=== PATIENT | female | born 1945 | race Caucasian/White ===

== ENCOUNTER 2023-02-15 19:52 | Inpatient (IN) | payer MEDICARE, SELFPAY ==
[2023-02-15] VITALS (20 sets, daily range): BP systolic 90–126; BP diastolic 56–60; PULSE 61–89; RESP 14–34; TEMP 36.3–39.4; O2SAT 90–97; BMI 35.9; BMI 38.5
--- NOTE | 2023-02-15 20:10 | ECG_ITS ---
[facility] Test Date: 2023-02-15 Pat Name: Kellie Barker Department: Room: - Gender: Female Seat Maker: : 1945 Requested By: YAIR SERRATO Order Number: [id number] Reading MD: SENA APARICIO Measurements Intervals [place] Rate: 74 P: 90 RI: 232 QRS: -7 QRSD: 92 T: 18 QT: 344 QTc: 372 Interpretive Statements 1100 Sinus rhythm 2231 First degree AV block 5211 Minimal voltage criteria for LVH, may be normal variant 0102 ARTIFACT PRESENT 9150 abnormal ECG No previous ECG available for comparison Electronically Signed On 02-16-2023 7:09:58 EDT by SENA APARICIO
--- NOTE | 2023-02-15 20:12 | XR_ITS ---
The [address] [address] Patient Name: AYLIN RUBIO MRN: [id number] date: 1945 Sex: F Assigned Patient Location: ER Current Patient Location: ER Accession/Order Number: [id number] Exam Date: 02/15/2023 21:03 Report Date: 02/15/2023 21:48 At the request of: ALVIN TAYLOR Procedure: XR chest 1V ONE-VIEW CHEST RADIOGRAPH, 02/15/2023 9:03 PM EDT COMPARISON: None. CLINICAL HISTORY: Altered mental status Findings and impression: 1. Large hiatus hernia causing some compressive atelectasis in medial basal segment left lower lobe. Lungs otherwise clear. 2. Cardiomegaly. 3. Prior left axillary node dissection. 4. No acute osseous abnormality. Electronically authenticated by: Kit BALDERRAMA Date: 02/15/2023 21:48
--- NOTE | 2023-02-15 20:12 | CT_ITS ---
The [address] [address] Patient Name: AYLIN RUBIO MRN: [id number] date: 1945 Sex: F Assigned Patient Location: ER Current Patient Location: ER Accession/Order Number: [id number] Exam Date: 02/15/2023 21:03 Report Date: 02/15/2023 21:55 At the request of: ALVIN TAYLOR Procedure: CT cervical spine wo con HISTORY: Fall COMPARISON: None TECHNIQUE: Noncontrast CT of the cervical spine was obtained. Sagittal and coronal reformats were obtained. FINDINGS: There is reversal of the normal cervical lordosis of the cervical spine. Vertebral body heights are well maintained. Loss of intervertebral disc space at multiple levels. There is no fracture or subluxation. Moderate endplate degenerative changes throughout the cervical spine. Prevertebral soft tissues are within normal limits. C2-C3: No osseous central canal or foraminal narrowing. C3-C4: Mild osseous central canal narrowing. Moderate left osseous foraminal narrowing. Mild right osseous foraminal narrowing. C4-C5: Mild osseous central canal narrowing. Severe bilateral osseous foraminal narrowing. C5-C6: Mild osseous central canal narrowing. Severe left osseous foraminal narrowing. Moderate right osseous foraminal narrowing. C6-C7: Mild osseous central canal narrowing. Moderate bilateral osseous foraminal narrowing. 6 mm calcification along the inner table of the calvarium, adjacent to the left mastoid air cells. Paravertebral soft tissues are unremarkable. CT/CT cervical spine wo con IMPRESSION: No fracture or subluxation to the cervical spine. Moderate degenerative disc disease of the cervical spine with various degrees of osseous central canal and foraminal narrowing as described above. Electronically authenticated by: MANISH JEFFERSON Date: 02/15/2023 21:55
--- NOTE | 2023-02-15 20:12 | XR_ITS ---
The [address] [address] Patient Name: AYLIN RUBIO MRN: [id number] date: 1945 Sex: F Assigned Patient Location: ER Current Patient Location: ER Accession/Order Number: [id number] Exam Date: 02/15/2023 21:03 Report Date: 02/15/2023 21:47 At the request of: ALVIN TAYLOR Procedure: XR pelvis 1-2V EXAM: XR pelvis 1-2V HISTORY: fall COMPARISON: None. TECHNIQUE: Single supine view of the pelvis FINDINGS: No obvious acute displaced fracture seen. Joint alignment is normal. Joint spaces are preserved. Large volume of stool seen in the visualized colon. Fusion device is seen projecting over the visualized lower lumbar spine. XR/XR pelvis 1-2V IMPRESSION: No obvious radiographic evidence for acute displaced fracture or malalignment seen on this single supine view of the pelvis. Electronically authenticated by: PRECIOUS OLMOS Date: 02/15/2023 21:47
--- NOTE | 2023-02-15 20:12 | CT_ITS ---
The [address] [address] Patient Name: AYLIN RUBIO MRN: [id number] date: 1945 Sex: F Assigned Patient Location: ER Current Patient Location: .MAIN Accession/Order Number: [id number] Exam Date: 02/15/2023 21:03 Report Date: 02/15/2023 21:46 At the request of: ALVIN TAYLOR Procedure: CT head/brain wo con Indication: 77 years year old Female referred for altered mental status Comparison: None Technique: Noncontrast CT of the head was performed. Sagittal and coronal planes were obtained. Findings: The ventricles, cerebral sulci, and basal cisterns are normal for the patient's age. There is no shift in midline structures or focal mass effect. There is no acute transcortical infarction or intraparenchymal hemorrhage. There is no extra-axial fluid collection. There are regions of hypoattenuation within the periventricular white matter, consistent with chronic microvascular ischemic change. Mild mucosal thickening to the maxillary sinuses and anterior ethmoid air cells. There is no depressed calvarial fracture. The orbits are normal. Soft tissues are within normal limits. CT/CT head/brain wo con Impression: No acute intracranial findings. Electronically authenticated by: MANISH JEFFERSON Date: 02/15/2023 21:46
--- NOTE | 2023-02-15 20:14 | ED.GENADUL1 ---
Documented by User: RAAD Kaplan 02/15/23 21:48 HPI - General Adult General Chief complaint: Weakness Stated complaint: GENERAL WEAKNESS Time Seen by Provider: 02/15/23 20:00 Source: family Mode of arrival: Wheelchair History of Present Illness HPI narrative: Patient is a 77-year-old female brought to the emergency department by her granddaughter for increasing altered mental status, weakness. Granddaughter is the primary historian is the patient states she does not know why she is here in the emergency department. Over the last two days, she has had multiple falls and was found by another family member on the bathroom floor yesterday. She does not take blood thinners. She was not noted to have any obvious injury, at this time patient is disoriented to place, time. Patient denies any pain, nausea. She has had no recent illness. She was not noted to have any slurred speech or focal neuro deficits. Related Data Allergies Allergy/AdvReac Type Severity Reaction Status Date / Time No Known Drug Allergies Allergy Verified 02/15/23 20:02 Review of Systems ROS Constitutional Denies: fever or chills Ears, nose, mouth, and throat Denies: throat pain or neck pain Cardiovascular Denies: chest pain Respiratory Denies: shortness of breath or cough Gastrointestinal Denies: nausea or vomiting Musculoskeletal Denies: back pain or neck pain Integumentary/Breast Denies: rash Hematologic/Lymphatic Denies: easy bruising [facility] Social History Smoking status: Never smoker Exam Narrative Exam Narrative: Gen.: Awake, alert, in no distress Head: Normocephalic, atraumatic ENT: Moist mucous membranes, no obvious facial or dental injury Respiratory: No respiratory distress, lungs clear bilaterally Cardio: Regular rate and rhythm Gastrointestinal: Abdomen is soft, nondistended and nontender to palpation, hips are nontender and pelvis stable Extremities: Moves extremities equally, no injuries noted Psych: Normal mood and affect Neuro: Disoriented to place, time. Speech is clear. Patient was all extremities equally, normal dorsiflexion and plantarflexion, normal hip flexion bilaterally. No weakness of the upper extremities. No facial drooping or dysarthria noted. Skin: Warm, dry, intact Constitutional Vital Signs, click to edit/add: Last Vital Signs Temp 102.9 F H 02/15/23 20:33 Pulse 61 02/15/23 22:31 Resp 23 02/15/23 22:31 BP 94/60 02/15/23 22:31 Pulse Ox 97 02/15/23 22:31 O2 Del Method Room Air 02/15/23 19:55 Course Vital Signs Vital signs: Vital Signs Temperature 99.1 F 02/15/23 19:55 Pulse Rate 89 02/15/23 19:55 Respiratory Rate 16 02/15/23 19:55 Blood Pressure 126/56 02/15/23 19:55 Pulse Oximetry 90 L 02/15/23 19:55 Oxygen Delivery Method Room Air 02/15/23 19:55 Temperature 102.9 F H 02/15/23 20:33 Pulse Rate 61 02/15/23 22:31 Respiratory Rate 23 02/15/23 22:31 Blood Pressure 94/60 02/15/23 22:31 Pulse Oximetry 97 02/15/23 22:31 Oxygen Delivery Method Room Air 02/15/23 19:55 Medical Decision Making MDM Narrative Medical decision making narrative: Patient was found to have a rectal temperature 102.9 Fahrenheit. She was treated with IV fluids, oral Tylenol which she tolerated. She was sent for CT of the brain and C-spine due to altered mental status and falls. Lab studies including ammonia, blood cultures were obtained. Urine specimen with no evidence of urinary tract infection at this time. A respiratory panel was added for the patient. Patient also had x-rays of the chest and pelvis. Rocephin added for empiric antibiotic coverage. 2145: Case is turned over to attending physician to review the remainder of diagnostic results and imaging and for disposition. Anticipate admission. Medical Records Medical records reviewed: Yes I reviewed the patient's medical records Lab Data Lab results reviewed: Yes I reviewed the patient's lab results Labs: Lab Results 02/15/23 02/15/23 02/15/23 Range/Units 20:20 20:25 20:45 WBC 18.6 H (4.0-11.0) 10^3/uL RBC 4.28 (4.20-5.40) 10^6/uL Hgb 12.3 (12.0-16.0) g/dL Hct 38.4 (36.0-48.0) % MCV 89.7 (81.0-99.0) fL MCH 28.7 (26.7-34.0) pg MCHC 32.0 (29.9-35.2) g/dL RDW 14.0 (11.0-15.0) % Plt Count 253 (150-450) 10^3/uL MPV 10.4 (9.5-13.5) fL Neut % (Auto) 91.1 H (43.0-75.0) % Lymph % (Auto) 3.6 L (20.5-60.0) % [place] % (Auto) 3.8 (1.7-12.0) % Eos % (Auto) 0.9 (0.9-7.0) % Baso % (Auto) 0.2 (0.2-2.0) % Neut # (Auto) 17.0 H (1.4-6.5) 10^3/uL Lymph # (Auto) 0.7 L (1.2-3.8) 10^3/uL [place] # (Auto) 0.7 (0.3-0.8) 10^3/uL Eos # (Auto) 0.2 (0.0-0.7) 10^3/uL Baso # (Auto) 0.0 (0.0-0.1) 10^3/uL Abs Immat Gran (auto) 0.07 H (0.00-0.03) 10^3/uL Imm/Tot Granulo (auto) 0.4 (0.0-0.5) % PT 10.4 (9.0-11.6) sec INR 0.98 VBG pH 7.457 H (7.330-7.430) VBG pCO2 42.6 (40.0-52.0) mmHg Sodium 131 L (136-145) mmol/L Potassium 3.7 (3.5-5.1) mmol/L Chloride 98 (98-107) mmol/L Carbon Dioxide 27.7 (21.0-32.0) mmol/L Anion Gap 9.0 BUN 24.0 H (7.0-18.0) mg/dL Creatinine 1.57 H (0.55-1.02) mg/dL Est GFR ( Amer) 39 L (>=60) Est GFR (Non-Af Amer) 32 L (>=60) BUN/Creatinine Ratio 15.3 Glucose 208 H (74-106) mg/dL Lactate 1.4 (0.4-2.0) mmol/L Calcium 10.6 H (8.5-10.1) mg/dL Total Bilirubin 0.6 (0.2-1.0) mg/dL AST 18 (15-37) U/L ALT 21 (14-59) U/L Alkaline Phosphatase 93 (46-116) U/L Ammonia 24 (11-32) umol/L Total Creatine Kinase 50 (26-192) U/L Troponin I High Sens 23.5 (4.0-51.3) pg/mL Total Protein 7.5 (6.4-8.2) g/dL Albumin 3.2 L (3.4-5.0) g/dL Globulin 4.3 g/dL Albumin/Globulin Ratio 0.7 TSH 1.067 (0.358-3.740) uIU/mL Urine Color Yellow (YELLOW) Urine Clarity Clear (CLEAR) Urine pH 6.0 (5.0-9.0) Ur Specific [place] 1.020 (1.005-1.025) Urine Protein Negative (NEG/TRACE) mg/dL Urine Glucose (UA) Negative (NEGATIVE) mg/dL Urine Ketones Negative (NEGATIVE) mg/dL Urine Occult Blood Small A (NEGATIVE) Urine Nitrite Negative (NEGATIVE) Urine Bilirubin Negative (NEGATIVE) Urine Urobilinogen 0.2 (0.2-1.0) EU/dL Ur Leukocyte Esterase Negative (NEGATIVE) Urine RBC 10-20 A (0-2) #/HPF Urine WBC 0-2 A (NONE SEEN) #/HPF Ur Squamous Epith Cells Few A (NONE/RARE) #/LPF Urine Crystals Seen A (None Seen) #/HPF Amorphous Sediment Few Urine Bacteria Trace A (NONE SEEN) #/HPF Urine Casts None seen (NONE SEEN) #/LPF Urine Mucus None seen (NONE SEEN) Ur Culture Indicated? No POC Glucose 193 H (74-106) mg/dL Imaging Data CT scan - head: Attestation: I have reviewed the pertinent imaging results. Chest x-ray: Attestation: I have reviewed the pertinent imaging results. Radiologist's impression: AYLIN RUBIO MRN: [facility]:[id number] date: 1945 Sex: F Assigned Patient Location: ER Current Patient Location: ER Accession/Order Number: [id number] Exam Date: 02/15/2023 21:03 Report Date: 02/15/2023 21:41 At the request of: ALVIN TAYLOR Procedure: XR chest 1V Initial impression only. Findings and impression: 1. Large hiatus hernia causing some compressive atelectasis in medial basal segment left lower lobe. Lungs otherwise clear. 2. Cardiomegaly. 3. Prior left axillary node dissection. 4. No acute osseous abnormality. Electronically authenticated by: Kit BALDERRAMA Date: 02/15/2023 21:41 ECG Data Attestation: I personally reviewed and interpreted this ECG as follows: (Normal sinus rhythm at a rate of seventy-four, moderate artifact noted with no acute obvious ST elevation or ectopy. EKG reviewed by attending physician) Discharge Plan Discharge Chief Complaint: Weakness Clinical Impression: Fever, Generalized weakness, Acute confusion Patient Disposition: Admitted as Observation Time of Disposition Decision: 22:45 Condition: Good Documented by User: Nuzhat Weber MD 02/15/23 22:46 HPI - General Adult General Chief complaint: Weakness Stated complaint: GENERAL WEAKNESS Time Seen by Provider: 02/15/23 20:00 Related Data Allergies Allergy/AdvReac Type Severity Reaction Status Date / Time No Known Drug Allergies Allergy Verified 02/15/23 20:02 [facility] Social History Smoking status: Never smoker Exam Constitutional Vital Signs, click to edit/add: Last Vital Signs Temp 102.9 F H 02/15/23 20:33 Pulse 61 02/15/23 22:31 Resp 23 02/15/23 22:31 BP 94/60 02/15/23 22:31 Pulse Ox 97 02/15/23 22:31 O2 Del Method Room Air 02/15/23 19:55 Course Vital Signs Vital signs: Vital Signs Temperature 99.1 F 02/15/23 19:55 Pulse Rate 89 02/15/23 19:55 Respiratory Rate 16 02/15/23 19:55 Blood Pressure 126/56 02/15/23 19:55 Pulse Oximetry 90 L 02/15/23 19:55 Oxygen Delivery Method Room Air 02/15/23 19:55 Temperature 102.9 F H 02/15/23 20:33 Pulse Rate 61 02/15/23 22:31 Respiratory Rate 23 02/15/23 22:31 Blood Pressure 94/60 02/15/23 22:31 Pulse Oximetry 97 02/15/23 22:31 Oxygen Delivery Method Room Air 02/15/23 19:55 Medical Decision Making MDM Narrative Medical decision making narrative: Patient was found to have a rectal temperature 102.9 Fahrenheit. She was treated with IV fluids, oral Tylenol which she tolerated. She was sent for CT of the brain and C-spine due to altered mental status and falls. Lab studies including ammonia, blood cultures were obtained. Urine specimen with no evidence of urinary tract infection at this time. A respiratory panel was added for the patient. Patient also had x-rays of the chest and pelvis. Rocephin added for empiric antibiotic coverage. 2145: Case is turned over to attending physician to review the remainder of diagnostic results and imaging and for disposition. Anticipate admission. Dr Weber : The patient respiratory panel was negative her CT head as well as CT cervical spine x-ray of the pelvis and x-ray of the chest showed no acute pathology The patient presented to us with leukocytosis fever and multiple falls urine does show some bacteria but there is no other signs of infection pt case discussed with Dr. Samayoa and will be admitted as Observation under Dr Ugalde Lab Data Labs: Lab Results 02/15/23 02/15/23 02/15/23 Range/Units 20:20 20:25 20:45 WBC 18.6 H (4.0-11.0) 10^3/uL RBC 4.28 (4.20-5.40) 10^6/uL Hgb 12.3 (12.0-16.0) g/dL Hct 38.4 (36.0-48.0) % MCV 89.7 (81.0-99.0) fL MCH 28.7 (26.7-34.0) pg MCHC 32.0 (29.9-35.2) g/dL RDW 14.0 (11.0-15.0) % Plt Count 253 (150-450) 10^3/uL MPV 10.4 (9.5-13.5) fL Neut % (Auto) 91.1 H (43.0-75.0) % Lymph % (Auto) 3.6 L (20.5-60.0) % [place] % (Auto) 3.8 (1.7-12.0) % Eos % (Auto) 0.9 (0.9-7.0) % Baso % (Auto) 0.2 (0.2-2.0) % Neut # (Auto) 17.0 H (1.4-6.5) 10^3/uL Lymph # (Auto) 0.7 L (1.2-3.8) 10^3/uL [place] # (Auto) 0.7 (0.3-0.8) 10^3/uL Eos # (Auto) 0.2 (0.0-0.7) 10^3/uL Baso # (Auto) 0.0 (0.0-0.1) 10^3/uL Abs Immat Gran (auto) 0.07 H (0.00-0.03) 10^3/uL Imm/Tot Granulo (auto) 0.4 (0.0-0.5) % PT 10.4 (9.0-11.6) sec INR 0.98 VBG pH 7.457 H (7.330-7.430) VBG pCO2 42.6 (40.0-52.0) mmHg Sodium 131 L (136-145) mmol/L Potassium 3.7 (3.5-5.1) mmol/L Chloride 98 (98-107) mmol/L Carbon Dioxide 27.7 (21.0-32.0) mmol/L Anion Gap 9.0 BUN 24.0 H (7.0-18.0) mg/dL Creatinine 1.57 H (0.55-1.02) mg/dL Est GFR ( Amer) 39 L (>=60) Est GFR (Non-Af Amer) 32 L (>=60) BUN/Creatinine Ratio 15.3 Glucose 208 H (74-106) mg/dL Lactate 1.4 (0.4-2.0) mmol/L Calcium 10.6 H (8.5-10.1) mg/dL Total Bilirubin 0.6 (0.2-1.0) mg/dL AST 18 (15-37) U/L ALT 21 (14-59) U/L Alkaline Phosphatase 93 (46-116) U/L Ammonia 24 (11-32) umol/L Total Creatine Kinase 50 (26-192) U/L Troponin I High Sens 23.5 (4.0-51.3) pg/mL Total Protein 7.5 (6.4-8.2) g/dL Albumin 3.2 L (3.4-5.0) g/dL Globulin 4.3 g/dL Albumin/Globulin Ratio 0.7 TSH 1.067 (0.358-3.740) uIU/mL Urine Color Yellow (YELLOW) Urine Clarity Clear (CLEAR) Urine pH 6.0 (5.0-9.0) Ur Specific [place] 1.020 (1.005-1.025) Urine Protein Negative (NEG/TRACE) mg/dL Urine Glucose (UA) Negative (NEGATIVE) mg/dL Urine Ketones Negative (NEGATIVE) mg/dL Urine Occult Blood Small A (NEGATIVE) Urine Nitrite Negative (NEGATIVE) Urine Bilirubin Negative (NEGATIVE) Urine Urobilinogen 0.2 (0.2-1.0) EU/dL Ur Leukocyte Esterase Negative (NEGATIVE) Urine RBC 10-20 A (0-2) #/HPF Urine WBC 0-2 A (NONE SEEN) #/HPF Ur Squamous Epith Cells Few A (NONE/RARE) #/LPF Urine Crystals Seen A (None Seen) #/HPF Amorphous Sediment Few Urine Bacteria Trace A (NONE SEEN) #/HPF Urine Casts None seen (NONE SEEN) #/LPF Urine Mucus None seen (NONE SEEN) Ur Culture Indicated? No POC Glucose 193 H (74-106) mg/dL Discharge Plan Discharge Chief Complaint: Weakness Clinical Impression: Fever, Generalized weakness, Acute confusion Patient Disposition: Admitted as Observation Time of Disposition Decision: 22:45 Condition: Good
[2023-02-15 20:32] LABS: Glucometer 193 mg/dL (74-106)
[2023-02-15 20:36] LABS: PCO2 VBG 42.6 mmHg (40.0-52.0); pH VBG 7.457 (7.330-7.430)
[2023-02-15 20:39] LABS: Basophils Percent Auto 0.2 % (0.2-2.0); Eosinophils Absolute Auto 0.2 10^3/uL (0.0-0.7); Eosinophils Percent Auto 0.9 % (0.9-7.0); Hematocrit 38.4 % (36.0-48.0); Hemoglobin 12.3 g/dL (12.0-16.0); Immature Granulocytes Abs Auto 0.07 10^3/uL (0.00-0.03); Immature Granulocytes Pct Auto 0.4 % (0.0-0.5); Lymphocytes Absolute Auto 0.7 10^3/uL (1.2-3.8); Lymphocytes Percent Auto 3.6 % (20.5-60.0); Mean Corpuscular Hemoglobin 28.7 pg (26.7-34.0); Mean Corpuscular Volume 89.7 fL (81.0-99.0); Mean Platelet Volume 10.4 fL (9.5-13.5); Monocytes Absolute Auto 0.7 10^3/uL (0.3-0.8); Monocytes Percent Auto 3.8 % (1.7-12.0); Neutrophils Percent Auto 91.1 % (43.0-75.0); Platelet Count 253 10^3/uL (150-450); Red Blood Count 4.28 10^6/uL (4.20-5.40); White Blood Count 18.6 10^3/uL (4.0-11.0)
[2023-02-15] MEDS: ACETAMINOPHEN 325 MG TABLET 650 MG PO (20:45)
[2023-02-15] MEDS: 0.9 % SODIUM CHLORIDE 1,000 ML 500 ML IV (20:47)
[2023-02-15 20:53] LABS: Ammonia 24 umol/L (11-32)
[2023-02-15 20:54] LABS: INR 0.98; Prothrombin Time 10.4 sec (9.0-11.6)
[2023-02-15 20:56] LABS: Creatine Kinase 50 U/L (26-192)
[2023-02-15 20:57] LABS: Bilirubin Urine NEGATIVE (NEGATIVE); Blood Urine SMALL (NEGATIVE); Clarity Urine CLEAR (CLEAR); Color Urine YELLOW (YELLOW); Glucose Urine UA NEGATIVE (NEGATIVE); Ketones Urine NEGATIVE (NEGATIVE); Leukocyte Esterase Urine NEGATIVE (NEGATIVE); Nitrite Urine NEGATIVE (NEGATIVE); Protein Urine NEGATIVE (NEG/TRACE); Urobilinogen Urine 0.2 EU/dL (0.2-1.0)
[2023-02-15 20:59] LABS: Lactate/Lactic Acid 1.4 mmol/L (0.4-2.0)
[2023-02-15 21:04] LABS: Urine Microscopic Indicated YES
[2023-02-15 21:07] LABS: Alanine Aminotransferase 21 U/L (14-59); Albumin Globulin Ratio 0.7; Albumin Level 3.2 g/dL (3.4-5.0); Alkaline Phosphatase 93 U/L (46-116); Aspartate Amino Transferase 18 U/L (15-37); BUN Creatinine Ratio 15.3; Bilirubin Total 0.6 mg/dL (0.2-1.0); Calcium 10.6 mg/dL (8.5-10.1); Carbon Dioxide 27.7 mmol/L (21.0-32.0); Chloride 98 mmol/L (98-107); Estimated GFR (African America 39 (>=60); Estimated GFR (Non-African Ame 32 (>=60); Globulin 4.3 g/dL; Glucose 208 mg/dL (74-106); Potassium 3.7 mmol/L (3.5-5.1); Sodium 131 mmol/L (136-145); Thyroid Stimulating Hormone 1.067 uIU/mL (0.358-3.740); Total Protein 7.5 g/dL (6.4-8.2); Troponin I High Sensitivity 23.5 pg/mL (4.0-51.3)
[2023-02-15 21:35] LABS: Bacteria Urine TRACE #/HPF (NONE SEEN); Crystals Seen? Seen #/HPF (None Seen); Mucus Urine NONE SEEN (NONE SEEN); Squamous Epithelial Cell Urine FEW #/LPF (NONE/RARE); WBC Urine 0-2 #/HPF (NONE SEEN)
[2023-02-15 21:35] LABS: Adenovirus NOT DETECTED (NOT DETECTE); Bordetella parapertussis NOT DETECTED (NOT DETECTE); Coronavirus 229E NOT DETECTED (NOT DETECTE); Coronavirus HKU1 NOT DETECTED (NOT DETECTE); Coronavirus NL63 NOT DETECTED (NOT DETECTE); Coronavirus OC43 NOT DETECTED (NOT DETECTE); Human Metapneumovirus NOT DETECTED (NOT DETECTE); Human Rhinovirus/Enterovirus NOT DETECTED (NOT DETECTE); Influenza A NOT DETECTED (NOT DETECTE); Influenza B NOT DETECTED (NOT DETECTE); Mycoplasma pneumoniae NOT DETECTED (NOT DETECTE); Parainfluenza Virus 1 NOT DETECTED (NOT DETECTE); Parainfluenza Virus 2 NOT DETECTED (NOT DETECTE); Parainfluenza Virus 3 NOT DETECTED (NOT DETECTE); Parainfluenza Virus 4 NOT DETECTED (NOT DETECTE); Respiratory Syncytial Virus NOT DETECTED (NOT DETECTE); SARS-CoV-2 NOT DETECTED (NOT DETECTE)
[2023-02-15 21:36] LABS: Amorphous Sediment Urine FEW; Cast Seen? NONE SEEN #/LPF (NONE SEEN); Urine Culture Indicated NO
[2023-02-15] MEDS: CEFTRIAXONE 1,000 MG in 0.9 % SODIUM CHLORIDE 50 ML 100 MG IV (21:57)
[2023-02-15] MEDS: 0.9 % SODIUM CHLORIDE 1,000 ML 1000 ML IV (22:53)
--- NOTE | 2023-02-15 23:51 | PC.NURSE ---
some small cuts and scabs on lower legs
[2023-02-16] VITALS (14 sets, daily range): BP systolic 80–131; BP diastolic 50–80; PULSE 56–78; RESP 18–22; TEMP 36.3–36.7; O2SAT 92–96
--- NOTE | 2023-02-16 00:40 | P.PN_ITS ---
Progress Note: Subjective Subjective Interval history: PT is a 77F with PMH of breast cancer, s/p mastectomy and PARAMJIT who presents to the ED with complaint of Fever, weakness, falls, and confusion at home. Her temperature was 102.9 in the ED. Pt was noted to be hypotensive, with elevated WBC and Creatinine. She states that she has had no exposure to sick contacts, no recent travel, no rashes, no night sweats or unintentional weight loss, no leg swelling or immobility, no cough, no chills, no dysuria, no abdominal or back pain, no hematuria. She denies being short of breath, but her daughter states that she does seem short of breath and per nurse at bedside she required 2L NC for Pulse ox of 88%. The patient does report urinary frequency, but states that this is a chronic issue due to longstanding incontinence. Exam Narrative Exam Narrative: GEn: NAD HEENT: NC/AT, PEERL Neck: FROM Cards: RRR, no murmur Pulm: CTA B/L. No wheezes or rhonchi GI: Nontender. Normoactive BS Musculoskeletal: No edema or cyanoiss Neuro: AAOx3 Psych: Calm, cooperative Constitutional Vital Signs, click to edit/add: Last Vital Signs Temp 97.4 F L 02/15/23 23:37 Pulse 62 02/15/23 23:37 Resp 18 02/15/23 23:37 BP 90/60 02/15/23 23:37 Pulse Ox 94 L 02/15/23 23:37 O2 Del Method Nasal Cannula 02/15/23 23:37 O2 Flow Rate 2 02/15/23 23:37 Progress Note: Objective Labs Labs: Short CBC 02/15/23 Range/Units 20:25 WBC 18.6 H (4.0-11.0) 10^3/uL Hgb 12.3 (12.0-16.0) g/dL Hct 38.4 (36.0-48.0) % Plt Count 253 (150-450) 10^3/uL BMP 02/15/23 20:25 Sodium 131 L Potassium 3.7 Chloride 98 Carbon Dioxide 27.7 BUN 24.0 H Creatinine 1.57 H Glucose 208 H Calcium 10.6 H Cardiac Enzymes 02/15/23 Range/Units 20:25 Total Creatine Kinase 50 (26-192) U/L Liver Function 02/15/23 Range/Units 20:25 Total Bilirubin 0.6 (0.2-1.0) mg/dL AST 18 (15-37) U/L ALT 21 (14-59) U/L Alkaline Phosphatase 93 (46-116) U/L Albumin 3.2 L (3.4-5.0) g/dL Urine 02/15/23 Range/Units 20:45 Urine Color Yellow (YELLOW) Urine Clarity Clear (CLEAR) Urine pH 6.0 (5.0-9.0) Ur Specific [place] 1.020 (1.005-1.025) Urine Protein Negative (NEG/TRACE) mg/dL Urine Glucose (UA) Negative (NEGATIVE) mg/dL Progress Note: A&P Assessment and Plan (1) SIRS (systemic inflammatory response syndrome): Assessment and Plan: Pt meets criteria for SIRS but no suspected source of infection UA with some bacteria, no LE or nitrites CXR negative Respiratory viral panel negative CTH negative Pt offers no specific complaint which would point to any infection Will place in observation Continue IV Fluid and empiric antibiotics Supplemental oxygen as needed DVT ppx Regular diet (2) Generalized weakness: (3) Fever: Telemedicine Attestation Telemedicine Attestation I conducted this encounter from [[place]] via secure live, [id number] video conference with the patient, located at [facility] with [nurse]. Prior to the interview, the risks and benefits of telemedicine were discussed with the patient and verbal consent was obtained.
[2023-02-16] MEDS: HEPARIN SODIUM (PORCINE) 5,000 UNIT/ML VIAL 5000 UNIT SUBQ ×3 (01:53→19:01)
[2023-02-16] MEDS: 0.9 % SODIUM CHLORIDE 1,000 ML 100 ML IV (01:53)
[2023-02-16 05:01] LABS: Basophils Percent Auto 0.2 % (0.2-2.0); Eosinophils Absolute Auto 0.3 10^3/uL (0.0-0.7); Eosinophils Percent Auto 1.7 % (0.9-7.0); Hematocrit 35.1 % (36.0-48.0); Hemoglobin 11.4 g/dL (12.0-16.0); Immature Granulocytes Abs Auto 0.07 10^3/uL (0.00-0.03); Immature Granulocytes Pct Auto 0.4 % (0.0-0.5); Lymphocytes Absolute Auto 1.8 10^3/uL (1.2-3.8); Lymphocytes Percent Auto 10.9 % (20.5-60.0); Mean Corpuscular HGB Conc 32.5 g/dL (29.9-35.2); Mean Corpuscular Hemoglobin 29.4 pg (26.7-34.0); Mean Corpuscular Volume 90.5 fL (81.0-99.0); Mean Platelet Volume 11.4 fL (9.5-13.5); Monocytes Absolute Auto 0.8 10^3/uL (0.3-0.8); Monocytes Percent Auto 4.5 % (1.7-12.0); Neutrophils Absolute Auto 13.7 10^3/uL (1.4-6.5); Neutrophils Percent Auto 82.3 % (43.0-75.0); Platelet Count 195 10^3/uL (150-450); Red Blood Count 3.88 10^6/uL (4.20-5.40); Red Cell Distribution Width 14.1 % (11.0-15.0); White Blood Count 16.7 10^3/uL (4.0-11.0)
[2023-02-16 05:03] LABS: Anion Gap 12.1; BUN Creatinine Ratio 15.2; Calcium 9.8 mg/dL (8.5-10.1); Carbon Dioxide 28.3 mmol/L (21.0-32.0); Chloride 99 mmol/L (98-107); Estimated GFR (African America 35 (>=60); Estimated GFR (Non-African Ame 29 (>=60); Glucose 120 mg/dL (74-106); Magnesium 1.8 mg/dL (1.8-2.4); Potassium 3.4 mmol/L (3.5-5.1); Sodium 136 mmol/L (136-145)
[2023-02-16] MEDS: GABAPENTIN 300 MG CAPSULE PO ×2 (09:27→21:08)
[2023-02-16] MEDS: OMEPRAZOLE 20 MG CAPSULE.DR PO ×2 (09:28→21:08)
[2023-02-16] MEDS: PAROXETINE HCL 20 MG TABLET PO (09:28)
[2023-02-16] MEDS: POTASSIUM CHLORIDE 10 MEQ ER TABLET 40 MEQ PO (09:28)
--- NOTE | 2023-02-16 10:02 | CT_ITS ---
The [address] [address] Patient Name: AYLIN RUBIO MRN: [id number] date: 1945 Sex: F Assigned Patient Location: MS Current Patient Location: MS Accession/Order Number: [id number] Exam Date: 02/16/2023 11:00 Report Date: 02/16/2023 12:07 At the request of: SHAIKH PACHECO Procedure: CT chest wo con EXAMINATION: CT chest wo con HISTORY: SOB/pneumonia , low pulse oxygenation when standing COMPARISON: No relevant comparison available. TECHNIQUE: Multi-planar CT images were obtained without and/or with IV contrast as indicated by examination type. Axial, Coronal, and Sagittal images. Dose reduction techniques were achieved by using automated exposure control and/or adjustment of mA and/or kV according to patient size and/or use of iterative reconstruction technique. FINDINGS: LUNGS: Mild atelectasis within medial left lung base likely passive atelectasis secondary to the large hiatal hernia. Mild scarring within lung bases bilaterally, and mild emphysematous changes. PLEURA: No mass, effusion, or pneumothorax. VASCULATURE: No abnormality. DANNI: No mass or adenopathy. MEDIASTINUM: Lobular 2.7 cm mass within upper anterior mediastinum. Large hiatal hernia within the lower posterior mediastinum containing approximately one half of the stomach. CARDIAC: No enlargement, pericardial thickening, or significant calcification. AORTA: No aneurysm or dissection. CHEST WALL: Numerous surgical clips within left axilla. No mass or axillary adenopathy. BONES: No bone lesion or fracture. LIMITED ABDOMEN: No suspicious findings Limited images of the upper abdomen. OTHER: Negative. CT/CT chest wo con IMPRESSION: 1. Mild/moderate atelectasis within left lung base adjacent the large hiatal hernia. Infectious infiltrate is felt less likely. 2. No pleural effusion or pneumothorax. 3. Nonspecific 2.7 cm lobular mass within anterior upper mediastinum; enlarged lymph node versus mass versus residual thymus. Comparison to prior studies if available at another institution is recommended. Otherwise consider follow-up CT with IV contrast in 1-2 months to document stability versus change. If there is known malignancy PET imaging should be performed. Electronically authenticated by: AJ OH Date: 02/16/2023 12:07
--- NOTE | 2023-02-16 10:22 | SWNOTE1 ---
SW received message from case management in regards to pt needing home health. SW spoke with pt and daughter in room. Pt lives at home and has support from family who check on her. Pt uses a walker at home. SW reviewed the services of home health with pt and daughter. Daughter was on phone with other family during conversation. SW provided list from medicare.gov with star ratings for pt and daughter to review. SW to stop back in to see what company is decided. Possible need for home oxygen as well, but uncertain at this time.
--- NOTE | 2023-02-16 10:49 | P.HP_ITS ---
H&P: HPI History of Present Illness Chief complaint: Confusion/generalized weakness Narrative: 77 y o female reports feeling unsteady on her feet, weak and tired x 2-3 days. She reports poor PO intake, SOB on exertion but denies cough. She denies nausea,vomiting, abdominal pain, diarrhea or urinary complaints. She also denies being around anyone sick. Patient last evening fell face forward due to orthostasis while picking up her laundry. She was then also noted to be very confused, weak and nothing like her usual self. Patient was brought to ED via private vehicle. She lives at home with her sister. Drives and uses walker to ambulate Patient this morning report feeling much better. She is still SOB on exertion but feels stable on her feet, denies orthostasis. She is maintaining her sats at rest but drops down to 86% on minimal ambulation. Review of Systems ROS Status of ROS 10 or more systems reviewed and unremarkable except as noted in history and below [facility] Medical History (Updated 02/16/23 @ 11:05 by Shaikh Aftab MD) Surgical History (Updated 02/16/23 @ 10:54 by Shaikh Aftab MD) Family History (Updated 02/15/23 @ 23:17 by Fanny Pino RN) Mother Family history of CHF (congestive heart failure) Family history of cancer Family history of hypertension Sister Family history of COPD (chronic obstructive pulmonary disease) Father Family history of COPD (chronic obstructive pulmonary disease) Brother Family history of diabetes mellitus Family history of stroke Social History (Updated 02/15/23 @ 23:19 by Fanny Pino RN) Within the past year, how often did you have a drink containing alcohol: never Score interpretation: A score less than 3 is consistent with normal alcohol consumption. Smoking status: Never smoker Non-prescribed substance use: denies use Highest level of school completed/degree received: 11th grade In a typical week, how many times do you talk on the telephone with family, friends, or neighbors: 3 or more times per week How often do you get together with friends or relatives: 3 or more times per week Little interest or pleasure in doing things: not at all Feeling down, depressed, or hopeless: not at all Feel stressed/tense/nervous/anxious/difficulty sleeping: not at all Do you think of yourself as: straight/heterosexual Gender Identity: female Meds Home Medications and Allergies Home Medications Medication Instructions Recorded Confirmed Type baclofen 10 mg tablet 10 mg PO BEDTIME 02/15/23 02/16/23 History calcium carbonate-vitamin D3 1 tab PO DAILY 02/15/23 02/16/23 History carvedilol 12.5 mg tablet 12.5 mg PO BID 02/15/23 02/16/23 History gabapentin 300 mg capsule 300 mg PO BID 02/15/23 02/16/23 History lisinopril 10 mg tablet 10 mg PO DAILY 02/15/23 02/16/23 History meloxicam 15 mg tablet 15 mg PO DAILY 02/15/23 02/16/23 History omeprazole 20 mg capsule,delayed 20 mg PO BID 02/15/23 02/16/23 History release paroxetine HCl 20 mg tablet 20 mg PO DAILY 02/15/23 02/16/23 History simvastatin 40 mg tablet 40 mg PO BEDTIME 02/15/23 02/16/23 History triamterene 37.5 1 tab PO DAILY 02/15/23 02/16/23 History mg-hydrochlorothiazide 25 mg tablet Allergies Allergy/AdvReac Type Severity Reaction Status Date / Time iodine Allergy Verified 02/16/23 09:33 Exam Constitutional Vital Signs, click to edit/add: Last Vital Signs Temp 97.6 F 02/16/23 09:42 Pulse 56 L 02/16/23 09:48 Resp 18 02/16/23 09:42 BP 80/50 L 02/16/23 09:42 Pulse Ox 94 L 02/16/23 09:42 O2 Del Method Nasal Cannula 02/16/23 09:42 O2 Flow Rate 2 02/16/23 09:42 Documenting provider has reviewed patient's vital signs: yes Common normals: no apparent distress and oriented x3 General appearance: cooperative HENMT Common normals: normocephalic and head/scalp atraumatic Head and scalp: normocephalic and atraumatic Eye Common normals: conjunctivae normal and no scleral icterus Conjunctiva: conjunctiva(e) normal Respiratory Common normals: normal respiratory effort Effort & inspection: able to speak in complete sentences Auscultation: rhonchi right lower Cardio Common normals: regular rate, S1 normal heart sound and S2 normal heart sound Rate: regular rate Heart sounds: S1 normal and S2 normal GI Common normals: Normal to inspection, nondistended, normoactive bowel sounds present, soft to palpation, non-tender and no hepatosplenomegaly Palpation: soft and no hepatosplenomegaly Extremity Common normals: normal to inspection, full ROM and no clubbing, cyanosis or edema Neuro Common normals: oriented x3, moves all extremities and no focal motor deficits Psych Common normals: mental status grossly normal, denies hallucinations, denies homicidal ideation and denies suicidal ideation Results Labs Labs: Short CBC 02/15/23 02/16/23 Range/Units 20:25 04:35 WBC 18.6 H 16.7 H (4.0-11.0) 10^3/uL Hgb 12.3 11.4 L (12.0-16.0) g/dL Hct 38.4 35.1 L (36.0-48.0) % Plt Count 253 195 (150-450) 10^3/uL BMP 02/15/23 02/16/23 20:25 04:35 Sodium 131 L 136 Potassium 3.7 3.4 L Chloride 98 99 Carbon Dioxide 27.7 28.3 BUN 24.0 H 26.0 H Creatinine 1.57 H 1.71 H Glucose 208 H 120 H Calcium 10.6 H 9.8 Cardiac Enzymes 02/15/23 Range/Units 20:25 Total Creatine Kinase 50 (26-192) U/L Liver Function 02/15/23 Range/Units 20:25 Total Bilirubin 0.6 (0.2-1.0) mg/dL AST 18 (15-37) U/L ALT 21 (14-59) U/L Alkaline Phosphatase 93 (46-116) U/L Albumin 3.2 L (3.4-5.0) g/dL Urine 02/15/23 Range/Units 20:45 Urine Color Yellow (YELLOW) Urine Clarity Clear (CLEAR) Urine pH 6.0 (5.0-9.0) Ur Specific [place] 1.020 (1.005-1.025) Urine Protein Negative (NEG/TRACE) mg/dL Urine Glucose (UA) Negative (NEGATIVE) mg/dL ABG ABG results: 02/15/23 20:25 VBG pH 7.457 H VBG pCO2 42.6 Assessment and Plan Assessment and Plan (1) Septic shock: Assessment and Plan: SIRS (WBC > 16K, Temp 102) with persistent hypotension despite IV resuscitation (received 2 L bolus in ED and was in maintenance fluids overnight) and possible source of infection is Pneumonia Will order one L NS bolus and then start on LR at 125 ml/hr. Multi organ failure - MILLER, metabolic encephalopathy and resp failure with hypoxia. 2D ECHO to make sure no sig cardiac structural abnormality. (2) Sepsis: Assessment and Plan: Sepsis with multiorgan failure and persistent hypotension One L IV NS ordered. Will treat for PNA - IV rocephin/Azithromycin CT chest ordered as CXR normal but patient has resp symptoms, abnormal lung exam and hypoxia so liklely underlying PNA is the reason for her presentation Qualifiers: Sepsis type: sepsis due to unspecified organism Sepsis acute organ dysfunction status: with acute organ dysfunction Severe sepsis acute organ dysfunction type: acute respiratory failure Acute respiratory failure type: with hypoxia (3) Acute respiratory failure with hypoxia: Assessment and Plan: Acute resp failure with hypoxia. Initially was requring O2 at rest, but now just on exertion. No chronic lung disease. Does not use O2 at home. Patient is in no resp distress. (4) Metabolic encephalopathy: Assessment and Plan: p/w confusion due to sepsis. Back to her baseline now. CT head is negative. (5) Pneumonia: Assessment and Plan: CT chest ordered as CXR normal but patient has resp symptoms, abnormal lung exam and hypoxia so liklely underlying PNA is the reason for her presentation Being treated empirically for CAP with rocephin/azithroymcin (6) MILLER (acute kidney injury): Assessment and Plan: Worsening MILLER despite hydration. Increase IVF rate to 125. Ordered one L bolus of NS. (7) HTN (hypertension): Assessment and Plan: Currently she is hypotension due to shock. Hold all antihypertensives. (8) HLD (hyperlipidemia): Assessment and Plan: C/w simvastatin (9) Fall: Assessment and Plan: Fall at home, likely due to hypotension. No fx/dislocation on imaging. CT head normal No LOC. Plan Changed to inpatient as septic shock with multi organ failure. Patient is unstable with persistent hypotension//hemodynamic instability and at high risk of poor clinical progress/outcome.
--- NOTE | 2023-02-16 11:07 | CA_ITS ---
Patient: AYLIN RBUIO Exam Date: 02/16/2023 : 1945 Gender:F Ordering : SHAIKH Selina BERGMAN . Admission #: [id number] Family : JUAN ALANIS Order #: [id number] CLICK HERE TO VIEW EXAM ECHOCARDIOGRAM REPORT PROCEDURE: CA ECHO DOPPLER COMPLETE INDICATIONS: Shock/SOB COMPARISON: None. DESCRIPTION: COMPLETE ECHOCARDIOGRAM Real-time transthoracic echocardiography with 2D, M-mode, spectral and color flow Doppler performed. QUALITY: Technical quality was good. LEFT VENTRICLE: Normal chamber size. Normal left ventricular wall thickness. Global left ventricular systolic function is normal. LV EF: Calculated left ventricular ejection fraction is 69% DIASTOLIC: Normal diastolic function. ATRIAL SEPTUM: LEFT ATRIUM: Normal chamber size. RIGHT ATRIUM: Mild dilatation. RIGHT VENTRICLE: Normal chamber size. Normal right ventricular systolic function. TRICUSPID VALVE: Normal mobility and thickness. No stenosis with trivial regurgitation. No evidence of pulmonary hypertension. RVSP 34 mmHg MITRAL VALVE: Normal mobility and thickness. No evidence of mitral valve stenosis. There is no mitral annular calcification. Trivial mitral regurgitation. AORTIC VALVE: Normal trileaflet appearance. No visible sclerosis. Normal leaflet mobility. No evidence of aortic valve stenosis. No aortic regurgitation. AORTIC ROOT: Normal diameter and appearance. Normal size ascending aorta measuring 3.6 cm. PULMONIC VALVE: Normal thickness and mobility. No stenosis. No regurgitation. PERICARDIUM: No evidence of pericardial effusion. IVC: Collapses with inspirations. PLEURA: CONCLUSION: 1. Normal left ventricular systolic function. LVEF is 65 to 70%. 2. Normal right ventricular size and systolic function. 3. Normal diastolic function. 4. No significant valvular dysfunction. 5. Normal right-sided pressures. 6. No pericardial effusion. Adult Echocardiography Procedure Report Left Ventricle LVEDD (3.7 - 5.6 cm): 4.49 cm LVESD (2.2 - 4.0 cm): 2.98 cm LVIVS thickness (0.6 - 1.2 cm): 0.95 cm LVPW thickness (0.5 - 1.0 cm): 0.80 cm e': 0.12 m/s E - e': 6.88 LVOT Max Gradient: 4.67 mm[Hg] LVOT Area (cm2): 1.08 m/s Peak Velocity (LVOT): 1.08 m/s Mean Velocity (LVOT): 0.76 m/s LVOT Diameter 1.84 cm Left Ventricular Ejection Fraction: 68.68 % Left Atrium LA Volume Index (2D A2C): 31.80 ml/m2 Left Atrium Systolic Dimension: 3.57 cm Mitral Valve MV E to A Ratio: 1.51 Mitral Valve A-Wave Peak Velocity: 0.54 m/s Mitral Valve E-Wave Peak Velocity: 0.81 m/s Right Ventricle RV Internal Diastolic Dimension: 3.92 cm Aorta AO Root Diam: 3.08 cm Ascending Ao Diam: 3.57 cm Aortic Valve AoV Area (Peak Jayden): 1.99 cm2, 1.99 cm2 AoV Area (VTI): 1.97 cm2, 1.97 cm2 Peak Velocity(Antegrade Flow): 1.44 m/s Peak Gradient(Antegrade Flow): 8.30 mm[Hg] Mean Velocity(Antegrade Flow): 1.00 m/s Mean Gradient(Antegrade Flow): 4.57 mm[Hg] Velocity Time Integral: 29.11 cm Tricuspid Valve Peak Velocity (Regurgitant Flow): 2.78 m/s, 2.66 m/s, 2.72 m/s Pulmonic Valve Mean Gradient: 2.59 mm[Hg], 2.19 mm[Hg] Mean Velocity: 0.78 m/s, 0.70 m/s Peak Velocity: 1.03 m/s Peak Gradient: 4.39 mm[Hg], 4.10 mm[Hg] Right Atrium Right Atrium Systolic Pressure: 46.84 ml, 46.84 ml Dictated by: David Gonsalez M.D. on 02/16/2023 at 20:03 Approved by: David Gonsalez M.D. on 02/16/2023 at 20:06
[2023-02-16 11:08] LABS: Glucometer 237 mg/dL (74-106)
--- NOTE | 2023-02-16 11:16 | CM.NOTE ---
Rounds made with Dr. Ugalde, discussed plan of care with pt and need for CT of chest d/t decreased oxygen level. Pt does not wear home oxygen.
--- NOTE | 2023-02-16 11:51 | SWNOTE1 ---
SW spoke with pt and daughter and they have decided on [facility], referral sent.
[2023-02-16] MEDS: AZITHROMYCIN 250 MG TABLET 500 MG PO (12:27)
[2023-02-16] MEDS: 0.9 % SODIUM CHLORIDE 1,000 ML 1000 ML IV ×2 (12:27→13:34)
[2023-02-16] MEDS: INSULIN ASPART 300 UNIT/3 ML PEN SUBQ (12:35)
[2023-02-16] MEDS: LACTATED RINGER'S SOLUTION 1,000 ML 125 ML IV ×2 (14:41→22:48)
--- NOTE | 2023-02-16 14:44 | SWNOTE1 ---
[facility] able to accept.
[2023-02-16 16:13] LABS: Glucometer 102 mg/dL (74-106)
--- NOTE | 2023-02-16 16:33 | CM.NOTE ---
Important Message From Medicare discussed with pt, pt verbalizes understanding and signs paper. Original given to pt and copy placed on pt's chart.
--- NOTE | 2023-02-16 19:31 | RESP.RT ---
No PRN breathing tx given. Pt denies need. No respiratory distress noted.
[2023-02-16] MEDS: ATORVASTATIN CALCIUM 20 MG TABLET PO (21:08)
[2023-02-16 21:09] LABS: Glucometer 119 mg/dL (74-106)
[2023-02-16] MEDS: CEFTRIAXONE 1,000 MG in 0.9 % SODIUM CHLORIDE 50 ML 100 MG IV (21:09)
[2023-02-17] VITALS (12 sets, daily range): BP systolic 110–160; BP diastolic 66–80; PULSE 60–76; RESP 18; TEMP 36.8–36.9; O2SAT 86–97
[2023-02-17] MEDS: HEPARIN SODIUM (PORCINE) 5,000 UNIT/ML VIAL 5000 UNIT SUBQ ×2 (00:16→10:33)
[2023-02-17 04:58] LABS: Basophils Percent Auto 0.3 % (0.2-2.0); Eosinophils Absolute Auto 0.7 10^3/uL (0.0-0.7); Eosinophils Percent Auto 6.6 % (0.9-7.0); Hematocrit 33.4 % (36.0-48.0); Hemoglobin 10.8 g/dL (12.0-16.0); Immature Granulocytes Abs Auto 0.04 10^3/uL (0.00-0.03); Immature Granulocytes Pct Auto 0.4 % (0.0-0.5); Lymphocytes Absolute Auto 1.4 10^3/uL (1.2-3.8); Lymphocytes Percent Auto 13.9 % (20.5-60.0); Mean Corpuscular HGB Conc 32.3 g/dL (29.9-35.2); Mean Corpuscular Hemoglobin 28.9 pg (26.7-34.0); Mean Corpuscular Volume 89.3 fL (81.0-99.0); Mean Platelet Volume 10.4 fL (9.5-13.5); Monocytes Absolute Auto 0.5 10^3/uL (0.3-0.8); Neutrophils Absolute Auto 7.5 10^3/uL (1.4-6.5); Neutrophils Percent Auto 73.8 % (43.0-75.0); Platelet Count 261 10^3/uL (150-450); Red Blood Count 3.74 10^6/uL (4.20-5.40); Red Cell Distribution Width 13.8 % (11.0-15.0); White Blood Count 10.2 10^3/uL (4.0-11.0)
[2023-02-17 05:14] LABS: Alanine Aminotransferase 21 U/L (14-59); Albumin Globulin Ratio 0.6; Albumin Level 2.5 g/dL (3.4-5.0); Alkaline Phosphatase 85 U/L (46-116); Anion Gap 10.7; Aspartate Amino Transferase 18 U/L (15-37); BUN Creatinine Ratio 16.2; Bilirubin Total 0.2 mg/dL (0.2-1.0); Calcium 9.3 mg/dL (8.5-10.1); Carbon Dioxide 26.2 mmol/L (21.0-32.0); Chloride 105 mmol/L (98-107); Estimated GFR (African America >60 (>=60); Estimated GFR (Non-African Ame 51 (>=60); Globulin 4.1 g/dL; Glucose 118 mg/dL (74-106); Potassium 3.9 mmol/L (3.5-5.1); Sodium 138 mmol/L (136-145); Total Protein 6.6 g/dL (6.4-8.2)
[2023-02-17] MEDS: LACTATED RINGER'S SOLUTION 1,000 ML 125 ML IV (06:46)
[2023-02-17] MEDS: OMEPRAZOLE 20 MG CAPSULE.DR PO (09:08)
[2023-02-17] MEDS: AZITHROMYCIN 250 MG TABLET 500 MG PO (09:08)
[2023-02-17] MEDS: GABAPENTIN 300 MG CAPSULE PO (09:08)
[2023-02-17] MEDS: PAROXETINE HCL 20 MG TABLET PO (09:08)
--- NOTE | 2023-02-17 09:55 | PT.DAILY ---
Physical Therapy Daily Note PT Daily Note/Assess Start: 02/17/23 09:48 Freq: Status: Active Protocol: Document 02/17/23 09:48 SHERRY (Rec: 02/17/23 09:54 SHERRY [id number]) Physical Therapy Daily Note/Assessment Time In/Time Out Time In 09:00 Time Out 09:28 Pain In Pain N/A Pain Out Pain N/A Subjective Subjective Pt standing in restroom upon arrival. Wishes to take shower at this time. [employer] agrees to assist with shower this morning for a functional activity. Therapeutic Activity Time Therapeutic Activity Minutes (minutes) 25 Therapeutic Activity Units 2 Therapeutic Activity Treatment Chair Transfer Ability Standby Assistance Therapeutic Activity Comments Pt needs assistance to untie/ doff gown but is able to doff brief and socks IND while sitting on shower chair. Tele cords are removed from pt. Pt need assistance washing hair and back ( her R hand is covered as IV port is in it). Pt able to wash upper body, periarea, and legs without assistance - set up only. Pt needs assistance to dry back and remove bag thats covering R hand. Pt able to dry off the rest of her body and daniel brief. Needs assistance for socks and to tie clean gown. SPO2 95% after shower. Pt then amb in rojo 100' with RW, SUP only. NO LOB but reports increased pain in R knee as this is bone on bone. Pt returned to BS chair upon completion. Nursing notified that her tele will need hooked up. Chair alarm is set. Daughter present. Total Physical Therapy Time Total Therapy Minutes 25 Total Physical Therapy Units 2 Summary Daily Note Summary SpO2 95% with min SOB after taking her shower. Improved gait endurance but this does increased R knee pain with weight bearing.
[2023-02-17 11:03] LABS: Glucometer 140 mg/dL (74-106)
--- NOTE | 2023-02-17 14:02 | PM.DS1 ---
DS: Providers Provider Date of admission: 02/16/23 11:10 Primary care physician: YAIR SERRATO Consults: 02/16/23 00:47 Physical Therapy Eval and Treat Routine 02/16/23 07:56 Occupational Therapy Eval and Treat Routine DS: Diagnosis Discharge Diagnosis (1) Septic shock: Assessment and plan: Resolved. Stable hemodynamics. Did not require IV pressors but needed aggressive IV hydration (2) Sepsis: Assessment and plan: Stable hemodynamics. Treated with rocephin/azithromycin for PNA Will d/c on oral Ceftin Qualifiers: Sepsis type: sepsis due to unspecified organism Sepsis acute organ dysfunction status: with acute organ dysfunction Severe sepsis acute organ dysfunction type: acute respiratory failure Acute respiratory failure type: with hypoxia (3) Acute respiratory failure with hypoxia: Assessment and plan: Resolved. back to baseline. on RA (4) Metabolic encephalopathy: Assessment and plan: Back to baseline. No more confusion (5) Pneumonia: Assessment and plan: No resp symptoms now. Will d/c on oral Ceftin (6) MILLER (acute kidney injury): Assessment and plan: Resolved with hydration. (7) HTN (hypertension): Assessment and plan: Hold anti hypertensive on d/c Monitor BP at home. If persistently above 130/90, resume lisinopril. Patient to f/u with PCP for him to review her Home BP log and adjust medications as needed. (8) HLD (hyperlipidemia): Assessment and plan: c/w statin (9) Fall: Assessment and plan: No Fx, no acute intracranial pathology. DS: Summary Hospital Course Hospital Course: 77 y o female presented with feeling weak, unsteady, SOB, change in mental status was admitted for septic shock sec to PNA. She received aggressive IV hydration, IV Rocephin/azithromycin with improvement in her clinical status. This morning she was back to her baseline and had no active complaints to offer. f Will d/c on oral ceftin for 5 days. Patient asked to stop her anti hypertensives and maintain home BP log and have her PCP decide if she can be started on her anti hypertensives based on home BP log Status at Discharge Functional status at discharge: uses cane/walker Overall status at discharge: patient is back to baseline Time Spent with Patient Time attestation: Total time spent providing and/or coordinating discharge services: Time spent: greater than 30 minutes Exam Constitutional Vital Signs, click to edit/add: Last Vital Signs Temp 98.3 F 02/17/23 13:49 Pulse 71 02/17/23 13:49 Resp 18 02/17/23 13:49 BP 160/80 H 02/17/23 13:49 Pulse Ox 94 L 02/17/23 13:49 O2 Del Method Room Air 02/17/23 13:49 O2 Flow Rate 1 02/17/23 04:47 Documenting provider has reviewed patient's vital signs: yes Common normals: no apparent distress and oriented x3 General appearance: cooperative HENMT Common normals: normocephalic and head/scalp atraumatic Head and scalp: normocephalic and atraumatic Eye Common normals: conjunctivae normal and no scleral icterus Conjunctiva: conjunctiva(e) normal Respiratory Common normals: normal respiratory effort Effort & inspection: able to speak in complete sentences Auscultation: rhonchi right lower Cardio Common normals: regular rate, S1 normal heart sound and S2 normal heart sound Rate: regular rate Heart sounds: S1 normal and S2 normal GI Common normals: Normal to inspection, nondistended, normoactive bowel sounds present, soft to palpation, non-tender and no hepatosplenomegaly Palpation: soft and no hepatosplenomegaly Extremity Common normals: normal to inspection, full ROM and no clubbing, cyanosis or edema Neuro Common normals: oriented x3, moves all extremities and no focal motor deficits Psych Common normals: mental status grossly normal, denies hallucinations, denies homicidal ideation and denies suicidal ideation DS: Data Data Completed and Pending Labs on day of discharge: Labs from last 24 hours 02/17/23 02/17/23 02/16/23 11:02 04:33 21:07 WBC 10.2 RBC 3.74 L Hgb 10.8 L Hct 33.4 L MCV 89.3 MCH 28.9 MCHC 32.3 RDW 13.8 Plt Count 261 MPV 10.4 Neut % (Auto) 73.8 Lymph % (Auto) 13.9 L [place] % (Auto) 5.0 Eos % (Auto) 6.6 Baso % (Auto) 0.3 Neut # (Auto) 7.5 H Lymph # (Auto) 1.4 [place] # (Auto) 0.5 Eos # (Auto) 0.7 Baso # (Auto) 0.0 Abs Immat Gran (auto) 0.04 H Imm/Tot Granulo (auto) 0.4 Sodium 138 Potassium 3.9 Chloride 105 Carbon Dioxide 26.2 Anion Gap 10.7 BUN 17.0 Creatinine 1.05 H Est GFR ( Amer) >60 Est GFR (Non-Af Amer) 51 L BUN/Creatinine Ratio 16.2 Glucose 118 H Calcium 9.3 Total Bilirubin 0.2 AST 18 ALT 21 Alkaline Phosphatase 85 Total Protein 6.6 Albumin 2.5 L Globulin 4.1 Albumin/Globulin Ratio 0.6 POC Glucose 140 H 119 H 02/16/23 16:11 WBC RBC Hgb Hct MCV MCH MCHC RDW Plt Count MPV Neut % (Auto) Lymph % (Auto) [place] % (Auto) Eos % (Auto) Baso % (Auto) Neut # (Auto) Lymph # (Auto) [place] # (Auto) Eos # (Auto) Baso # (Auto) Abs Immat Gran (auto) Imm/Tot Granulo (auto) Sodium Potassium Chloride Carbon Dioxide Anion Gap BUN Creatinine Est GFR ( Amer) Est GFR (Non-Af Amer) BUN/Creatinine Ratio Glucose Calcium Total Bilirubin AST ALT Alkaline Phosphatase Total Protein Albumin Globulin Albumin/Globulin Ratio POC Glucose 102 Discharge Plan Discharge Disposition: Home, Self-Care Condition: Good Discharge Medications: New cefuroxime axetil 500 mg tablet 500 mg PO BID 5 Days Qty: 10 0RF Continued meloxicam 15 mg tablet 15 mg PO DAILY simvastatin 40 mg tablet 40 mg PO BEDTIME baclofen 10 mg tablet 10 mg PO BEDTIME paroxetine HCl 20 mg tablet 20 mg PO DAILY omeprazole 20 mg capsule,delayed release(DR/EC) 20 mg PO BID gabapentin 300 mg capsule 300 mg PO BID calcium carbonate-vitamin D3 [Vitamin D3 (with calcium carb)] 1 tab PO DAILY Discontinued carvedilol 12.5 mg tablet 12.5 mg PO BID lisinopril 10 mg tablet 10 mg PO DAILY triamterene-hydrochlorothiazid 37.5-25 mg tablet 1 tab PO DAILY Activity: resume usual activities as tolerated Diet: advance to your usual diet Director Of Graduate Admissions/Service Mechanic Instructions: Discharge with [facility], phone number is [phone], they should contact within 48 hours of discharge. Forms: Portal Instructions Follow Up Appointments: Due to doctor's office being closed, patient needs to call Dr. Serrato's office for a follow up appt. for 7-10 days. Office #: [phone]
--- NOTE | 2023-02-17 15:16 | SWNOTE1 ---
Discharge orders sent to [facility].
--- NOTE | 2023-02-20 14:09 | CM.DCFOLLOWU ---
Person spoke with: Kellie How are you feeling? Much better How is your pain? None Did you understand your discharge instructions? Yes Do you have any questions about your discharge instructions? No Were you given any prescriptions at discharge? Yes Were you able to get your prescriptions filled? Yes Do you understand how to take your medications as ordered? Yes Do you have any questions about your follow up appointment and do you plan to keep your follow up appointment? Just scheduled today Is there anything else that you would like to discuss? No Questions/Comments/Concerns/Other:
== END 2023-02-17 14:50 | disposition home health service (06) | DRG 871 ==
LOC: ER 22:45 → MS 23:06
PROVIDERS: Physician Assistant; Admitting Provider Internal Medicine; Emergency Provider Emergency Medicine; PCP Internal Medicine; Visit Provider Internal Medicine
DX: A41.9 Sepsis, unspecified organism (principal); G93.41 Metabolic encephalopathy; R65.21 Severe sepsis with septic shock; J96.01 Acute respiratory failure with hypoxia; J18.9 Pneumonia, unspecified organism; N17.9 Acute kidney failure, unspecified; I10 Essential (primary) hypertension; E78.5 Hyperlipidemia, unspecified; Z91.81 History of falling; Z79.899 Other long term (current) drug therapy
CPT/HCPCS: 0202U; 36415; 36416; 70450; 71045; 71250; 72125; 72170; 80048; 80053; 81001; 82140; 82550; 82800; 82948; 83605; 83735; 84443; 84484; 85025; 85610; 87040; 93005; 93306; 94761; 96361; 96365; 96366; 96372; 97161; 97165; 97530; 99285; G0378; Q3014

== ENCOUNTER 2023-08-15 14:22 | Outpatient (OUT) | payer OTHER, SELFPAY ==
--- NOTE | 2023-08-15 14:27 | MM_ITS ---
Patient Name: AYLIN RUBIO MR#: [id number] : 1945 Exam Date: 08/15/2023 Ordering Doctor: DR YAIR SERRATO M.D. RADIOLOGY REPORT PROCEDURE: MM TOMOSYNTHESIS SCREENING RT COMPARISON: MG STEREO CORE NDL W CLIP RT, 04/05/2022. MAMMO POST BIOPSY RIGHT, 04/05/2022. INDICATIONS: Screening Calculator Name NCI Breast Cancer Risk Assessment Tool 5 Year Breast Cancer Risk n/a% Lifetime Breast Cancer Risk n/a% Personal Breast Cancer Yes, Left, 54 Personal Ovarian Cancer No Treatments Left mastectomy with lymphnode removal Family Cancers Mother with breast cancer at age ~60; Aunt-maternal with breast cancer at age ~60; Cousin-maternal with leukemia cancer at age ~40; Aunt-maternal with uterine cancer at age ~60. LOCATION: [facility] BREAST COMPOSITION: Scattered areas fibroglandular density. FINDINGS: DIAGNOSTIC CATEGORY 2--BENIGN FINDING. NO CHANGE FROM COMPARISON. Stable calcifications and micro clip marker 12 o'clock anterior right breast RECOMMENDATIONS: ROUTINE MAMMOGRAM AND CLINICAL EVALUATION IN 12 MONTHS. PLEASE NOTE: A NORMAL MAMMOGRAM DOES NOT EXCLUDE THE POSSIBILITY OF BREAST CANCER. A CLINICALLY SUSPICIOUS PALPABLE LUMP SHOULD BE BIOPSIED. Dictated by: Randy Lau MD on 08/15/2023 at 15:30 Approved by: Randy Lau MD on 08/15/2023 at 15:35
--- NOTE | 2023-08-15 14:28 | CT_ITS ---
The [address] [address] Patient Name: AYLIN RUBIO MRN: [id number] date: 1945 Sex: F Assigned Patient Location: CT Current Patient Location: CT Accession/Order Number: [id number] Exam Date: 08/15/2023 14:42 Report Date: 08/15/2023 15:29 At the request of: YAIR SERRATO Procedure: CT chest wo con EXAM: CT scan of the chest without contrast. Dose reduction technique used: Automated exposure control and/or adjustment of the mA and/or kV according to patient size and/or use of iterative reconstruction technique. 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 No acute airspace opacities. No pneumothorax. No pleural effusion. No acute fractures. No concerning pulmonary nodules. Coronary atherosclerotic calcifications are present. Left mastectomy. Left axillary surgical clips. Large esophageal hiatal hernia/intrathoracic stomach. 1.1 cm left adrenal nodule is not significantly changed. Remainder unremarkable. CT/CT chest wo con IMPRESSION: 1. 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 Considerations include metastatic disease, lymphoma, thymoma, or residual thymus. Consider follow-up CT in 3 months versus further evaluation with PET/CT. 2. Large esophageal hiatal hernia/intrathoracic stomach. 3. Small left adrenal nodule. Electronically authenticated by: ABIGAIL RENO Date: 08/15/2023 15:29
== END 2023-08-15 14:23 | disposition home or self-care (01) ==
LOC: CT 14:22
PROVIDERS: PCP Internal Medicine; Visit Provider Internal Medicine
DX: Z12.31 Encounter for screening mammogram for malignant neoplasm of breast (principal); R93.89 Abnormal findings on diagnostic imaging of other specified body structures; K44.9 Diaphragmatic hernia without obstruction or gangrene; Z80.3 Family history of malignant neoplasm of breast; Z80.6 Family history of leukemia; Z80.8 Family history of malignant neoplasm of other organs or systems
CPT/HCPCS: 71250; 77063; 77067

== ENCOUNTER 2023-11-10 12:36 | Outpatient (OUT) | payer OTHER, SELFPAY ==
--- NOTE | 2023-11-10 12:49 | CT_ITS ---
[address] [address] Patient Name: AYLIN RUBIO MRN: [id number] date: 1945 Sex: F Assigned Patient Location: CT Current Patient Location: Accession/Order Number: [id number] Exam Date: 11/10/2023 12:55 Report Date: 11/12/2023 05:54 At the request of: YAIR SERRATO Procedure: CT chest wo con EXAMINATION: CT chest wo con HISTORY: Mediastinal mass J98.59, abnormal ct of the chest R93.89 ; follow-up mediastinal mass; shortness of breath, cough COMPARISON: CT chest 08/15/2023, a 1723 TECHNIQUE: Multi-planar CT images were obtained without and/or with IV contrast as indicated by examination type. Axial, Coronal, and Sagittal images. Dose reduction techniques were achieved by using automated exposure control and/or adjustment of mA and/or kV according to patient size and/or use of iterative reconstruction technique. FINDINGS: LUNGS: No visible pulmonary disease. PLEURA: No mass, effusion, or pneumothorax. VASCULATURE: No abnormality. DANNI: No mass or adenopathy. MEDIASTINUM: Lobular 3.1 x 1.8 cm mass within anterior mediastinum at level of base of aortic arch. CARDIAC: No enlargement, pericardial thickening, or significant calcification. CORONARY ARTERIES: Minimal atherosclerotic disease. AORTA: No aneurysm or dissection. CHEST WALL: Left mastectomy. Left axilla multiple surgical clips. No mass or lymphadenopathy. BONES: Normal appearance of superior endplate of L1 vertebral body. LIMITED ABDOMEN: Large hiatal hernia. Small left renal nodule; stable. Limited images of the upper abdomen. OTHER: Negative. CT/CT chest wo con IMPRESSION: 1. Nonspecific lobular soft tissue mass within anterior mediastinum at level of the base of the aorta and pulmonary artery; slight change in positioning versus slowly increasing in size (3.1 x 1.8 cm in the axial plane on today's study; 2.7 x 1.6 cm on 02/16/2023). Etiology is uncertain but favors thymoma, residual thymus, lymphoma, etc. 2. Large hiatal hernia with approximately half the stomach above the diaphragm. 3. Abnormal appearance of superior endplate of L1; not previously included on prior studies, suggestive of prior trauma or compression fracture. Electronically authenticated by: AJ OH Date: 11/12/2023 05:54
== END 2023-11-10 12:37 | disposition home or self-care (01) ==
LOC: CT 12:37
PROVIDERS: PCP Internal Medicine; Visit Provider Internal Medicine
DX: J98.59 Other diseases of mediastinum, not elsewhere classified (principal); R93.89 Abnormal findings on diagnostic imaging of other specified body structures; K44.9 Diaphragmatic hernia without obstruction or gangrene
CPT/HCPCS: 71250

== ENCOUNTER 2023-11-24 09:20 | Outpatient (OUT) | payer OTHER, SELFPAY ==
[2023-11-24 11:32] LABS: Bilirubin Urine NEGATIVE (NEGATIVE); Blood Urine MODERATE (NEGATIVE); Clarity Urine CLEAR (CLEAR); Color Urine YELLOW (YELLOW); Glucose Urine UA NEGATIVE (NEGATIVE); Ketones Urine NEGATIVE (NEGATIVE); Leukocyte Esterase Urine NEGATIVE (NEGATIVE); Nitrite Urine NEGATIVE (NEGATIVE); Protein Urine NEGATIVE (NEG/TRACE)
[2023-11-24 11:41] LABS: Urine Microscopic Indicated YES
[2023-11-24 11:42] LABS: Bacteria Urine SMALL #/HPF (NONE SEEN); Mucus Urine TRACE (NONE SEEN); Squamous Epithelial Cell Urine FEW #/LPF (NONE/RARE); WBC Urine 0-2 #/HPF (NONE SEEN)
[2023-11-24 11:43] LABS: Urine Culture Indicated YES
== END 2023-11-24 09:21 | disposition home or self-care (01) ==
PROVIDERS: PCP Internal Medicine; Visit Provider Personal Emergency Response Attendant
DX: Z01.812 Encounter for preprocedural laboratory examination (principal); Z01.818 Encounter for other preprocedural examination; R82.998 Other abnormal findings in urine
CPT/HCPCS: 81001; 87086

== ENCOUNTER 2023-12-04 07:30 | Outpatient (RCR) | payer OTHER, SELFPAY ==
[2023-12-04 10:17] LABS: Bilirubin Urine NEGATIVE (NEGATIVE); Blood Urine SMALL (NEGATIVE); Clarity Urine CLEAR (CLEAR); Color Urine YELLOW (YELLOW); Glucose Urine UA NEGATIVE (NEGATIVE); Ketones Urine NEGATIVE (NEGATIVE); Leukocyte Esterase Urine NEGATIVE (NEGATIVE); Nitrite Urine NEGATIVE (NEGATIVE); Protein Urine NEGATIVE (NEG/TRACE); Specific Gravity Urine <=1.005 (1.005-1.025); Urobilinogen Urine 0.2 EU/dL (0.2-1.0)
--- NOTE | 2023-12-04 10:25 | PC.NURSE ---
0938: Pt. to [facility] via w/c accompanied by volunteer. Assisted pt. to bed. Clearly informed pt. of process, denies questions. Using sterile technique, pt. straight cath'd for Q.S. amount clear yellow urine. Pt. tolerated without c/o. Anitra care provided. 0954: Pt d/c'd via w/c. Taken to car per. volunteer.
[2023-12-04 10:56] LABS: Urine Microscopic Indicated YES
[2023-12-04 11:00] LABS: Bacteria Urine NONE SEEN #/HPF (NONE SEEN); Mucus Urine NONE SEEN (NONE SEEN); RBC Urine 0-2 #/HPF (0-2); Squamous Epithelial Cell Urine RARE #/LPF (NONE/RARE); WBC Urine NONE SEEN #/HPF (NONE SEEN)
[2023-12-04 11:01] LABS: Urine Culture Indicated NO
== END 2023-12-04 14:29 | disposition home or self-care (01) ==
LOC: INF 07:30
PROVIDERS: PCP Internal Medicine; Visit Provider Orthopaedic Surgery
DX: N39.0 Urinary tract infection, site not specified (principal)
CPT/HCPCS: 51701; 81001

== ENCOUNTER 2024-07-26 10:19 | Outpatient (OUT) | payer OTHER, SELFPAY ==
--- NOTE | 2024-07-26 10:21 | CT_ITS ---
[address] [address] Patient Name: AYLIN RUBIO MRN: [id number] date: 1945 Sex: F Assigned Patient Location: CT Current Patient Location: Accession/Order Number: [id number] Exam Date: 07/26/2024 10:25 Report Date: 07/29/2024 08:39 At the request of: YAIR SERRATO Procedure: CT chest wo con EXAMINATION: CT chest wo con HISTORY: Mediastinal Mass COMPARISON: CT chest without contrast 11/10/2023, 02/16/2023 TECHNIQUE: Axial, Coronal, and Sagittal images were created without the administration of IV contrast material. Dose reduction techniques were achieved by using automated exposure control and/or adjustment of mA and/or kV according to patient size and/or use of iterative reconstruction technique. FINDINGS: LUNGS: No visible pulmonary disease. PLEURA: No mass, effusion, or pneumothorax. VASCULATURE: No abnormality. DANNI: No mass or pathologic adenopathy. MEDIASTINUM: Stable lobular soft tissue density structure within upper anterior mediastinum, 3.1 x 1.9 cm in the axial plane. Large hiatal hernia within posterior lower mediastinum. CARDIAC: No enlargement, pericardial thickening, or pericardial effusion. Coronary Artery calcifications: AORTA: No aneurysm or dissection. CHEST WALL: No mass or axillary adenopathy surgical clips within left axilla and prior left mastectomy. BONES: Grossly stable, remote fracture of L1 vertebral body incompletely included on today's study. LIMITED ABDOMEN: No suspicious findings. Limited images of the upper abdomen. OTHER: Negative. CT/CT chest wo con IMPRESSION: 1. Stable appearance of anterior mediastinal soft tissue density structure of uncertain etiology. Statistically this would favor residual versus reactive thymus. PET imaging could be performed to evaluate for abnormal metabolic activity if clinically indicated. 2. Large hiatal hernia. Electronically authenticated by: AJ OH Date: 07/29/2024 08:39
== END 2024-07-26 10:20 | disposition home or self-care (01) ==
LOC: CT 10:19
PROVIDERS: PCP Internal Medicine; Visit Provider Internal Medicine
DX: J98.59 Other diseases of mediastinum, not elsewhere classified (principal); K44.9 Diaphragmatic hernia without obstruction or gangrene
CPT/HCPCS: 71250

== ENCOUNTER 2024-08-22 07:59 | Outpatient (OUT) | payer OTHER, SELFPAY ==
--- NOTE | 2024-08-22 08:05 | CA_ITS ---
Patient Name: AYLIN RUBIO MR#: [id number] : 1945 Exam Date: 08/22/2024 Ordering Doctor: DR YAIR SERRATO M.D. ECHOCARDIOGRAM REPORT PROCEDURE: CA ECHO DOPPLER COMPLETE INDICATIONS: Dyspnea on exertion COMPARISON: None. DESCRIPTION: COMPLETE ECHOCARDIOGRAM Real-time transthoracic echocardiography with 2D, M-mode, spectral and color flow Doppler performed. QUALITY: Technical quality was good. LEFT VENTRICLE: Normal chamber size. Mild concentric left ventricular hypertrophy. Global left ventricular systolic function is normal. LV EF: Visual estimation of left ventricular ejection fraction is 60 to 65% DIASTOLIC: Grade II diastolic dysfunction. ATRIAL SEPTUM: LEFT ATRIUM: Moderate dilatation. RIGHT ATRIUM: Normal chamber size. RIGHT VENTRICLE: Normal chamber size. Normal right ventricular systolic function. TRICUSPID VALVE: Normal mobility and thickness. No stenosis with mild regurgitation. Mild pulmonary hypertension. RVSP 36 mmHg MITRAL VALVE: Normal mobility and thickness. No evidence of mitral valve stenosis. There is no mitral annular calcification. Trivial mitral regurgitation. AORTIC VALVE: Normal trileaflet appearance. No visible sclerosis. Normal leaflet mobility. No evidence of aortic valve stenosis. Trivial aortic regurgitation. AORTIC ROOT: Normal diameter and appearance. The ascending aorta is mildly dilated and measures 3.7cm. PULMONIC VALVE: Normal thickness and mobility. No stenosis. Trivial regurgitation. PERICARDIUM: No evidence of pericardial effusion. IVC: Collapses with inspirations. Normal size. PLEURA: CONCLUSION: 1. Mild concentric left ventricular hypertrophy with normal systolic function. LVEF is estimated at 60 to 65%. 2. Normal right ventricular size and systolic function. 3. Grade 2 diastolic dysfunction. 4. No significant valvular dysfunction. 5. Mildly elevated right-sided pressures. 6. Mildly dilated ascending aorta. Adult Echocardiography Procedure Report Left Ventricle LVEDD (3.7 - 5.6 cm): 3.97 cm LVESD (2.2 - 4.0 cm): 2.49 cm LVIVS thickness (0.6 - 1.2 cm): 1.12 cm LVPW thickness (0.5 - 1.0 cm): 0.95 cm e': 0.06 m/s E - e': 9.15 LVOT Max Gradient: 3.29 mm[Hg] LVOT Area (cm2): 0.91 m/s Peak Velocity (LVOT): 0.91 m/s Mean Velocity (LVOT): 0.64 m/s LVOT Diameter 1.87 cm Left Ventricular Ejection Fraction: 60-65 % Left Atrium LA Volume Index (2D A2C): 34.85 ml/m2 Left Atrium Systolic Dimension: 2.32 cm Mitral Valve MV E to A Ratio: 0.87 Mitral Valve A-Wave Peak Velocity: 0.68 m/s Mitral Valve E-Wave Peak Velocity: 0.59 m/s Right Ventricle RV Internal Diastolic Dimension: 2.42 cm Aorta AO Root Diam: 2.79 cm Ascending Ao Diam: 3.69 cm Aortic Valve AoV Area (Peak [place]): 1.72 cm2, 1.72 cm2 AoV Area (VTI): 1.90 cm2, 1.90 cm2 Peak Velocity(Antegrade Flow): 1.44 m/s Peak Gradient(Antegrade Flow): 8.33 mm[Hg] Mean Velocity(Antegrade Flow): 0.97 m/s Mean Gradient(Antegrade Flow): 4.40 mm[Hg] Velocity Time Integral: 31.28 cm Tricuspid Valve Peak Velocity (Regurgitant Flow): 2.62 m/s, 2.51 m/s, 2.87 m/s Pulmonic Valve Mean Gradient: 2.17 mm[Hg] Mean Velocity: 0.69 m/s Peak Velocity: 0.98 m/s, 0.85 m/s Peak Gradient: 3.81 mm[Hg], 2.90 mm[Hg] Right Atrium Right Atrium Systolic Pressure: 26.27 ml, 26.27 ml Dictated by: David Gonsalez M.D. on 08/22/2024 at 17:20 Approved by: David Gonsalez M.D. on 08/22/2024 at 17:24
--- OUTSIDE RECORDS SUMMARY | 2024-08-22 08:09 | XMS_ITS | CCD ---
Author Organization [facility] Care Team Providers Care Geophysics Scientist Name Role Phone MADDIE ., DR OSCAR Kaufman Consulting Unavailable BORIS, DR LAGUNAS Primary Care Unavailable PERKINS ., DR OSCAR Kaufman Attending Unavailable PERKINS ., DR OSCAR Kaufman Admitting Unavailable BORIS, DR LAGUNAS Consulting Unavailable BORIS, DR LAGUNAS Primary Care Unavailable BORIS, DR LAGUNAS Attending Unavailable BORIS, DR LAGUNAS Admitting Unavailable ZIEBER, DR AJ Espino Consulting Unavailable PERKINS ., DR OSCAR Kaufman Consulting Unavailable BORIS, DR LAGUNAS Primary Care Unavailable PERKINS ., DR OSCAR Kaufman Attending Unavailable PERKINS ., DR OSCAR Kaufman Admitting Unavailable BORIS, DR LAGUNAS Consulting Unavailable BORIS, DR LAGUNAS Primary Care Unavailable PERKINS ., DR OSCAR Kaufman Attending Unavailable PERKINS ., DR OSCAR Kaufman Admitting Unavailable PERKINS ., DR OSCAR Kaufman Consulting Unavailable BLAKE ., EMMANUEL Consulting Unavailable OBRIS, DR LAGUNAS Primary Care Unavailable BORIS, DR LAGUNAS Consulting Unavailable BORIS, DR LAGUNAS Primary Care Unavailable PERKINS ., DR OSCAR Kaufman Attending Unavailable PERKINS ., DR OSCAR Kaufman Admitting Unavailable PERKINS ., DR OSCAR Kaufman Consulting Unavailable MICHAELA DAMIAN Consulting Unavailable BORIS, DR LAGUNAS Consulting Unavailable BORIS, DR LAGUNAS Primary Care Unavailable PERKINS ., DR OSCAR Kaufman Attending Unavailable PERKINS ., DR OSCAR Kaufman Admitting Unavailable PERKINS ., DR OSCAR Kaufman Consulting Unavailable KINGSLEYONUR Petersen Consulting Unavailable LAKSHMIPATHY ., NARSUKHDEEP Attending Jacki vailable LAKSHMIPATHY ., NARSUKHDEEP Admitting Jacki vailable BLAKE ., EMMANUEL Consulting Unavailable BORIS, DR LAGUNAS Primary Care Unavailable HALKER ., JESENIA Consulting Unavailable BLAKE ., EMMANUEL Consulting Unavailable BORIS, DR LAGUNAS Primary Care Unavailable PERKINS ., DR OSCAR Kaufman Attending Unavailable PERKINS ., DR OSCAR Kaufman Admitting Unavailable KARASIK ., DR NEGRO Consulting Unavailabl e BORIS, DR LAGUNAS Primary Care Unavailable KARASIK ., DR NEGRO Attending Unavailabl e KARASIK ., DR NEGRO Admitting Unavailabl e ZIEBER, DR AJ Espino Consulting Unavailable ESCALANTE, DR LAGUNAS Primary Care Unavailable LAKSHMIPATHY ., NARRODOLFOATH Attending Jacki vailable LAKSHMIPATHY ., NARENDBRIEATH Admitting Jacki vailable HALKER ., JESENIA Consulting Unavailable ESCALANTE, DR LAGUNAS Consulting Unavailable ESCALANTE, DR LAGUNAS Primary Care Unavailable ESCALANTE, DR LAGUNAS Attending Unavailable ESCALANTE, DR LAGUNAS Admitting Unavailable WEST, DR SAM Diaz Consulting Unavailable ESCALANTE, DR LAGUNAS Consulting Unavailable ESCALANTE, DR LAGUNAS Primary Care Unavailable ESCALANTE, DR LAGUNAS Attending Unavailable ESCALANTE, DR LAGUNAS Admitting Unavailable WEST, DR SAM Diaz Consulting Unavailable ZIEBER, DR AJ Espino Consulting Unavailable Escalante, LESA Lagunas Primary Care Provider DO Ryan Calderon Jr Attending Provider KOLTON Hanson Other Provider Unavailable KOLTON Montgomery Other Provider Unavailable KOLTON Briceño Other Provider Unavailable KOLTON Guillen Other Provider Unavailable KOLTON Johnson Other Provider Unavailable DO Genoveva Ruiz Other Provider MD Kris Qiu Other Provider DO Ravi Shen Attending Provider DO Ravi Shen Other Provider [phone] MD Erich Clifton Other Provider MD Karma Austin Other Provider MD Preston García Other Provider Unavailable SCOOTER Cheung Other Provider MD Alix Crane Other Provider [phone] MD Elroy Cagle Other Provider MD Pema Correia Other Provider MD Marshal Wharton Other Provider DO Kehinde Reynoso Other Provider MD Jesus Manuel Jesus Other Provider MD Fredy Paulino Other Provider LUKE BrandtC Radha Nieves Other Provider SCOOTER Mckeon Other Provider Unavailable MD Will Umana Other Provider MD Fco Koenig Other Provider MD Louie Vuong Other Provider MD Cuate Faustin Other Provider Unavailable MD Carlos Cerna Other Provider DO Renuka Peace Other Provider DO Laith Darnell Other Provider SCOOTER Velasquez Other Provider DO Dusty Ulloa Admit Provider DO Dusty Ulloa Other Provider [phone] MD Willie Knight Other Provider [phone] SCOOTER Souza Other Provider SCOOTER Major Other Provider MD Kinza Trinidad Other Provider MD Bebo Vicente Other Provider DO Jose Daniel Grande T Other Provider DO Branden Reynaga Other Provider MD Carolann Ruddy P Other Provider MD Romina Mondragon Other Provider SCOOTER Rivera Other Provider [phone] KOLTON Gann Other Provider Unavailable MD Claudette Dominguez Other Provider MD Agustin Matthews Other Provider SCOOTER Butterfield Other Provider DO Johnie Hector Jr Other Provider MD Jose Hamm Other Provider Boris Bebo Primary Care Unavailable Ryan Calderon Jr Attending Unavailable Ryan Calderon Jr Admitting Unavailable BorisBebo Primary Care Unavailable Ryan Calderon Jr Attending Unavailable Ryan Calderon Jr Admitting Unavailable Dusty Ulloa Admitting Unavailable Bebo Escalante Primary Care Unavailable Ravi Shen Attending UnavailNanette Leone Consulting Unavailable Kalyn Montgomery Consulting Unavailable uLcia Briceño Consulting Unavailable Kusum Guillen Consulting Unavailable Virginia Johnson Consulting Unavailable Genoveva Ruiz Consulting Unavailable Kris Qiu Consulting Unavailable Ravi Shen Consulting UnavailErich Seay Consulting Unavailable Karma Austin Consulting Unavailable Preston García Consulting Unavailable Yaa Cheung Consulting UnavailAlix Rg Consulting Unavailable Elroy Cagle Consulting Unavailable Pema Correia Consulting Unavailable Marshal Wharton Consulting Unavailable Kehinde Reynoso Consulting Unavailable Jesus Manuel Jesus Consulting Unavailable Fredy Paulino Consulting Unavailable Radha Brandt Consulting Unavailable Ramo Mckeon Consulting Unavailable Will Umana Consulting UnavailFco Preston Consulting Unavailable Louie Vuong Consulting Unavailable Cuate Faustin Consulting Unavailable Carlos Cerna Consulting Unavailable Renuka Peace Consulting Unavailable Laith Darnell Consulting Unavailable Melissa Velasquez Consulting Unavailable Dusty Ulloa Consulting Unavailable Willie Knight Consulting Unavailable Kelsey Souza Consulting Unavailable Chastity Major Consulting Unavailable Alahmad Alaa Consulting Unavailable Bebo Vicente Consulting Unavailable Jose Daniel Grande Consulting Unavailable Branden Reynaga Consulting Unavailable Ruddy Vuong Consulting Unavailable Romina Mondragon Consulting Unava lizetable Tiffany Rivera Consulting Unavailable Kellie Gann Consulting Unavailable Claudette Dominguez Consulting Unavailable Agustin Matthews Consulting Unavailable Simi Butterfield Consulting Unavailable Johnie Hector Jr Consulting UnavailJose Fernandez Consulting Unavaila ble BorisNoeel Primary Care Unavailable Ryan Calderon Jr Attending Unavailable Ryan Calderon Jr Admitting Unavailable Bebo Escalante MD Unavailable Bebo Escalante MD Primary Care Provider [phone] Bebo Escalante MD Unavailable Bebo Escalante MD Unavailable BEBO ESCALANTE Attending Unavailable YOLI SPRINGER Attending Unavailable BEBO ESCALANTE Attending Unavailable JR. ERIN, RYAN Espinosa Attending Unavaila BEBO Mann Attending Unavailable YOLI SPRINGER Referring Unavailable YOLI SPRINGER Attending Unavailable JR. ERIN, RYAN Espinosa Referring Unavaila ble KEISHA FENTON Attending Unavailable JR. ERIN, RYAN Espinosa Referring Unavaila ble FATEMEH ELDRIDGE Attending Unavailable STEPJR. KASSIDY, RYAN Espinosa Referring Unavaila ble KEISHA FENTON Attending Unavailable JR. ERIN, RYAN Espinosa Referring Unavaila ble KEISHA FENTON Attending Unavailable JR. ERIN, RYAN Espinosa Referring Unavaila ble GUY LAZARO Attending Unavailable STEPJR. KASSIDY, RYAN Espinosa Referring Unavaila ble GUY LAZARO Attending Unavailable STEPJR. KASSIDY, RYAN Espinosa Referring Unavaila ble NAY BURNETT Attending Unavailable BEBO ESCALANTE Attending Unavailable STEPKASSIDY, , RYAN Espinosa Referring Unavaila ble GUY LAZARO Attending Unavailable YOLI SPRINGER Attending Unavailable STEPKASSIDY, , RYAN Espinosa Referring Unavaila GUY Andrews Attending Unavailable STEPJR. KASSIDY, RYAN Espinosa Referring Unavaila GUY Andrews Attending Unavailable YOLI SPRINGER Attending Unavailable BEBO ESCALANTE Attending Unavailable YOLI SPRINGER Referring Unavailable TIP MAURO Attending Unavailable BEBO ESCALANTE Attending Unavailable JR. ERIN, RYAN Espinosa Attending Unavaila sandra CALDERON JR., RYAN Espinosa Referring Unavaila KEISHA Kulkarni Attending Unavailable ERIN, , RYAN Espinosa Referring Unavaila BERTIN Koch Attending Unavailable Allergies Allergy Classification Reported Allergen(s) Allergy Type Date of Onset Reaction(s) Facility Unclassified (3 sources) Gadolinium-Conta ining Contrast Medi; Translations: [Gadolinium-Cont aining Contrast Medi] Allergy to substance 12-22-2023 [facility] Unclassified (18 sources) Iodinated Contrast Media; Translations: [Iodinated Contrast Media] Allergy to substance 12-11-2012 [facility] (1 source) Iodine (And Iodine Containting Drugs) Drug allergy (disorder) 07-03-1989 [facility] (15 sources) Iodine Drug Allergy 06-28-2021 [facility] (6 sources) Gadolinium Drug Allergy 12-22-2023 [facility] Medications Current Medications Medication Drug Class(es) Dates Sig (Normalized) Sig (Original) acetaminophen 325 mg / oxyCODONE hydrochloride 5 mg oral tablet (2 sources) Opioid Agonist Start: 12-26-2023 take 1 tablet by mouth every six hours Oxycodone-Acetamin ophen (Percocet) 5-325 mg tablet Active 1 TAB PO Q6H 19 11December 26, 2023 albuterol 0.83 mg/ml inhalation solution (19 sources) beta2-Adrenergic Agonist Start: 05-02-2024 End: 05-02-2025 albuterol (2.5 MG/3ML) 0.083% nebulizer solution Indications: Pneumonia due to infectious organism, unspecified laterality, unspecified part of lung , Recurrent bronchospasm Take 3 mL (2.5 mg) by nebulization every 6 (six) hours if needed for wheezing 75 mL 11 05/02/2024 05/02/2025 Active Start: 11-16-2023 Albuterol Sulf ate Active 2.5 MG CNTNEBULIZ Q6H November 16, 2023 12:00am Start: 03-01-2023 albuterol (2.5 MG/3ML) 0.083% nebulizer solution Indications: Pneumonia due to infectious organism, unspecified laterality, unspecified part of lung , Recurrent bronchospasm Take 3 mL (2.5 mg) by nebulization every 6 (six) hours if needed for wheezing. 75 mL 11 03/01/2023 Active amoxicillin 500 mg oral tablet (5 sources) Penicillin-class Antibacterial Start: 08-13-2024 End: 08-14-2024 take 4 tablets by mouth once at mealtime amoxicillin (Amoxil) 500 MG tablet Indications: S/P TKR (total knee replacement), right 4 tabs PO once 30-60 mins before procedure with food 4 tablet 3 08/14/2024 Active ascorbic acid 500 mg oral tablet (4 sources) Vitamin C Start: 11-16-2023 take 500 mg by mouth once daily in the morning Ascorbic Acid (Vitamin C) Active 500 MG PO Every morning November 16, 2023 12:00am ascorbic acid (Vitamin C) 500 mg/mL oral liquid (15 sources) ascorbic acid (Vitamin C) 500 mg/mL oral liquid Take by mouth. Active aspirin 81 mg delayed release oral tablet (2 sources) Platelet Aggregation Inhibitor, Nonsteroidal Anti-inflammatory Drug Start: 12-21-2023 take 81 mg by mouth twice daily Aspirin Active 81 MG PO Twice daily 60 December 21, 2023 12:00am baclofen 10 mg oral tablet (19 sources) gamma-Aminobutyric Acid-ergic Agonist Start: 11-16-2023 take 1 tablet by mouth at bedtime baclofen (Lioresal) 10 MG tablet Indications: Compression fracture of lumbar vertebra with routine healing, unspecified lumbar vertebral level, subsequent encounter Take 1 tablet (10 mg) by mouth at bedtime 100 tablet 3 02/02/2024 Active calcium carbonate 1500 mg / cholecalciferol 200 unt oral capsule (4 sources) Vitamin D Start: 11-16-2023 take 1 capsule by mouth once daily in the morning Calcium Carbonate-Vitamin D3 (Calcium 600 + D(3)) 600 mg-5 mcg (200 unit) capsule Active 1 CAP PO Every morning November 16, 2023 12:00am calcium citrate 600 mg and vitamin D3 (Citrical & Minerals + Vit D) 600-200 MG-UNIT tablet (15 sources) calcium citrate 600 mg and vitamin D3 (Citrical & Minerals + Vit D) 600-200 MG-UNIT tablet Active carvedilol 12.5 mg oral tablet (19 sources) alpha-Adrenergic Aide, beta-Adrenergic Aide Start: 02-27-2024 take 1 tablet by mouth in the morning carvedilol (Coreg) 12.5 MG tablet Indications: Benign essential hypertension (CMS/HCC) Take 1 tablet (12.5 mg) by mouth in the morning and 1 tablet (12.5 mg) before bedtime. 200 tablet 3 02/27/2024 Active Start: 11-16-2023 take 12.5 mg by mout h twice daily at mealtime Carvedilol Active 12.5 MG PO Twice daily November 16, 2023 12:00am must administer with a meal/food cholecalciferol 0.05 mg oral tablet (19 sources) Vitamin D Start: 11-16-2023 take 1 tablet by mouth once daily in the morning Cholecalciferol (Vitamin D3) (Vitamin D3) 50 mcg (2,000 unit) tablet Active 50 MCG PO Every morning November 16, 2023 12:00am cholecalciferol (Vitamin D-3) 50 MCG (2000 UT) capsule 1 capsule 1 (one) time each day at the same time. Active folic acid 1 mg / polysaccharide iron complex 150 mg / vitamin b12 0.025 mg oral capsule (4 sources) Vitamin B12 Start: 11-16-2023 take 1 capsule by mouth once daily in the morning Iron Ps [id number] Acid (Ferrex 150 Forte) 150-25-1 mg-mcg-mg capsule Active 1 CAP PO Every morning November 16, 2023 12:00am furosemide 20 mg oral tablet (15 sources) Loop Diuretic Start: 02-19-2024 take 1 tablet by mouth once daily furosemide (Lasix) 20 MG tablet Indications: Localized edema Take 1 tablet (20 mg) by mouth Daily for 5 days 5 tablet 02/19/2024 Active gabapentin 300 mg oral capsule (15 sources) Anti-epilepti c Agent Start: 11-01-2023 End: 07-25-2024 take 1 capsule by mouth in the morning gabapentin (Neurontin) 300 MG capsule Indications: Generalized osteoarthritis Take 1 capsule (300 mg) by mouth in the morning and 1 capsule (300 mg) before bedtime. 200 capsule 3 11/01/2023 07/25/2024 Discontinued hydroCHLOROthiazide 25 mg / triamterene 37.5 mg oral tablet (19 sources) Potassium-spa ring Diuretic, Thiazide Diuretic Start: 05-28-2024 take 1 tablet by mouth once daily triamterene-hydrochlo rothiazide (Maxzide-25) 37.5-25 MG tablet Indications: Primary hypertension (CMS/HCC) Take 1 tablet by mouth 1 (one) time each day at the same time 100 tablet 3 05/28/2024 Active Start: 11-16-2023 take 1 tablet by dick th once daily in the morning Triamterene-Hydrochlorothiazid Active 1 TAB PO Every morning November 16, 2023 12:00am lisinopril 10 mg oral tablet (19 sources) Angiotensin Converting Enzyme Inhibitor Start: 05-16-2024 take 5 mg by mouth once daily in the morning Lisinopril Active 5 MG PO Every morning November 16, 2023 12:00am Start: 04-25-2023 lisinopril 10 MG tablet Indications: Benign essential hypertension (CMS/HCC) TAKE 1 TABLET ONE TIME DAILY 90 tablet 3 04/25/2023 Active meloxicam 15 mg oral tablet (19 sources) Nonsteroidal Anti-inflammatory Drug Start: 06-10-2024 End: 08-15-2024 take 1 tablet by mouth once daily meloxicam (Mobic) 15 MG tablet Indications: Osteoarthritis of multiple joints, unspecified osteoarthritis type TAKE 1 TABLET BY MOUTH EVERY DAY 100 tablet 08/15/2024 Active Start: 04-24-2024 take 1 tablet by dick th once daily meloxicam (Mobic) 15 MG tablet Indications: Osteoarthritis of multiple joints, unspecified osteoarthritis type Take 1 tablet (15 mg) by mouth Daily 100 tablet 04/24/2024 Active Start: 11-16-2023 take 1 tablet by dick th once daily meloxicam (Mobic) 15 MG tablet Take 15 mg by mouth Daily On hold until 01/20/24 11/16/2023 Active omeprazole 20 mg delayed release oral capsule (19 sources) Proton Pump Inhibitor Start: 04-24-2024 take 1 capsule by mouth in the morning omeprazole (PriLOSEC) [address] capsule Indications: Gastroesophageal reflux disease without esophagitis Take 1 capsule (20 mg) by mouth in the morning and 1 capsule (20 mg) before bedtime. 200 capsule 3 04/24/2024 Active Start: 01-16-2023 take 20 mg by mouth twice shayy y Omeprazole Active 20 MG PO Twice daily November 16, 2023 12:00am PARoxetine hydrochloride 20 mg oral tablet (19 sources) Serotonin Reuptake Inhibitor Start: 11-16-2023 take 1 tablet by mouth in the morning PARoxetine (Paxil) 20 MG tablet Indications: Depression, unspecified depression type (CMS/HCC) Take 1 tablet (20 mg) by mouth in the morning. 90 tablet 3 02/02/2024 Active simvastatin 40 mg oral tablet (19 sources) HMG-CoA Reductase Inhibitor Start: 02-21-2024 take 1 tablet by mouth at bedtime simvastatin (Zocor) 40 MG tablet Indications: Hypercholesteremia (CMS/HCC) Take 1 tablet (40 mg) by mouth at bedtime 100 tablet 3 02/21/2024 Active Start: 11-16-2023 take 40 mg by mouth once daily at bedtime Simvastatin Active 40 MG PO Daily at bedtime November 16, 2023 12:00am Varenicline (4 sources) Partial Cholinergic Nicotinic Agonist Start: 11-16-2023 Varenicline (Tyrvaya) 0.03 mg/spray spray, metered, non-aerosol Active 1 SPRAY INTRANASAL Daily November 16, 2023 12:00am zinc gluconate 50 mg oral tablet (19 sources) Start: 11-16-2023 take 50 mg by mouth once daily in the morning Zinc Gluconate Active 50 MG PO Every morning November 16, 2023 12:00am Problems Active Problems Problem Classification Problem Date Documented Date Episodic/Chronic Cancer of breast (19 sources) Malignant tumor of breast ; Translations: [Malignant neoplasm of unspecified site of unspecified female breast] Onset: 02-15-2023 02-15-2023 Chronic Chronic kidney disease (15 sources) Chronic kidney disease stage 3A ; Translations: [Stage 3a chronic kidney disease (HCC)] Onset: 02-15-2023 02-15-2023 Chronic Diabetes mellitus with complications (18 sources) Renal disorder due to type 2 diabetes mellitus; Translations: [Type 2 diabetes mellitus with other diabetic kidney complication] Onset: 02-23-2017 03-11-2024 Chronic Diabetes mellitus without complication (2 sources) Type 2 diabetes mellitus without complications; Translations: [Type 2 diabetes mellitus without complication] Onset: 02-23-2017 02-15-2023 Chronic Disorders of lipid metabolism (20 sources) Hypercholesterolemia; Translations: [Pure hypercholesterolemia, unspecified] Onset: 06-17-2019 02-15-2023 Chronic Esophageal disorders (15 sources) Gastroesophageal reflux disease without esophagitis; Translations: [Gastro-esophageal reflux disease without esophagitis] Onset: 09-08-2015 01-16-2023 Chronic Essential hypertension (20 sources) Hypertensive disorder; Translations: [Essential (primary) hypertension] Onset: 09-08-2015 12-23-2023 Chronic Fluid and electrolyte disorders (5 sources) Hyponatremia; Translations: [Hypo-osmolality and hyponatremia] Onset: 12-23-2023 12-24-2023 Episodic Genitourinary symptoms and ill-defined conditions (15 sources) Urinary incontinence; Translations: [Unspecified urinary incontinence] Onset: 02-19-2020 02-15-2023 Chronic Immunizations and screening for infectious disease (1 source) Encounter for screening for human papillomavirus (HPV); Translations: [ENC SCREENING HUMAN PAPILLOMAVIRUS] Onset: 11-12-2022 Episodic Menopausal disorders (16 sources) Other primary ovarian failure; 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] Onset: 02-23-2017 02-15-2023 Chronic Mood disorders (15 sources) Depressive disorder; Translations: [Depressive disorder] Onset: 09-08-2015 02-15-2023 Chronic Osteoarthritis (20 sources) Bilateral primary osteoarthritis of knee; Translations: [Arthritis of right knee] Onset: 09-08-2015 04-04-2024 Chronic Other aftercare (15 sources) Patient encounter status; Translations: [Aftercare following joint replacement surgery] Onset: 12-28-2023 12-28-2023 Chronic Other connective tissue disease (20 sources) History of total knee arthroplasty; Translations: [Presence of unspecified artificial knee joint] Onset: 12-27-2023 12-23-2023 Chronic Other connective tissue disease (3 sources) Presence of unspecified artificial knee joint; Translations: [Knee joint replacement] Onset: 12-23-2023 12-26-2023 Chronic Other diseases of bladder and urethra (15 sources) Overactive bladder; Translations: [Overactive bladder] Onset: 02-03-2021 02-15-2023 Chronic Other lower respiratory disease (4 sources) Dyspnea on exertion; Translations: [Other forms of dyspnea] 08-16-2024 Episodic Other nervous system disorders (1 source) Other chronic pain; Translations: [OTHER CHRONIC PAIN] Onset: 02-10-2022 Chronic Other nervous system disorders (2 sources) Walking disability; Translations: [Difficulty in walking, not elsewhere classified] 12-23-2023 Chronic Other nervous system disorders (3 sources) Difficulty in walking, not elsewhere classified; Translations: [Difficulty in walking] Onset: 12-23-2023 12-26-2023 Chronic Other nutritional; endocrine; and metabolic disorders (19 sources) Body mass index 30+ - obesity; Translations: [Obesity, unspecified] Onset: 02-15-2023 02-15-2023 Chronic Other nutritional; endocrine; and metabolic disorders (4 sources) Obesity caused by energy imbalance; Translations: [Morbid (severe) obesity due to excess calories] 03-11-2024 Chronic Other screening for suspected conditions (not mental disorders or infectious disease) (19 sources) CT of chest abnormal; Translations: [Abnormal findings on diagnostic imaging of other specified body structures] Onset: 07-31-2023 07-31-2023 Chronic Residual codes; unclassified (2 sources) Obstructive sleep apnea syndrome; Translations: [Obstructive sleep apnea (adult) (pediatric)] 12-23-2023 Chronic Residual codes; unclassified (3 sources) Obstructive sleep apnea (adult) (pediatric); Translations: [Obstructive sleep apnea (adult)(pediatric)] Onset: 12-23-2023 12-26-2023 Chronic Residual codes; unclassified (15 sources) Sleep apnea; Translations: [Sleep apnea, unspecified] Onset: 05-27-2020 02-15-2023 Chronic Spondylosis; intervertebral disc disorders; other back problems (6 sources) Other intervertebral disc degeneration, lumbar region; Translations: [Spondylosis without myelopathy or radiculopathy, lumbar region] Onset: 04-11-2022 Chronic Unclassified (1 source) LOW BACK PAIN, UNSPECIFIED; Translations: [LOW BACK PAIN, UNSPECIFIED] Onset: 02-16-2022 Unclassified (1 source) CONTACT W/AND (SUSP) EXPOS COVID-19; Translations: [CONTACT W/AND (SUSP) EXPOS COVID-19] Onset: 02-15-2022 Unclassified (15 sources) Patient on antidepressant monitoring plan Onset: 02-02-2024 02-02-2024 Unclassified (15 sources) Baseline PHQ-9 Onset: 02-02-2024 02-02-2024 Past or Other Problems Problem Classification Problem Date Documented Date Episodic/Chronic Abdominal hernia (15 sources) Hiatal hernia; Translations: [Diaphragmatic hernia without obstruction or gangrene] Onset: 02-15-2023 Episodic Administrative/social admission (2 sources) Patient encounter status; Translations: [Other specified counseling] 03-11-2024 Episodic Diabetes mellitus without complication (1 source) Prediabetes; Translations: [PREDIABETES] Onset: Episodic Nonmalignant breast conditions (5 sources) Mammographic microcalcification found on diagnostic imaging of breast; Translations: [MAMMOGRAPH MC FOUND DX IMAG BREAST] Onset: 2 Episodic Other and unspecified benign neoplasm (15 sources) Hemangioma; Translations: [Hemangioma unspecified site] Onset: 6 02-15-2023 Episodic Other bone disease and musculoskeletal deformities (1 source) Other specified disorders of bone density and structure, other site; Translations: [OTH D/O BONE DEN STRUCT OTH SITE] Onset: 2 Episodic Other bone disease and musculoskeletal deformities (15 sources) Osteopenia; Translations: [Other specified disorders of bone density and structure, unspecified site] Onset: 6 02-15-2023 Episodic Other fractures (15 sources) Compression fracture of vertebral column; Translations: [Collapsed vertebra, not elsewhere classified, site unspecified, initial encounter for fracture] Onset: 3 02-15-2023 Episodic Other non-traumatic joint disorders (19 sources) Pain in right knee; Translations: [Pain in joint, lower leg] Onset: 3 Episodic Other screening for suspected conditions (not mental disorders or infectious disease) (20 sources) Encounter for screening for malignant neoplasm of cervix; Translations: [Other abnormal and inconclusive findings on diagnostic imaging of breast] Onset: 2 Episodic Other upper respiratory disease (15 sources) Bronchospasm; Translations: [Other diseases of bronchus, not elsewhere classified] Onset: 3 03-01-2023 Episodic Other upper respiratory disease (20 sources) Mediastinal mass; Translations: [Other diseases of mediastinum, not elsewhere classified] Onset: 3 03-01-2023 Episodic Ovarian cyst (15 sources) Cyst of left ovary; Translations: [Unspecified ovarian cyst, left side] Onset: 0 02-15-2023 Episodic Pathological fracture (15 sources) Pathological fracture of vertebra; Translations: [Pathological fracture, other site, initial encounter for fracture] Onset: 6 02-15-2023 Episodic Residual codes; unclassified (1 source) Family history of malignant neoplasm of breast; Translations: [FAMILY HX MALIG NEOPLASM OF BREAST] Onset: 2 Episodic Residual codes; unclassified (1 source) Family history of leukemia; Translations: [FAMILY HISTORY OF LEUKEMIA] Onset: 2 Episodic Residual codes; unclassified (1 source) Family history of malignant neoplasm of other genital organs; Translations: [FAM HX MALIG NEOPLSM OTH GENIT ORGN] Onset: 2 Episodic Residual codes; unclassified (15 sources) Edema; Translations: [Edema, unspecified] Onset: 6 02-15-2023 Episodic Residual codes; unclassified (15 sources) History of left mastectomy; 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 No Panel Informationon 07-25 [facility] Laboratory - Hematology and Cell countson 03-11-2024 HbA1c (Bld) [Mass fraction] 7.1 % [facility] No Panel Informationon 03-11 [facility] A1C with Estimated Average G luon 12-26-2023 Glucose [Mass/Vol] 154 mg/dL Normal [facility] Comment on above: Result Comment: PERF ORMED BY: [place] [address] PATHOLOGIST SAND TECHNICIAN WHITLEY CHAO M.D. Performed By: #### C BCNO, BMP, MG #### [address] Basic Metabolic Panelon 12-02 Creatinine Clr Calc Pharmacy 51.91 Normal [facility] Comment on above: Result Comment: PERF ORMED BY: [place] [address] PATHOLOGIST SAND TECHNICIAN WHITLEY CHAO M.D. Performed By: #### C BCNO, BMP, MG #### [facility] [address] [place] [address] [place] GFR/1.73 sq M.predicted MDRD (S/P/Bld) [Vol rate/Area] mL/min/{1.73_m2} Normal [facility] Comment on above: Performed By: #### C BCNO, BMP, MG #### [facility] [address] [place] [address] [place] Calcium [Mass/volume] in Ser um or PlasmaOrdered By: Ravi Shen on 12-26-2023 Calcium [Mass/Vol] 10.7 mg/dL High 8.6-10.3 [facility] Comment on above: Performed By: #### C BCNO, BMP, MG #### [address] Carbon dioxide, total [Moles /volume] in Serum or PlasmaOrdered By: Ravi Shen on 12-26-2023 CO2 [Moles/Vol] 33.1 mmol/L High 21.0-31.0 [facility] Comment on above: Performed By: #### C BCNO, BMP, MG #### [facility] [address] [place] [address] [place] Chloride [Moles/volume] in S augustina or PlasmaOrdered By: Ravi Shen on 12-26-2023 Chloride [Moles/Vol] 89 mmol/L Low 98-107 [facility] Comment on above: Performed By: #### C BCNO, BMP, MG #### [facility] [address] [place] [address] Creatinine [Mass/volume] in Serum or PlasmaOrdered By: Ravi Shen on 12-26-2023 Creatinine [Mass/Vol] 0.91 mg/dL Normal 0.60-1.20 [facility] Comment on above: Performed By: #### C BCNO, BMP, MG #### [facility] [address] [place] [address] [place] Erythrocyte distribution wid th [Ratio] by Automated countOrdered By: Dusty Ulloa on 12-26-2023 Erythrocyte distribution width (RBC) [Ratio] 14.0 % Normal 11.9-15.3 [facility] Comment on above: Performed By: #### C JAMES BMP, MG #### [facility] [address] Erythrocytes [#/volume] in B lood by Automated countOrdered By: Dusty Ulloa on 12-26-2023 RBC (Bld) [#/Vol] 3.76 10*6/uL Normal 3.60-5.00 [facility] Comment on above: Performed By: #### C JAMES, BMP, MG #### [facility] [address] Glucose [Mass/volume] in Ser um or PlasmaOrdered By: Ravi Shen on 12-26-2023 Glucose [Mass/Vol] 118 mg/dL High 70-100 [facility] Comment on above: ADA recommended refe rence rangeRandom Glucose Reference Range is dependent on time and content of last meal. Glucose of more than 200 mg/dL in a nonstressed, ambulatory subject supports the diagnosis of Diabetes Mellitus. Result Comment: [place] om Glucose Reference Range is dependent on time and content of last meal. Glucose of more than 200 mg/dL in a nonstressed, ambulatory subject supports the diagnosis of Diabetes Mellitus. ADA recommended reference range Performed By: #### C JAMES BMP, MG #### [facility] [address] Glucose mean value [Mass/vol ume] in Blood Estimated from glycated hemoglobinOrdered By: Ravi Shen on 12-26-2023 Average glucose Estimated from glycated hemoglobin (Bld) [Mass/Vol] 154 mg/dL [facility] Hematocrit [Volume Fraction] of Blood by Automated countOrdered By: Dusty Ulloa on 12-26-2023 Hematocrit (Bld) [Volume fraction] 32.5 % Low 34.0-46.4 [facility] Comment on above: Performed By: #### C BCNO, BMP, MG #### [facility] [address] Hemoglobin A1c percentageOrd ered By: Ravi Shen on 12-26-2023 HbA1c (Bld) [Mass fraction] 7.0 % High 4.3-5.6 [facility] Comment on above: Increased risk for d iabetes: 5.7 - 6.4diabetes: >6.4glycemic control for adults with diabetes: <7.0 Result Comment: Incr eased risk for diabetes: 5.7 - 6.4 diabetes: >6.4 glycemic control for adults with diabetes: <7.0 Performed By: #### C BCNO, BMP, MG #### [facility] [address] [place] [address] Hemoglobin [Mass/volume] in BloodOrdered By: Dusty Ulloa on 12-26-2023 Hemoglobin (Bld) [Mass/Vol] 10.8 g/dL Low 11.8-15.4 [facility] Comment on above: Performed By: #### C BCNO, BMP, MG #### [address] Hemogram CBC Without Diffon 12-26-2023 Mean Corpuscular HGB Conc 33.2 g/dL Normal 32.0-35.0 [facility] Comment on above: Performed By: #### C BCNO, BMP, MG #### [address] WBC (Bld) [#/Vol] 12.6 10*3/uL High 3.8-11.6 [facility] Comment on above: Performed By: #### C BCNO, BMP, MG #### [address] Leukocytes [#/volume] correc samy for nucleated erythrocytes in Blood by Automated counOrdered By: Dusty Ulloa on 12-26-2023 WBC corrected for nucl RBC Auto (Bld) [#/Vol] 12.6 10*3/uL High 3.8-11.6 [facility] MCH [Entitic mass] by Automa samy countOrdered By: Dusty Ulloa on 12-26-2023 MCH (RBC) [Entitic mass] 28.7 pg Normal 24.7-34.3 [facility] Comment on above: Performed By: #### C BCNO, BMP, MG #### [address] MCHC Auto (RBC) [Mass/Vol]Or dered By: Dusty Ulloa on 12-26-2023 MCHC (RBC) [Mass/Vol] 33.2 g/dL 32.0-35.0 [facility] MCV [Entitic volume] by Auto mated countOrdered By: Dusty Ulloa on 12-26-2023 MCV (RBC) [Entitic vol] 86.4 fL Normal 80-100 [facility] Comment on above: Performed By: #### C BCNO, BMP, MG #### [address] No Panel InformationOrdered By: Ravi Shen on 12-26-2023 Estimated GFR (CKD-EPI) > 60.0 mL/Min [facility] Creatinine Clearance (Chem 51.91 [facility] Platelet mean volume [Entiti c volume] in Blood by Automated countOrdered By: Dusty Ulloa on 12-26-2023 Platelet mean volume (Bld) [Entitic vol] 9.2 fL Normal 6.3-10.7 [facility] Comment on above: Result Comment: PERF ORMED BY: [place] [address] PATHOLOGIST SAND TECHNICIAN WHITLEY CHAO M.D. Performed By: #### C BCNO, BMP, MG #### [address] Platelets [#/volume] in Bloo d by Automated countOrdered By: Dusty Ulloa on 12-26-2023 Platelets (Bld) [#/Vol] 264 10*3/uL Normal 150-450 [facility] Comment on above: Performed By: #### C BCNO, BMP, MG #### [address] Potassium [Moles/volume] in Serum or PlasmaOrdered By: Ravi Shen on 12-26-2023 Potassium [Moles/Vol] 3.8 mmol/L Normal 3.5-5.1 [facility] Comment on above: Performed By: #### C ARACELI RAMIREZ, MG #### [facility] [address] Serum or plasma anion gap de terminationOrdered By: Ravi Shen on 12-26-2023 Anion gap [Moles/Vol] 8.7 mmol/L Normal 6.0-15.0 [facility] Comment on above: Performed By: #### C ARACELI RAMIREZ, MG #### [facility] [address] Sodium [Moles/volume] in Ser um or PlasmaOrdered By: Ravi Shen on 12-26-2023 Sodium [Moles/Vol] 127 mmol/L Low 136-145 [facility] Comment on above: Performed By: #### C JAMES BMP, MG #### [facility] [address] [place] [address] [place] Urea nitrogen [Mass/volume] in Serum or PlasmaOrdered By: Ravi Shen on 12-26-2023 Urea nitrogen [Mass/Vol] 31 mg/dL High 7-25 [facility] Comment on above: Performed By: #### C JAMES BMP, MG #### [facility] [address] [place] [address] [place] Alanine aminotransferase [En zymatic activity/volume] in Serum or PlasmaOrdered By: Dusty Ulloa on 12-25-2023 ALT [Catalytic activity/Vol] 5 U/L Low 7-52 [facility] Comment on above: Performed By: #### C BCJEROME BMP, MG #### [facility] [address] [place] [address] [place] Albumin [Mass/volume] in Ser um or Plasma by Bromocresol green (BCG) dye binding methoOrdered By: Dusty Ulloa on 12-25-2023 Albumin BCG dye [Mass/Vol] 3.4 g/dL Low 3.5-5.7 [facility] Alkaline phosphatase [Enzyma tic activity/volume] in Serum or PlasmaOrdered By: Dusty Ulloa on 12-25-2023 ALP [Catalytic activity/Vol] 71 U/L Normal 34-104 [facility] Comment on above: Performed By: #### C BCNO, BMP, MG #### [address] Aspartate aminotransferase [ Enzymatic activity/volume] in Serum or PlasmaOrdered By: Dusty Ulloa on 12-25-2023 AST [Catalytic activity/Vol] 15 U/L Normal 13-39 [facility] Comment on above: Performed By: #### C BCNO, BMP, MG #### [address] Bilirubin.total [Mass/volume ] in Serum or PlasmaOrdered By: Dusty Ulloa on 12-25-2023 Bilirubin [Mass/Vol] 0.4 mg/dL Normal 0.3-1.0 [facility] Comment on above: Performed By: #### C BCNO, BMP, MG #### [address] Comprehensive Metabolic Pane severo 12-25-2023 Albumin [Mass/Vol] 3.4 g/dL Low 3.5-5.7 [facility] Comment on above: Performed By: #### C BCNO, BMP, MG #### [address] Anion gap [Moles/Vol] 10.5 mmol/L Normal 6.0-15.0 [facility] Comment on above: Performed By: #### C BCNO, BMP, MG #### [address] Calcium [Mass/Vol] 10.4 mg/dL High 8.6-10.3 [facility] Comment on above: Performed By: #### C BCNO, BMP, MG #### [address] Chloride [Moles/Vol] 86 mmol/L Low 98-107 [facility] Comment on above: Performed By: #### C BCNO, BMP, MG #### [address] CO2 [Moles/Vol] 33.8 mmol/L High 21.0-31.0 [facility] Comment on above: Performed By: #### C BCNO, BMP, MG #### [address] Creatinine [Mass/Vol] 0.95 mg/dL Normal 0.60-1.20 [facility] Comment on above: Performed By: #### C BCNO, BMP, MG #### [place] [address] [place] Creatinine Clr Calc Pharmacy 51.11 Normal [facility] Comment on above: Performed By: #### C BCNO, BMP, MG #### [place] [address] [place] GFR/1.73 sq M.predicted MDRD (S/P/Bld) [Vol rate/Area] mL/min/{1.73_m2} Normal [facility] Comment on above: Performed By: #### C BCNO, BMP, MG #### [address] Glucose [Mass/Vol] 194 mg/dL High 70-100 [facility] Comment on above: Result Comment: [place] Glucose Reference Range is dependent on time and content of last meal. Glucose of more than 200 mg/dL in a nonstressed, ambulatory subject supports the diagnosis of Diabetes Mellitus. ADA recommended reference range Performed By: #### C BCNO, BMP, MG #### [address] Potassium [Moles/Vol] 4.3 mmol/L Normal 3.5-5.1 [facility] Comment on above: Performed By: #### C BCNO, BMP, MG #### [place] [address] [place] Sodium [Moles/Vol] 126 mmol/L Significant change down 136-145 [facility] Comment on above: Performed By: #### C BCNO, BMP, MG #### [address] Urea nitrogen [Mass/Vol] 25 mg/dL Normal 7-25 [facility] Comment on above: Performed By: #### C BCNO, BMP, MG #### [address] Hemogram CBC Without Diffon 12-25-2023 Erythrocyte distribution width (RBC) [Ratio] 14.1 % Normal 11.9-15.3 [facility] Comment on above: Performed By: #### C BCNO, BMP, MG #### [address] Hematocrit (Bld) [Volume fraction] 34.0 % Normal 34.0-46.4 [facility] Comment on above: Performed By: #### C BCNO, BMP, MG #### [address] Hemoglobin (Bld) [Mass/Vol] 11.2 g/dL Low 11.8-15.4 [facility] Comment on above: Performed By: #### C BCNO, BMP, MG #### [address] MCH (RBC) [Entitic mass] 28.3 pg Normal 24.7-34.3 [facility] Comment on above: Performed By: #### C BCNO, BMP, MG #### [address] MCV (RBC) [Entitic vol] 85.9 fL Normal 80-100 [facility] Comment on above: Performed By: #### C BCNO, BMP, MG #### [address] Mean Corpuscular HGB Conc 32.9 g/dL Normal 32.0-35.0 [facility] Comment on above: Performed By: #### C BCNO, BMP, MG #### [address] Platelet mean volume (Bld) [Entitic vol] 9.0 fL Normal 6.3-10.7 [facility] Comment on above: Result Comment: PERF ORMED BY: [place] [address] PATHOLOGIST SAND TECHNICIAN WHITLEY CHAO M.D. Performed By: #### C BCNO, BMP, MG #### [address] Platelets (Bld) [#/Vol] 240 10*3/uL Normal 150-450 [facility] Comment on above: Performed By: #### C BCNO, BMP, MG #### [address] RBC (Bld) [#/Vol] 3.95 10*6/uL Normal 3.60-5.00 [facility] Comment on above: Performed By: #### C BCNO, BMP, MG #### [address] WBC (Bld) [#/Vol] 14.0 10*3/uL High 3.8-11.6 [facility] Comment on above: Performed By: #### C BCNO, BMP, MG #### [address] Magnesium [Mass/volume] in S augustina or PlasmaOrdered By: Dusty Ulloa on 12-25-2023 Magnesium [Mass/Vol] 1.6 mg/dL Low 1.9-2.7 [facility] Comment on above: Result Comment: PERF ORMED BY: [place] [address] PATHOLOGIST SAND TECHNICIAN WHITLEY CHAO M.D. Performed By: #### C BCNO, BMP, MG #### [address] Protein [Mass/volume] in Ser um or PlasmaOrdered By: Dusty Ulloa on 12-25-2023 Protein [Mass/Vol] 6.6 g/dL Normal 6.4-8.9 [facility] Comment on above: Performed By: #### C BCNO, BMP, MG #### [address] Serum globulin measurement b y calculation (mass/volume)Ordered By: Dusty Ulloa on 12-25-2023 Globulin (S) [Mass/Vol] 3.2 g/dL Normal [facility] Comment on above: Performed By: #### C BCNO, BMP, MG #### [address] Serum or plasma albumin/glob ulin mass ratioOrdered By: Dusty Ulloa on 12-25-2023 Albumin/Globulin [Mass ratio] 1.1 {ratio} Normal [facility] Comment on above: Performed By: #### C BCNO, BMP, MG #### [address] Basic Metabolic Panelon 12-02 Anion gap [Moles/Vol] 6.4 mmol/L Normal 6.0-15.0 [facility] Comment on above: Order Comment: Comme nt repeat Performed By: #### C BCNO, BMP, MG #### [address] Calcium [Mass/Vol] 10.0 mg/dL Normal 8.6-10.3 [facility] Comment on above: Order Comment: Comme nt repeat Performed By: #### C BCNO, BMP, MG #### [address] Chloride [Moles/Vol] 91 mmol/L Low 98-107 [facility] Comment on above: Order Comment: Comme nt repeat Performed By: #### C BCNO, BMP, MG #### [address] CO2 [Moles/Vol] 24.5 mmol/L Normal 21.0-31.0 [facility] Comment on above: Order Comment: Comme nt repeat Performed By: #### C BCNO, BMP, MG #### [facility] [address] Creatinine [Mass/Vol] 1.24 mg/dL High 0.60-1.20 [facility] Comment on above: Order Comment: Comme nt repeat Performed By: #### C BCNO, BMP, MG #### [facility] [address] [place] [address] [place] Creatinine Clr Calc Pharmacy 39.16 Normal [facility] Comment on above: Order Comment: Comme nt repeat Result Comment: PERF ORMED BY: [place] [address] PATHOLOGIST SAND TECHNICIAN WHITLEY CHAO M.D. Performed By: #### C BCNO, BMP, MG #### [address] GFR/1.73 sq M.predicted MDRD (S/P/Bld) [Vol rate/Area] 44.545 mL/min/{1.73_m2} Normal [facility] Comment on above: Order Comment: Comme nt repeat Performed By: #### C BCNO, BMP, MG #### [address] Glucose [Mass/Vol] 181 mg/dL High 70-100 [facility] Comment on above: Order Comment: Comme nt repeat Result Comment: [place] Glucose Reference Range is dependent on time and content of last meal. Glucose of more than 200 mg/dL in a nonstressed, ambulatory subject supports the diagnosis of Diabetes Mellitus. ADA recommended reference range Performed By: #### C BCNO, BMP, MG #### [address] Potassium [Moles/Vol] 3.9 mmol/L Normal 3.5-5.1 [facility] Comment on above: Order Comment: Comme nt repeat Performed By: #### C BCNO, BMP, MG #### [address] Sodium [Moles/Vol] 118 mmol/L Off scale low 136-145 [facility] Comment on above: Order Comment: Comme nt repeat Result Comment: Crit ical Result Called to and read back by: NOT FIRST TIME CRITICAL at: 12/24/2023 10:37:56 by:[email or web address] Performed By: #### C BCNO, BMP, MG #### [address] Urea nitrogen [Mass/Vol] 28 mg/dL High 7-25 [facility] Comment on above: Order Comment: Comme nt repeat Performed By: #### C BCNO, BMP, MG #### [address] Anion gap [Moles/Vol] 12.1 mmol/L Normal 6.0-15.0 [facility] Comment on above: Performed By: #### C BCNO, BMP, MG #### [address] Calcium [Mass/Vol] 9.8 mg/dL Normal 8.6-10.3 [facility] Comment on above: Performed By: #### C BCNO, BMP, MG #### [address] Chloride [Moles/Vol] 89 mmol/L Low 98-107 [facility] Comment on above: Performed By: #### C BCNO, BMP, MG #### [address] CO2 [Moles/Vol] 25.8 mmol/L Normal 21.0-31.0 [facility] Comment on above: Performed By: #### C BCNO, BMP, MG #### [place] [address] [place] Creatinine [Mass/Vol] 1.30 mg/dL High 0.60-1.20 [facility] Comment on above: Performed By: #### C BCNO, BMP, MG #### [address] Creatinine Clr Calc Pharmacy 36.47 Normal [facility] Comment on above: Performed By: #### C BCNO, BMP, MG #### [facility] [address] GFR/1.73 sq M.predicted MDRD (S/P/Bld) [Vol rate/Area] 42.090 mL/min/{1.73_m2} Normal [facility] Comment on above: Performed By: #### C BCNO, BMP, MG #### [address] Glucose [Mass/Vol] 150 mg/dL High 70-100 [facility] Comment on above: Result Comment: [place] Glucose Reference Range is dependent on time and content of last meal. Glucose of more than 200 mg/dL in a nonstressed, ambulatory subject supports the diagnosis of Diabetes Mellitus. ADA recommended reference range Performed By: #### C BCNO, BMP, MG #### [address] Potassium [Moles/Vol] 3.9 mmol/L Normal 3.5-5.1 [facility] Comment on above: Performed By: #### C BCNO, BMP, MG #### [address] Sodium [Moles/Vol] 123 mmol/L Normal 136-145 [facility] Comment on above: Result Comment: Crit ical Result Called to and read back by: DON ROSADO at: 12/24/2023 05:38:41 by:[email or web address] Performed By: #### C BCNO, BMP, MG #### [address] Urea nitrogen [Mass/Vol] 30 mg/dL High 7-25 [facility] Comment on above: Performed By: #### C BCNO, BMP, MG #### [address] Hemogram CBC Without Diffon 12-24-2023 Erythrocyte distribution width (RBC) [Ratio] 14.2 % Normal 11.9-15.3 [facility] Comment on above: Performed By: #### C BCNO, BMP, MG #### [address] Hematocrit (Bld) [Volume fraction] 31.1 % Low 34.0-46.4 [facility] Comment on above: Performed By: #### C BCNO, BMP, MG #### [address] Hemoglobin (Bld) [Mass/Vol] 10.1 g/dL Low 11.8-15.4 [facility] Comment on above: Performed By: #### C BCNO, BMP, MG #### [address] MCH (RBC) [Entitic mass] 28.3 pg Normal 24.7-34.3 [facility] Comment on above: Performed By: #### C BCNO, BMP, MG #### [address] MCV (RBC) [Entitic vol] 86.7 fL Normal 80-100 [facility] Comment on above: Performed By: #### C BCNO, BMP, MG #### [address] Mean Corpuscular HGB Conc 32.6 g/dL Normal 32.0-35.0 [facility] Comment on above: Performed By: #### C BCNO, BMP, MG #### [address] Platelet mean volume (Bld) [Entitic vol] 9.4 fL Normal 6.3-10.7 [facility] Comment on above: Result Comment: PERF ORMED BY: [place] [address] PATHOLOGIST SAND TECHNICIAN WHITLEY CHAO M.D. Performed By: #### C BCNO, BMP, MG #### [address] Platelets (Bld) [#/Vol] 225 10*3/uL Normal 150-450 [facility] Comment on above: Performed By: #### C BCNO, BMP, MG #### [address] RBC (Bld) [#/Vol] 3.59 10*6/uL Low 3.60-5.00 [facility] Comment on above: Performed By: #### C BCNO, BMP, MG #### [address] WBC (Bld) [#/Vol] 13.5 10*3/uL High 3.8-11.6 [facility] Comment on above: Performed By: #### C BCNO, BMP, MG #### [address] Magnesiumon 12-24-2023 Magnesium [Mass/Vol] 1.5 mg/dL Low 1.9-2.7 [facility] Comment on above: Result Comment: PERF ORMED BY: [place] [address] PATHOLOGIST SAND TECHNICIAN WHITLEY CHAO M.D. Performed By: #### C BCNO, BMP, MG #### [address] Osmolalityon 12-24-2023 Osmolality 267 mosm Low 278-305 [facility] Comment on above: Order Comment: Comme nt add on Result Comment: PERF ORMED BY: [place] [address] PATHOLOGIST SAND TECHNICIAN WHITLEY CHAO M.D. Performed By: #### C BCNO, BMP, MG #### [address] Osmolality measurementOrdere d By: Dusty Ulloa on 12-24-2023 Osmolality (Unsp spec) [Osmolality] 267 mosm Low 278-305 [facility] Sodium [Moles/volume] in Uri neOrdered By: Dusty Ulloa on 12-24-2023 Sodium (U) [Moles/Vol] 31 mmol/L Normal Fi [facility] Comment on above: No reference range e stablished Result Comment: No r eference range established PERFORMED BY: [place] [address] PATHOLOGIST SAND TECHNICIAN WHITLEY CHAO M.D. Performed By: #### U NA #### [address] Automated basophil %Ordered By: Ryan Calderon on 12-23-2023 Basophils/100 WBC (Bld) 0.1 % Normal . [facility] Comment on above: Performed By: #### C BC, BMP #### [address] Automated basophil countOrde red By: Ryan Calderon on 12-23-2023 Basophils (Bld) [#/Vol] 0.0 10*3/uL Normal 0.0-0.2 [facility] Comment on above: Result Comment: PERF ORMED BY: [place] [address] PATHOLOGIST SAND TECHNICIAN WHITLEY CHAO M.D. Performed By: #### C BC, BMP #### [address] Automated blood monocyte cou ntOrdered By: Ryan Calderon on 12-23-2023 Monocytes (Bld) [#/Vol] 0.7 10*3/uL Normal 0.0-0.8 [facility] Comment on above: Performed By: #### C BC, BMP #### [address] Automated eosinophil %Ordere d By: Ryan Calderon on 12-23-2023 Eosinophils/100 WBC (Bld) 0.0 % Normal . [facility] Comment on above: Performed By: #### C BC, BMP #### [address] Automated eosinophil countOr dered By: Ryan Calderon on 12-23-2023 Eosinophils (Bld) [#/Vol] 0.0 10*3/uL Normal 0.0-0.45 [facility] Comment on above: Performed By: #### C BC, BMP #### [address] Automated monocyte %Ordered By: Ryan Calderon on 12-23-2023 Monocytes/100 WBC (Bld) 4.0 % Normal . [facility] Comment on above: Performed By: #### C BC, BMP #### [address] Automated neutrophil %Ordere d By: Ryan Calderon on 12-23-2023 Neutrophils/100 WBC (Bld) 91.5 % Normal . [facility] Comment on above: Performed By: #### C BC, BMP #### [address] Basic Metabolic Panelon 12-02 Anion gap [Moles/Vol] 13.7 mmol/L Normal 6.0-15.0 [facility] Comment on above: Performed By: #### C BC, BMP #### [address] Calcium [Mass/Vol] 9.8 mg/dL Normal 8.6-10.3 [facility] Comment on above: Performed By: #### C BC, BMP #### [address] Chloride [Moles/Vol] 97 mmol/L Low 98-107 [facility] Comment on above: Performed By: #### C BC, BMP #### [address] CO2 [Moles/Vol] 26.3 mmol/L Normal 21.0-31.0 [facility] Comment on above: Performed By: #### C BC, BMP #### [address] Creatinine [Mass/Vol] 1.20 mg/dL Normal 0.60-1.20 [facility] Comment on above: Performed By: #### C BC, BMP #### [address] Creatinine Clr Calc Pharmacy 38.12 Normal [facility] Comment on above: Result Comment: PERF ORMED BY: [place] [address] PATHOLOGIST SAND TECHNICIAN WHITLEY CHAO M.D. Performed By: #### C BC, BMP #### [facility] [address] GFR/1.73 sq M.predicted MDRD (S/P/Bld) [Vol rate/Area] 46.333 mL/min/{1.73_m2} Normal [facility] Comment on above: Performed By: #### C BC, BMP #### [facility] [address] Glucose [Mass/Vol] 168 mg/dL High 70-100 [facility] Comment on above: Result Comment: [facility] Glucose Reference Range is dependent on time and content of last meal. Glucose of more than 200 mg/dL in a nonstressed, ambulatory subject supports the diagnosis of Diabetes Mellitus. ADA recommended reference range Performed By: #### C BC, BMP #### [address] Potassium [Moles/Vol] 5.0 mmol/L Normal 3.5-5.1 [facility] Comment on above: Performed By: #### C BC, BMP #### [address] Sodium [Moles/Vol] 132 mmol/L Low 136-145 [facility] Comment on above: Performed By: #### C BC, BMP #### [address] Urea nitrogen [Mass/Vol] 20 mg/dL Normal 7-25 [facility] Comment on above: Performed By: #### C BC, BMP #### [address] Complete Blood Count Auto Di ffon 12-23-2023 Erythrocyte distribution width (RBC) [Ratio] 14.0 % Normal 11.9-15.3 [facility] Comment on above: Performed By: #### C BC, BMP #### [address] Hematocrit (Bld) [Volume fraction] 35.4 % Normal 34.0-46.4 [facility] Comment on above: Performed By: #### C BC, BMP #### [facility] [address] Hemoglobin (Bld) [Mass/Vol] 11.3 g/dL Low 11.8-15.4 [facility] Comment on above: Performed By: #### C BC, BMP #### [facility] [address] MCH (RBC) [Entitic mass] 28.2 pg Normal 24.7-34.3 [facility] Comment on above: Performed By: #### C BC, BMP #### [address] MCV (RBC) [Entitic vol] 87.9 fL Normal 80-100 [facility] Comment on above: Performed By: #### C BC, BMP #### [address] Mean Corpuscular HGB Conc 32.1 g/dL Normal 32.0-35.0 [facility] Comment on above: Performed By: #### C BC, BMP #### [address] NRBC% 0.1 /100{WBC} Normal 0-0.5 [facility] Comment on above: Performed By: #### C BC, BMP #### [address] Platelet mean volume (Bld) [Entitic vol] 9.3 fL Normal 6.3-10.7 [facility] Comment on above: Performed By: #### C BC, BMP #### [place] [address] [place] Platelets (Bld) [#/Vol] 272 10*3/uL Normal 150-450 [facility] Comment on above: Performed By: #### C BC, BMP #### [address] RBC (Bld) [#/Vol] 4.02 10*6/uL Normal 3.60-5.00 [facility] Comment on above: Performed By: #### C BC, BMP #### [facility] [address] [place] [address] [place] Leukocytes [#/volume] in Blo od by Automated countOrdered By: Ryan Calderon on 12-23-2023 WBC (Bld) [#/Vol] 18.0 10*3/uL High 3.8-11.6 [facility] Comment on above: Performed By: #### C BC, BMP #### [facility] [address] [place] [address] [place] Lymphocytes [#/volume] in Bl ood by Automated countOrdered By: Ryan Calderon on 12-23-2023 Lymphocytes (Bld) [#/Vol] 0.8 10*3/uL Low 1.00-4.8 [facility] Comment on above: Performed By: #### C BC, BMP #### [facility] [address] [place] [address] [place] Lymphocytes/100 leukocytes i n Blood by Automated countOrdered By: Ryan Calderon on 12-23-2023 Lymphocytes/100 WBC (Bld) 4.4 % Normal . [facility] Comment on above: Performed By: #### C BC, BMP #### [facility] [address] [place] [address] [place] Neutrophils [#/volume] in Bl ood by Automated countOrdered By: Ryan Calderon on 12-23-2023 Neutrophils (Bld) [#/Vol] 16.5 10*3/uL High 1.8-7.7 [facility] Comment on above: Performed By: #### C BC, BMP #### [facility] [address] [place] [address] [place] Nucleated erythrocytes [Pres ence] in Blood by Automated countOrdered By: Ryan Calderon on 12-23-2023 Nucleated RBC Auto Ql (Bld) 0.1 /100{WBC} 0-0.5 [facility] XR chest 1V portableon 12-22 XR chest 1V portable [facility] [place] [address] [place] [address] XRay Report Signed Patient: Kellie Rubio MR#: [id number] : 1945 Acct:[id number] Age/Sex: 78 / F ADM Date: 12/22/23 Loc: 4N Room: 5L9367-6 Type: REG [facility] [place] Attending Dr: Ryan Calderon Jr DO Copies to: Ryan Calderon Jr, DO Dusty Ulloa DO Ordering Provider: Dusty Ulloa DO Date of Service: 12/23/23 XR/XR chest 1V portable: hypoxia XR chest 1V portable 12/23/2023 9:52 AM SIGNS AND SYMPTOMS: Hypoxia PROTOCOL: Frontal radiograph of the chest COMPARISON: None FINDINGS: The trachea is midline. Surgical clips are noted in the left axilla. Atherosclerotic changes are noted in the thoracic aorta. There is a hiatal hernia with gastric fundus in the lower mediastinum. The heart and mediastinal structures are within normal limits. There is linear scarring or atelectasis at the left lung base. The bony thorax is intact. XR/XR chest 1V portable IMPRESSION: There is linear scarring or atelectasis at the left lung base. There is a hiatal hernia with gastric fundus in the lower mediastinum. Impression dictated by: Rom Ellington M.D.12/23/2023 10:27 AM Dictation Location: [place] [address] Transcribed By: [facility] 12/23/23 1027 Dictated By: Rom Ellington II, MD 12/23/23 1022 Signed By: 12/23/23 1027 Normal [facility] Basic Metabolic Panelon 12-02 Anion gap [Moles/Vol] 10.4 mmol/L Normal 6.0-15.0 [facility] Comment on above: Performed By: #### B MP, CBC #### [facility] [address] [place] [address] [place] Calcium [Mass/Vol] 10.7 mg/dL High 8.6-10.3 [facility] Comment on above: Performed By: #### B MP, CBC #### [facility] [address] [place] [id number] [place] Chloride [Moles/Vol] 102 mmol/L Normal 98-107 [facility] Comment on above: Performed By: #### B MP, CBC #### [place] [address] [place] CO2 [Moles/Vol] 27.1 mmol/L Normal 21.0-31.0 [facility] Comment on above: Performed By: #### B MP, CBC #### [place] [address] [place] Creatinine [Mass/Vol] 1.12 mg/dL Normal 0.60-1.20 [facility] Comment on above: Performed By: #### B MP, CBC #### [place] [address] [place] Creatinine Clr Calc Pharmacy 40.84 Normal [facility] Comment on above: Result Comment: PERF ORMED BY: [place] [address] PATHOLOGIST SAND TECHNICIAN WHITLEY CHAO M.D. Performed By: #### B MP, CBC #### [place] [address] [place] GFR/1.73 sq M.predicted MDRD (S/P/Bld) [Vol rate/Area] 50.332 mL/min/{1.73_m2} Normal [facility] Comment on above: Performed By: #### B MP, CBC #### [address] Glucose [Mass/Vol] 160 mg/dL High 70-100 [facility] Comment on above: Result Comment: [place] Glucose Reference Range is dependent on time and content of last meal. Glucose of more than 200 mg/dL in a nonstressed, ambulatory subject supports the diagnosis of Diabetes Mellitus. ADA recommended reference range Performed By: #### B MP, CBC #### [place] [address] [place] Potassium [Moles/Vol] 4.5 mmol/L Normal 3.5-5.1 [facility] Comment on above: Performed By: #### B MP, CBC #### [place] [address] [place] Sodium [Moles/Vol] 135 mmol/L Low 136-145 [facility] Comment on above: Performed By: #### B MP, CBC #### [address] Urea nitrogen [Mass/Vol] 18 mg/dL Normal 7-25 [facility] Comment on above: Performed By: #### B MP, CBC #### [address] Complete Blood Count Auto Di ffon 12-22-2023 Basophils (Bld) [#/Vol] 0.0 10*3/uL Normal 0.0-0.2 [facility] Comment on above: Result Comment: PERF ORMED BY: [place] [address] PATHOLOGIST SAND TECHNICIAN WHITLEY CHAO M.D. Performed By: #### B MP, CBC #### [address] Basophils/100 WBC (Bld) 0.1 % Normal . [facility] Comment on above: Performed By: #### B MP, CBC #### [address] Eosinophils (Bld) [#/Vol] 0.0 10*3/uL Normal 0.0-0.45 [facility] Comment on above: Performed By: #### B MP, CBC #### [address] Eosinophils/100 WBC (Bld) 0.2 % Normal . [facility] Comment on above: Performed By: #### B MP, CBC #### [address] Erythrocyte distribution width (RBC) [Ratio] 14.2 % Normal 11.9-15.3 [facility] Comment on above: Performed By: #### B MP, CBC #### [address] Hematocrit (Bld) [Volume fraction] 39.1 % Normal 34.0-46.4 [facility] Comment on above: Performed By: #### B MP, CBC #### [facility] [address] Hemoglobin (Bld) [Mass/Vol] 12.6 g/dL Normal 11.8-15.4 [facility] Comment on above: Performed By: #### B MP, CBC #### [facility] [address] Lymphocytes (Bld) [#/Vol] 0.5 10*3/uL Low 1.00-4.8 [facility] Comment on above: Performed By: #### B MP, CBC #### [address] Lymphocytes/100 WBC (Bld) 3.3 % Normal . [facility] Comment on above: Performed By: #### B MP, CBC #### [address] MCH (RBC) [Entitic mass] 28.3 pg Normal 24.7-34.3 [facility] Comment on above: Performed By: #### B MP, CBC #### [address] MCV (RBC) [Entitic vol] 87.7 fL Normal 80-100 [facility] Comment on above: Performed By: #### B MP, CBC #### [address] Mean Corpuscular HGB Conc 32.2 g/dL Normal 32.0-35.0 [facility] Comment on above: Performed By: #### B MP, CBC #### [address] Monocytes (Bld) [#/Vol] 0.1 10*3/uL Normal 0.0-0.8 [facility] Comment on above: Performed By: #### B MP, CBC #### [address] Monocytes/100 WBC (Bld) 0.7 % Normal . [facility] Comment on above: Performed By: #### B MP, CBC #### [facility] [address] [place] [address] [place] Neutrophils (Bld) [#/Vol] 14.0 10*3/uL High 1.8-7.7 [facility] Comment on above: Performed By: #### B MP, CBC #### [facility] [address] [place] [id number] [place] Neutrophils/100 WBC (Bld) 95.7 % Normal . [facility] Comment on above: Performed By: #### B MP, CBC #### [facility] [address] NRBC% 0.1 /100{WBC} Normal 0-0.5 [facility] Comment on above: Performed By: #### B MP, CBC #### [address] Platelet mean volume (Bld) [Entitic vol] 8.9 fL Normal 6.3-10.7 [facility] Comment on above: Performed By: #### B MP, CBC #### [place] [address] [place] Platelets (Bld) [#/Vol] 278 10*3/uL Normal 150-450 [facility] Comment on above: Performed By: #### B MP, CBC #### [place] [address] [place] RBC (Bld) [#/Vol] 4.46 10*6/uL Normal 3.60-5.00 [facility] Comment on above: Performed By: #### B MP, CBC #### [place] [address] [place] WBC (Bld) [#/Vol] 14.6 10*3/uL High 3.8-11.6 [facility] Comment on above: Performed By: #### B MP, CBC #### [address] ECG 12 lead ECGon 12-22-2023 ECG 12 lead ECG [facility] [address] Electrocardiograph Report Signed Patient: Kellie Rubio MR#: [id number] : 1945 Acct:[id number] Age/Sex: 78 / F ADM Date: 12/22/23 Loc: [place] Room: Type: [facility] Attending Dr: Ryan Calderon Jr, DO Ordering Provider: David Martinez DO Date of Service: 12/22/23 ECG/ECG 12 lead ECG: preop Copies to: Test Reason : Blood Pressure : / mmHG Vent. Rate : 069 BPM Atrial Rate : 069 BPM P-R Int : 226 ms QRS Dur : 080 ms QT Int : 376 ms P-R-T Axes : 074 -11 013 degrees QTc Int : 402 ms Sinus rhythm with 1st degree AV block with occasional interpolated PVC Minimal voltage criteria for LVH, may be normal variant Borderline ECG When compared with ECG of 28-MAR-2013 09:51, premature ventricular complexes are now present Confirmed by ARCHANA MALCOLM [id number] on 12/22/2023 10:49:17 AM Referred By: Electronically Signed By:ILIANA MAGAÑA MD [facility] Transcribed By: MUS Signed By Iliana Magaña MD, [facility] 12/22/23 1049 Normal [facility] 12-22-2023 L Specimen: [id number] Received: 12/22/23 Status: SOUT Req Num: [id number] Spec Type: Surgical Subm Dr: Ryan Calderon Jr, DO Tissues: A Joint/Knee (RT KNEE) Procedures: HE/2, Gross/Micro L4, Decalcification Age/ Patient Sex Location Account Attending Physician Kellie Rubio 78/F 4N [id number] Ravi Shen DO SPEC NUM: [id number] RECD: 12/22/23 STATUS: SOUT REQ NUM: [id number] KAREN: 12/22/23- SUBM DR: Ryan Calderon Jr, DO ENTERED: 12/22/[address]: SPEC TYPE: Surgical DEPT: S ORDERED: HE/2, Gross/Micro L4, Decalcification ORDERED: , Gross/Micro L4, Decalcification Pathological Diagnosis Left knee bone and tissue, total knee arthroplasty: -Severe degenerative osteoarthritis with patchy severe articular erosion and cortical eburnation with moderate bony remodeling, including moderate irregular thickening of the associated subcortical trabecular bones, mild osteophytic degenerations, and moderate dystrophic calcifications of the irregularly thickened and markedly degenerated meniscus cartilage, consistent with severe degenerative joint disease of the left knee Clinical Information DJD L knee Gross Description The specimen is received in formalin, labeled with the patient's name and bone and tissue , and consists of a 13.5 x 12.1 x 1.9 cm aggregate of multiple fragments of moran-white hemorrhagic bone and fibrous soft tissue. The largest fragment is consistent with tibial plateau, measuring 7.4 x 5.6 x 1.6 cm. There is a 2.9 x 1.6 cm focus of granularity on the articular surface of the tibial plateau. There is mild osteophytic lipping over 10% of the specimen periphery. Serial sectioning shows yellow spongy bone matrix. A gross photo is included. Bus Operator sections are submitted in A1 (bone following decalcification)-A2 (soft tissue). TW ---- Specimen: [id number] Received: 12/22/23 Status: TATO Gray Num: [id number] Spec Type: Surgical Subm Dr: Ryan Calderon Jr, DO Tissues: A Joint/Knee (RT KNEE) Procedures: , Gross/Micro L4, Decalcification ---- Patient: Kellie Rubio [id number] (Continued) ---- Specimen: [id number] Received: 12/22/23 (Continued) Signed (signature on file) Jake Leyva MD 12/26/232027 ---- Specimen: [id number] Received: 12/22/23 Status: TATO Gray Num: [id number] Spec Type: Surgical Subm Dr: Ryan Calderon Jr, Tissues: A Joint/Knee (RT KNEE) Procedures: HE/2, Gross/Micro L4, Decalcification ---- Patient: Kellie Rubio [id number] (Continued) ---- Specimen: [id number] Received: 12/22/23 (Continued) CPT Codes 36624, 22159 BONE AND TISSUE ---- ---- Specimen: [id number] Received: 12/22/23 Status: TATO Gray Num: [id number] Spec Type: Surgical Subm Dr: Ryan Calderon Jr, DO Tissues: A Joint/Knee (RT KNEE) Procedures: HE/2, Gross/Micro L4, Decalcification ---- Patient: Kellie Rubio [id number] (Continued) ---- Signed (signature on file) Jake Leyva MD 12/26/232027 Normal [facility] XR knee RT 2Von 12-22-2023 XR knee RT 2V [facility] [address] [address] XRay Report Signed Patient: Kellie Rubio MR#: [id number] : 1945 Acct:[id number] Age/Sex: 78 / F ADM Date: 12/22/23 Loc: [place] Room: Type: [facility] Attending Dr: Ryan Calderon Jr DO Copies to: Ryan Calderon Jr, DO Ordering Provider: Ryan Calderon Jr, DO Date of Service: 12/22/23 XR/XR knee RT 2V: Total or partial Knee, do in PACU RIGHT KNEE - 2 views CLINICAL HISTORY: Postop right TKA. COMPARISON: None FINDINGS: Soft tissues demonstrate postoperative change. Right TKA without radiographic complication. XR/XR knee RT 2V IMPRESSION: RIGHT TKA WITHOUT RADIOGRAPHIC COMPLICATION. Impression dictated by: Agustin Gutierrez Jr., D.OBre12/22/2023 3:15 PM Dictation Location: [place] [address] Transcribed By: [facility] 12/22/23 1515 Dictated By: Agustin Gutierrez Jr, DO 12/22/23 1513 Signed By: 12/22/23 151 Normal [facility] XR tibia/fibula BIon 024 XR tibia/fibula BI [address] [address] XRay Report Signed Patient: Kellie Rubio MR#: [id number] 0713 : 1945 Acct:[id number] Age/Sex: 77 / F ADM Date: 11/28/23 Loc: ICXD Room: Type: [facility] Attending Dr: Ryan Calderon Jr DO Copies to: Ryan Calderon Jr, DO Ordering Provider: Ryan Calderon Jr, DO Date of Service: 11/28/23 XR/XR femur BI: TKA ([id number]) XR/XR tibia/fibula BI: TKA BILATERAL FEMUR AND TIB-FIB - one view CLINICAL DATA: Preoperative planning for right knee replacement. COMPARISON: None AP standing view of both lower extremities from above the iliac crests down to the ankles were obtained using long cassette. The femurs are intact. No fracture or bony destruction is noted. There is no dislocation at the hips or knees. There is fusion hardware at the lower imaged lumbar spine. The SI joints are intact. The hip joint spaces are symmetric. There is narrowing of the medial tibiofemoral joint compartments on both sides, greater on the right with bone to bone contact. There is marginal spurring at the knees, greater medially. There are no soft tissue abnormalities. The tibia and fibula are intact on both sides. There is no dislocation at the ankles. No soft tissue abnormalities are seen. XR/XR femur BI IMPRESSION: DEGENERATIVE CHANGES AT BOTH KNEES, GREATER MEDIALLY, RIGHT WORSE THAN LEFT. NO ACUTE FINDINGS. Impression dictated by: Belén Aguirre M.D.11/28/2023 4:37 PM Dictation Location: [place] [address] Transcribed By: [facility] 11/28/23 1637 Dictated By: Belén Aguirre MD 11/28/23 163 Signed By: 11/28/23 1637 Normal [facility] Automated basophil %Ordered By: Ryan Calderon on 11-16-2023 Basophils/100 WBC (Bld) 0.3 % Normal . [facility] Comment on above: Performed By: #### C THADDEUS, BMP #### [address] Automated basophil countOrde red By: Ryan Calderon on 11-16-2023 Basophils (Bld) [#/Vol] 0.0 10*3/uL Normal 0.0-0.2 [facility] Comment on above: Result Comment: PERF ORMED BY: [place] [address] PATHOLOGIST SAND TECHNICIAN WHITLEY CHAO M.D. Performed By: #### C THADDEUS, BMP #### [address] Automated blood monocyte cou ntOrdered By: Ryan Calderon on 11-16-2023 Monocytes (Bld) [#/Vol] 0.4 10*3/uL Normal 0.0-0.8 [facility] Comment on above: Performed By: #### C BC, BMP #### [address] Automated eosinophil %Ordere d By: Ryan Calderon on 11-16-2023 Eosinophils/100 WBC (Bld) 7.0 % Normal . [facility] Comment on above: Performed By: #### C BC, BMP #### [address] Automated eosinophil countOr dered By: Ryan Calderon on 11-16-2023 Eosinophils (Bld) [#/Vol] 0.7 10*3/uL High 0.0-0.45 [facility] Comment on above: Performed By: #### C BC, BMP #### [address] Automated monocyte %Ordered By: Ryan Calderon on 11-16-2023 Monocytes/100 WBC (Bld) 3.7 % Normal . [facility] Comment on above: Performed By: #### C BC, BMP #### [address] Automated neutrophil %Ordere d By: Ryan Calderon on 11-16-2023 Neutrophils/100 WBC (Bld) 75.1 % Normal . [facility] Comment on above: Performed By: #### C BC, BMP #### [address] Basic Metabolic Panelon 10-31 GFR/1.73 sq M.predicted MDRD (S/P/Bld) [Vol rate/Area] 50.646 mL/min/{1.73_m2} Normal [facility] Comment on above: Performed By: #### C BC, BMP #### [address] Calcium [Mass/volume] in Ser um or PlasmaOrdered By: Ryan Calderon on 11-16-2023 Calcium [Mass/Vol] 10.7 mg/dL High 8.6-10.3 [facility] Comment on above: Result Comment: PERF ORMED BY: [place] [address] PATHOLOGIST SAND TECHNICIAN WHITLEY CHAO M.D. Performed By: #### C BC, BMP #### [address] Carbon dioxide, total [Moles /volume] in Serum or PlasmaOrdered By: Ryan Calderon on 11-16-2023 CO2 [Moles/Vol] 29.4 mmol/L Normal 21.0-31.0 [facility] Comment on above: Performed By: #### C BC, BMP #### [address] Chloride [Moles/volume] in S augustina or PlasmaOrdered By: Ryan Calderon on 11-16-2023 Chloride [Moles/Vol] 100 mmol/L Normal 98-107 [facility] Comment on above: Performed By: #### C BC, BMP #### [address] Complete Blood Count Auto Di ffon 11-16-2023 Mean Corpuscular HGB Conc 33.1 g/dL Normal 32.0-35.0 [facility] Comment on above: Performed By: #### C BC, BMP #### [address] NRBC% 0.0 /100{WBC} Normal 0-0.5 [facility] Comment on above: Performed By: #### C BC, BMP #### [address] Creatinine [Mass/volume] in Serum or PlasmaOrdered By: Ryan Calderon on 11-16-2023 Creatinine [Mass/Vol] 1.12 mg/dL Normal 0.60-1.20 [facility] Comment on above: Performed By: #### C BC, BMP #### [address] Erythrocyte distribution wid th [Ratio] by Automated countOrdered By: Ryan Calderon on 11-16-2023 Erythrocyte distribution width (RBC) [Ratio] 14.2 % Normal 11.9-15.3 [facility] Comment on above: Performed By: #### C THADDEUS, BMP #### [address] Erythrocytes [#/volume] in B lood by Automated countOrdered By: Ryan Calderon on 11-16-2023 RBC (Bld) [#/Vol] 4.62 10*6/uL Normal 3.60-5.00 [facility] Comment on above: Performed By: #### C THADDEUS, BMP #### [address] Glucose [Mass/volume] in Ser um or PlasmaOrdered By: Ryan Calderon on 11-16-2023 Glucose [Mass/Vol] 133 mg/dL High 70-100 [facility] Comment on above: ADA recommended refe rence rangeRandom Glucose Reference Range is dependent on time and content of last meal. Glucose of more than 200 mg/dL in a nonstressed, ambulatory subject supports the diagnosis of Diabetes Mellitus. Result Comment: [place] om Glucose Reference Range is dependent on time and content of last meal. Glucose of more than 200 mg/dL in a nonstressed, ambulatory subject supports the diagnosis of Diabetes Mellitus. ADA recommended reference range Performed By: #### C THADDEUS, BMP #### [address] Hematocrit [Volume Fraction] of Blood by Automated countOrdered By: Ryan Calderon on 11-16-2023 Hematocrit (Bld) [Volume fraction] 40.4 % Normal 34.0-46.4 [facility] Comment on above: Performed By: #### C THADDEUS, BMP #### [address] Hemoglobin [Mass/volume] in BloodOrdered By: Ryan Calderon on 11-16-2023 Hemoglobin (Bld) [Mass/Vol] 13.4 g/dL Normal 11.8-15.4 [facility] Comment on above: Performed By: #### C BC, BMP #### [address] Leukocytes [#/volume] correc samy for nucleated erythrocytes in Blood by Automated counOrdered By: Ryan Calderon on 11-16-2023 WBC corrected for nucl RBC Auto (Bld) [#/Vol] 10.2 10*3/uL 3.8-11.6 [facility] Leukocytes [#/volume] in Blo od by Automated countOrdered By: Ryan Calderon on 11-16-2023 WBC (Bld) [#/Vol] 10.2 10*3/uL Normal 3.8-11.6 [facility] Comment on above: Performed By: #### C BC, BMP #### [address] Lymphocytes [#/volume] in Bl ood by Automated countOrdered By: Ryan Calderon on 11-16-2023 Lymphocytes (Bld) [#/Vol] 1.4 10*3/uL Normal 1.00-4.8 [facility] Comment on above: Performed By: #### C THADDEUS, BMP #### [address] Lymphocytes/100 leukocytes i n Blood by Automated countOrdered By: Ryan Calderon on 11-16-2023 Lymphocytes/100 WBC (Bld) 13.9 % Normal . [facility] Comment on above: Performed By: #### C BC, BMP #### [address] MCH [Entitic mass] by Automa samy countOrdered By: Ryan Calderon on 11-16-2023 MCH (RBC) [Entitic mass] 28.9 pg Normal 24.7-34.3 [facility] Comment on above: Performed By: #### C BC, BMP #### [address] MCHC Auto (RBC) [Mass/Vol]Or dered By: Ryan Calderon on 11-16-2023 MCHC (RBC) [Mass/Vol] 33.1 g/dL 32.0-35.0 [facility] MCV [Entitic volume] by Auto mated countOrdered By: Ryan Calderon on 11-16-2023 MCV (RBC) [Entitic vol] 87.4 fL Normal 80-100 [facility] Comment on above: Performed By: #### C BC, BMP #### [facility] [address] [place] [address] Neutrophils [#/volume] in Bl ood by Automated countOrdered By: Ryan Calderon on 11-16-2023 Neutrophils (Bld) [#/Vol] 7.6 10*3/uL Normal 1.8-7.7 [facility] Comment on above: Performed By: #### C BC, BMP #### [address] No Panel InformationOrdered By: Ryan Calderon on 11-16-2023 Estimated GFR (CKD-EPI) 50.646 mL/Min [facility] Creatinine Clearance (Chem N/A [facility] Nucleated erythrocytes [Pres ence] in Blood by Automated countOrdered By: Ryan Calderon on 11-16-2023 Nucleated RBC Auto Ql (Bld) 0.0 /100{WBC} 0-0.5 [facility] Platelet mean volume [Entiti c volume] in Blood by Automated countOrdered By: Ryan Calderon on 11-16-2023 Platelet mean volume (Bld) [Entitic vol] 8.6 fL Normal 6.3-10.7 [facility] Comment on above: Performed By: #### C BC, BMP #### [facility] [address] [place] [address] Platelets [#/volume] in Bloo d by Automated countOrdered By: Ryan Calderon on 11-16-2023 Platelets (Bld) [#/Vol] 291 10*3/uL Normal 150-450 [facility] Comment on above: Performed By: #### C BC, BMP #### [facility] [address] [place] [address] Potassium [Moles/volume] in Serum or PlasmaOrdered By: Ryan Calderon on 11-16-2023 Potassium [Moles/Vol] 4.5 mmol/L Normal 3.5-5.1 [facility] Comment on above: Performed By: #### C BC, BMP #### [facility] [address] [place] [address] Serum or plasma anion gap de terminationOrdered By: Ryan Calderon on 11-16-2023 Anion gap [Moles/Vol] 12.1 mmol/L Normal 6.0-15.0 [facility] Comment on above: Performed By: #### C BC, BMP #### [facility] [address] [place] [address] Sodium [Moles/volume] in Ser um or PlasmaOrdered By: Ryan Calderon on 11-16-2023 Sodium [Moles/Vol] 137 mmol/L Normal 136-145 [facility] Comment on above: Performed By: #### C BC, BMP #### [facility] [address] [place] [address] Urea nitrogen [Mass/volume] in Serum or PlasmaOrdered By: Ryan Calderon on 11-16-2023 Urea nitrogen [Mass/Vol] 27 mg/dL High 7-25 [facility] Comment on above: Performed By: #### C BC, BMP #### [address] Transfer Inon 11-11-2022 Transfer In [id number] Normal [facility] MAMMO POST BIOPSY RIGHTon MAMMO POST BIOPSY RIGHT Patient: KELLIE RUBIO Exam Date: 04/05/2022 : 1945 Gender:F Ordering : DR BEBO ESCALANTE M.D. Admission #: [id number] Family : Order #: [id number] CLICK HERE TO VIEW EXAM This report includes an Addendum and supersedes previous reports for this exam. RADIOLOGY REPORT PROCEDURE: MAMMOGRAM POST BIOPSY IMAGES COMPARISON: MG STEREO CORE NDL W CLIP RT, 04/05/2022. INDICATIONS: Mammographic microcalcification of breast BREAST COMPOSITION: Almost entirely fatty. FINDINGS: BIOPSY MARKER: A metallic marker has been placed in the targeted location within the anterior upper-inner quadrant of the right breast. BREAST FINDINGS: Expected post biopsy findings. RECOMMENDATIONS: Dictated by: Aj Oh M.D. on 04/05/2022 at 15:40 Approved by: Aj Oh M.D. on 04/05/2022 at 15:41 ADDENDUM: FINDINGS: DIAGNOSTIC CATEGORY 3--PROBABLY BENIGN FINDING. THE FOLLOWING FINDING(S) HAS A HIGH PROBABILITY OF A BENIGN ETIOLOGY: RECOMMENDATIONS: SHORT TERM FOLLOW-UP DIAGNOSTIC MAMMOGRAM RIGHT BREAST IN 6 MONTHS. Dictated by: Aj Oh M.D. on 04/13/2022 at 11:44 Approved by: Aj Oh M.D. on 04/13/2022 at 11:44 Normal [facility] MG STEREO CORE NDL W CLIP RT on 04-05-2022 MG STEREO CORE NDL W CLIP RT Patient: KELLIE RUBIO Exam Date: 04/05/2022 : 1945 Gender:F Ordering : DR BEBO ESCALANTE M.D. Admission #: [id number] Family : Order #: [id number] CLICK HERE TO VIEW EXAM This report includes an Addendum and supersedes previous reports for this exam. RADIOLOGY REPORT PROCEDURE: MAMMOGRAM STEREO CORE RITO WITH CLIP RIGHT COMPARISON: US BREAST RIGHT LIMITED, 03/29/2022. MG MAMM RT DIAG FU, 03/29/2022. MG MAMM SCREEN RT 3D CAD, 02/28/2022. MG MAMM SCREEN RT 3D CAD, 02/16/2021. INDICATIONS: Microcalcifications of the breast DESCRIPTION: Following informed consent, digital stereotactic mammographic views were obtained to localize the lesion. Multiple vacuum-assisted core biopsies were obtained. Specimen images were obtained to confirm proper sampling. The location of the biopsy was then marked as indicated below. FINDINGS: SPECIMEN #, LOCATION: 5 core samples anterior upper-inner quadrant calcifications. SPECIMEN IMAGE: Calcifications within core 2 , 3, and 4 BIOPSY NEEDLE: 10 gauge Revolve(r) vacuum core biopsy needle. MARKER(S) PLACED: A single metallic marker was placed in the appropriate targeted location. MEDICATION: Buffered 1% lidocaine superficial;1% lidocaine with epinephrine deep. COMPLICATIONS: None. PATHOLOGY / LAB: Pending. CONCLUSION: 1. Technically successful biopsy of the breast lesion. 2. Pathology results are pending. An addendum will be added when pathology results are final. Dictated by: Aj Oh M.D. on 04/05/2022 at 15:37 Approved by: Aj Oh M.D. on 04/05/2022 at 15:40 ADDENDUM: Final pathologic diagnosis: Focal fibroadenomatoid changes with microcalcifications and stromal calcifications. No evidence of malignancy. This report was transmitted to the referring physician's office on April 12, 2022, and the office called to confirm receipt. Dictated by: Aj Oh M.D. on 04/13/2022 at 11:42 Approved by: Aj Oh M.D. on 04/13/2022 at 11:43 Normal [facility] MG MAMM RT DIAG FUon 03-29- 022 MG MAMM RT DIAG FU Patient: KELLIE RUBIO Exam Date: 03/29/2022 : 1945 Gender:F Ordering : DR BEBO ESCALANTE M.D. Admission #: [id number] Family : Order #: [id number] CLICK HERE TO VIEW EXAM RADIOLOGY REPORT PROCEDURE: MAMMOGRAM RIGHT DIAGNOSTIC DIGITAL FOLLOW UP, 03/29/2022, 12:39 ULTRASOUND BREAST RIGHT LIMITED, 03/29/2022, 12:53 COMPARISON: MG MAMM SCREEN RT 3D CAD, 02/16/2021. MG MAMM SCREEN RT 3D CAD, 02/28/2022. INDICATIONS: Abnormal findings on diagnostic imaging of breast Calculator Name NCI Breast Cancer Risk Assessment Tool 5 Year Breast Cancer Risk n/a% Lifetime Breast Cancer Risk n/a% Personal Breast Cancer Yes, Left, 54 Personal Ovarian Cancer No Treatments Left mastectomy with lymphnode removal Family Cancers Mother with breast cancer at age 60; Aunt-maternal with breast cancer at age 60; Cousin-maternal with leukemia cancer at age 40; Aunt-maternal with uterine cancer at age 60. LOCATION: [facility] BREAST COMPOSITION: Almost entirely fatty. FINDINGS: DIAGNOSTIC CATEGORY 4--SUSPICIOUS FOR MALIGNANCY. FINDING DOES NOT EXHIBIT CLASSIC FINDINGS OF BREAST CANCER: Two spot magnification views demonstrate an increasing cluster of pleomorphic microcalcifications identified in the upper inner anterior right breast. No associated ultrasound abnormality could be found. These findings were discussed with the patient and stereotactic breast biopsy was recommended RECOMMENDATIONS: STEREOTACTIC BREAST BIOPSY: RIGHT BREAST PLEASE NOTE: A NORMAL MAMMOGRAM DOES NOT EXCLUDE THE POSSIBILITY OF BREAST CANCER. A CLINICALLY SUSPICIOUS PALPABLE LUMP SHOULD BE BIOPSIED. Dictated by: Sam Lau MD on 03/29/2022 at 13:14 Approved by: Sam Lau MD on 03/29/2022 at 13:17 Normal [facility] US BREAST RIGHT LIMITEDon US BREAST RIGHT LIMITED Patient: KELLIE RUBIO Exam Date: 03/29/2022 : 1945 Gender:F Ordering : DR BEBO ESCALANTE M.D. Admission #: [id number] Family : Order #: [id number] CLICK HERE TO VIEW EXAM RADIOLOGY REPORT PROCEDURE: MAMMOGRAM RIGHT DIAGNOSTIC DIGITAL FOLLOW UP, 03/29/2022, 12:39 ULTRASOUND BREAST RIGHT LIMITED, 03/29/2022, 12:53 COMPARISON: MG MAMM SCREEN RT 3D CAD, 02/16/2021. MG MAMM SCREEN RT 3D CAD, 02/28/2022. INDICATIONS: Abnormal findings on diagnostic imaging of breast Calculator Name NCI Breast Cancer Risk Assessment Tool 5 Year Breast Cancer Risk n/a% Lifetime Breast Cancer Risk n/a% Personal Breast Cancer Yes, Left, 54 Personal Ovarian Cancer No Treatments Left mastectomy with lymphnode removal Family Cancers Mother with breast cancer at age 60; Aunt-maternal with breast cancer at age 60; Cousin-maternal with leukemia cancer at age 40; Aunt-maternal with uterine cancer at age 60. LOCATION: [facility] BREAST COMPOSITION: Almost entirely fatty. FINDINGS: DIAGNOSTIC CATEGORY 4--SUSPICIOUS FOR MALIGNANCY. FINDING DOES NOT EXHIBIT CLASSIC FINDINGS OF BREAST CANCER: Two spot magnification views demonstrate an increasing cluster of pleomorphic microcalcifications identified in the upper inner anterior right breast. No associated ultrasound abnormality could be found. These findings were discussed with the patient and stereotactic breast biopsy was recommended RECOMMENDATIONS: STEREOTACTIC BREAST BIOPSY: RIGHT BREAST PLEASE NOTE: A NORMAL MAMMOGRAM DOES NOT EXCLUDE THE POSSIBILITY OF BREAST CANCER. A CLINICALLY SUSPICIOUS PALPABLE LUMP SHOULD BE BIOPSIED. Dictated by: Sam Lau MD on 03/29/2022 at 13:14 Approved by: Sam Lau MD on 03/29/2022 at 13:17 Normal [facility] MG MAMM SCREEN RT 3D CADon 0 02-28-2022 MG MAMM SCREEN RT 3D CAD Patient: KELLIE RUBIO Exam Date: 02/28/2022 : 1945 Gender:F Ordering : DR BEBO ESCALANTE M.D. Admission #: [id number] Family : Order #: [id number] CLICK HERE TO VIEW EXAM RADIOLOGY REPORT PROCEDURE: MAMMOGRAM SCREENING RIGHT 3D CAD COMPARISON: MG MAMM SCREEN RT 3D CAD, 02/16/2021. MG MAMM SCR RT UNI W CAD, 03/04/2020. INDICATIONS: Screening mammography Calculator Name NCI Breast Cancer Risk Assessment Tool 5 Year Breast Cancer Risk n/a% Lifetime Breast Cancer Risk n/a% Personal Breast Cancer Yes, Left, 54 Personal Ovarian Cancer No Treatments Left mastectomy with lymphnode removal Family Cancers Mother with breast cancer at age 60; Aunt-maternal with breast cancer at age 60; Cousin-maternal with leukemia cancer at age 40; Aunt-maternal with uterine cancer at age 60. LOCATION: [facility] BREAST COMPOSITION: Almost entirely fatty. FINDINGS: DIAGNOSTIC CATEGORY 0--INCOMPLETE: NEED ADDITIONAL IMAGING EVALUATION. Interval increase in a cluster of microcalcifications and stable 5 mm density central, retroareolar anterior right breast. Spot magnification and ultrasound follow-up is recommended RECOMMENDATIONS: ADDITIONAL MAMMOGRAPHIC VIEWS REQUIRED: RIGHT BREAST - spot magnification ULTRASOUND: RIGHT BREAST PLEASE NOTE: A NORMAL MAMMOGRAM DOES NOT EXCLUDE THE POSSIBILITY OF BREAST CANCER. A CLINICALLY SUSPICIOUS PALPABLE LUMP SHOULD BE BIOPSIED. Dictated by: Sam Lau MD on 02/28/2022 at 09:35 Approved by: Sam Lau MD on 02/28/2022 at 09:38 Normal [facility] XR DEXA BONE DENSITYon 02-28 XR DEXA BONE DENSITY EXAMINATION: XR DEX A BONE DENSITY, 02/28/2022 7:58 AM EDT HISTORY: Primary ovarian failure COMPARISON: DEXA bone densitometry 07/12/2019 TECHNIQUE: Dual-energy X-ray absorptiometry (DEXA) bone density study performed for the axial skeleton. FINDINGS: FOREARM ANALYSIS: Average bone mineral density is 0.745 g/cm2. T-score (standard deviation relative to young adult mean): 0.4 . +1.9% change since prior study. HIP ANALYSIS: Lowest bone mineral density is within the right femoral neck, 0.766 g/cm2. T-score (standard deviation relative to young adult mean): -2.0 . -4.3% change since prior study. IMPRESSION: [employer] Organization Classification: Osteopenia - Moderate Fracture Risk Electronically authenticated by: AJ [place] Date: 2022-02-28 09:00 Normal [facility] POINT OF CARE GLUCOSEon 01-31 Glucose [Mass/Vol] 109 mg/dL Critically high 74-106 [facility] Comment on above: Performed By: #### P OCGLUC #### [facility] [address] [place], [place] [address] Dr. Rhea Leyva [facility]-19 [facility]on 01-31 SARS-CoV-2 (COVID-19) RNA AMANDA+probe Ql (Unsp spec) Not detected Normal NOT DETECTED [facility] Comment on above: Result Comment: This test is not yet approved or cleared by the [place] FDA. When there are no FDA-approved or cleared tests available, and other criteria are met, FDA can make tests available under an emergency access mechanism called an Emergency Use Authorization (EUA). The EUA for this test is supported by the Dead Mail Checker of Health and Human Service's (HHS's) declaration that circumstances exist to justify the emergency use of in vitro diagnostics for the detection and/or diagnosis of the virus that causes COVID-19. This EUA will remain in effect (meaning this test can be used) for the duration of the COVID-19 declaration justifying emergency of IVDs, unless it is terminated or revoked by FDA (after which the test may no longer be used). When diagnostic testing is negative, the possibility of a false negative should be considered in the context of a patient's recent exposures and the presence of clinical signs and symptoms consistent with SARS-CoV-2. Performed By: #### C VDTBH #### [facility] [address] [place], [place] [address] Dr. Rhea Leyva POINT OF CARE GLUCOSEon Glucose [Mass/Vol] 119 mg/dL Critically high 74-106 [facility] Comment on above: Performed By: #### P OCGLUC #### [facility] [address] [place], [place] [address] Dr. Rhea Leyva Covid-19 PCR ([facility])on SARS-CoV-2 (COVID-19) RNA AMANDA+probe Ql (Unsp spec) Not detected Normal NOT DETECTED [facility] Comment on above: Result Comment: This test is not yet approved or cleared by the [place] FDA. When there are no FDA-approved or cleared tests available, and other criteria are met, FDA can make tests available under an emergency access mechanism called an Emergency Use Authorization (EUA). The EUA for this test is supported by the Dead Mail Checker of Health and Human Service's (HHS's) declaration that circumstances exist to justify the emergency use of in vitro diagnostics for the detection and/or diagnosis of the virus that causes COVID-19. This EUA will remain in effect (meaning this test can be used) for the duration of the COVID-19 declaration justifying emergency of IVDs, unless it is terminated or revoked by FDA (after which the test may no longer be used). When diagnostic testing is negative, the possibility of a false negative should be considered in the context of a patient's recent exposures and the presence of clinical signs and symptoms consistent with SARS-CoV-2. Performed By: #### C VDTB ####[facility] [id number] [place], [place] [address]HoDr. Rhea Leyva Lipid Panelon 07-07-2021 Cholesterol [Mass/Vol] 139 mg/dL Normal 125-200 No rthern [place] [facility] Comment on above: Result Comment: Low risk < 200mg/dL Borderline risk 201-239 mg/dl High risk > or equal to 240 Performed By: #### T SH reflex FT4, LIPD #### [facility] [address] [place], [place] [id number] Cholesterol in HDL [Mass/Vol] 52 mg/dL Normal >40 [facility] Comment on above: Result Comment: High Cardiovascular Risk HDL <40 mg/dL Low Cardiovascular Risk HDL > or equal to 60 mg/dl Performed By: #### T SH reflex FT4, LIPD #### [facility] [address] [place], [place] [id number] Cholesterol in LDL [Mass/Vol] 68 mg/dL Normal [facility] Comment on above: Result Comment: LDL ATP III CLASSIFICATION LDL less than 100 mg/dl Optimal LDL 100-129 mg/dl Near or above optimal LDL 130-159 Borderline high LDL 160-189 High LDL greater than 189 mg/dl Very High Performed By: #### T SH reflex FT4, LIPD #### [facility] [address] [place], [place] [id number] Cholesterol in VLDL [Mass/Vol] 19 mg/dL Normal [facility] Comment on above: Performed By: #### T SH reflex FT4, LIPD #### [facility] [address] [place], [place] [id number] Cholesterol.total/Silke sterol in HDL [Mass ratio] 3 {ratio} Normal [facility] Comment on above: Performed By: #### T SH reflex FT4, LIPD #### [facility] [address] [place], [place] [id number] Triglyceride [Mass/Vol] 94 mg/dL Normal 30-150 [facility] [place] [facility] Comment on above: Result Comment: TRIG ATPIII CLASSIFICATIONS TRIG less than 150 mg/dl Normal TRIG 150-199 mg/dl Borderline High TRIG 200-500 mg/dl High TRIG greather than 500 mg/dl Very High Performed By: #### T SH reflex FT4, LIPD #### [facility] [address] [place], [place] [id number] TSH w/ Reflex to Free T4on 0 07-07-2021 TSH 1.530 uIU/mL Normal 0.400-4.500 [facility] Comment on above: Performed By: #### T SH reflex FT4, LIPD #### [facility] [address] [place], [place] [id number] Vital Signs Date Time Vital Sign Value Performing Clinician Facility 08-16-2024 08:-0500 Body height 152.4 cm Bebo Escalante MD Work Phone: [facility] 08-16-2024 [id number] Body mass index (BMI) [Ratio] 35.94 kg/m2 Bebo Escalante MD Work Phone: [facility] 08-16-2024 08:0500 Body weight 83.46 kg Bebo Escalante MD Work Phone: [facility] 08-16-2024 08:21-0500 Diastolic blood pressure 82 mm[Hg] Bebo Escalante MD Work Phone: [facility] 08-16-2024 08:21-0500 Heart rate 68 /min Bebo Escalante MD Work Phone: [facility] 08-16-2024 08:21-0500 SaO2% (BldA) [Mass fraction] 97 % Bebo Escalante MD Work Phone: [facility] 08-16-2024 08:21-0500 Systolic blood pressure 128 mm[Hg] Bebo Escalante MD Work Phone: [facility] 07-25-2024 09:26-0500 Body height 152.4 cm Bebo Escalante MD Work Phone: [facility] 07-25-2024 09:26-0500 Body mass index (BMI) [Ratio] 35.94 kg/m2 Bebo Escalante MD Work Phone: [facility] 07-25-2024 09:26-0500 Body weight 83.46 kg Bebo Escalante MD Work Phone: [facility] 07-25-2024 09:26-0500 Diastolic blood pressure 72 mm[Hg] Bebo Escaalnte MD Work Phone: [facility] 07-25-2024 09:26-0500 Heart rate 67 /min Bebo Escalante MD Work Phone: [facility] 07-25-2024 09:26-0500 SaO2% (BldA) [Mass fraction] 97 % Bebo Escalante MD Work Phone: [facility] 07-25-2024 09:26-0500 Systolic blood pressure 120 mm[Hg] Bebo Escalante MD Work Phone: [facility] 03-11-2024 08:33-0400 Body height 152.4 cm Bebo Escalante MD Work Phone: [facility] 03-11-2024 08:33-0400 Body mass index (BMI) [Ratio] 39.06 kg/m2 Bebo Escalante MD Work Phone: [facility] 03-11-2024 08:33-0400 Body weight 90.72 kg Bebo Escalante MD Work Phone: [facility] 03-11-2024 08:33-0400 Diastolic blood pressure 80 mm[Hg] Bebo Escalante MD Work Phone: [facility] 03-11-2024 08:33-0400 Heart rate 69 /min Bebo Escalante MD Work Phone: [facility] 03-11-2024 08:33-0400 SaO2% (BldA) [Mass fraction] 96 % Bebo Escalante MD Work Phone: [facility] 03-11-2024 08:33-0400 Systolic blood pressure 130 mm[Hg] Bebo Escalante MD Work Phone: [facility] 12-26-2023 11:43-0400 Body temperature 97.6 [degF] II Bebo Escalante Work Phone: [facility] 12-26-2023 11:43-0400 Diastolic blood pressure 76 mm[Hg] II Bebo Escalante Work Phone: [facility] 12-26-2023 11:43-0400 Heart rate 64 /min II Bebo Escalante Work Phone: [facility] 12-26-2023 11:43-0400 Respiratory rate 19 /min II Bebo Escalante Work Phone: [facility] 12-26-2023 11:43-0400 SaO2% (BldA) [Mass fraction] 92 % II Bebo Escalante Work Phone: [facility] 12-26-2023 11:43-0400 Systolic blood pressure 129 mm[Hg] II Bebo Escalante Work Phone: [facility] 12-26-2023 05:30-0400 Body weight 93.1 kg II Bebo Escalante Work Phone: [facility] 12-25-2023 11:30-0400 Body height 152.4 cm II Bebo Escalante Work Phone: [facility] 12-25-2023 08:25-0400 Inhaled oxygen flow rate 3 L/min II Bebo Escalante Work Phone: [facility] 12-22-2023 11:29-0400 Body mass index (BMI) [Ratio] 37.8 kg/m2 II Bebo Escalatne Work Phone: [facility] 11-16-2023 08:51-0400 Body height 152.4 cm II Bebo Escalante Work Phone: [facility] 11-16-2023 08:51-0400 Body weight 89.4 kg II Bebo Escalante Work Phone: [facility] 11-16-2023 08:51-0400 Diastolic blood pressure 77 mm[Hg] II Bebo Escalante Work Phone: [facility] 11-16-2023 08:51-0400 Heart rate 66 /min II Bebo Escalante Work Phone: [facility] 11-16-2023 08:51-0400 Respiratory rate 18 /min II Bebo Escalante Work Phone: [facility] 11-16-2023 08:51-0400 SaO2% (BldA) [Mass fraction] 96 % II Bebo Escalante Work Phone: [facility] 11-16-2023 08:51-0400 Systolic blood pressure 136 mm[Hg] II Bebo Escalante Work Phone: [facility] Encounters Encounter Date Encounter Type Care Provider Facility Start: 08-16-2024 End: 08-16-2024 Bamboo flowsheet Bebo Escalante MD Work Phone: [facility] Start: 08-16-2024 End: 08-16-2024 Bamboo flowsheet Bebo Escalante MD Work Phone: [facility] Start: 08-16-2024 End: 08-16-2024 Office outpatient visit 25 minutes Bebo Escalante MD Work Phone: [facility] Comment on above: ROBLES (dyspnea on exer tion) (Primary Dx); Mediastinal mass; Abnormal CT of the chest; Morbid (severe) obesity due to excess calories (CMS/HCC); Polyosteoarthritis, unspecified; Body mass index (BMI) 35.0-35.9, adult; Malignant neoplasm of unspecified site of unspecified female breast (CMS/HCC) Start: 08-16-2024 End: 08-16-2024 ambulatory BEBO ESCALANTE Not Available Start: 08-13-2024 End: 08-19-2024 Telephone encounter Yoli SHANKAR Work Phone: [facility] Comment on above: Pre Med for cleaning Start: 07-25-2024 End: 07-25-2024 Bamboo flowsheet Bebo Escalante MD Work Phone: [facility] Start: 07-25-2024 End: 07-25-2024 Bamboo flowsheet Bebo Escalante MD Work Phone: [facility] Start: 07-25-2024 End: 07-25-2024 Office outpatient visit 25 minutes Bebo Escalante MD Work Phone: [facility] Comment on above: Mediastinal mass (Pr imary Dx); Type 2 diabetes mellitus with stage 3a chronic kidney disease, without long-term current use of insulin (HCC) (CMS/HCC); Abnormal CT of the chest; Benign essential hypertension (CMS/HCC) Start: 07-25-2024 End: 07-25-2024 ambulatory BEBO ESCALANTE Not Available Start: 06-07-2024 End: 06-07-2024 Preprocedural examination done Yoli SHANKAR Work Phone: [facility] Start: 06-07-2024 End: 06-07-2024 Refill Yoli SHANKAR Work Phone: [facility] Comment on above: Arthritis of right k nee; Pre-op examination Start: 04-04-2024 End: 04-04-2024 Preprocedural examination done Yoli SHANKAR Work Phone: [facility] Start: 04-04-2024 End: 04-04-2024 Refill Yoli SHANKAR Work Phone: [facility] Comment on above: Arthritis of right k nee; Pre-op examination Start: 03-20-2024 End: 03-20-2024 Bamboo flowsheet JrBre Espinosa Stepkassidy DO Work Phone: [facility] Start: 03-20-2024 End: 03-20-2024 Bamboo flowsheet Jr. Ryan Espinosa Stepanic DO Work Phone: [facility] Start: 03-20-2024 End: 03-20-2024 Postop follow up visit related to original px Jr. Ryan Espinosa Stepanic DO Work Phone: [facility] Comment on above: S/P TKR (total knee replacement), right (Primary Dx) Start: 03-20-2024 End: 03-20-2024 ambulatory JR., RYAN Espinosa STEPKASSIDY Not Available Start: 03-11-2024 End: 03-11-2024 Bamboo flowsheet Bebo Escalante MD Work Phone: [facility] Start: 03-11-2024 End: 03-11-2024 Bamboo flowsheet Bebo Escalante MD Work Phone: [facility] Start: 03-11-2024 End: 03-11-2024 Assay of hemosiderin, quant Bebo Escalante MD Work Phone: [facility] Start: 03-11-2024 End: 03-11-2024 Patient encounter procedure Bebo Escalante MD Work Phone: [facility] Comment on above: Routine general medi alberto examination at health care facility (Primary Dx); ACP (advance care planning); Type 2 diabetes mellitus with stage 3a chronic kidney disease, without long-term current use of insulin (HCC) (CMS/HCC); Pure hypercholesterolemia (CMS/HCC); Morbid (severe) obesity due to excess calories (CMS/HCC); Essential (primary) hypertension (CMS/HCC); Body mass index (BMI) 38.0-38.9, adult; Malignant neoplasm of unspecified site of unspecified female breast ([facility]/HCC) Start: 03-11-2024 End: 03-11-2024 ambulatory BEBO Faustin BORIS Not Available Start: 02-01-2024 End: 02-01-2024 ambulatory YOLI Nieves RACHEAL Not Available Start: 01-31-2024 End: 01-31-2024 ambulatory JR., RYAN C STEPANIC Not Available Start: 01-29-2024 End: 01-29-2024 ambulatory JR., RYAN C STEPANIC Not Available Start: 01-24-2024 End: 01-24-2024 ambulatory JR., RYAN C STEPANIC Not Available Start: 01-22-2024 End: 01-22-2024 ambulatory JR., RYAN C STEPANIC Not Available Start: 01-17-2024 End: 01-17-2024 ambulatory JR., RYAN C STEPANIC Not Available Start: 01-15-2024 End: 01-15-2024 ambulatory JR., RYAN C STEPANIC Not Available Start: 01-15-2024 End: 01-15-2024 ambulatory JR., RYAN C STEPANIC Not Available Start: 01-12-2024 End: 01-12-2024 ambulatory JR., RYAN C STEPANIC Not Available Start: 01-11-2024 End: 01-11-2024 ambulatory JR., RYAN C STEPANIC Not Available Start: 01-10-2024 End: 01-10-2024 ambulatory BEBO Faustin ESCALANTE Not Available Start: 01-08-2024 End: 01-08-2024 ambulatory JR., RYAN C STEPANIC Not Available Start: 01-03-2024 End: 01-03-2024 ambulatory YOLI SPRINGER Not Available Start: 01-02-2024 End: 01-02-2024 ambulatory JR., RYAN C STEPANIC Not Available Start: 12-31-2023 End: 12-31-2023 ambulatory JR., RYAN C STEPANIC Not Available Start: 12-25-2023 End: 12-26-2023 Non-patient / Non-visit II Bebo Escalante Work Phone: [facility] Work Phone: Start: 12-23-2023 End: 12-26-2023 Evaluation and management of inpatient II Bebo Escalante Work Phone: [facility] Work Phone: Start: 12-13-2023 End: 12-13-2023 ambulatory YOLI SPRINGER Not Available Start: 11-30-2023 End: 11-30-2023 ambulatory II Bebo Escalante Work Phone: [facility] Work Phone: Start: 11-30-2023 End: 11-30-2023 Departed Referred II Bebo Escalante Work Phone: [facility] [place] Start: 11-28-2023 End: 11-28-2023 Patient encounter procedure II Bebo Escalante Work Phone: [facility] [address] Work Phone: Start: 11-28-2023 End: 11-28-2023 ambulatory II Bebo Escalante Work Phone: [facility] Work Phone: Start: 11-28-2023 Encounter for other preprocedural examination Ryan Calderon Jr [facility] Start: 11-20-2023 End: 11-20-2023 ambulatory BEBO ESCALANTE Not Available Start: 11-16-2023 End: 11-17-2023 ambulatory YOLI SPRINGER Not Available Start: 11-16-2023 End: 11-16-2023 Patient encounter procedure II Bebo Escalante Work Phone: [facility]Pre-Surgical Testing Work Phone: Start: 11-16-2023 End: 11-16-2023 ambulatory II Bebo Escalante Work Phone: [facility] Work Phone: Start: 11-16-2023 Encounter for prepro cedural laboratory examination Ryan Calderon Jr [facility] Start: 11-08-2023 End: 11-08-2023 ambulatory BEBO ESCALANTE Not Available Start: 11-06-2023 End: 11-06-2023 ambulatory YOLI SPRINGER Not Available Start: 09-11-2023 End: 09-11-2023 ambulatory JR. RYAN Francisca CALDERON Not Available Start: 11-10-2022 ambulatory Facility: [facility] Start: 11-10-2022 End: 11-11-[address] AJ [place] Facility:[facility] Start: 11-09-2022 End: 11-09-[address] MARKY HERNANDEZ . Facility:[facility] Start: 11-04-2022 End: 11-05-2022 ambulatory VIRGINIARODOLFOJASWINDER HELTON . Facility:[facility] Start: 07-20-2022 End: 07-21-2022 ambulatory EMMANUELFELICIA BALLIS . Facility:[facility] Start: 04-07-2022 End: 04-08-[address] BEBO ESCALANTE Facility:[facility] Start: 04-05-2022 End: 04-05-[address] BEBO ESCALANTE Facility:[facility] Start: 03-29-2022 End: 03-30-[address] BEBO ESCALANTE Facility:[facility] Start: 02-28-2022 End: 03-01-[address] BEBO ESCALANTE Facility:[facility] Start: 02-15-2022 End: 02-15-[address] BEBO ESCALANTE Facility:[facility] Start: 02-15-2022 Encounter for prepro cedural laboratory examination DR OSCAR PERKINS . [facility] Start: 02-14-2022 End: 02-15-[address] OSCAR PERKINS . Facility:[facility] Start: 02-14-2022 End: 02-15-2022 Encounter for preprocedural laboratory examination DR OSCAR PERKINS . Facility:[facility] Start: 02-08-[address] BEBO ESCALANTE Facilit y:[facility] Start: 02-08-2022 End: 02-08-[address] BEBO ESCALANTE Facility:[facility] Start: 02-04-2022 End: 02-05-[address] OSCAR PERKINS . Facility: Procedures Date Procedure Procedure Detail Performing Clinician Start: 07-25-2024 Hemoglobin glycosylated a1c Bebo Escalante MD Work Phone: Start: 03-11-2024 Hemoglobin glycosylated a1c Bebo Escalante MD Work Phone: Start: 12-23-2023 Plain chest X-ray II Bebo Escalante Work Phone: Start: 12-22-2023 Total replacement of right knee joint II Bebo Boris Work Phone: Start: 12-22-2023 X-ray of right knee II Bebo Escalante Work Phone: Start: 11-28-2023 Plain X-ray of bilateral femurs II Bebo Boris Work Phone: Start: 11-28-2023 Plain X-ray of bilateral tibia and bilateral fibula II Bebo Escalante Work Phone: Start: 02-15-2023 H/O: hysterectomy History of hysterectomy Bebo Escalante MD Work Phone: Plan of Treatment Date Care Activity Detail Author Start: 08-13-2026 Glaucoma screening Diabetes: R etinopathy Screening [facility] Start: 08-03-2025 Glaucoma screening Diabetes: R etinopathy Screening [facility] Start: 03-19-2025 End: 03-19-2025 Patient encounter procedure 03/19/2025 9:30 AM EDT Office Visit [facility] [address] [place] [address] Jr. Ryan Calderon DO [address] [facility] [address] [place] [address] [facility] Start: 03-11-2025 Medicare Annual Well ness (AWV) Medicare Annual Wellness (AWV) [facility] Start: 03-11-2025 Urine screening for protein Diabetes: Urine Protein Screening [facility] Start: 10-23-2024 Hemoglobin A1c measurement Diabetes: Hemoglobin A1C [facility] Start: 09-09-2024 End: 09-09-2024 Patient encounter procedure 09/09/2024 8:30 AM EDT Office Visit [facility] [address] [place] [id number] Bebo Escalante MD [address] [place], [place] [address] [facility] Start: 08-16-2024 End: 08-16-2026 Echocardiogram 2D complete Echocardiogram 2D complete Echocardiography Routine ROBLES (dyspnea on exertion) Expected: 08/16/2024 (Approximate), Expires: 08/16/2026 [facility] Work Phone: Comment on above: Expected: 08/16/2024 (Approximate), Expires: 08/16/2026 Start: 08-16-2024 End: 08-16-2025 Pulmonary function report Pulmonary Function Test Imaging Routine ROBLES (dyspnea on exertion) Abnormal CT of the chest Expected: 08/16/2024, Expires: 08/16/2025 [facility] Comment on above: Expected: 08/16/2024 , Expires: 08/16/2025 Start: 08-16-2024 End: 08-16-2024 Patient encounter procedure [facility] Comment on above: Arrived Start: 07-25-2024 End: 07-25-2025 CT Chest WO contrast CT chest wo IV contrast Imaging Routine Mediastinal mass Expected: 07/25/2024 (Approximate), Expires: 07/25/2025 [facility] Work Phone: Comment on above: Expected: 07/25/2024 (Approximate), Expires: 07/25/2025 Start: 07-11-2024 End: 07-11-2024 Patient encounter procedure 07/11/2024 8:30 AM EST Office Visit [facility] [address] [facility] [address] [place] [phone] Bebo Escalante MD [address] [facility] [address] [place] [address] [facility] Start: 06-10-2024 Hemoglobin A1c measurement Diabetes: Hemoglobin A1C [facility] Start: 03-29-2024 Medicare Annual Well ness (AWV) Medicare Annual Wellness (AWV) [facility] Start: 03-29-2024 Urine screening for protein Diabetes: Urine Protein Screening [facility] Start: 03-20-2024 End: 03-20-2024 Patient encounter procedure [facility] Comment on above: Arrived Start: 03-11-2024 End: 03-11-2025 Comprehensive metabolic 2000 panel - Serum or Plasma Comprehensive metabolic panel Lab Routine Type 2 diabetes mellitus with stage 3a chronic kidney disease, without long-term current use of insulin (HCC) ([facility]) Expected: 03/11/2024 (Approximate), Expires: 03/11/2025 [facility] Comment on above: Expected: 03/11/2024 (Approximate), Expires: 03/11/2025 Start: 03-11-2024 End: 03-11-2025 Lipid 1996 panel - Serum or Plasma Lipid panel Lab Routine Type 2 diabetes mellitus with stage 3a chronic kidney disease, without long-term current use of insulin (HCC) ([facility]) Expected: 03/11/2024 (Approximate), Expires: 03/11/2025 [facility] Comment on above: Expected: 03/11/2024 (Approximate), Expires: 03/11/2025 Start: 03-11-2024 End: 03-11-2025 TSH W/REFLEX TO FT4 TSH W/REFLEX TO FT4 Lab Routine Type 2 diabetes mellitus with stage 3a chronic kidney disease, without long-term current use of insulin (HCC) ([facility]) Expected: 03/11/2024 (Approximate), Expires: 03/11/2025 [facility] Comment on above: Expected: 03/11/2024 (Approximate), Expires: 03/11/2025 Start: 03-11-2024 End: 03-11-2024 Patient encounter procedure 03/11/2024 8:45 AM EDT Office Visit [facility] [address] [facility] [address] [place] [address] Bebo Escalante MD 112 [facility] [address] [place] [address] Arrived [facility] Comment on above: Arrived Start: 03-03-2024 Influenza vaccination Influenza Vacc ine (#1) [facility] Start: 02-08-2024 Hemoglobin A1c measurement Diabetes: Hemoglobin A1C [facility] Start: 12-26-2023 [facility] Start: 12-23-2023 Replacement of Right Knee Joint with Synthetic Substitute, Cemented, Open Approach Replacement of Right Knee Joint with Synthetic Substitute, Cemented, Open Approach [facility] Start: 12-23-2023 Referral to rehabilitation physician [facility] Start: 12-23-2023 [facility] Start: 12-21-2023 Hospital admission [facility] Start: 12-21-2023 Referral to clinical paste up artist [facility] Start: 11-30-2023 Total replacement of right knee joint OR Knee Arthroplasty, Total MIS (Right) [facility] Start: 02-23-2021 Urine screening for protein Diabetes: Urine Protein Screening [facility] CBC W Auto Different ial panel - Blood CBC and differential Lab Routine Type 2 diabetes mellitus with stage 3a chronic kidney disease, without long-term current use of insulin (HCC) ([facility]) Ordered: 03/11/2024 [facility] Work Phone: Comment on above: Ordered: 03/11/2024 Patient Education Know your Meds [facility] Work Phone: Patient referral [facility] Work Phone: Immunizations Immunization Date Immunization Notes Care Provider [facility] 04-04-2024 influenza, high dose seasonal, preservative-free Bebo Escalante MD Work Phone: [facility] 04-04-2024 RSV, recombinant, protein subunit RSVpreF, adjuvant reconstitu, 120mcg/0.5mL, PF (Arexvy) Bebo Escalante MD Work Phone: [facility] 02-26-2024 zoster vaccine recombinant Bebo Escalante MD Work Phone: [facility] 04-20-2023 Influenza, Seasonal, Quadrivalent, Adjuvanted Bebo Escalante MD Work Phone: [facility] Work Phone: 04-20-2023 influenza virus vacc ine, unspecified formulation Bebo Escalante MD Work Phone: [facility] 04-13-2022 COVID-19 mRNA Bivale nt Booster (Moderna) II Bebo Escalante Work Phone: [facility] 04-13-2022 influenza, high dose seasonal, preservative-free Bebo Escalante MD Work Phone: [facility] 04-13-2022 Moderna SARS-CoV-2 50mcg/0.5mL Booster Bebo Escalante MD Work Phone: [facility] 05-07-2021 COVID-19 mRNA-1273 (Moderna) II Bebo Escalante Work Phone: [facility] 04-06-2021 Seasonal trivalent influenza vaccine, adjuvanted, preservative free Bebo Escalante MD Work Phone: [facility] 09-23-2020 COVID-19 mRNA-1273 (Moderna) II Bebo Escalante Work Phone: [facility] 08-27-2020 COVID-19 mRNA-1273 (Moderna) II Bebo Escalante Work Phone: [facility] 04-01-2020 influenza, high dose seasonal, preservative-free Bebo Escalante MD Work Phone: [facility] 04-05-2019 Seasonal trivalent influenza vaccine, adjuvanted, preservative free Bebo Escalante MD Work Phone: [facility] 04-16-2018 influenza, high dose seasonal, preservative-free Bebo Escalante MD Work Phone: [facility] 04-11-2018 Seasonal trivalent influenza vaccine, adjuvanted, preservative free Bebo Escalante MD Work Phone: [facility] 04-05-2017 Seasonal trivalent influenza vaccine, adjuvanted, preservative free Bebo Escalante MD Work Phone: [facility] 04-06-2016 Seasonal trivalent influenza vaccine, adjuvanted, preservative free Bebo Escalante MD Work Phone: [facility] 09-15-2015 tetanus and diphther ia toxoids, adsorbed, preservative free, for adult use (5 Lf of tetanus toxoid and 2 Lf of diphtheria toxoid) Bebo Escalante MD Work Phone: [facility] 09-15-2015 tetanus toxoid, redu karthikeyan diphtheria toxoid, and acellular pertussis vaccine, adsorbed Bebo Escalante MD Work Phone: [facility] 04-20-2015 zoster vaccine, live Bebo Escalante MD Work Phone: [facility] 03-19-2015 pneumococcal conjuga te vaccine, 13 valent Bebo Escalante MD Work Phone: [facility] 03-10-2015 seasonal influenza, intradermal, preservative free Bebo Escaalnte MD Work Phone: [facility] 03-03-2015 pneumococcal conjuga te vaccine, 13 valent Bebo Escalante MD Work Phone: [facility] 03-03-2015 zoster vaccine, live Bebo Escalante MD Work Phone: [facility] 02-17-2015 pneumococcal polysaccharide vaccine, 23 valent Bebo Escalante MD Work Phone: [facility] 04-23-2014 influenza, seasonal, injectable, preservative free Bebo Escalante MD Work Phone: [facility] 04-12-2013 influenza, seasonal, injectable Bebo Escalante MD Work Phone: [facility] 04-09-2010 seasonal influenza, intradermal, preservative free Bebo Escalante MD Work Phone: [facility] 08-10-2001 pneumococcal polysaccharide vaccine, 23 valent Bebo Escalante MD Work Phone: [facility] 03-16-1995 hepatitis B vaccine, pediatric or pediatric/adolescent dosage Bebo Escalante MD Work Phone: [facility] 01-30-1995 hepatitis B vaccine, pediatric or pediatric/adolescent dosage Bebo Escalante MD Work Phone: [facility] 01-30-1995 measles, mumps and rubella virus vaccine Bebo Escalante MD Work Phone: [facility] Payers Date Payer Category Payer Medicare [id number] 2023 Self-pay [id number] 2023 Medicare (Managed Care) [facility] [id number] 2023 Unknown [employer] [id number] 2023-Present [address] [place] [address] [id number] .[id number] 2023 Medicare [id number] Private Health Insurance [id number] 1945 Unknown [id number] 2.16.840.1.391652.3.579 .2.727 1945 Unknown [id number] 2.16.840.1.159700.3.579 .2.593 1945 Unknown [id number] 2.16840.1.128672.3.579 .2.593 1945 Unknown [id number] 2.16840.1.511520.3.579 .2.593 1945 Unknown [id number] 2.16.840.1.633114.3.579 .2.593 1945 Unknown [id number] 2.16.840.1.665500.3.579 .2.593 1945 Unknown [id number] 2.16.840.1.048488.3.579 .2.593 1945 Unknown [id number] 2.16.840.1.923296.3.579 .2.593 1945 Unknown [id number] 2.16840.1.744465.3.579 .2.593 1945 Unknown [id number] 2.16.840.1.458036.3.579 .2.593 1945 Unknown [id number] 2.16.840.1.320742.3.579 .2.593 1945 Unknown [id number] 2.840.1.158604.3.579 .2.593 1945 Unknown [id number] 2.840.1.109752.3.579 .2.593 1945 Unknown [id number] 2.840.1.918723.3.579 .2.1259 1945 Unknown [id number] 2.840.1.297285.3.579 .2.125 1945 Unknown [id number] 2.840.1.753287.3.579 .2.125 1945 Unknown [id number] 2.840.1.127099.3.579 .2.125 1945 Unknown [id number] 2.840.1.226040.3.579 .2.1259 1945 Unknown [id number] 2.840.1.770701.3.579 .2.1259 1945 Unknown [id number] 2.840.1.300018.3.579 .2.1259 1945 Unknown [id number] 2.840.1.610246.3.579 .2.125 1945 Unknown [id number] 2.16840.1.290624.3.579 .2.1259 1945 Unknown [id number] 2.840.1.781811.3.579 .2.1259 1945 Unknown [id number] 2.840.1.894130.3.579 .2.1259 1945 Unknown [id number] 2.16.840.1.080580.3.579 .2.1259 1945 Unknown [id number] 2.16.840.1.558184.3.579 .2.1259 1945 Unknown [id number] 2.16.840.1.838512.3.579 .2.125 1945 Unknown [id number] 2.16.840.1.627725.3.579 .2.1259 1945 Unknown [id number] 2.16.840.1.917183.3.579 .2.1258 1945 Unknown [id number] 2.16.840.1.996114.3.579 .2.9 1945 Unknown [id number] 2.16840.1.523330.3.579 .2.1258 1945 Unknown [id number] 2.16840.1.177768.3.579 .2.9 1945 Unknown [id number] 2.16.840.1.339728.3.579 .2.1258 1945 Unknown [id number] 2.16.840.1.448301.3.579 .2.9 1945 Unknown [id number] 2.16.840.1.153587.3.579 .2.9 1945 Unknown [id number] 2.16.840.1.955363.3.579 .2.1259 1945 Unknown [id number] 2.16.840.1.255357.3.579 .2.1258 1945 Unknown [id number] 2.16.840.1.012237.3.579 .2.1259 1945 Unknown [id number] 2.16.840.1.603316.3.579 .2.1259 Medicare Anthem MCR PFFS [id number] Private Health Insurance [facility] [id number] Unknown [id number] 2.16.840.1.562698.3.579 .2.531 Unknown [id number] 2.16.840.1.497739.3.579 .2.531 Unknown [id number] 2.16.840.1.203397.3.579 .2.531 Unknown [id number] 2.16.840.1.821323.3.579 .2.531 Social History Date Type Detail Facility Start: 11-16-2023 End: 12-25-2023 Tobacco smoking status [facility] Ex-smoker (finding) [facility] Start: 1945 Sex Assigned At Female [facility] Start: 2022 Tobacco smoking status [facility] Never smoked tobacco [facility] Start: 2022 Tobacco use and exposure Smokeless tobacco non-user [facility] Start: 03-20-2024 End: 07-25-2024 Alcoholic beverage intake Lifetime non-drinker (finding) [facility] Start: 02-22-2023 End: 03-11-2024 History of Social function [facility] Start: 02-22-2023 End: 03-11-2024 Humiliation, Afraid, Rape, and Kick questionnaire [HARK] [facility] Within the last year , have you been afraid of your partner or ex-partner? No [facility] Frequency of Communication with Friends and Family Not on file [facility] Are you now , , , , never or living with a partner? [facility] How often to you hav e a drink containing alcohol? Never [facility] Do you feel stress - tense, restless, nervous, or anxious, or unable to sleep at night because your mind is troubled all the time - these days [OSQ] Only a little [facility] Start: 09-11-2023 Alcohol Comment caffeine intake: 3-4 cups per day [facility] Start: 02-22-2023 Gender identity Identifies as female gender (finding) [facility] Medical Equipment Procedure Code Equipment Code Equipment Origin al Text Equipment Identifier Dates Arthroplasty, knee, total, minimally invasive Orthopaedic cement, non-medicated ()[id number] FDA Start: 12-22-2023 Arthroplasty, knee, total, minimally invasive Orthopaedic bone screw, non-bioabsorbable, sterile ()[id number] FDA Start: 12-22-2023 Arthroplasty, knee, total, minimally invasive Uncoated knee femur prosthesis ()[id number] FDA Start: 12-22-2023 Arthroplasty, knee, total, minimally invasive Tibial insert ()[id number] FDA Start: 12-22-2023 Arthroplasty, knee, total, minimally invasive Uncoated knee tibia prosthesis, metallic ()[id number] FDA Start: 12-22-2023 Arthroplasty, knee, total, minimally invasive Knee stem ()[id number] FDA Start: 12-22-2023 Arthroplasty, knee, total, minimally invasive Polyethylene patella prosthesis ()[id number] FDA Start: 12-22-2023 Start: 09-05-2022 Goals Date Patient Goal Desired Activity /State Personal health goal Functional Status Date Assessment Result Facility 12-26-2023 Functional status 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 Work Phone: Mental Status Date Assessment Result Facility 12-26-2023 Cognitive function Cognitive Sta tus Patient at Baseline [facility] Work Phone: Clinical Notes 04-07-2022 to 08-16-2024 Bebo Escalante MD - 08/16/2024 8:30 AM ESTTelephone Encounter - RAAD Pichardo - 08/14/2024 11:01 AM ESTTelephone Encounter - RAAD Pichardo - 08/14/2024 11:01 AM EST Note Date & Type Note Facility 08-16-2024 History of Presen t illness Narrative Images from the original note were not included. HPI Results Additional comments: Ct chest results Last edited by Jenise Forte LPN on 08/16/2024 8:21 AM. Subjective Patient ID: Kellie Rubio is a 78 y.o. female who presents for Diabetes, Hypertension, and Results (Ct chest results). Refill-- albuterol mdi--[facility] Kellie is present today for follow up of hypertension. Denies chest pain, SOB, blurry vision, headaches. Admits to having some wheezing and that she is taking albuterol. Does not check BPS's home. Diabetes Mellitus Patient presents for follow up of diabetes. Patient denies foot ulcerations. Evaluation to date has included: fasting blood sugar, fasting lipid panel, hemoglobin A1C, and microalbuminuria. Home sugars: patient does not check sugars. Diabetes Associated symptoms include fatigue. Pertinent negatives for diabetes include no chest pain. Hypertension Associated symptoms include shortness of breath. Pertinent negatives include no chest pain. Current Outpatient Medications on File Prior to Visit Medication Sig Dispense Refill albuterol (2.5 MG/3ML) 0.083% nebulizer solution Take 3 mL (2.5 mg) by nebulization every 6 (six) hours if needed for wheezing 75 mL 11 amoxicillin (Amoxil) 500 MG tablet 4 tabs PO once 30-60 mins before procedure with food 4 tablet 3 ascorbic acid (Vitamin C) 500 mg/mL oral liquid Take by mouth. baclofen (Lioresal) 10 MG tablet Take 1 tablet (10 mg) by mouth at bedtime 100 tablet 3 calcium citrate 600 mg and vitamin D3 (Citrical & Minerals + Vit D) 600-200 MG-UNIT tablet carvedilol (Coreg) 12.5 MG tablet Take 1 tablet (12.5 mg) by mouth in the morning and 1 tablet (12.5 mg) before bedtime. 200 tablet 3 cholecalciferol (Vitamin D-3) 50 MCG (2000 UT) capsule 1 capsule 1 (one) time each day at the same time. lisinopril 10 MG tablet TAKE 1 TABLET ONE TIME DAILY 90 tablet 3 meloxicam (Mobic) 15 MG tablet TAKE 1 TABLET BY MOUTH EVERY DAY 100 tablet 0 omeprazole (PriLOSEC) [address] capsule Take 1 capsule (20 mg) by mouth in the morning and 1 capsule (20 mg) before bedtime. 200 capsule 3 PARoxetine (Paxil) 20 MG tablet Take 1 tablet (20 mg) by mouth in the morning. 90 tablet 3 simvastatin (Zocor) 40 MG tablet Take 1 tablet (40 mg) by mouth at bedtime 100 tablet 3 triamterene-hydrochlorothiazide (Maxzide-25) 37.5-25 MG tablet Take 1 tablet by mouth 1 (one) time each day at the same time 100 tablet 3 TRUEplus Lancets 33G misc zinc gluconate 50 MG tablet 1 (one) time each day at the same time. furosemide (Lasix) 20 MG tablet Take 1 tablet (20 mg) by mouth Daily for 5 days 5 tablet 0 [DISCONTINUED] amoxicillin (Amoxil) 500 MG tablet 4 tabs PO once 30-60 mins before procedure with food 4 tablet 3 [DISCONTINUED] meloxicam (Mobic) 15 MG tablet TAKE 1 TABLET BY MOUTH EVERY DAY 100 tablet 0 No current facility-administered medications on file prior to visit. I have reviewed and reconciled the history and medication list with the patient today. Allergies Allergen Reactions Gadolinium Rash Iodinated Contrast Media Other Reaction(s): Unknown Iodine Other Reaction(s): Unknown Social History Tobacco Use Smoking status: Never Smokeless tobacco: Never Substance Use Topics Alcohol use: Never Comment: caffeine intake: 3-4 cups per day Drug use: Never Family History Problem Relation Name Age of Onset Cancer Mother Hypertension Mother Emphysema Father Hypothyroidism Sibling COPD Sibling Kidney disease Sibling Diverticulosis Sibling NIDIA disease Sibling Osteopenia Sibling Osteoarthritis Sibling Past Medical History: Diagnosis Date Arthritis Breast cancer (CMS/HCC) Depression (CMS/HCC) Diabetes (CMS/HCC) GERD (gastroesophageal reflux disease) High cholesterol (CMS/HCC) HTN (hypertension) (CMS/HCC) Septic shock (CMS/HCC) 02/16/2023 Urinary incontinence Past Surgical History: Procedure Laterality Date BACK SURGERY 2006 CARPAL TUNNEL RELEASE 2005 CATARACT EXTRACTION Bilateral COLONOSCOPY W/ BIOPSIES AND POLYPECTOMY CYSTOSCOPY 11/08/2021 with ureteral catheter placement HC OR CATARACT REMOVAL Bilateral 2016 LAPAROTOMY SALPINGO OOPHORECTOMY Right 1986 LUMBAR DISC SURGERY LUMBAR SPINE SURGERY 2006 CHUN MASTECTOMY Left SALPINGOOPHORECTOMY Right 1986 TOTAL ABDOMINAL HYSTERECTOMY W/ BILATERAL SALPINGOOPHORECTOMY 2021 TOTAL KNEE ARTHROPLASTY Right 12/24/2023 TOTAL KNEE ARTHROPLASTY Right 12/22/2023 RT TKA- DR CALDERON Visit Vitals BP 128/82 Pulse 68 Ht 5' Wt 184 lb SpO2 97% BMI 35.94 kg/m Smoking Status Never BSA 1.88 m Review of Systems Constitutional: Positive for fatigue. Respiratory: Positive for shortness of breath. Negative for cough, chest tightness and wheezing. Cardiovascular: Negative for chest pain and leg swelling. Objective Physical Exam Constitutional: General: She is not in acute distress. Appearance: Normal appearance. She is well-developed. HENT: Head: Normocephalic and atraumatic. Eyes: General: No scleral icterus. Conjunctiva/sclera: Conjunctivae normal. Cardiovascular: Rate and Rhythm: Normal rate and regular rhythm. Heart sounds: Normal heart sounds. No murmur heard. Pulmonary: Effort: Pulmonary effort is normal. No respiratory distress. Breath sounds: Normal breath sounds. No wheezing, rhonchi or rales. Skin: General: Skin is warm and dry. Neurological: General: No focal deficit present. Mental Status: She is alert and oriented to person, place, and time. Psychiatric: Mood and Affect: Mood normal. Behavior: Behavior normal. Assessment/Plan Diagnoses and all orders for this visit: ROBLES (dyspnea on exertion) - Pulmonary Function Test - Echocardiogram 2D complete; Future - Had mild COPD changes on prior chest imaging. She has never smoked, but has lived with smokers. - I suspect this is multifactoral. I did give her a sample or Airsupra. Mediastinal mass - Unchanged from prior per Radiology. Will re-image in 1 year, if still no change will stop imaging. Abnormal CT of the chest Morbid (severe) obesity due to excess calories (CMS/HCC) Polyosteoarthritis, unspecified Body mass index (BMI) 35.0-35.9, adult Malignant neoplasm of unspecified site of unspecified female breast (CMS/HCC) - in Remission. Follow up in about 3 weeks (around 09/06/2024) for Test/Lab Review. documented in this encounter [facility] 08-14-2024 Telephone encount er Note Rx sent to [facility] In [place]. [facility] 08-14-2024 Miscellaneous Notes Formattin g of this note might be different from the original. Rx sent to [facility] In [place]. Rx sent to [facility].. please notify pt... Patient called she is wanting to get her teeth cleaned said its been awhile, she had her TKA in 03/26 but wanted to know about taking the Pre-med, her pharmacy is [facility] in [place] [phone] pls advise documented in this encounter [facility] 08-13-2024 Telephone encount er Note Rx sent to [facility].. please notify pt... [facility] 08-13-2024 Telephone encount er Note Patient called she is wanting to get her teeth cleaned said its been awhile, she had her TKA in 03/26 but wanted to know about taking the Pre-med, her pharmacy is [facility] in [place] [phone] [facility] 07-25-2024 History of Presen t illness Narrative HPI Results Additional comments: Labs 03/2024 Last edited by Jenise Forte LPN on 07/25/2024 9:26 AM. Subjective Patient ID: Kellie Rubio is a 78 y.o. female who presents for Diabetes, Hypertension, and Results (Labs 03/2024). Kellie is present today for follow up of hypertension. Denies chest pain, SOB, blurry vision, headaches. Admits to having some wheezing and that she is taking albuterol. Does not check BPS's home. Diabetes Mellitus Patient presents for follow up of diabetes. Patient denies foot ulcerations. Evaluation to date has included: fasting blood sugar, fasting lipid panel, hemoglobin A1C, and microalbuminuria. Home sugars: patient does not check sugars. Diabetes Pertinent negatives for diabetes include no chest pain. Hypertension Pertinent negatives include no chest pain. Current Outpatient Medications on File Prior to Visit Medication Sig Dispense Refill albuterol (2.5 MG/3ML) 0.083% nebulizer solution Take 3 mL (2.5 mg) by nebulization every 6 (six) hours if needed for wheezing 75 mL 11 ascorbic acid (Vitamin C) 500 mg/mL oral liquid Take by mouth. baclofen (Lioresal) 10 MG tablet Take 1 tablet (10 mg) by mouth at bedtime 100 tablet 3 calcium citrate 600 mg and vitamin D3 (Citrical & Minerals + Vit D) 600-200 MG-UNIT tablet carvedilol (Coreg) 12.5 MG tablet Take 1 tablet (12.5 mg) by mouth in the morning and 1 tablet (12.5 mg) before bedtime. 200 tablet 3 cholecalciferol (Vitamin D-3) 50 MCG (2000 UT) capsule 1 capsule 1 (one) time each day at the same time. lisinopril 10 MG tablet TAKE 1 TABLET ONE TIME DAILY 90 tablet 3 meloxicam (Mobic) 15 MG tablet TAKE 1 TABLET BY MOUTH EVERY DAY 100 tablet 0 omeprazole (PriLOSEC) [address] capsule Take 1 capsule (20 mg) by mouth in the morning and 1 capsule (20 mg) before bedtime. 200 capsule 3 PARoxetine (Paxil) 20 MG tablet Take 1 tablet (20 mg) by mouth in the morning. 90 tablet 3 simvastatin (Zocor) 40 MG tablet Take 1 tablet (40 mg) by mouth at bedtime 100 tablet 3 triamterene-hydrochlorothiazide (Maxzide-25) 37.5-25 MG tablet Take 1 tablet by mouth 1 (one) time each day at the same time 100 tablet 3 TRUEplus Lancets 33G misc zinc gluconate 50 MG tablet 1 (one) time each day at the same time. furosemide (Lasix) 20 MG tablet Take 1 tablet (20 mg) by mouth Daily for 5 days 5 tablet 0 [DISCONTINUED] gabapentin (Neurontin) 300 MG capsule Take 1 capsule (300 mg) by mouth in the morning and 1 capsule (300 mg) before bedtime. (Patient taking differently: Take 300 mg by mouth at bedtime) 200 capsule 3 No current facility-administered medications on file prior to visit. I have reviewed and reconciled the history and medication list with the patient today. Allergies Allergen Reactions Gadolinium Rash Iodinated Contrast Media Other Reaction(s): Unknown Iodine Other Reaction(s): Unknown Social History Tobacco Use Smoking status: Never Smokeless tobacco: Never Substance Use Topics Alcohol use: Never Comment: caffeine intake: 3-4 cups per day Drug use: Never Family History Problem Relation Name Age of Onset Cancer Mother Hypertension Mother Emphysema Father Hypothyroidism Sibling COPD Sibling Kidney disease Sibling Diverticulosis Sibling NIDIA disease Sibling Osteopenia Sibling Osteoarthritis Sibling Past Medical History: Diagnosis Date Arthritis Breast cancer (CMS/HCC) Depression (CMS/HCC) Diabetes (CMS/HCC) GERD (gastroesophageal reflux disease) High cholesterol (CMS/HCC) HTN (hypertension) (CMS/HCC) Septic shock (CMS/HCC) 02/16/2023 Urinary incontinence Past Surgical History: Procedure Laterality Date BACK SURGERY 2006 CARPAL TUNNEL RELEASE 2005 CATARACT EXTRACTION Bilateral COLONOSCOPY W/ BIOPSIES AND POLYPECTOMY CYSTOSCOPY 11/08/2021 with ureteral catheter placement HC OR CATARACT REMOVAL Bilateral 2015 LAPAROTOMY SALPINGO OOPHORECTOMY Right 1986 LUMBAR DISC SURGERY LUMBAR SPINE SURGERY 2006 CHUN MASTECTOMY Left SALPINGOOPHORECTOMY Right 1986 TOTAL ABDOMINAL HYSTERECTOMY W/ BILATERAL SALPINGOOPHORECTOMY 2021 TOTAL KNEE ARTHROPLASTY Right 12/24/2023 TOTAL KNEE ARTHROPLASTY Right 12/22/2023 RT TKA- DR STEPANIC Visit Vitals BP 120/72 Pulse 67 Ht 5' Wt 184 lb SpO2 97% BMI 35.94 kg/m Smoking Status Never BSA 1.88 m Review of Systems Cardiovascular: Negative for chest pain. Objective Physical Exam Constitutional: General: She is not in acute distress. Appearance: Normal appearance. She is well-developed. HENT: Head: Normocephalic and atraumatic. Eyes: General: No scleral icterus. Conjunctiva/sclera: Conjunctivae normal. Cardiovascular: Rate and Rhythm: Normal rate and regular rhythm. Heart sounds: Normal heart sounds. No murmur heard. Pulmonary: Effort: Pulmonary effort is normal. No respiratory distress. Breath sounds: Normal breath sounds. No wheezing, rhonchi or rales. Skin: General: Skin is warm and dry. Neurological: General: No focal deficit present. Mental Status: She is alert and oriented to person, place, and time. Psychiatric: Mood and Affect: Mood normal. Behavior: Behavior normal. Office Visit on 07/25/2024 Component Date Value Ref Range Status Hemoglobin A1C 07/25/2024 6.5 Final Office Visit on 03/11/2024 Component Date Value Ref Range Status Hemoglobin A1C 03/11/2024 7.1 Final WHITE BLOOD CELL COUNT 03/11/2024 10.5 3.8 - 10.8 Thousand/uL Final RED BLOOD CELL COUNT 03/11/2024 4.73 3.80 - 5.10 Million/uL Final HEMOGLOBIN 03/11/2024 12.5 11.7 - 15.5 g/dL Final HEMATOCRIT 03/11/2024 42.1 35.0 - 45.0 % Final MCV 03/11/2024 89.0 80.0 - 100.0 fL Final MCH 03/11/2024 26.4 (L) 27.0 - 33.0 pg Final MCHC 03/11/2024 29.7 (L) 32.0 - 36.0 g/dL Final RDW 03/11/2024 13.6 11.0 - 15.0 % Final PLATELET COUNT 03/11/2024 299 140 - 400 Thousand/uL Final MPV 03/11/2024 10.8 7.5 - 12.5 fL Final ABSOLUTE NEUTROPHILS 03/11/2024 7,959 (H) 1,500 - 7,800 cells/uL Final ABSOLUTE LYMPHOCYTES 03/11/2024 1,481 850 - 3,900 cells/uL Final ABSOLUTE MONOCYTES 03/11/2024 399 200 - 950 cells/uL Final ABSOLUTE EOSINOPHILS 03/11/2024 620 (H) 15 - 500 cells/uL Final ABSOLUTE BASOPHILS 03/11/2024 42 0 - 200 cells/uL Final NEUTROPHILS 03/11/2024 75.8 % Final LYMPHOCYTES 03/11/2024 14.1 % Final MONOCYTES 03/11/2024 3.8 % Final EOSINOPHILS 03/11/2024 5.9 % Final BASOPHILS 03/11/2024 0.4 % Final Glucose 03/11/2024 108 (H) 65 - 99 mg/dL Final Comment: Fasting reference interval For someone without known diabetes, a glucose value between 100 and 125 mg/dL is consistent with prediabetes and should be confirmed with a follow-up test. BUN 03/11/2024 27 (H) 7 - 25 mg/dL Final Creatinine 03/11/2024 1.13 (H) 0.60 - 1.00 mg/dL Final EGFR 03/11/2024 50 (L) > OR = 60 mL/min/1.73m2 Final BUN/CREATININE RATIO 03/11/2024 24 (H) 6 - 22 (calc) Final Sodium 03/11/2024 138 135 - 146 mmol/L Final Potassium, Bld 03/11/2024 4.4 3.5 - 5.3 mmol/L Final Chloride 03/11/2024 102 98 - 110 mmol/L Final Carbon Dioxide 03/11/2024 25 20 - 32 mmol/L Final Calcium 03/11/2024 10.9 (H) 8.6 - 10.4 mg/dL Final PROTEIN, TOTAL 03/11/2024 7.5 6.1 - 8.1 g/dL Final ALBUMIN 03/11/2024 4.0 3.6 - 5.1 g/dL Final GLOBULIN 03/11/2024 3.5 1.9 - 3.7 g/dL (calc) Final ALBUMIN/GLOBULIN RATIO 03/11/2024 1.1 1.0 - 2.5 (calc) Final BILIRUBIN, TOTAL 03/11/2024 0.4 0.2 - 1.2 mg/dL Final ALKALINE PHOSPHATASE 03/11/2024 98 37 - 153 U/L Final AST 03/11/2024 21 10 - 35 U/L Final ALT 03/11/2024 12 6 - 29 U/L Final CHOLESTEROL, TOTAL 03/11/2024 129 <200 mg/dL Final HDL CHOLESTEROL 03/11/2024 53 > OR = 50 mg/dL Final TRIGLYCERIDES 03/11/2024 101 <150 mg/dL Final LDL-CHOLESTEROL 03/11/2024 58 mg/dL (calc) Final Comment: Reference range: <100 Desirable range <100 mg/dL for primary prevention; <70 mg/dL for patients with CHD or diabetic patients with > or = 2 CHD risk factors. LDL-C is now calculated using the Jose-Wilson calculation, which is a validated novel method providing better accuracy than the Friedewald equation in the estimation of LDL-C. Jose LIM et al. YG. 2013;310(19): 4264-5199 (http://education.[employer].co m/faq/RYK285) CHOL/HDLC RATIO 03/11/2024 2.4 <5.0 (calc) Final NON HDL CHOLESTEROL 03/11/2024 76 <130 mg/dL (calc) Final Comment: For patients with diabetes plus 1 major ASCVD risk factor, treating to a non-HDL-C goal of <100 mg/dL (LDL-C of <70 mg/dL) is considered a therapeutic option. TSH W/REFLEX TO FT4 03/11/2024 2.04 0.40 - 4.50 mIU/L Final Assessment/Plan Diagnoses and all orders for this visit: Mediastinal mass - CT chest wo IV contrast; Future - I discussed this with her in detail (again). She doesn't remember discussing it previously (we did). She has missed the last two scheduled CT scans. We need it done, RTC 3 weeks to discuss results. Type 2 diabetes mellitus with stage 3a chronic kidney disease, without long-term current use of insulin (HCC) (CMS/HCC) - POCT Glycated hemoglobin, total - FSBS log shows good control, most recent A1C is at or near goal. Continue current treatment plan as previously outlined without changes. Abnormal CT of the chest Benign essential hypertension (CMS/HCC) - This is a chronic medical condition that is stable since last assessment. No changes in treatment are suggested at this time. Follow up in about 3 weeks (around 08/15/2024) for Test/Lab Review. documented in this encounter [facility] 07-25-2024 Evaluation note Diagnosis Mediastinal mass- Primary Swelling, mass, or lump in chest Type 2 diabetes mellitus with stage 3a chronic kidney disease, without long-term current use of insulin (HCC) (CMS/HCC) Abnormal CT of the chest Nonspecific (abnormal) findings on radiological and other examination of other intrathoracic organs Benign essential hypertension (CMS/HCC) Essential hypertension, benign [id number] Telephone encounter Note* Telephone Encounter - RAAD Pichardo - 06/07/2024 8:00 PM EST Pt Should call for refill if needed. [facility] Work Phone: 1(842) 342-738512-06-2024 Miscellaneous Notes* Telephone Encounter - RAAD Pichardo - 06/07/2024 8:00 PM EST Pt Should call for refill if needed. documented in this [facility]10-03-2024 Telephone encounter Note* Telephone Encounter - RAAD Pichardo - 04/04/2024 12:25 PM EDT Pt Should call for refill if needed. [facility] Work Phone: 1(795) 961-848510-03-2024 Miscellaneous Notes* Telephone Encounter - RAAD Pichardo - 04/04/2024 12:25 PM EDT Pt Should call for refill if needed. documented in this [facility]09-18-2024 History of Present illness Narrative* Jr. Ryan Calderon, - 03/20/2024 10:30 AM EDT Images from the original note were not included. HISTORY OF PRESENT ILLNESS: POST OP PT Kellie Rubio is an 78 y.o. @ female. (EST PT ; LAST APPT W/ [facility]) S/P (R) TKA 12/22/23 (12WKS 5DAYS) XRAYS, 02/01/24 IN EPIC NO MDP / PREDNISONE S/P PHYSICAL THERAPY (6 SESSIONS) @ [facility] DOING WELL. DENIES ANY CURRENT DISCOMFORT. CONTINUES STAYING ACTIVE / NO HEP - NOTES GOOD ROM ; DENIES ANY WEAKNESS. DENIES ANY SWELLING. CONTINUES TO TAKE MELOXICAM DAILY. PT STATES SHE DOES NOT WISH TO DISCUSS HER (L) KNEE KNEE TODAY REVIEW OF SYSTEMS: General: Denies fever, fatigue or weight loss Lungs: Denies SOB Cardio: Denies chest pain GI: Denies indigestion or abdominal pain Neuro: Denies numbness or tingling, denies new onset paralysis Musculoskeletal: ( see note) PHYSICAL EXAM: Ortho Exam XR knee 1 or 2 views right Imaging Result: AP and lateral of right knee showed surgical position and alignment of prosthetic components without evidence of loosening or wear to the femoral, tibial, or patellar components. The alignment appeared to be anatomic. There was no evidence of accelerated or asymmetric wear to the patellar button or tibial tray. There was no evidence of fracture and/or dislocation. Impression: Unremarkable right total knee arthroplasty. Procedures No orders of the defined types were placed in this encounter. ASSESSMENT: ICD-10-CM 1. S/P TKR (total knee replacement), right Z96.651 PLAN: We have answered all the patients questions and explained the patients condition, decision making and plan including the risks and benefits associated with said plan in layman''s terms in a language the patient could understand easily. If patient''s symptoms significantly worsen and they cannot get a hold of us or their family physician, we have recommended that the patient proceed to the nearest emergency department (room). Dr. Calderon obtained history and examined the patient, I am acting as scribe for Dr. aClderon/claudio, PLAN: We have reviewed prior (R) knee xrays. Patient is pleased with her right knee progress as sheadmits her right knee is better now than it was prior to sx. She has good strength / ROM of her right knee with examination today. She feels her left knee is functioning too well at this time to entertain the thought of a (L) TKA. We have discussed her HEP and restrictions and will see her back in 1 year to reassess her right knee with repeat xrays. Ryan Calderon D.O. documented [id number] History of Present illness Narrative* Bebo Escalante MD - 03/11/2024 8:45 AM EDT Images from the original note were not included. Subjective : Chief Complaint: Kellie Rubio is an 78 y.o. female here for an annual wellness visit. I have reviewed and reconciled the history and medication list with the patient today. Current Outpatient Medications Medication Sig Dispense Refill ascorbic acid (Vitamin C) 500 mg/mL oral liquid Take by mouth. baclofen (Lioresal) 10 MG tablet Take 1 tablet (10 mg) by mouth at bedtime 100 tablet 3 calcium citrate 600 mg and vitamin D3 (Citrical & Minerals + Vit D) 600-200 MG- UNIT tablet carvedilol (Coreg) 12.5 MG tablet Take 1 tablet (12.5 mg) by mouth in the morning and 1 tablet (12.5 mg) before bedtime. 200 tablet 3 cholecalciferol (Vitamin D-3) 50 MCG (1999 UT) capsule 1 capsule 1 (one) time each day at the same time. lisinopril 10 MG tablet TAKE 1 TABLET ONE TIME DAILY 90 tablet 3 meloxicam (Mobic) 15 MG tablet Take 15 mg by mouth Daily On hold until 01/20/24 omeprazole (PriLOSEC) [address] capsule Take 1 capsule (20 mg) by mouth in the morning and 1 capsule(20 mg) before bedtime. 200 capsule 3 PARoxetine (Paxil) 20 MG tablet Take 1 tablet (20 mg) by mouth in the morning. 90 tablet 3 simvastatin (Zocor) 40 MG tablet Take 1 tablet (40 mg) by mouth at bedtime 100 tablet 3 triamterene-hydrochlorothiazide (Maxzide-25) 37.5-25 MG tablet 1 (one) time each day at the same time. TRUEplus Lancets 33G misc zinc gluconate 50 MG tablet 1 (one) time each day at the same time. albuterol (2.5 MG/3ML) 0.083% nebulizer solution Take 3 mL (2.5 mg) by nebulization every 6 (six) hours if needed for wheezing. 75 mL 11 furosemide (Lasix) 20 MG tablet Take 1 tablet (20 mg) by mouth Daily for 5 days 5 tablet 0 gabapentin (Neurontin) 300 MG capsule Take 1 capsule (300 mg) by mouth in the morning and 1 capsule(300 mg) before bedtime. (Patient taking differently: Take 300 mg by mouth at bedtime) 200 capsule 3 No current facility-administered medications for this visit. Review of Systems Constitutional: Negative for chills, fatigue and fever. Respiratory: Negative for cough, shortness of breath and wheezing. Cardiovascular: Negative for chest pain, palpitations and leg swelling. Gastrointestinal: Negative for abdominal pain, constipation, diarrhea, nausea and vomiting. Skin: Negative for rash. List of current healthcare providers: Patient Care Team: Bebo Escalante MD as PCP - General (Internal Medicine) Bebo Escalante MD as PCP - [facility] Bebo Escalante MD as PCP - [employer] Annual Visit Over the past 2 weeks, how often have you been bothered by any of the following problems? Little interest or pleasure in doing things: Not at all Feeling down, depressed, or hopeless: Not at all Patient Health Questionnaire-2 Score: 0 Khalil Fall Risk History of Falling, Immediate or Within 3 Months: No Ambulatory Aid: Walks without aid/bedrest/nurse assist Health Risk Assessment Form Do you need help eating, bathing, using the toilet, dressing, or getting around your home?: No Can you prepare your own meals?: Yes Can you do your own housework without help?: Yes Can you shop for groceries or clothes without help?: Yes Do you exercise for about 20 minutes 3 or more days a week?: Yes How confident are you that you can control and manage most of your health problems?: Very confident Can you mange your money, credit cards and accounts, pay bills and taxes?: Yes Cognitive Screening Three Word Registration: Apple, Watch, Aleta Clock Drawing: Normal Clock - 2 Three Word Recall: All 3 words correct - 3 Total Score (0-5 Points): 5 Pain Assessment Pain Score: 3 Advance Care Planning Do you have a living will?: Yes Do you have a medical power of document review attorney?: Yes Who is your medical power of document review attorney?: daughter- lucio Objective : BP 130/80 Pulse 69 Ht 5' Wt 200 lb SpO2 96% BMI 39.06 kg/m No results found. Physical Exam Constitutional: General: She is not in acute distress. Appearance: Normal appearance. She is well-developed. HENT: Head: Normocephalic and atraumatic. Eyes: General: No scleral icterus. Conjunctiva/sclera: Conjunctivae normal. Cardiovascular: Rate and Rhythm: Normal rate and regular rhythm. Heart sounds: Normal heart sounds. No murmur heard. Pulmonary: Effort: Pulmonary effort is normal. No respiratory distress. Breath sounds: Normal breath sounds. No wheezing, rhonchi or rales. Musculoskeletal: Right lower leg: No edema. Legs: Comments: TKA scar Skin: General: Skin is warm and dry. Neurological: General: No focal deficit present. Mental Status: She is alert and oriented to person, place, and time. Psychiatric: Mood and Affect: Mood normal. Behavior: Behavior normal. Office Visit on 03/11/2024 Component Date Value Ref Range Status Hemoglobin A1C 03/11/2024 7.1 Final Assessment/Plan : The following health maintenance schedule was reviewed with the patient and provided in printed form in the after visit summary: Health Maintenance Topic Date Due Influenza Vaccine (1) 03/03/2024 Diabetes: Urine Protein Screening 03/29/2024 Diabetes: Hemoglobin A1C 06/10/2024 Medicare Annual Wellness (AWV) 03/11/2025 Diabetes: Retinopathy Screening 08/03/2025 Pneumococcal Vaccine: 65+ Years Completed Advance Care Planning Patient agreed to discuss advance care planning at today's wellness visit. We discussed that an advance directive is a legal document that only goes into effect if the patient is incapacitated and unable to speak for himself or herself. This would help healthcare providers to ensure that the patient gets the care that he or she wishes to receive. The goal is to provide a patient with the best possible quality of life. Encouraged patient to obtain a living will and durable power of document review attorney for healthcare. We discussed telling viramontes people about their advance directives such as close family members, and requested a copy to scan into the patient's EHR. An advance directive packet was offered to the patient. 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 chronic kidney disease, without long-term current use of insulin (HCC) ([facility]) - POCT Glycated hemoglobin, total - CBC and differential - Comprehensive metabolic panel; Future - Lipid panel; Future - TSH W/REFLEX TO FT4; Future Pure hypercholesterolemia (CMS/[facility]) Morbid (severe) obesity due to excess calories ([facility]/HCC) Essential (primary) hypertension (CMS/HCC) Body mass index (BMI) 38.0-38.9, adult Malignant neoplasm of unspecified site of unspecified female breast (CMS/HCC) Orders Placed This Encounter Procedures CBC and differential Order Specific Question: Print requisition? Answer: No Comprehensive metabolic panel Standing Status: Future Number of Occurrences: 1 Standing Expiration Date: 03/11/2025 Order Specific Question: Print requisition? Answer: No Lipid panel Standing Status: Future Number of Occurrences: 1 Standing Expiration Date: 03/11/2025 TSH W/REFLEX TO FT4 Standing Status: Future Number of Occurrences: 1 Standing Expiration Date: 03/11/2025 Order Specific Question: Print requisition? Answer: No POCT Glycated hemoglobin, total Follow up in about 4 months (around 07/11/2024) for Routine F/U. Electronically signed by Bebo Escalante MD on March 11, 2024 documented in this encounterSt. Louis VA Medical [id number] Progress note Author Ravi Shen [facility] December 25, 2023 5:24pm Note Date/Time December 25, 2023 5:09 pm [facility] [address] [place] [address] Hospitalist Progress Note Signed Patient: Kellie Rubio MR#: [id number] : 1945 Acct:[id number] Age/Sex: 78 / F Adm Date: 4 Loc: 4N Room: [address] [place] [address] Type: ADM IN Attending Dr: Ravi Shen DO Copies to: ~ Date of Service: 12/25/2023 Subjective Subjective Narrative: I (Dr. Shen) am taking over this patient today after they were taking care of for a few days by my hospitalist colleague, Dr. Ulloa. Reviewing the records after this patient's total knee replacement she had a sudden surprisingly high need for supplemental oxygen up to 3 L by nasal cannulaand she also had a sudden rather dramatic drop in her sodium levels. Her sodiumhad been 135 and then the next day was 132 but after that dropped precipitously the next day to 123 and then down to 118. Also that hypochloremic with that with a chloride going all the way down to 89. Today her sodium level is improving nicely up to 126. Today the patient is up and had a bedside table doing a word search. She says that she has minimal pain in her knee. She has not had a bowel movement since coming to the hospital. She says that at home she uses stool softener which she describes being like Colace every evening and drinking coffee in the morningto maintain bowel regularity. The bedside nurse just brought her Senokot which I think is reasonable. She denies any shortness of breath. Denies any cough. Denies any chest pain. She denies any dyspnea on exertion. Exam Physical Exam Vital Signs: Temp Pulse Resp BP Pulse Ox O2 Del Method O2 Flow Rate 97.3 F L 59 L 18 107/68 94 L Room Air 3 12/25/23 15:17 12/25/23 15:17 12/25/23 15:17 12/25/23 15:17 12/25/23 15:17 12/25/23 15:17 12/25/23 08:25 Narrative: General: Sitting up in a bedside chair doing a word search. Pulmonary: Clear to auscultation throughout. No wheezing. No rhonchi. No crackles. Cardiac: Regular rate and rhythm to auscultation. No murmurs or rubs or gallopsto auscultation. GI: Bowel sounds are normal. Abdomen is soft. Entirely Non-tender to palpation. Extremities: The right knee is dressed with an Phillip wrap bandage. The leg around this looks normal. It is not very tender at all to touch. Objective Lab Results 12/25/23 04:42 12/25/23 04:42 Meds Allergies and Active Meds Allergies Gadolinium-Containing Contrast Medi [From Contrast Media] Allergy (Intermediate,Verified 12/22/23 09:47) Rash Iodinated Contrast Media [From Contrast Media] Allergy (Intermediate, Verified 12/22/23 09:47) Rash Active Meds: Active Medications Generic Name Dose Route Start Last Admin Trade Name Freq PRN Reason Stop Dose Admin Acetaminophen 1,000 mg 12/21/23 21:15 12/25/23 13:06 Acetaminophen 500 Mg Tablet PO 12/20/24 21:14 1,000 mg Q8H JOSE CARLOS Administration Albuterol 2.5 mg 12/21/23 21:01 Albuterol Neb 2.5 Mg/3 Ml Vial.Neb INHALATION 12/20/24 21:00 Q6H PRN shortness of breath or wheezing Albuterol/Ipratropium 3 ml 12/23/23 12:00 12/25/23 14:18 Ipratropium/Albuterol 0.5-3 Mg 3 Ml Ampul.Neb INHALATION 12/22/24 11:59 3 ml QID.RESP JOSE CARLOS Administration Ascorbic Acid 500 mg 12/23/23 09:00 12/25/23 09:27 Ascorbic Acid 500 Mg Tablet PO 12/22/24 08:59 500 mg QAM JOSE CARLOS Administration Aspirin 81 mg 12/22/23 09:00 12/25/23 09:27 Aspirin 81 Mg Tablet.Dr PO 12/21/24 08:59 81 mg BID JOSE CARLOS Administration Atorvastatin Calcium 20 mg 12/21/23 22:00 12/24/23 22:03 Atorvastatin 20 Mg Tablet PO 12/20/24 21:59 20 mg QHS JOSE CARLOS Administration Baclofen 10 mg 12/22/23 22:00 12/24/23 22:03 Baclofen 10 Mg Tablet PO 12/21/24 21:59 10 mg QHS JOSE CARLOS Administration Calcium Carbonate 500 mg 12/21/23 22:00 12/25/23 13:06 Calcium Carbonate 500 Mg Tablet PO 02/15/24 14:01 500 mg TID JOSE CARLOS Administration Carvedilol 12.5 mg 12/22/23 17:00 12/25/23 09:27 Carvedilol 12.5 Mg Tablet PO 12/21/24 16:59 12.5 mg BID.WITH.MEALS JOSE CARLOS Administration Furosemide 20 mg 12/26/23 08:00 Furosemide 20 Mg Tablet PO 12/25/24 07:59 DAILY.8A JOSE CARLOS Gabapentin 300 mg 12/22/23 09:00 12/25/23 09:27 Gabapentin 300 Mg Capsule PO 12/21/24 08:59 300 mg BID JOSE CARLOS Administration Lidocaine HCl 0.1 ml 12/22/23 09:09 Lidocaine 1% 50 Ml Vial INTRADERMA PREOP PRN Venipuncture x 1 Dose Lisinopril 5 mg 12/22/23 09:00 12/25/23 09:27 Lisinopril 5 Mg Tablet PO 12/21/24 08:59 5 mg QAM JOSE CARLOS Administration Mineral Oil 1 each 12/24/23 21:05 Mineral Oil ([place]) 1 Each Enema FL ONCE PRN Constipation Morphine Sulfate 15 mg 12/21/23 21:05 Morphine Sulfate 12hr Er 15 Mg Tablet.Er PO Q12H PRN Pain Varenicline [Tyrvaya 1 spray 12/21/23 21:01 ] 0.03 Mg/[place] NASAL 12/20/24 21:00 [place], Metered, Non- DAILY PRN Aerosol dry eye(s) Ondansetron HCl 8 mg 12/21/23 21:05 Ondansetron Odt 4 Mg Tab.Rapdis PO 12/20/24 21:04 TID PRN Nausea Oxycodone HCl 5 mg 12/21/23 21:05 12/25/23 09:27 Oxycodone Ir 5 Mg Tablet PO 5 mg Q4HR PRN Administration Pain Scale 6 - 10 Pantoprazole Sodium 40 mg 12/22/23 21:00 12/25/23 09:26 Pantoprazole 40 Mg Tablet. PO 12/21/24 20:59 40 mg BID JOSE CARLOS Administration Paroxetine HCl 20 mg 12/23/23 09:00 12/25/23 09:27 Paroxetine 20 Mg Tablet PO 12/22/24 08:59 20 mg QAM JOSE CARLOS Administration Phenyleph/Shark Oil/Min Oil/Petrol 1 applicator 12/23/23 17:21 Phenyleph/Mineral Oil/Petrolat 57 Gm Tube FL 12/22/24 17:20 QID PRN Hemorrhoids Polyethylene Glycol 17 gm 12/22/23 09:00 12/25/23 09:26 Polyethylene Glycol 3350 17 Gm Powd.Pack PO 12/29/23 08:59 17 gm DAILY JOSE CARLOS Administration Polysaccharide Iron Complex 1 cap 12/23/23 09:00 12/25/23 09:26 Iron Ps Cmplx/Vit B12/Fa 1 Cap Capsule PO 12/22/24 08:59 1 cap QAM JOSE CARLOS Administration Prednisone 40 mg 12/26/23 09:00 Prednisone 20 Mg Tablet PO 12/25/24 08:59 DAILY JOSE CARLOS Sennosides 2 tab 12/25/23 16:39 Sennosides 8.6 Mg Tablet PO 12/24/24 16:38 BID PRN Constipation Sodium Chloride 0 ml 12/21/23 21:03 Sodium Chloride 0.9 % 10 Ml Syringe IV-PUSH 12/20/24 21:02 PRN PRN Flush Sodium Chloride 0 ml 12/21/23 22:00 12/25/23 13:06 Sodium Chloride 0.9 % 10 Ml Syringe IV-PUSH 12/20/24 21:59 10 ml QSHIFT JOSE CARLOS Administration Sodium Chloride 0 ml 12/22/23 09:09 Sodium Chloride 0.9 % 10 Ml Syringe IV-PUSH 12/21/24 09:08 PRN PRN Flush Temazepam 7.5 mg 12/21/23 21:05 Temazepam 7.5 Mg Capsule PO 06/18/24 21:04 QHS PRN Insomnia Triamterene/Hydrochlorothiazide 1 tab 12/23/23 09:00 12/25/23 09:27 Triamterene/Hctz 37.5-25mg 1 Tab Tablet PO 12/22/24 08:59 1 tab QAM JOSE CARLOS Administration Vitamin D 50 mcg 12/23/23 09:00 12/25/23 09:26 Cholecalciferol 25 Mcg (1,000 Units) Tablet PO 12/22/24 08:59 50 mcg QAM JOSE CARLOS Administration Zinc Gluconate 50 mg 12/22/23 16:30 12/25/23 09:27 Zinc Gluconate 50 Mg Tablet PO 12/21/24 16:29 50 mg QAM JOSE CARLOS Administration A&P - Hospitalist Assessment/Plan (1) Acute hypoxemic respiratory failure: Plan: ? In postop setting she is requiring 4 L nasal cannula ? Continue to monitor pulse oximetry and titrate oxygen as tolerated ? DuoNebs 4 times daily ? Down-titrate corticosteroids from IV solumedrol to oral prednisone 40 mg dailystarting tomorrow. ?Likely has undiagnosed COPD (2) Hyponatremia: Plan: ? Patient appears to have developed FLUID overload a few days ago, now improved. (3) Ambulatory dysfunction: Plan: ? PT OT consulted, seemed to need the inpatient rehab unit at first but now is suitable for home health services (4) Total knee replacement status: Plan: Per orthopedic surgery, status post on December 22, 2023 (5) RACHEL (obstructive sleep apnea): Plan: Unclear if she wears CPAP at home (6) Hypertension: Plan: Continue home medications Plan Recheck BMP in the morning and if sodium has improved she is stable for discharge to home. Documented By: Ravi Shen, [id number] Signed By: <Electronically signed by Ravi Shen DO> 12/25/23 [address] [facility] Work Phone: [phone]) 607-413506-24-2024 Consult note Author Agustin Matthews [facility] December 25, 2023 1:21pm Note Date/Time December 25, 2023 1:15 pm [facility] [address] [place] [address] Physiatry (Rehab) Consult Note Signed Patient: Kellie Rubio MR#: [id number] : 1945 Acct:[id number] Age/Sex: 78 / F Adm Date: 4 Loc: Room: [address] [place] [address] Type: ADM IN Attending Dr: Ravi Shen DO Copies to: MD Agustin Dickens II, MD Kristopher L Lindbloom, DO~ Etiologic Dx/Impairment Group Narrative Narrative: TKA HPI Consult Date: 12/25/23 Requesting Physician: Ravi Shen DO Primary Care Provider: Bebo Escalante II, MD Consult Narrative Reason for consult: post acute care placement HPI: 78-year-old female with medical history as above including morbid obesity, presenting with functional decline after elective right total knee arthroplasty. Postop noted hyponatremia to 118 (this is resolving) associated with some postopconfusion / altered mental status. She is back to her premorbid baseline cognitively. She also required nasal cannula oxygen, but is now on room air. Daughter at side, she is able to support her mother at home and stay with her for 2 weeks. She was encouraged by her progress this morning, states her motherwalked in the hallways with her walker. Explained postacute care options including inpatient rehabilitation unit, senior care facility and home with home health care. Both would prefer home with home health care at this point, especially given herimprovement and the involvement of prior auth process for IRF with [employer] whichif pursued would likely delay her discharge planning. Review of Systems Review of Systems All other systems reviewed & are negative unless noted below or in HPI [facility] Medical History RACHEL (obstructive sleep apnea) Depression Arthritis Breast cancer GERD (gastroesophageal reflux disease) Hypertension Hyperlipidemia Surgical History History of mastectomy left breast History of D&C History of hysterectomy History of back surgery with hardware Family History Mother Breast cancer Hypertension Father COPD (chronic obstructive pulmonary disease) Brother Diabetes mellitus, type 2 COPD (chronic obstructive pulmonary disease) Sister COPD (chronic obstructive pulmonary disease) Sister Lupus Social History Smoking Status: Former smoker Substance Use Type: None Meds Medications and Allergies Allergies Gadolinium-Containing Contrast Medi [From Contrast Media] Allergy (Intermediate,Verified 12/22/23 09:47) Rash Iodinated Contrast Media [From Contrast Media] Allergy (Intermediate, Verified 12/22/23 09:47) Rash Home Medications albuterol sulfate 2.5 mg/3 mL (0.083 %) solution for nebulization 2.5 mg continuous nebulization Q6H PRN shortness of breath or wheezing 11/16/23 [History Confirmed 12/22/23] ascorbic acid (vitamin C) 500 mg tablet 500 mg PO QAM 11/16/23 [History Confirmed 12/22/23] baclofen 10 mg tablet 10 mg PO QHS 11/16/23 [History Confirmed 12/22/23] calcium carbonate 600 mg-vitamin D3 5 mcg (200 unit) capsule (Calcium 600 + D(3)) 1 cap PO QAM 11/16/23 [History Confirmed 12/22/23] carvedilol 12.5 mg tablet 12.5 mg PO BID 11/16/23 [History Confirmed 12/22/23] cholecalciferol (vitamin D3) 50 mcg (2,000 unit) tablet (Vitamin D3) 50 mcg PO QAM 11/16/23 [History Confirmed 12/22/23] gabapentin 300 mg capsule 300 mg PO BID 11/16/23 [History Confirmed 12/22/23] iron polysacch cplx 150 mg iron-vit B12 25 mcg-folic acid 1 mg capsule (Ferrex) 1 cap PO QAM 11/16/23 [History Confirmed 12/22/23] lisinopril 10 mg tablet 5 mg PO QAM 11/16/23 [History Confirmed 12/22/23] meloxicam 15 mg tablet 15 mg PO QAM 11/16/23 [History Confirmed 12/22/23] omeprazole 20 mg capsule,delayed release 20 mg PO BID 11/16/23 [History Confirmed 12/22/23] paroxetine HCl 20 mg tablet 20 mg PO QAM 11/16/23 [History Confirmed 12/22/23] simvastatin 40 mg tablet 40 mg PO QHS 11/16/23 [History Confirmed 12/22/23] triamterene 37.5 mg-hydrochlorothiazide 25 mg tablet 1 tab PO QAM 11/16/23 [History Confirmed 12/22/23] varenicline 0.03 mg/spray nasal spray (Tyrvaya) 1 spray intranasal DAILY PRN dryeye(s) 11/16/23 [History Confirmed 12/22/23] zinc gluconate 50 mg tablet 50 mg PO QAM 11/16/23 [History Confirmed 12/22/23] aspirin 81 mg tablet,delayed release 81 mg PO BID #60 tabs 12/21/23 [Rx] Exam Physical Exam Vital Signs: Temp Pulse Resp BP Pulse Ox O2 Del Method O2 Flow Rate 97.4 F L 60 18 103/65 92 L Room Air 3 12/25/23 11:10 12/25/23 11:10 12/25/23 11:10 12/25/23 11:10 12/25/23 11:10 12/25/23 11:10 12/25/23 08:25 Narrative: Pleasant NAD AO x 3 Nonlabored breathing Moves extremities against gravity Ice in place at operative knee Results - Phys. Rehab Labs Labs: Laboratory Results - last 24 hr 12/24/23 12/24/23 12/25/23 09:47 17:00 04:42 Corrected WBC 14.0 H RBC 3.95 Hgb 11.2 L Hct 34.0 MCV 85.9 MCH 28.3 MCHC 32.9 RDW 14.1 Plt Count 240 MPV 9.0 PHA Creatinine Clear 51.11 Sodium 126 L D Potassium 4.3 Chloride 86 L Carbon Dioxide 33.8 H Anion Gap 10.5 BUN 25 Creatinine 0.95 Est GFR (CKD-EPI) > 60.0 Glucose 194 H Osmolality 267 L Calcium 10.4 H Magnesium 1.6 L Total Bilirubin 0.4 AST 15 ALT 5 L Alkaline Phosphatase 71 Total Protein 6.6 Albumin 3.4 L Globulin 3.2 Albumin/Globulin Ratio 1.1 Ur Random Sodium 31 Additional Results Results Comment: I reviewed clinical lab tests, radiology reports and obtained and summated medical records and have ordered follow up lab tests and imaging studies as needed for rehabilitation care. Assessment/Plan (1) Total knee replacement status: (2) Ambulatory dysfunction: (3) Acute hypoxemic respiratory failure: (4) RACHEL (obstructive sleep apnea): (5) Hypertension: (6) Hyponatremia: Plan 78-year-old female with medical history as above including morbid obesity, presenting with functional decline after elective right total knee arthroplasty. -Postop noted hyponatremia, which is resolving. This may have contributed to her altered mental status over the weekend. Patient appears to be back at premorbid baseline from that standpoint. ?She has also been weaned off supplemental oxygen into room air. ?Discussed postacute care options with patient and daughter, they are encouraged by her improvement from the weekend. She is ambulatory in the hallways with her walker this morning, standby assist. Her daughter is able to assist at home for a few weeks. -In agreement for home with home health care when cleared. -Can re-evaluate if change in clinical or functional status. Patient was personally seen by me, Dr. Matthews, on the day of encounter, reviewed the history and the relevant portions of the chart, including current orders, allied health and store sales consultant notes, labs/imaging and performed viramontes elements of exam and I formulated the plan of care and facilitated the medical decision making. I completed a substantive portion of this encounter, the medical decision making portion of this note in its entirety, including Allied health note review, nursing note review, store sales consultant note review, discussion with nursing and case management, and more than 50% of my time was spent on counseling and coordination of care, time spent 45 minutes Documented By: Agustin Matthews MD 12/25/23 1311 Signed By: <Electronically signed by Agustin Matthews MD> 12/25/23 [address] [facility] Work Phone: 1(955) 215-129706-23-2024 Progress note Author Dusty Ulloa [facility] December 24, 2023 2:40pm Note Date/Time December 24, 2023 12:2 3pm [facility] [address] [place] [address] Hospitalist Progress Note Signed Patient: Kellie Rubio MR#: [id number] : 1945 Acct:[id number] Age/Sex: 78 / F Adm Date: 4 Loc: 4N Room: [address] [place] [address] Type: ADM IN Attending Dr: Dusty Ulloa DO Copies to: ~ Date of Service: 12/24/2023 Subjective Subjective Narrative: Seen and evaluated, patient still requiring 3 L of the cannula despite receivingDuoNebs, patient does not really give any meaningful history or have any insightinto her medical illness. Denies any complaints other than not being able to use the restroom on her own. Exam Physical Exam Vital Signs: Temp Pulse Resp BP Pulse Ox O2 Del Method O2 Flow Rate 97.8 F 65 18 111/70 94 L Nasal Cannula 3 12/24/23 11:43 12/24/23 11:43 12/24/23 11:43 12/24/23 11:43 12/24/23 11:43 12/24/23 11:43 12/24/23 11:43 Narrative: General: Awake alert, no acute distress HEENT: head atraumatic, normocephalic, moist mucous membranes Neck: supple no masses, no lymphadenopathy CVS: regular rate and rhythm, no murmurs or gallops Respiratory: Expiratory wheezes noted throughout as well as occasional rhonchi GI: soft, nondistended, nontender, positive bowel sounds with no organomegaly Extremity: moves all extremities, no restrictions of movements, no calf tenderness, no edema, right knee dressed, dressing CDI Neuro: AOx3, CN II-VII intact. Moves all extremities in all planes of motion. Skin: dry, intact no rashes or lesions Objective Lab Results 12/24/23 04:12 12/24/23 09:47 Meds Allergies and Active Meds Allergies Gadolinium-Containing Contrast Medi [From Contrast Media] Allergy (Intermediate,Verified 12/22/23 09:47) Rash Iodinated Contrast Media [From Contrast Media] Allergy (Intermediate, Verified 12/22/23 09:47) Rash Active Meds: Active Medications Generic Name Dose Route Start Last Admin Trade Name Freq PRN Reason Stop Dose Admin Acetaminophen 1,000 mg 12/21/23 21:15 12/24/23 05:45 Acetaminophen 500 Mg Tablet PO 12/20/24 21:14 1,000 mg Q8H JOSE CARLOS Administration Albuterol 2.5 mg 12/21/23 21:01 Albuterol Neb 2.5 Mg/3 Ml Vial.Neb INHALATION 12/20/24 21:00 Q6H PRN shortness of breath or wheezing Albuterol/Ipratropium 3 ml 12/23/23 12:00 12/24/23 09:46 Ipratropium/Albuterol 0.5-3 Mg 3 Ml Ampul.Neb INHALATION 12/22/24 11:59 3 ml QID.RESP JOSE CARLOS Administration Ascorbic Acid 500 mg 12/23/23 09:00 12/24/23 09:10 Ascorbic Acid 500 Mg Tablet PO 12/22/24 08:59 500 mg QAM JOSE CARLOS Administration Aspirin 81 mg 12/22/23 09:00 12/24/23 09:10 Aspirin 81 Mg Tablet.Dr PO 12/21/24 08:59 81 mg BID JOSE CARLOS Administration Atorvastatin Calcium 20 mg 12/21/23 22:00 12/23/23 22:05 Atorvastatin 20 Mg Tablet PO 12/20/24 21:59 20 mg QHS JOSE CARLOS Administration Baclofen 10 mg 12/22/23 22:00 12/23/23 22:05 Baclofen 10 Mg Tablet PO 12/21/24 21:59 10 mg QHS JOSE CARLOS Administration Calcium Carbonate 500 mg 12/21/23 22:00 12/24/23 09:10 Calcium Carbonate 500 Mg Tablet PO 02/15/24 14:01 500 mg TID JOSE CARLOS Administration Carvedilol 12.5 mg 12/22/23 17:00 12/24/23 09:09 Carvedilol 12.5 Mg Tablet PO 12/21/24 16:59 12.5 mg BID.WITH.MEALS JOSE CARLOS Administration Gabapentin 300 mg 12/22/23 09:00 12/24/23 09:09 Gabapentin 300 Mg Capsule PO 12/21/24 08:59 300 mg BID JOSE CARLOS Administration Lidocaine HCl 0.1 ml 12/22/23 09:09 Lidocaine 1% 50 Ml Vial INTRADERMA PREOP PRN Venipuncture x 1 Dose Lisinopril 5 mg 12/22/23 09:00 12/24/23 09:09 Lisinopril 5 Mg Tablet PO 12/21/24 08:59 5 mg QAM JOSE CARLOS Administration Mineral Oil 1 each 12/24/23 21:05 Mineral Oil ([place]) 1 Each Enema FL ONCE PRN Constipation Morphine Sulfate 15 mg 12/21/23 21:05 Morphine Sulfate 12hr Er 15 Mg Tablet.Er PO Q12H PRN Pain Varenicline [Tyrvaya 1 spray 12/21/23 21:01 ] 0.03 Mg/[place] NASAL 12/20/24 21:00 [place], Metered, Non- DAILY PRN Aerosol dry eye(s) Ondansetron HCl 8 mg 12/21/23 21:05 Ondansetron Odt 4 Mg Tab.Rapdis PO 12/20/24 21:04 TID PRN Nausea Oxycodone HCl 5 mg 12/21/23 21:05 12/23/23 18:40 Oxycodone Ir 5 Mg Tablet PO 5 mg Q4HR PRN Administration Pain Scale 6 - 10 Pantoprazole Sodium 40 mg 12/22/23 21:00 12/24/23 09:10 Pantoprazole 40 Mg Tablet. PO 12/21/24 20:59 40 mg BID JOSE CARLOS Administration Paroxetine HCl 20 mg 12/23/23 09:00 12/24/23 09:10 Paroxetine 20 Mg Tablet PO 12/22/24 08:59 20 mg QAM JOSE CAROLS Administration Phenyleph/Shark Oil/Min Oil/Petrol 1 applicator 12/23/23 17:21 Phenyleph/Mineral Oil/Petrolat 57 Gm Tube FL 12/22/24 17:20 QID PRN Hemorrhoids Polyethylene Glycol 17 gm 12/22/23 09:00 12/24/23 09:10 Polyethylene Glycol 3350 17 Gm Powd.Pack PO 12/29/23 08:59 17 gm DAILY JOSE CARLOS Administration Polysaccharide Iron Complex 1 cap 12/23/23 09:00 12/24/23 09:10 Iron Ps Cmplx/Vit B12/Fa 1 Cap Capsule PO 12/22/24 08:59 1 cap QAM JOSE CARLOS Administration Sodium Chloride 0 ml 12/21/23 21:03 Sodium Chloride 0.9 % 10 Ml Syringe IV-PUSH 12/20/24 21:02 PRN PRN Flush Sodium Chloride 0 ml 12/21/23 22:00 12/24/23 06:49 Sodium Chloride 0.9 % 10 Ml Syringe IV-PUSH 12/20/24 21:59 10 ml QSHIFT JOSE CARLOS Administration Sodium Chloride 0 ml 12/22/23 09:09 Sodium Chloride 0.9 % 10 Ml Syringe IV-PUSH 12/21/24 09:08 PRN PRN Flush Temazepam 7.5 mg 12/21/23 21:05 Temazepam 7.5 Mg Capsule PO 06/18/24 21:04 QHS PRN Insomnia Triamterene/Hydrochlorothiazide 1 tab 12/23/23 09:00 12/24/23 09:09 Triamterene/Hctz 37.5-25mg 1 Tab Tablet PO 12/22/24 08:59 1 tab QAM JOSE CARLOS Administration Vitamin D 50 mcg 12/23/23 09:00 12/24/23 09:10 Cholecalciferol 25 Mcg (1,000 Units) Tablet PO 12/22/24 08:59 50 mcg QAM JOSE CARLOS Administration Zinc Gluconate 50 mg 12/22/23 16:30 12/24/23 09:10 Zinc Gluconate 50 Mg Tablet PO 12/21/24 16:29 50 mg QAM JOSE CARLOS Administration A&P - Hospitalist Assessment/Plan (1) Acute hypoxemic respiratory failure: Plan: ? Patient is at baseline on room air ? In postop setting she is requiring 4 L nasal cannula ? Continue titrate oxygen as tolerated ? DuoNebs 4 times daily ?Initiate IV site Medrol 40 mg twice daily ?Likely has undiagnosed COPD (2) Hyponatremia: Plan: ? Serum osmolality low ? Urine sodium pending ? Patient appears iron overload, she likely has a component of CHF. Once her urine study has resulted, will give 40 mg IV Lasix. (3) Ambulatory dysfunction: Plan: ? PT OT consulted, recommending inpatient rehab ? Consult be placed for this (4) Total knee replacement status: Plan: Per orthopedic surgery, status post on December 22, 2023 (5) RACHEL (obstructive sleep apnea): Plan: Unclear if she wears CPAP at home (6) Hypertension: Plan: Continue home medications Plan Will follow with you, given that she is having medical problems unrelated to hertotal knee we will plan to assume care of the patient starting Monday. Documented By: Dusty Ulloa DO 12/24/23 1221 Signed By: <Electronically signed by Dusty Ulloa, > 12/24/[address] [facility] Work Phone: 1(495) 494-589106-22-2024 Consult note Author Dusty Ulloa [facility] December 23, 2023 12:45pm Note Date/Time December 23, 2023 9:59 am [facility] [address] [place] [address] Hospitalist Consult Note Signed Patient: Kellei Rubio MR#: [id number] : 1945 Acct:[id number] Age/Sex: 78 / F Adm Date: 4 Loc: 4N Room: [address] [place] [address] Type: REG SDC Attending Dr: Dusty Ulloa DO Copies to: MD Dusty Dickens II, ~ HPI DATE OF CONSULTATION: 12/23/23 REQUESTING PROVIDER: Dusty Ulloa Consult Narrative Reason for Consult: Hypertension and hypoxia HPI: Miss Rubio is a 78-year-old female with a past medical history of sleep apnea,arthritis, hypertension, and hyperlipidemia seen on hospitalist consultation at the request of orthopedic surgery for hypertension hypoxia. Patient was in the hospital yesterday for a scheduled right TKA, the procedure was in the afternoonand the patient had a difficult time waking up from anesthesia. She was quite drowsy last night and decision was made to keep her in the hospital overnight. This morning she is still requiring 4 L nasal cannula where she is typically on room air at baseline. She denies any complaints though she was witnessed by myself and PT/OT choking on her breakfast and coughing. She did blame it on thedried toast that she was. Patient denies any history of COPD. Review of Systems Review of Systems All other systems reviewed & are negative unless noted below or in HPI [facility] Medical History (Updated 12/23/23 @ 09:57 by Dusty Ulloa DO) RACHEL (obstructive sleep apnea) Depression Arthritis Breast cancer GERD (gastroesophageal reflux disease) Hypertension Hyperlipidemia Surgical History (Updated 12/23/23 @ 09:57 by Dusty Ulloa DO) History of mastectomy left breast History of D&C History of hysterectomy History of back surgery with hardware Family History Mother Breast cancer Hypertension Father COPD (chronic obstructive pulmonary disease) Brother Diabetes mellitus, type 2 COPD (chronic obstructive pulmonary disease) Sister COPD (chronic obstructive pulmonary disease) Sister Lupus Social History Smoking Status: Former smoker Substance Use Type: None Meds Medications and Allergies Allergies Gadolinium-Containing Contrast Medi [From Contrast Media] Allergy (Intermediate,Verified 12/22/23 09:47) Rash Iodinated Contrast Media [From Contrast Media] Allergy (Intermediate, Verified 12/22/23 09:47) Rash Home Medications albuterol sulfate 2.5 mg/3 mL (0.083 %) solution for nebulization 2.5 mg continuous nebulization Q6H PRN shortness of breath or wheezing 11/16/23 [History Confirmed 12/22/23] ascorbic acid (vitamin C) 500 mg tablet 500 mg PO QAM 11/16/23 [History Confirmed 12/22/23] baclofen 10 mg tablet 10 mg PO QHS 11/16/23 [History Confirmed 12/22/23] calcium carbonate 600 mg-vitamin D3 5 mcg (200 unit) capsule (Calcium 600 + D(3)) 1 cap PO QAM 11/16/23 [History Confirmed 12/22/23] carvedilol 12.5 mg tablet 12.5 mg PO BID 11/16/23 [History Confirmed 12/22/23] cholecalciferol (vitamin D3) 50 mcg (2,000 unit) tablet (Vitamin D3) 50 mcg PO QAM 11/16/23 [History Confirmed 12/22/23] gabapentin 300 mg capsule 300 mg PO BID 11/16/23 [History Confirmed 12/22/23] iron polysacch cplx 150 mg iron-vit B12 25 mcg-folic acid 1 mg capsule (Ferrex) 1 cap PO QAM 11/16/23 [History Confirmed 12/22/23] lisinopril 10 mg tablet 5 mg PO QAM 11/16/23 [History Confirmed 12/22/23] meloxicam 15 mg tablet 15 mg PO QAM 11/16/23 [History Confirmed 12/22/23] omeprazole 20 mg capsule,delayed release 20 mg PO BID 11/16/23 [History Confirmed 12/22/23] paroxetine HCl 20 mg tablet 20 mg PO QAM 11/16/23 [History Confirmed 12/22/23] simvastatin 40 mg tablet 40 mg PO QHS 11/16/23 [History Confirmed 12/22/23] triamterene 37.5 mg-hydrochlorothiazide 25 mg tablet 1 tab PO QAM 11/16/23 [History Confirmed 12/22/23] varenicline 0.03 mg/spray nasal spray (Tyrvaya) 1 spray intranasal DAILY PRN dryeye(s) 11/16/23 [History Confirmed 12/22/23] zinc gluconate 50 mg tablet 50 mg PO QAM 11/16/23 [History Confirmed 12/22/23] aspirin 81 mg tablet,delayed release 81 mg PO BID #60 tabs 12/21/23 [Rx] Active Medications: Active Medications Generic Name Dose Route Start Last Admin Trade Name Freq PRN Reason Stop Dose Admin Acetaminophen 1,000 mg 12/21/23 21:15 12/23/23 04:45 Acetaminophen 500 Mg Tablet PO 12/20/24 21:14 1,000 mg Q8H JOSE CARLOS Administration Albuterol 2.5 mg 12/21/23 21:01 Albuterol Neb 2.5 Mg/3 Ml Vial.Neb INHALATION 12/20/24 21:00 Q6H PRN shortness of breath or wheezing Albuterol/Ipratropium 3 ml 12/23/23 12:00 Ipratropium/Albuterol 0.5-3 Mg 3 Ml Ampul.Neb INHALATION 12/22/24 11:59 QID.RESP JOSE CARLOS Ascorbic Acid 500 mg 12/23/23 09:00 Ascorbic Acid 500 Mg Tablet PO 12/22/24 08:59 QAM JOSE CARLOS Aspirin 81 mg 12/22/23 09:00 12/22/23 21:44 Aspirin 81 Mg Tablet.Dr PO 12/21/24 08:59 81 mg BID JOSE CARLOS Administration Atorvastatin Calcium 20 mg 12/21/23 22:00 12/22/23 21:44 Atorvastatin 20 Mg Tablet PO 12/20/24 21:59 20 mg QHS JOSE CARLOS Administration Baclofen 10 mg 12/22/23 22:00 12/22/23 21:44 Baclofen 10 Mg Tablet PO 12/21/24 21:59 10 mg QHS JOSE CARLOS Administration Calcium Carbonate 500 mg 12/21/23 22:00 12/22/23 21:43 Calcium Carbonate 500 Mg Tablet PO 02/15/24 14:01 500 mg TID JOSE CARLOS Administration Carvedilol 12.5 mg 12/22/23 17:00 12/22/23 21:42 Carvedilol 12.5 Mg Tablet PO 12/21/24 16:59 12.5 mg BID.WITH.MEALS JOSE CARLOS Administration Diphenhydramine HCl 25 mg 12/21/23 21:05 Diphenhydramine 25 Mg Capsule PO 12/20/24 21:04 Q6H PRN Itching Gabapentin 300 mg 12/22/23 09:00 12/22/23 21:43 Gabapentin 300 Mg Capsule PO 12/21/24 08:59 300 mg BID JOSE CARLOS Administration Lidocaine HCl 0.1 ml 12/22/23 09:09 Lidocaine 1% 50 Ml Vial INTRADERMA PREOP PRN Venipuncture x 1 Dose Lisinopril 5 mg 12/22/23 09:00 12/22/23 22:11 Lisinopril 5 Mg Tablet PO 12/21/24 08:59 Not Given QAM JOSE CARLOS Mineral Oil 1 each 12/24/23 21:05 Mineral Oil ([place]) 1 Each Enema FL ONCE PRN Constipation Morphine Sulfate 15 mg 12/21/23 21:05 Morphine Sulfate 12hr Er 15 Mg Tablet.Er PO Q12H PRN Pain Naloxone HCl 0.4 mg 12/21/23 21:05 Naloxone Hcl 0.4 Mg/Ml Vial IV-PUSH 12/20/24 21:04 Q2M PRN Opioid Reversal Varenicline [Tyrvaya 1 spray 12/21/23 21:01 ] 0.03 Mg/[place] NASAL 12/20/24 21:00 [place], Metered, Non- DAILY PRN Aerosol dry eye(s) Ondansetron HCl 8 mg 12/21/23 21:05 Ondansetron Odt 4 Mg Tab.Rapdis PO 12/20/24 21:04 TID PRN Nausea Oxycodone HCl 5 mg 12/21/23 21:05 12/23/23 06:43 Oxycodone Ir 5 Mg Tablet PO 5 mg Q4HR PRN Administration Pain Scale 6 - 10 Pantoprazole Sodium 40 mg 12/22/23 21:00 12/22/23 21:43 Pantoprazole 40 Mg Tablet.Dr PO 12/21/24 20:59 40 mg BID JOSE CARLOS Administration Paroxetine HCl 20 mg 12/23/23 09:00 Paroxetine 20 Mg Tablet PO 12/22/24 08:59 QAM JOSE CARLOS Polyethylene Glycol 17 gm 12/22/23 09:00 12/22/23 16:00 Polyethylene Glycol 3350 17 Gm Powd.Pack PO 12/29/23 08:59 Not Given DAILY JOSE CARLOS Polysaccharide Iron Complex 1 cap 12/23/23 09:00 Iron Ps Cmplx/Vit B12/Fa 1 Cap Capsule PO 12/22/24 08:59 QAM [facility] Sodium Chloride 0 ml 12/21/23 21:03 Sodium Chloride 0.9 % 10 Ml Syringe IV-PUSH 12/20/24 21:02 PRN PRN Flush Sodium Chloride 0 ml 12/21/23 22:00 12/23/23 06:35 Sodium Chloride 0.9 % 10 Ml Syringe IV-PUSH 12/20/24 21:59 Not Given QSHIFT OJSE CARLOS Sodium Chloride 0 ml 12/22/23 09:09 Sodium Chloride 0.9 % 10 Ml Syringe IV-PUSH 12/21/24 09:08 PRN PRN Flush Temazepam 7.5 mg 12/21/23 21:05 Temazepam 7.5 Mg Capsule PO 06/18/24 21:04 QHS PRN Insomnia Triamterene/Hydrochlorothiazide 1 tab 12/23/23 09:00 Triamterene/Hctz 37.5-25mg 1 Tab Tablet PO 12/22/24 08:59 QAM [facility] Vitamin D 50 mcg 12/23/23 09:00 Cholecalciferol 25 Mcg (1,000 Units) Tablet PO 12/22/24 08:59 QAM [facility] Zinc Gluconate 50 mg 12/22/23 16:30 12/22/23 17:22 Zinc Gluconate 50 Mg Tablet PO 12/21/24 16:29 Not Given QAM [facility] Exam Physical Exam Vital Signs: Temp Pulse Resp BP Pulse Ox O2 Del Method O2 Flow Rate 97.5 F L 76 17 129/63 96 Nasal Cannula 4 12/23/23 07:31 12/23/23 07:31 12/23/23 07:31 12/23/23 07:31 12/23/23 07:31 12/23/23 08:00 12/23/23 08:00 Narrative: General: Awake alert, no acute distress HEENT: head atraumatic, normocephalic, moist mucous membranes Neck: supple no masses, no lymphadenopathy CVS: regular rate and rhythm, no murmurs or gallops Respiratory: Expiratory wheezes noted throughout as well as occasional rhonchi GI: soft, nondistended, nontender, positive bowel sounds with no organomegaly Extremity: moves all extremities, no restrictions of movements, no calf tenderness, no edema, right knee dressed, dressing CDI Neuro: AOx3, CN II-VII intact. Moves all extremities in all planes of motion. Skin: dry, intact no rashes or lesions Results - Hospitalist Consult Lab Results Labs: Laboratory Results - last 72 hr 12/23/23 04:42: Corrected WBC 18.0 H, Uncorrected WBC Count 18.0 H, RBC 4.02, Hgb 11.3 L, Hct 35.4, MCV 87.9, MCH 28.2, MCHC 32.1, RDW 14.0, Plt Count 272, MPV 9.3, Neut % (Auto) 91.5, Lymph % (Auto) 4.4, [place] % (Auto) 4.0, Eos % (Auto)0.0, Baso % (Auto) 0.1, Nucleat RBC Rel Count 0.1, Neut # (Auto) 16.5 H, Lymph #(Auto) 0.8 L, [place] # (Auto) 0.7, Eos # (Auto) 0.0, Baso # (Auto) 0.0, PHA Creatinine Clear 38.12, Sodium 132 L, Potassium 5.0, Chloride 97 L, Carbon Dioxide 26.3, Anion Gap 13.7, BUN 20, Creatinine 1.20, Est GFR (CKD-EPI) 46.333,Glucose 168 H, Calcium 9.8 12/22/23 16:00: Corrected WBC 14.6 H, Uncorrected WBC Count 14.6 H, RBC 4.46, Hgb 12.6, Hct 39.1, MCV 87.7, MCH 28.3, MCHC 32.2, RDW 14.2, Plt Count 278, MPV 8.9, Neut % (Auto) 95.7, Lymph % (Auto) 3.3, [place] % (Auto) 0.7, Eos % (Auto) 0.2, Baso % (Auto) 0.1, Nucleat RBC Rel Count 0.1, Neut # (Auto) 14.0 H, Lymph #(Auto) 0.5 L, [place] # (Auto) 0.1, Eos # (Auto) 0.0, Baso # (Auto) 0.0, PHA Creatinine Clear 40.84, Sodium 135 L, Potassium 4.5, Chloride 102, Carbon Dioxide 27.1, Anion Gap 10.4, BUN 18, Creatinine 1.12, Est GFR (CKD-EPI) 50.332,Glucose 160 H, Calcium 10.7 H Assessment & Plan Assessment/Plan (1) Acute hypoxemic respiratory failure: Plan: ? Patient is at baseline on room air ? In postop setting she is requiring 4 L nasal cannula ? She is coughing while in the room, she does have some issues with choking on food ? Chest x-ray this morning ? Continue titrate oxygen as tolerated ? DuoNebs 4 times daily ? Will hold off on Solu-Medrol this point in time as there is no evidence documented of COPD, her wheeze may be more of bronchospasm, and she does have a new total knee ? Speech therapy consulted (2) Ambulatory dysfunction: Plan: ? PT OT consulted, recommending inpatient rehab ? Consult be placed for this (3) Total knee replacement status: Plan: Per orthopedic surgery, status post on December 22, 2023 (4) RACHEL (obstructive sleep apnea): Plan: Unclear if she wears CPAP at home (5) Hypertension: Plan: Continue home medications Plan Will follow with you, given that she is having medical problems unrelated to hertotal knee we will plan to assume care of the patient starting Monday. Documented By: Dusty Ulloa DO 12/23/23 0954 Signed By: <Electronically signed by Dusty Ulloa DO> 12/23/[address] [facility] Work Phone: 1(393) 702-392306-21-2024 Progress note Author Dusty Ulloa [facility] December 22, 2023 5:58pm Note Date/Time December 22, 2023 5:58 pm [facility] [address] [place], [place] [id number] Progress Note Signed Patient: Kellie Rubio MR#: [id number] : 1945 Acct:[id number] Age/Sex: 78 / F Adm Date: 4 Loc: 4N Room: 4F1135-8 Type: REG SDC Attending Dr: Ryan Calderon Jr DO Copies to: ~ Date of Service: 12/22/2023 Progress Narrative Note Attempted to see the patient in the [id number] setting however she was lethargic, arousable but very sleep form the anesthesia. Chart review performed, her home medications are already continued, her pre-op labs were WNL, vitals were stable and checked with her bedside RN, nothing was needed from my end for patient carethis evening. Will do formal consult tomorrow morning when patient is more alert. 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 FINDINGS: BONES:Marked narrowing of the medial joint space with near [id number] articulation. No appreciable significant narrowing of the anterior or lateral compartments. Large degenerative osteophytes along the articular margins of the medial and anterior compartments. No fracture, dislocation, bone lesion. SOFT TISSUES:No visible soft tissue swelling. EFFUSION:None visible. OTHER: Negative. IMPRESSION: 1. Marked degenerative joint disease. 2. No acute bone abnormality. Electronically authenticated by: AJ OH Date: 2022-11-10 13:24[facility]01-18-2023 NoteCONSULTATION CONSULTATION DATE: 07/20/2022 HISTORY OF PRESENT ILLNESS: This is a 76-year-old female who returns to the clinic for a three month follow up for chronic lower back pain. She was last seen on 04/07/2022 and, at that time, she was post bilateral lumbar RFA and was experiencing some pain. Today, she rates her pain 3/10 and feels she is significantly better. She is able to vacuum the house, do housework, shower and dress with significantly less pain. Changes in the weather do greatly aggravate her pain to her back as well as her bilateral knees, where she has osteoarthritis. Pushing, standing, walking and stairs aggravate her pain. Sitting, lying and sleeping are relieving factors for her. Medications include baclofen 10 mg q.h.s., gabapentin 300 mg b.i.d. and a multivitamin regimen. Patient's REVIEW OF SYSTEMS / PAST MEDICAL HISTORY / ALLERGIES and IMAGES have been reviewed and noted in the chart. PHYSICAL EXAM: VITAL SIGN: Blood pressure is 129/71. Heart rate is 77. Temperature is 96.4. She is 5', weighs 85 kg. GENERAL IMPRESSION: Pleasant, appropriate, no acute distress. FOCUSED EXAM - BACK: Range of motion is functional in lateral rotation and flexion/extension. Paravertebral muscles are non-spasmodic. No reproduction of spinal axial pain noted along compression of the facets. Minerva's point is non-tender bilaterally. MUSCULOSKELETAL: Patient does use a cane to ambulate. She has a stable but antalgic gait. Motor is 4/5 bilaterally. Bilateral knees with point tenderness and crepitus. Range of motion is guarded. NEUROLOGICAL: Radicular sensory is intact. Negative polyneuropathy. DIAGNOSIS: Lumbar spondylosis, lumbar degenerative disc disease and bilateral knee osteoarthritis. PLAN: We will place her on Mobic 15 mg daily to address her inflammatory pain. Overall, she is doing well. We will continue with her baclofen and gabapentin at the set dose and frequency. I did recommend continuous heat use as well as maintaining her vitamins. We will see the patient in three months' time, unless otherwise indicated. Patient agrees with this plan.[facility] 04-07-2022 NoteCONSULTATION CONSULTATION DATE: 04/07/2022 This is a pleasant 76-year-old female returning to the clinic status post bilateral lumbar RFA of the L4, L5 and S1. This was completed on 02/15/2022 that at this point has afforded her 50% relief. The patient is content with her relief but is concerned that with increased activity such as standing, walking and stairs, her pain returns. She is describing a deep ache in her lumbar region and anterior gluteal region. She does ambulate with a cane, does not report any new vasomotor changes. At this time, she does not use heat, ice or stretches. She just takes Baclofen 10 mg q.h.s., gabapentin 300 mg b.i.d., multivitamin and calcium. REVIEW OF SYSTEMS, PAST MEDICAL HISTORY, ALLERGIES AND IMAGES: Have been reviewed and noted in the chart. PHYSICAL EXAM: VITAL SIGNS: Blood pressure 107/57, heart rate is 64, temperature is 97/1. Height is 5', weighs 86 kg.. GENERAL APPEARANCE: Pleasant and appropriate, no acute distress. BACK: Range of motion is functional, lateral rotation and flexion/extension. Paravertebral muscles are taut and spasmodic to the gluteus minimus, right is greater than left. Compression along these muscles reproduce the patient's pain symptomatology. No spinoaxial pain upon compression along the lumbar facets. MUSCULOSKELETAL: Motor is 4 out of 5 bilaterally, does use a cane to ambulate. Ambulates with a steady but antalgic gait. NEUROLOGICAL: Radicular sensory is intact. Negative polyneuropathy. The patient is cognitively intact. DIAGNOSIS: Lumbar paravertebral spasms, lumbar degenerative disk disease, lumbar spondylosis. PLAN: Education was given to the patient regarding starting daily heat with the addition of menthol heat rub such as Vicks VapoRub. Seated stretches were encouraged and demonstrated for her. The patient states understanding and was encouraged to continue with her vitamin regimen. We will see her in three months' time unless otherwise indicated.[facility] noteNo assessment information available[facility] Work Phone: Evaluation note* Diagnosis Onset Date Resolution Status Acute hypoxemic respiratory failure acute Ambulatory dysfunction acute Hypertension acute Hyponatremia acute RACHEL (obstructive sleep apnea) acute Total knee replacement status acute [facility] Work Phone: Evaluation note* Diagnosis Onset Date Resolution Status Ambulatory dysfunction acute Hypertension acute Hyponatremia acute RACHEL (obstructive sleep apnea) acute Total knee replacement status acute Acute hypoxemic respiratory failure resolved [facility] Work Phone: Evaluation note* Diagnosis Arthritis of right knee Pre-op examination documented in this encounter [facility]* Diagnosis Arthritis of right knee Pre-op examination documented in this encounter [facility]* Diagnosis Routine general medical examination at health care facility- Primary Routine general medical examination at a health care facility ACP (advance care planning) Other specified counseling Type 2 diabetes mellitus with stage 3a chronic kidney disease, without long-term current use of insulin (HCC) (CMS/HCC) Pure hypercholesterolemia (CMS/HCC) Pure hypercholesterolemia Morbid (severe) obesity due to excess calories (CMS/HCC) Essential (primary) hypertension (CMS/HCC) Unspecified essential hypertension Body mass index (BMI) 38.0-38.9, adult Malignant neoplasm of unspecified site of unspecified female breast (CMS/HCC) documented in this encounter [facility]* Diagnosis S/P TKR (total knee replacement), right- Primary [facility] encounter [facility]* Diagnosis ROBLES (dyspnea on exertion)- Primary Other dyspnea and respiratory abnormality Mediastinal mass Swelling, mass, or lump in chest Abnormal CT of the chest Nonspecific (abnormal) findings on radiological and other examination of other intrathoracic organs Morbid (severe) obesity due to excess calories (CMS/HCC) Polyosteoarthritis, unspecified Body mass index (BMI) 35.0-35.9, adult Malignant neoplasm of unspecified site of unspecified female breast (CMS/HCC) [facility]* Diagnosis S/P TKR (total knee replacement), right- Primary documented in this encounter [facility] Healthcare Summary Purpose Family History Relationship Condition Age at Onset Recorded Date/T cici Not Specified Malignant neoplasm of breast Unknown Hypertension Unknown father Chronic obstructive pulmonary disease Unk nown brother Type 2 diabetes mellitus Unknown Chronic obstructive pulmonary disease Unk nown sister Chronic obstructive pulmonary disease Unk nown sister Lupus Unknown Relationship Condition Age at Onset Recorded Date/T cici mother Malignant neoplasm of breast Unknown Hypertension Unknown father Chronic obstructive pulmonary disease Unk nown brother Type 2 diabetes mellitus Unknown Chronic obstructive pulmonary disease Unk nown sister Chronic obstructive pulmonary disease Unk nown sister Lupus Unknown Advance Directives Advance Directive Response Recorded Date/ Time Advance Directives No October 31, 2017 2:41pm Chief Complaint and Reason for Visit Chief Complaint DJD Chief Complaint DJD Z01.818 DJD DJD Reason for Visit Acute hypoxemic resp iratory failure Ambulatory dysfunction Hypertension Hyponatremia RACHEL (obstructive sleep apnea) Total knee replacement status Chief Complaint DJD Z01.818 DJD DJD DJD Reason for Visit Ambulatory dysfuncti on Hypertension Hyponatremia RACHEL (obstructive sleep apnea) Total knee replacement status Acute hypoxemic respiratory failure Additional Source Comments INFORMATION SOURCE (unrecogn ized section and content) DATE CREATED AUTHOR 07/08/2021 [facility] dical Specialist DATE CREATED AUTHOR AUTHOR'S ORGANIZ ATION 11/11/[address] [facility] DATE CREATED AUTHOR AUTHOR'S ORGANIZ ATION 11/13/2022 [facility] DATE CREATED AUTHOR AUTHOR'S ORGANIZ ATION 02/12/2024 [facility] DATE CREATED AUTHOR AUTHOR'S ORGANIZ ATION 08/18/2024 [facility] dical Specialists EPIC Care Teams (unrecognized sec tion and content) Team Status: Active Member Role Status Dates Bebo Escalante II MD Primary Care Provider Active Team Status: Inactive Member Role Status Dates Bebo Escalante II MD Primary Care Provider Active Start: November 16, 2023 End: November 16, 2023 Ryan Calderon Jr, DO Attending Provider Active Start: November 16, 2023 End: November 16, 2023 Team Status: Inactive Member Role Status Dates Bebo Escalante II MD Primary Care Provider Active Start: November 28, 2023 End: November 28, 2023 Ryan Calderon Jr, DO Attending Provider Active Start: November 28, 2023 End: November 28, 2023 Team Status: Inactive Member Role Status Dates Bebo Escalante II MD Primary Care Provider Active Start: December 23, 2023 End: December 26, 2023 Nanette Hanson RN Other Provider Active Star t: December 23, 2023 End: December 26, 2023 Kalyn Montgomery RN Other Provider Active Start : December 23, 2023 End: December 26, 2023 Lucia Briceño RN Other Provider Active Star t: December 23, 2023 End: December 26, 2023 Kusum Guillen , [place] Other Provider Active Start: J une 2023 End: December 26, 2023 Virginia Johnson , [place] Other Provider Active Start: Cindi moore 2023 End: December 26, 2023 Genoveva Ruiz DO Other Provider Active Start : December 23, 2023 End: December 26, 2023 Kris Qiu MD Other Provider Active Start : December 23, 2023 End: December 26, 2023 Ravi Shen DO Attending Prov ider, Other Provider Active Start: December 23, 2023 End: December 26, 2023 Erich Clifton MD Other Provider Active Start: December 23, 2023 End: December 26, 2023 Karma Austin MD Other Provider Active Start : December 23, 2023 End: December 26, 2023 Preston García MD Other Provider Active Start: J une 2023 End: December 26, 2023 Yaa Cheung APRN Other Provider Active Start: December 23, 2023 End: December 26, 2023 Alix Crane MD Other Provider Active Start: December 23, 2023 End: December 26, 2023 Elroy Cagle MD Other Provider Active Start: 2023 End: December 26, 2023 Pema Correia MD Other Provider Active Start: December 23, 2023 End: December 26, 2023 Marshal Wharton MD Other Provider Active Start: December 23, 2023 End: December 26, 2023 Kehinde Reynoso DO Other Provider Active Start: December 23, 2023 End: December 26, 2023 Jesus Manuel Jesus MD Other Provider Active Start: 2023 End: December 26, 2023 Fredy Paulino MD Other Provider Active Start: Dec End: December 26, 2023 LUKE WatersC Other Provider Active St art: December 23, 2023 End: December 26, 2023 Ramo Mckeon APRN Other Provider Active Star t: December 23, 2023 End: December 26, 2023 Will Umana MD Other Provider Active Start: December 23, 2023 End: December 26, 2023 Fco Koenig MD Other Provider Active Start: 2023 End: December 26, 2023 Louie Vuong MD Other Provider Active Start: Dec End: December 26, 2023 Cuate Faustin MD Other Provider Active Star t: December 23, 2023 End: December 26, 2023 Carlos Cerna MD Other Provider Active Start: 2023 End: December 26, 2023 Renuka Peace DO Other Provider Active Start: 2023 End: December 26, 2023 Laith Darnell DO Other Provider Active Start : December 23, 2023 End: December 26, 2023 Melissa Velasquez APRN Other Provider Active Start: December 23, 2023 End: December 26, 2023 Dusty Ulloa DO Admit Provider, Othe r Provider Active Start: December 23, 2023 End: December 26, 2023 Willie Knight MD Other Provider Active Sta rt: December 23, 2023 End: December 26, 2023 Kelsey Souza APRN Other Provider Active Start : December 23, 2023 End: December 26, 2023 Chastity Major APRN Other Provider Active St art: December 23, 2023 End: December 26, 2023 Kinza Trinidad MD Other Provider Active Start: J une 2023 End: December 26, 2023 Bebo Vicnete MD Other Provider Active S tart: December 23, 2023 End: December 26, 2023 Jose Daniel Grande , Other Provider Active Star t: December 23, 2023 End: December 26, 2023 Branden Reynaga DO Other Provider Active Start: December 23, 2023 End: December 26, 2023 Ruddy Vuong MD Other Provider Active Start: December 23, 2023 End: December 26, 2023 Romina Mondragon MD Other Provider Active Start: December 22 End: December 26, 2023 Tiffany Rivera APRN Other Provider Active Star t: December 23, 2023 End: December 26, 2023 Kellie Gann RN Other Provider Active Start: Ezequiel rodgers 2023 End: December 26, 2023 Claudette Dominguez MD Other Provider Active Start: Cindi moore 2023 End: December 26, 2023 Agustin Matthews MD Other Provider Active Start: Ezequiel rodgers 2023 End: December 26, 2023 Simi Butterfield APRN Other Provider Active St art: December 23, 2023 End: December 26, 2023 Johnie Hector Jr, DO Other Provider Active S tart: December 23, 2023 End: December 26, 2023 Jose Hamm MD Other Provider Active Start: December 23, 2023 End: December 26, 2023 Team Status: Active Member Role Status Dates Bebo Escalante II MD Primary Care Provider Active Start: December 25, 2023 Nanette Hanson , [place] Other Provider Active Star t: December 25, 2023 Kalyn Montgomery , [place] Other Provider Active Start : December 25, 2023 Lucia Briceño RN Other Provider Active Star t: December 25, 2023 Kusum Guillen , [place] Other Provider Active Start: Ezequiel rodgers 2023 Virginia Johnson RN Other Provider Active Start: Cindi moore 2023 Genoveva Ruiz DO Other Provider Active Start : December 25, 2023 Kris Qiu MD Other Provider Active Start : December 25, 2023 Ravi Shen DO Other Provider Active Start: December 25, 2023 Erich Clifton MD Other Provider Active Start: December 25, 2023 Karma Austin MD Other Provider Active Start : December 25, 2023 Preston García MD Other Provider Active Start: 2023 Yaa Cheung APRN Other Provider Active Start: December 25, 2023 Alix Crane MD Other Provider Active Start: December 25, 2023 Elroy Cagle MD Other Provider Active Start: 2023 Pema Correia MD Other Provider Active Start: December 25, 2023 Marshal Wharton MD Other Provider Active Start: December 25, 2023 Kehinde Reynoso DO Other Provider Active Start: December 25, 2023 Jesus Manuel Jesus MD Other Provider Active Start: 2023 Fredy Paulino MD Other Provider Active Start: Dec Radha Brandt , INSULATION CUPOL[employer] OPERATOR-C Other Provider Active St art: December 25, 2023 Ramo Mckeon APRN Other Provider Active Star t: December 25, 2023 Will Umana MD Other Provider Active Start: December 25, 2023 Fco Koenig MD Other Provider Active Start: 2023 Louie Vuong MD Other Provider Active Start: Dec Cuate Faustin MD Other Provider Active Star t: December 25, 2023 Carlos Cerna MD Other Provider Active Start: 2023 Renuka Peace DO Other Provider Active Start: 2023 Laith Darnell DO Other Provider Active Start : December 25, 2023 Melissa Velasquez , SCOOTER Other Provider Active Start: December 25, 2023 Dusty Ulloa DO Admit Provider, Othe r Provider Active Start: December 25, 2023 Willie Knight MD Other Provider Active Sta rt: December 25, 2023 Kelsey Souza APRN Other Provider Active Start : December 25, 2023 Chastity Major APRN Other Provider Active St art: December 25, 2023 Kinza Trinidad MD Other Provider Active Start: ana maria 2023 Bebo Vicente MD Other Provider Active S tart: December 25, 2023 Jose Daniel Grande , DO Other Provider Active Star t: December 25, 2023 Branden Reynaga , DO Other Provider Active Start: December 25, 2023 Ruddy Vuong MD Other Provider Active Start: December 25, 2023 Romina Mondragon MD Other Provider Active Start: December 24 Tiffany Rivera APRN Other Provider Active Star t: December 25, 2023 Kellie Gann RN Other Provider Active Start: ana maria 2023 Claudette Dominguez MD Other Provider Active Start: teresa 2023 Agustin Matthews MD Attending Provider, Other Provider Active Start: December 25, 2023 Simi Butterfield APRN Other Provider Active St art: December 25, 2023 Johnie Hector Jr, DO Other Provider Active S tart: December 25, 2023 Jose Hamm MD Other Provider Active Start: December 25, 2023 Team Status: Inactive Member Role Status Dates Bebo Escalanet II MD Primary Care Provider Active Start: November 30, 2023 End: November 30, 2023 Ryan Calderon Jr, DO Attending Provider Active Start: November 30, 2023 End: November 30, 2023 Team Status: Active Member Role Status Dates Bebo Escalante II MD Primary Care Provider Active Start: December 25, 2023 End: December 26, 2023 Nanette Hanson , [place] Other Provider Active Star t: December 25, 2023 End: December 26, 2023 Kalyn Montgomery , [place] Other Provider Active Start : December 25, 2023 End: December 26, 2023 Lucia Briceño RN Other Provider Active Star t: December 25, 2023 End: December 26, 2023 Kusum Guillen , [place] Other Provider Active Start: 2023 End: December 26, 2023 Virginia Johnson RN Other Provider Active Start: Cindi moore 2023 End: December 26, 2023 Genoveva Ruiz DO Other Provider Active Start : December 25, 2023 End: December 26, 2023 Kris Qiu MD Other Provider Active Start : December 25, 2023 End: December 26, 2023 Ravi Shen DO Other Provider Active Start: December 25, 2023 End: December 26, 2023 Erich Clifton MD Other Provider Active Start: December 25, 2023 End: December 26, 2023 Karma Austin MD Other Provider Active Start : December 25, 2023 End: December 26, 2023 Preston García MD Other Provider Active Start: ana maria 2023 End: December 26, 2023 Yaa Cheung APRN Other Provider Active Start: December 25, 2023 End: December 26, 2023 Alix Crane MD Other Provider Active Start: December 25, 2023 End: December 26, 2023 Elroy Cagle MD Other Provider Active Start: 2023 End: December 26, 2023 Pema Correia MD Other Provider Active Start: December 25, 2023 End: December 26, 2023 Marshal Wharton MD Other Provider Active Start: December 25, 2023 End: December 26, 2023 Kehinde Reynoso DO Other Provider Active Start: December 25, 2023 End: December 26, 2023 Jesus Manuel Jesus MD Other Provider Active Start: 2023 End: December 26, 2023 Fredy Paulino MD Other Provider Active Start: Dec End: December 26, 2023 DYLLAN Waters Other Provider Active St art: December 25, 2023 End: December 26, 2023 Ramo Mckeon APRN Other Provider Active Star t: December 25, 2023 End: December 26, 2023 Will Umana MD Other Provider Active Start: December 25, 2023 End: December 26, 2023 Fco Koenig MD Other Provider Active Start: 2023 End: December 26, 2023 Louie Vuong MD Other Provider Active Start: Dec End: December 26, 2023 Cuate Faustin MD Other Provider Active Star t: December 25, 2023 End: December 26, 2023 Carlos Cerna MD Other Provider Active Start: J ana maria 2023 End: December 26, 2023 Renuka Peace DO Other Provider Active Start: Cindi 2023 End: December 26, 2023 Laith Darnell DO Other Provider Active Start : December 25, 2023 End: December 26, 2023 Melissa Velasquez APRN Other Provider Active Start: December 25, 2023 End: December 26, 2023 Dusty Ulloa , DO Admit Provider, Othe r Provider Active Start: December 25, 2023 End: December 26, 2023 Willie Knight MD Other Provider Active Sta rt: December 25, 2023 End: December 26, 2023 Kelsey Souza APRN Other Provider Active Start : December 25, 2023 End: December 26, 2023 Chastity Major APRN Other Provider Active St art: December 25, 2023 End: December 26, 2023 Kinza Trinidad MD Other Provider Active Start: Ezequiel rodgers 2023 End: December 26, 2023 Bebo Vicente MD Other Provider Active S tart: December 25, 2023 End: December 26, 2023 Jose Daniel Grande DO Other Provider Active Star t: December 25, 2023 End: December 26, 2023 Branden Reynaga DO Other Provider Active Start: December 25, 2023 End: December 26, 2023 Ruddy Vuong MD Other Provider Active Start: December 25, 2023 End: December 26, 2023 Romina Mondragon MD Other Provider Active Start: December 24 End: December 26, 2023 Tiffany Rivera APRN Other Provider Active Star t: December 25, 2023 End: December 26, 2023 Kellie Gann RN Other Provider Active Start: Ezequiel rodgers 2023 End: December 26, 2023 Claudette Dominguez MD Other Provider Active Start: Cindi moore 2023 End: December 26, 2023 Agustin Matthews MD Attending Provider, Other Provider Active Start: December 25, 2023 End: December 26, 2023 Simi Butterfield APRN Other Provider Active St art: December 25, 2023 End: December 26, 2023 Johnie Hector Jr, Other Provider Active S tart: December 25, 2023 End: December 26, 2023 Jose Hamm MD Other Provider Active Start: December 25, 2023 End: December 26, 2023 Geophysics Scientist Relationship Specialty Start Date End Date Bebo Escalante MD [address] [place] [address] PCP - Humana 07/03/19 Bebo Escalante MD [address] [place] [address] PCP - General Internal Medicine 12/01/22 Bebo Escalante MD [address] [place] [address] PCP - Devoted 08/03/23 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 Relationship Specialty Start Date End Date Bebo Escalante MD [address] [place] [address] PCP - Humana 07/03/19 Bebo Escalante MD [address] [place] [address] PCP - General Internal Medicine 12/01/22 Bebo Escalante MD [address] [place] [address] PCP - Devoted 08/03/23 07/02/24 Geophysics Scientist Relationship Specialty Start Date End Date Bebo Escalante MD [address] [place] [address] PCP - Humana 07/03/19 Bebo Escalante MD [address] [place] [address] PCP - General Internal Medicine 12/01/22 Bebo Escalante MD [address] [place] [address] PCP - Devoted 08/03/23 Geophysics Scientist Relationship Specialty Start Date End Date Bebo Escalante MD [address] [place] [address] PCP - Humana 07/03/19 Bebo Escalante MD [address] [place] [address] PCP - General Internal Medicine 12/01/22 Bebo Escalante MD [address] [place] [address] PCP - Devoted 08/03/23 Geophysics Scientist Relationship Specialty Start Date End Date Bebo Escalante MD [address] [place] [address] PCP - Humana 07/03/19 Bebo Escalante MD [address] [place] [address] PCP - General Internal Medicine 12/01/22 Bebo Escalante MD [address] [place] [address] PCP - Devoted 08/03/23 Geophysics Scientist Relationship Specialty Start Date End Date Bebo Escalante MD [address] [place] [address] PCP - Humana 07/03/19 Bebo Escalante MD [address] [place] [address] PCP - General Internal Medicine 12/01/22 Bebo Escalante MD [address] [place] [address] PCP - Devoted 08/03/23 Geophysics Scientist Relationship Specialty Start Date End Date Bebo Escalante MD [address] [place] [address] PCP - Humana 07/03/19 Bebo Escalante MD [address] [place] [address] PCP - General Internal Medicine 12/01/22 Bebo Escalante MD [address] [place] [address] PCP - Devoted 08/03/23 Geophysics Scientist Relationship Specialty Start Date End Date Bebo Escalante MD [address] [place] [address] PCP - Humana 07/03/19 Bebo Escalante MD [address] [place] [address] PCP - General Internal Medicine 12/01/22 Bebo Escalante MD [address] [place] [address] PCP - Devoted 08/03/23 Goals (unrecognized section and content) Goals may be documented in a n alternate sectionGoals may be documented in an alternate section Reason for Visit (unrecogniz ed section and content) Reason Comments Med Refill Reason Comments Medicare Annual Wellness Visit Subsequen t Reason Comments Pain Reason Comments Diabetes Hypertension Results Labs 03/2024 Reason Comments Diabetes Hypertension Results Ct chest results Reason Onset Date Comments Pre Med for cleaning 08/13/2024 FOR RECORDS PERTAINING TO PATIENTS WHO ARE OR HAVE BEEN ENROLLED IN A CHEMICAL DEPENDENCY/SUBSTANCEABUSE PROGRAM, SOME INFORMATION MAY BE OMITTED. This clinical summary was aggregated from multiple sources. Caution should be exercised in using it in the provision of clinical care. This summary normalizes information from multiple sources, and as a consequence, information in this document may materially change the coding, format and clinical context of patient data. In addition, data may be omitted in some cases. CLINICAL DECISIONS SHOULD BE BASED ON THE PRIMARY CLINICAL RECORDS. [employer] provides no warranty or guarantee of the accuracy or completeness of information in this document.
[2024-08-22 08:11] LABS: Hemoglobin 13.8 g/dL (12.0-16.0)
[2024-08-22] MEDS: ALBUTEROL SULFATE 2.5 MG/3 ML VIAL NEB IH (09:52)
== END 2024-08-22 08:00 | disposition home or self-care (01) ==
LOC: CARD 08:00
PROVIDERS: PCP Internal Medicine; Visit Provider Internal Medicine
DX: R06.09 Other forms of dyspnea (principal); R93.89 Abnormal findings on diagnostic imaging of other specified body structures
CPT/HCPCS: 36415; 85018; 93306; 94060; 94726; 94729

== ENCOUNTER 2025-06-12 12:25 | Outpatient (OUT) | payer OTHER, SELFPAY ==
--- NOTE | 2025-06-12 12:33 | MM_ITS ---
Patient Name: AYLIN RUBIO MR#: [id number] : 1945 Exam Date: 06/12/2025 Ordering Doctor: DR YAIR SERRATO M.D. RADIOLOGY REPORT PROCEDURE: MM TOMOSYNTHESIS SCREENING RT COMPARISON: MM TOMOSYNTHESIS SCREENING RT, 08/15/2023. MAMMO POST BIOPSY RIGHT, 04/05/2022. MG STEREO CORE NDL W CLIP RT, 04/05/2022. MG MAMM GRAYSON SCRN W CAD DIG, 10/31/1994. INDICATIONS: Screening Calculator Name NCI Breast Cancer Risk Assessment Tool 5 Year Breast Cancer Risk n/a% Lifetime Breast Cancer Risk n/a% Personal Breast Cancer Yes, Left, 54 Personal Ovarian Cancer No Treatments Left mastectomy with lymphnode removal Family Cancers Mother with breast cancer at age ~60; Aunt-maternal with breast cancer at age ~60; Cousin-maternal with leukemia cancer at age ~40; Aunt-maternal with uterine cancer at age ~60. LOCATION: [facility] BREAST COMPOSITION: There are scattered areas of fibroglandular density. FINDINGS: RIGHT BREAST: No significant suspicious finding. Stereotactic biopsy marking clip redemonstrated. DIAGNOSTIC CATEGORY 1--NEGATIVE. RECOMMENDATIONS: ROUTINE MAMMOGRAM AND CLINICAL EVALUATION IN 12 MONTHS. Dictated by: Kevin Amado DO on 06/12/2025 at 15:04 Approved by: Kevin Amado DO on 06/12/2025 at 15:06
--- OUTSIDE RECORDS SUMMARY | 2025-06-12 12:33 | XMS_ITS | CCD ---
Author Organization [facility] Care Team Providers Care Design Architect Name Role Phone MADDIE ., DR OSCAR [...] LESA Lagunas Primary Care Provider DO Ryan Cadleron Jr Attending Provider KOLTON Hanson Other Provider Unavailable KOLTON Montgomery Other Provider Unavailable KOLTON Briceño Other Provider Unavailable KOLTON Guillen Other Provider Unavailable KOLTON Johnson Other Provider Unavailable DO Genoveva Ruiz Other Provider MD Kris Qiu Other Provider DO Ravi Shen Attending Provider DO Ravi Shen Other Provider MD Erich Clifton Other Provider MD Karma Austin Other Provider MD Preston García Other Provider Unavailable SCOOTER Cheung Other Provider MD Alix Crane Other Provider MD Elroy Cagle Other Provider MD Pema [...] Other Provider DO Dusty Ulloa Admit Provider [phone] DO Dusty Ulloa Other Provider MD Willie Knight Other Provider [phone] SCOOTER Souza Other Provider SCOOTER Major Other Provider [phone] MD Kinza Trinidad Other Provider MD Bebo Vicente Other Provider DO Jose Daniel Grande T Other Provider DO Branden Reynaga Other Provider MD Carolann Ruddy P Other Provider MD Romina Mondragon Other Provider [phone] SCOOTER Rivera Other Provider [phone] KOLTON Gann Other Provider Unavailable MD [...] Leone Consulting Unavailable Kalyn Montgomery Consulting Unavailable Lucia Briceño Consulting Unavailable Kusum Guillen Consulting Unavailable [...] Consulting Unavailable Claudette Dominguez Consulting Unavailable Agustin Mtathews Consulting Unavailable Simi Butterfield Consulting Unavailable Johnie Hector Jr Consulting UnavailJose Fernandez Consulting Unavaila ble BorisNoeel Primary Care Unavailable Ryan Calderon Jr Attending Unavailable Ryan Calderon Jr Admitting Unavailable Bebo Escalante MD Unavailable Bebo Escalante MD Primary Care Provider [phone] Bebo Escalante MD Unavailable Bebo Escalante MD Unavailable Bebo Escalante MD Unavailable Monday CERTIFIED MASTER SAFE TECHNICIAN, Debbie Unavailable BEBO ESCALANTE Attending Unavailable BEBO ESCALANTE Attending Unavailable BEBO ESCALANTE Attending Unavailable BEBO ESCALANTE Attending Unavailable JR. ERIN, RYAN Espinosa Attending Carmen CALDERON JR., RYAN Espinosa Referring BELÉN James Attending Unavailable Allergies Allergy ClassificationReported Allergen(s)Allergy TypeDate of OnsetReaction(s) FacilityUnclassified (3 sources)Gadolinium-Containing Contrast Medi; Translations: [Gadolinium- Containing Contrast Medi]Allergy to cldgojgoc48-13-4740XlltBvdhktnnyGreen Cross HospitalUnclassified (20 sources)Iodinated Contrast Media; Translations: [Iodinated Contrast Media] Allergy to -13-3797QjfqEcxucyikiGuernsey [facility] (1 source)Iodine (And Iodine Containting Drugs)Drug allergy (disorder)07-03-1989 [facility] (20 sources)IodineDrug Fdxwdnq72-88-4813TDNR Healthcare (20 sources)GadoliniumDrug Svuqspq80-05-7209DiflVDNR Healthcare Medications Current Medications MedicationDrug Class(es)DatesSig (Normalized)Sig (Original)acetaminophen 325 mg / oxyCODONE hydrochloride 5 mg oral tablet (2 sources)Opioid AgonistStart: 37-38-7575lecf 1 tablet by mouth every six hours Oxycodone-Acetaminophen (Percocet) 5-325 mg tablet Active 1 TAB PO Q6H 20 December 25lbuterol 0.83 mg/ml inhalation solution (20 sources)beta2-Adrenergic AgonistStart: 05-02-2024 End: 50-61-2171ciqchetxz (2.5 MG/3ML) 0.083% nebulizer solution Indications: Pneumonia due to infectious organism,unspecified laterality, unspecified part of lung , Recurrent bronchospasm Take 3 mL (2.5 mg) by nebulization every 6 (six) hours if needed for wheezing 75 mL 11 05/02/2024 ActiveStart: 11-16-2023 Albuterol Sulfate Active 2.5 MG CNTNEBULIZ Q6H November 16, 2023 12:00amStart: 05-68-8043obzjzvygn (2.5 MG/3ML) 0.083% nebulizer solution Indications: Pneumonia due to infectious organism,unspecified laterality, unspecified part of lung , Recurrent bronchospasm Take 3 mL (2.5 mg) by nebulization every 6 (six) hours if needed for wheezing. 75 mL 11 03/01/2023 ActiveAlbuterol-Budesonide (Airsupra) 90-80 MCG/ACT aerosol (2 sources)Albuterol-Budesonide (Airsupra) 90-80 MCG/ACT aerosol Inhale Active amoxicillin 500 mg oral capsule (20 sources)Penicillin-class AntibacterialStart: 04-16-2025 End: 62-89-3431iftb 4 capsules by mouth once at mealtimeamoxicillin (Amoxil) 500 MG capsule Indications: S/P TKR (total knee replacement), right TAKE 4 CAPSULES BY MOUTH ONCE 30-60 MINS BEFORE PROCEDURE WITH FOOD 4 capsule 3 04/16/2025 05/05/2025 Discontinued (Therapy completed)Start: 08-13-2024 End: 02-86-2131yipv 4 tablets by mouth once at mealtimeamoxicillin (Amoxil) 500 MG tablet Indications: S/P TKR (total knee replacement), right 4 tabs PO once 30-60 mins before procedure with food 4 tablet 3 08/14/2024 04/16/2025 Discontinuedascorbic acid 500 mg oral tablet (4 sources)Vitamin CStart: 15-57-2480sefr 500 mg by mouth once daily in the morningAscorbic Acid (Vitamin C) Active 500 MG PO Every morning November 16, 2023 12:00amascorbic acid (Vitamin C) 500 mg/mL oral liquid (20 sources)ascorbic acid (Vitamin C) 500 mg/mL oral liquid Take by mouth. Activeaspirin 81 mg delayed release oral tablet (2 sources)Platelet Aggregation Inhibitor, Nonsteroidal Anti-inflammatory Drug Start: 90-96-5883mydn 81 mg by mouth twice dailyAspirin Active 81 MG PO Twice daily 60 December 21, 2023 12:00ambaclofen 10 mg oral tablet (20 sources)gamma-Aminobutyric Acid-ergic AgonistStart: 01-31-2774ukgo 1 tablet by mouth once daily at bedtimebaclofen (Lioresal) 10 MG tablet Indications: Compression fracture of lumbar vertebra with routine healing, unspecified lumbar vertebral level, subsequent encounter TAKE 1 TABLET BY MOUTH EVERYDAY ATBEDTIME 100 tablet 3 03/10/2025 ActiveStart: 65-09-7703ffsr 1 tablet by mouth at bedtime baclofen (Lioresal) 10 MG tablet Indications: Compression fracture of lumbar vertebra with routine healing, unspecified lumbar vertebral level, subsequent encounter Take 1 tablet (10 mg) by mouth at bedtime 100 tablet 3 02/02/2024 ActiveBlood Glucose Monitoring Suppl (Blood Glucose Monitor System) w/Device kit (3 sources)Start: 94-53-3909Jndln Glucose Monitoring Suppl (Blood Glucose Monitor System) w/Device kit Indications: Type 2 diabetes mellitus with stage 3a chronic kidney disease, without long-term current use of insulin (HCC) 1each Daily 1 kit 04/17/2025 Activecalcium carbonate 1500 mg / cholecalciferol 200 unt oral capsule (19 sources)Vitamin DStart: 26-54-1077wqai 1 capsule by mouth once daily in the morningCalcium Carbonate-Vitamin D3 (Calcium 600 + D(3)) 600 mg-5 mcg (200 unit) capsule Active 1 CAP PO Every morning November 16, 2023 12:00amcalcium citrate 600 mg and vitamin D3 (Citrical & Minerals + Vit D) 600-200 MG-UNIT tablet Active calcium citrate 600 mg and vitamin D3 (Citrical & Minerals + Vit D) 600-200 MG- UNIT tablet (20 sources)calcium citrate 600 mg and vitamin D3 (Citrical & Minerals + Vit D) 600-200 MG-UNIT tablet Activecarvedilol 12.5 mg oral tablet (20 sources)alpha-Adrenergic Aide, beta-Adrenergic BlockerStart: 03-17-2025 take 1 tablet by mouth in the morningcarvedilol (Coreg) 12.5 MG tablet Indications: Benign essential hypertension TAKE 1 TABLET (12.5 MG) BY MOUTH IN THE MORNING AND 1 TABLET (12.5 MG) BEFORE BEDTIME. 200 tablet 3 03/17/2025 ActiveStart: 99-19-2547relw 1 tablet by mouth in the morningcarvedilol (Coreg) 12.5 MG tablet Indications: Benign essential hypertension Take 1 tablet (12.5 mg) by mouth in the morning and 1 tablet (12.5 mg) before bedtime. 200 tablet 3 02/27/2024 ActiveStart: 40-06-8412wxky 12.5 mg by mouth twice daily at mealtime Carvedilol Active 12.5 MG PO Twice daily November 16, 2023 12:00am must administer with a meal/foodcholecalciferol 0.05 mg oral tablet (20 sources)Vitamin DStart: 27-20-5988oxjx 1 tablet by mouth once daily in the morningCholecalciferol (Vitamin D3) (Vitamin D3) 50 mcg (2,000 unit) tablet Active 50 MCG PO Every morningMay 2023 12:00amcholecalciferol (Vitamin D- 3) 50 MCG (2000 UT) capsule 1 capsule 1 (one) time each day at the same time. Activefolic acid 1 mg / polysaccharide iron complex 150 mg / vitamin b12 0.025 mg oral capsule (4 sources)Vitamin Y10Okovr: 51-79-6200xkld 1 capsule by mouth once daily in the morningIron Ps Yjkmune-Q68-Jjteg Acid (Ferrex 150 Forte) 150-25-1 mg-mcg-mg capsule Active 1 CAP PO Every morning November 16, 2023 12:00amfurosemide 20 mg oral tablet (20 sources)Loop DiureticStart: 02-19-2024 End: 95-10-1234qjur 1 tablet by mouth once dailyfurosemide (Lasix) 20 MG tablet Indications: Localized edema Take 1 tablet (20 mg) by mouth Daily for 5 days 5 tablet 02/19/2024 05/05/2025 Discontinued (Other)gabapentin 300 mg oral capsule (15 sources)Anti-epileptic AgentStart: 11-01-2023 End: 67-98-1827wack 1 capsule by mouth in the morninggabapentin (Neurontin) 300 MG capsule Indications: Generalized osteoarthritis Take 1 capsule (300 mg) by mouth in the morning and 1 capsule (300 mg) before bedtime. 200 capsule 3 11/01/2023 07/25/2024 DiscontinuedhydroCHLOROthiazide 25 mg / triamterene 37.5 mg oral tablet (20 sources)Potassium-sparing Diuretic, Thiazide DiureticStart: 47-60-1701wczo 1 tablet by mouth once dailytriamterene-hydrochlorothiazide (Maxzide-25) 37.5-25 MG tablet Indications: Primary hypertension Take 1 tablet by mouth 1 (one) time each day at the same time 100 tablet 3 05/28/2024 ActiveStart: 61-60-9098ycwz 1 tablet by mouth once daily in the morningTriamterene-Hydrochlorothiazid Active 1 TAB PO Every morning November 16, 2023 12:00amlisinopril 10 mg oral tablet (20 sources)Angiotensin Converting Enzyme InhibitorStart: 75-44-7501tzhr 5 mg by mouth once daily in the morningLisinopril Active 5 MG PO Every morning November 16, 2023 12:00amStart: 65-29-2493euxdiczgfw 10 MG tablet Indications: Benign essential hypertension TAKE 1 TABLET ONE TIME DAILY 90 tablet 3 04/25/2023 Activemeloxicam 15 mg oral tablet (20 sources)Nonsteroidal Anti-inflammatory DrugStart: 06-10-2024 End: 50-29-3240wjpw 1 tablet by mouth once dailymeloxicam (Mobic) 15 MG tablet Indications: Osteoarthritis of multiple joints, unspecified osteoarthritis type Take 1 tablet (15 mg) by mouth Daily 100 tablet 3 12/16/2024 ActiveStart: 34-77-9728voyz 1 tablet by mouth once dailymeloxicam (Mobic) 15 MG tablet Indications: Osteoarthritis of multiple joints, unspecified osteoarthritis type Take 1 tablet (15 mg) by mouth Daily 100 tablet 04/24/2024 ActiveStart: 11-59-8877bfqz 1 tablet by mouth once dailymeloxicam (Mobic) 15 MG tablet Take 15 mg by mouth Daily On hold until 01/20/24 11/16/2023 ActiveMultiple Vitamins- Minerals (CENTRUM SILVER 50+WOMEN PO) (2 sources)take 1 tablet by mouth once dailyMultiple Vitamins-Minerals (CENTRUM SILVER 50+WOMEN PO) Take 1 tablet by mouth Daily Activeomeprazole 20 mg delayed release oral capsule (20 sources)Proton Pump InhibitorStart: 18-35-4326ltcm 1 capsule by mouth in the morningomeprazole (PriLOSEC) [address] capsule Indications: Gastroesophageal reflux disease without esophagitis TAKE 1 CAPSULE (20 MG) BY MOUTH IN THE MORNING AND 1 CAPSULE (20 MG) BEFORE BEDTIME. 200 capsule 3 03/17/2025 Active Start: 58-24-7675rapl 1 capsule by mouth in the morningomeprazole (PriLOSEC) [address] capsule Indications: Gastroesophageal reflux disease without esophagitis Take 1 capsule (20 mg) by mouth in the morning and 1 capsule (20 mg) before bedtime. 200 capsule 3 04/24/2024 ActiveStart: 13-59-9850rxjo 20 mg by mouth twice dailyOmeprazole Active 20 MG PO Twice daily November 16, 2023 12:00am PARoxetine hydrochloride 20 mg oral tablet (20 sources)Serotonin Reuptake InhibitorStart: 97-94-1523zfcp 1 tablet by mouth once daily in the morningPARoxetine (Paxil) 20 MG tablet Indications: Depression, unspecified depression type TAKE 1 TABLET BY MOUTH EVERY DAY IN THE MORNING 90 tablet 3 02/03/2025 ActiveStart: 41-05-1842xnnh 1 tablet by mouth in the morningPARoxetine (Paxil) 20 MG tablet Indications: Depression, unspecified depression type Take 1 tablet (20 mg) by mouth in the morning. 90 tablet 3 02/02/2024 Activesimvastatin 40 mg oral tablet (20 sources)HMG-CoA Reductase InhibitorStart: 99-40-0524ftso 1 tablet by mouth at bedtimesimvastatin (Zocor) 40 MG tablet Indications: Hypercholesteremia TAKE 1 TABLET BY MOUTH AT BEDTIME 100 tablet 3 03/17/2025 ActiveStart: 18-99-4148vtuu 1 tablet by mouth at bedtimesimvastatin (Zocor) 40 MG tablet Indications: Hypercholesteremia Take 1 tablet (40 mg) by mouth at bedtime 100 tablet 3 02/21/2024 ActiveStart: 48-90-1912xqqw 40 mg by mouth once daily at bedtime Simvastatin Active 40 MG PO Daily at bedtime November 16, 2023 12:00amVarenicline (4 sources)Partial Cholinergic Nicotinic AgonistStart: 86-71-6935Pawdfvxhlqw (Tyrvaya) 0.03 mg/spray spray, metered, non-aerosol Active 1 SPRAY INTRANASAL Daily 2023 12:00amzinc gluconate 50 mg oral tablet (20 sources)Start: 56-06-8792nevw 50 mg by mouth once daily in the morningZinc Gluconate Active 50 MG PO Every morning November 16, 2023 12:00am Problems Active Problems Problem ClassificationProblemDateDocumented DateEpisodic/Chronic Administrative/social admission (4 sources)Patient encounter status; Translations: [Other specified counseling] 46-35-0692QfaaqdjrTrldzo of breast (20 sources)Malignant tumor of breast ; Translations: [Malignant neoplasm of unspecified site of unspecified female breast]Onset: hronic Chronic kidney disease (20 sources)Chronic kidney disease stage 3A ; Translations: [Stage 3a chronic kidney disease (HCC)]Onset: 843172-01-9555TcdvczqSarhycq obstructive pulmonary disease and bronchiectasis (2 sources)Chronic obstructive lung disease; Translations: [Chronic obstructive pulmonary disease, unspecified]53-68-0940EzvwbajVojsdfan mellitus with complications (20 sources)Renal disorder due to type 2 diabetes mellitus; Translations: [Type 2 diabetes mellitus with other diabetic kidney complication]Onset: 02-23-2017 97-45-5900CzodzwjGrbgylnf mellitus without complication (2 sources)Type 2 diabetes mellitus without complications; Translations: [Type 2 diabetes mellitus without complication]Onset: hronic Disorders of lipid metabolism (20 sources)Hypercholesterolemia; Translations: [Pure hypercholesterolemia, unspecified]Onset: 657486-09-3425UbstmzcOxnycbonvy disorders (20 sources)Gastroesophageal reflux disease without esophagitis; Translations: [Gastro-esophageal reflux disease without esophagitis]Onset: 09-08-2015 82-27-2153LmsgopqNxroiudae hypertension (20 sources)Hypertensive disorder; Translations: [Essential (primary) hypertension]Onset: 768014-05-0133MgpurdvEqjon and electrolyte disorders (7 sources)Hyponatremia; Translations: [Hypo-osmolality and hyponatremia]Onset: 783265-41-8791IjflofbnZktnxihhnndzi symptoms and ill-defined conditions (20 sources)Urinary incontinence; Translations: [Unspecified urinary incontinence]Onset: 271728-35-5558QxoxlvjOtfkqkxlorydo and screening for infectious disease (1 source)Encounter for screening for human papillomavirus (HPV); Translations: [ENC SCREENING HUMAN PAPILLOMAVIRUS]Onset: 15-84-0404XhvtnxmkYerqzwhnbo disorders (20 sources)Other primary ovarian failure; 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]Onset: 901030-21-3058XrtznulSone disorders (20 sources)Depressive disorder; Translations: [Depressive disorder]Onset: 542167-23-3554InbwescIccaorvbxnkppz (20 sources)Bilateral primary osteoarthritis of knee; Translations: [Arthritis of right knee]Onset: 288010-36-3853NgzrjdmLnepg aftercare (20 sources)Patient encounter status; Translations: [Aftercare following joint replacement surgery]Onset: 753715-90-9526TqlvzhoHwilb connective tissue disease (20 sources)History of total knee arthroplasty; Translations: [Presence of unspecified artificial knee joint]Onset: 988880-17-2160CyvvsudFpbgd connective tissue disease (3 sources)Presence of unspecified artificial knee joint; Translations: [Knee joint replacement]Onset: 750823-91-3259GtuzglzSajhd diseases of bladder and urethra (20 sources)Overactive bladder; Translations: [Overactive bladder]Onset: 543914-80-3552IqeoezpNcvop lower respiratory disease (4 sources)Dyspnea on exertion; Translations: [Other forms of dyspnea]08-16-2024 EpisodicOther nervous system disorders (1 source)Other chronic pain; Translations: [OTHER CHRONIC PAIN]Onset: 00-35-2769UdqhjhwNydqi nervous system disorders (4 sources)Walking disability; Translations: [Difficulty in walking, not elsewhere classified]Onset: 288563-29-6515XepbmqqBpxas nervous system disorders (3 sources)Difficulty in walking, not elsewhere classified; Translations: [Difficulty in walking]Onset: 096041-31-6518WmcwqtmCzcam nutritional; endocrine; and metabolic disorders (20 sources)Body mass index 30+ - obesity; Translations: [Obesity, unspecified] Onset: 475472-01-1361LyzrqmyHrutr nutritional; endocrine; and metabolic disorders (6 sources)Obesity caused by energy imbalance; Translations: [Morbid (severe) obesity due to excess calories]26-71-7909KeshltsZdbki nutritional; endocrine; and metabolic disorders (4 sources)Severe obesity; Translations: [Class 2 severe obesity due to excess calories with serious comorbidity and body mass index (BMI) of 37.0 to 37.9 in adult]Onset: 755586-12-2208SymrknjFifbx screening for suspected conditions (not mental disorders or infectious disease) (20 sources)CT of chest abnormal; Translations: [Abnormal findings on diagnostic imaging of other specified body structures]Onset: hronic Pulmonary heart disease (2 sources)Pulmonary hypertension; Translations: [Pulmonary hypertension, unspecified]09-29-8632JfmrtjoXoqxhnxj codes; unclassified (4 sources)Obstructive sleep apnea syndrome; Translations: [Obstructive sleep apnea (adult) (pediatric)]22-91-0710ActvqkfRxywknns codes; unclassified (3 sources)Obstructive sleep apnea (adult) (pediatric); Translations: [Obstructive sleep apnea (adult)(pediatric)]Onset: hronic Residual codes; unclassified (20 sources)Sleep apnea; Translations: [Sleep apnea, unspecified]Onset: 136630-34-0710BuhkcphGjgsivls codes; unclassified (2 sources)Localized edema; Translations: [Localized edema]44-22-3199Joqptpsc Spondylosis; intervertebral disc disorders; other back problems (6 sources)Other intervertebral disc degeneration, lumbar region; Translations: [Spondylosis without myelopathy or radiculopathy, lumbar region]Onset: 44-08-7934IropafzMnzdxxxhebzh (1 source)LOW BACK PAIN, UNSPECIFIED; Translations: [LOW BACK PAIN, UNSPECIFIED] Onset: 38-98-7062Kfthuammqzjt (1 source)CONTACT W/AND (SUSP) EXPOS COVID-19; Translations: [CONTACT W/AND (SUSP) EXPOS COVID-19]Onset: 27-45-9540Djwcuwagsidj (20 sources)Patient on antidepressant monitoring planOnset: 050443-86-6693 Unclassified (20 sources)Baseline PHQ-9Onset: 732905-31-2124 Past or Other Problems Problem ClassificationProblemDateDocumented DateEpisodic/ChronicAbdominal hernia (20 sources)Hiatal hernia; Translations: [Diaphragmatic hernia without obstruction or gangrene]Onset: 998672-97-6314LpsmdagxSoebxnlk mellitus without complication (1 source)Prediabetes; Translations: [PREDIABETES]Onset: 19-36-6972Hlodfafm Nonmalignant breast conditions (5 sources)Mammographic microcalcification found on diagnostic imaging of breast; Translations: [MAMMOGRAPH MCFOUND DX IMAG BREAST]Onset: 03-31-2022 EpisodicOther and unspecified benign neoplasm (20 sources)Hemangioma; Translations: [Hemangioma unspecified site]Onset: 440042-12-9462RngwqqpwZpuly bone disease and musculoskeletal deformities (1 source)Other specified disorders of bone density and structure, other site; Translations: [OTH D/O BONE DEN STRUCT OTH SITE]Onset: 01-67-7215VjtrryurMgmlv bone disease and musculoskeletal deformities (20 sources)Osteopenia; Translations: [Other specified disorders of bone density and structure, unspecified site]Onset: 130359-25-4195KjgxlbrdAslnv fractures (20 sources)Compression fracture of vertebral column; Translations: [Collapsed vertebra, not elsewhere classified, site unspecified, initial encounter for fracture]Onset: 075394-93-1374AdpkhnkoBmyul non-traumatic joint disorders (20 sources)Pain in right knee; Translations: [Pain in joint, lower leg]Onset: 81-69-7829AjujgtjfPfsid screening for suspected conditions (not mental disorders or infectious disease) (20 sources)Encounter for screening for malignant neoplasm of cervix; Translations: [Other abnormal and inconclusive findings on diagnostic imaging of breast]Onset: 92-16-4105ZnxuljqfTklgk upper respiratory disease (20 sources)Bronchospasm; Translations: [Other diseases of bronchus, not elsewhere classified]Onset: 660565-40-2934WcafoomgFjxbz upper respiratory disease (20 sources)Mediastinal mass; Translations: [Other diseases of mediastinum, not elsewhere classified]Onset: 223412-14-3980SclzinvfIaedgch cyst (20 sources)Cyst of left ovary; Translations: [Unspecified ovarian cyst, left side]Onset: 908861-36-8423FtdtkrdyOfvppntigean fracture (20 sources)Pathological fracture of vertebra; Translations: [Pathological fracture, other site, initial encounter for fracture]Onset: EpisodicResidual codes; unclassified (1 source)Family history of malignant neoplasm of breast; Translations: [FAMILY HX MALIG NEOPLASM OF BREAST]Onset: 33-88-9519GimvggblUyhhhosj codes; unclassified (1 source)Family history of leukemia; Translations: [FAMILY HISTORY OF LEUKEMIA] Onset: 13-21-4218JvzptuifCrhbukjg codes; unclassified (1 source)Family history of malignant neoplasm of other genital organs; Translations: [FAM HX MALIG NEOPLSM OTH GENIT ORGN]Onset: 20-57-2493Xuoamwhb Residual codes; unclassified (20 sources)Edema; Translations: [Edema, unspecified]Onset: EpisodicResidual codes; unclassified (20 sources)History of left mastectomy; Translations: [Acquired absence of left breast and nipple]Onset: 383829-50-4835QchppfueRzwthftvfhe failure; insufficiency; arrest (adult) (20 sources)Acute hypoxemic respiratory failure; Translations: [Acute respiratory failure with hypoxia]Onset: 12-23-2023 Resolved: 674241-27-8780LyzaugumHuawugaowwf; intervertebral disc disorders; other back problems (4 sources)Muscle spasm of back; Translations: [MUSCLE SPASM OF BACK]Onset: 76-55-3025Rzvwlrhm Results Test NameValueInterpretationReference RangeFacilityXR Knee - right 1 or 2 Views on 55-25-0342Razwilx Result: AP and lateral of right knee [...] dislocation. Impression: Unremarkable right total knee arthroplasty. [facility] HealthcareRadiology Study observation (narrative)[facility] HealthcareCBC (INCLUDES DIFF/PLT)on 09-52-6515Ajuvbgggl (Bld) [#/Vol]0.018 10*3/uLNormal0-200Quest DiagnosticsComment on above:Performed By: #### 7600, 899 #### [facility] [place] [address] [employer]: Demetri Son MD #### 6399, [id number] #### [facility] [address] [employer]: Marian StepheniBasophils/100 WBC (Bld)0.2 %NormalQuest DiagnosticsComment on above:Performed By: #### 7600, 899 #### [facility] [address], [address] [place] [address] [employer]: Demetri Son MD #### 6399, [id number] #### [facility] [address] [employer]: Marian Espino FlatiEosinophils (Bld) [#/Vol]0.478 10*3/uLNormal 15-500Quest DiagnosticsComment on above:Performed By: #### 7600, 899 #### [facility] [place] [address] [employer]: Demetri Son MD #### 6399, [id number] #### [facility] [address] [employer]: Marian Espino FlatiEosinophils/100 WBC (Bld)5.2 %NormalQuest DiagnosticsComment on above:Performed By: #### 7600, 899 #### [facility] [address], [address] [place] [address] [employer]: Demetri Son MD #### 6399, [address] #### [facility] [employer]: Marian StepheniErythrocyte distribution width (RBC) [Ratio] 14.1 %Vrbhnu33.0-15.0Quest DiagnosticsComment on above:Performed By: #### 7600, 899 #### [facility] [address], [address] [place], [place] [address] [employer]: Demetri Son MD #### 6399, 14319 #### [facility] [address] [place], [place] [id number] [employer]: Marian Espino FlatiHematocrit (Bld) [Volume fraction]41.3 %Normal 35.0-45.0Quest DiagnosticsComment on above:Performed By: #### 7600, 899 #### [facility] [address], [address] [place] [address] Tin Can Feeder: Demetri Son MD #### 6399, 88777 #### [facility] [address] [place], [place] [phone] Tin Can Feeder: Marian Espino FlatiHemoglobin (Bld) [Mass/Vol]13.2 g/dLNormal 11.7-15.5Quest DiagnosticsComment on above:Performed By: #### 7600, 899 #### [facility] [address], [address] [place] [address] Tin Can Feeder: Demetri Son MD #### 6399, 98932 #### [facility] [address] [place], [place] [phone] Tin Can Feeder: Marian Espino FlatiLymphocytes (Bld) [#/Vol]1.481 10*3/uLNormal 850-3900Quest DiagnosticsComment on above:Performed By: #### 7600, 899 #### [facility] [address], [address] [place] [address] Tin Can Feeder: Demetri Son MD #### 6399, 45201 #### [facility] [address] [place] [address] Tin Can Feeder: Marian Espino FlatiLymphocytes/100 WBC (Bld)16.1 %NormalQuest DiagnosticsComment on above:Performed By: #### 7600, 899 #### [facility] [address], [address] [place] [address] Tin Can Feeder: Demetri Son MD #### 6399, 41049 #### [facility] [address] Tin Can Feeder: Marian StepheniMCH (RBC) [Entitic mass]28.4 xsXqhhky32.0-33.0 [facility] DiagnosticsComment on above:Performed By: #### 7600, 899 #### [facility] [address], [address] [place] [address] Tin Can Feeder: Demetri Son MD #### 6399, 81634 #### [facility] [address] Tin Can Feeder: Marian StepheniMCHC (RBC) [Mass/Vol]32.0 g/dQDjnpue54.0-36.0 [facility] DiagnosticsComment on above:Result Comment: For adults, a slight decrease in the calculated MCHC value (in the range of 30 to 32 g/dL) is most likely not clinically significant; however, it should be interpreted with caution in correlation with other red cell parameters and the patient's clinical condition.Performed By: #### 7600, 899 #### [facility] [address], [address] [place] [address] Tin Can Feeder: Demetri Son MD #### 6399, 12667 #### [facility] [address] [place], [place] [phone] Tin Can Feeder: Marian StepheniMCV (RBC) [Entitic vol]88.8 uBMkmodz09.0-100.0 [facility] DiagnosticsComment on above:Performed By: #### 7600, 899 #### [facility] [address], [address] [place] [address] Tin Can Feeder: Demetri Son MD #### 6399, 03721 #### [facility] [address] [place] [address] Tin Can Feeder: Marian Espino FlatiMonocytes (Bld) [#/Vol]0.442 10*3/uLNormal 200-950Quest DiagnosticsComment on above:Performed By: #### 7600, 899 #### [facility] [address] , [address] [place] [address] Tin Can Feeder: Demetri Son MD #### 6399, 69080 #### [facility] [address] [place], [place] [phone] Tin Can Feeder: Marian Espino FlatiMonocytes/100 WBC (Bld)4.8 %NormalQuest DiagnosticsComment on above:Performed By: #### 7600, 899 #### [facility] [place] [address] [address] , [address] [place] [address] Tin Can Feeder: Demetri Son MD #### 6399, 70616 #### [facility] [address] [place] [address] Tin Can Feeder: Marian Espino FlatiNeutrophils (Bld) [#/Vol]6.78 10*3/uLNormal 1500-7800Quest DiagnosticsComment on above:Performed By: #### 7600, 899 #### [facility] [address], [address] [place] [address] Tin Can Feeder: Demetri Son MD #### 6399, 73720 #### [facility] [address] [place], [place] [phone] Tin Can Feeder: Marian Espino FlatiNeutrophils/100 WBC (Bld)73.7 %NormalQuest DiagnosticsComment on above:Performed By: #### 7600, 899 #### [facility] [address], [address] [place] [address] Tin Can Feeder: Demetri Son MD #### 6399, 23173 #### [place] [address] Tin Can Feeder: Marian StepheniPlatelet mean volume (Bld) [Entitic vol]10.5 fLNormal7.5-12.5Quest DiagnosticsComment on above:Performed By: #### 7600, 899 #### [facility] [address], [address] [place] [address] Tin Can Feeder: Demetri Son MD #### 6399, 72833 #### [place] [address] Tin Can Feeder: Marian Espino FlatiPlatelets (Bld) [#/Vol]263 10*3/uLNormal 140-400Quest DiagnosticsComment on above:Performed By: #### 7600, 899 #### [facility] [address], [address] [place] [address] Tin Can Feeder: Demetri Son MD #### 6399, 85667 #### [place] [address] Tin Can Feeder: Marian Espino FlatiRBC (Bld) [#/Vol]4.65 10*6/uLNormal3.80-5.10 [facility] DiagnosticsComment on above:Performed By: #### 7600, 899 #### [facility] [address], [address] [place] [address] Tin Can Feeder: Demetri Son MD #### 6399, 63638 #### [place] [address] Tin Can Feeder: Marian StepheniWBC (Bld) [#/Vol]9.2 10*3/uLNormal3.8-10.8 [facility] DiagnosticsComment on above:Performed By: #### 7600, 899 #### [facility] [address], [address] [place] [address] Tin Can Feeder: Demetri Son MD #### 6399, 28409 #### [facility] [address] [place] [address] Tin Can Feeder: Marian StepheniCOMPREHENSIVE METABOLIC PANELon 12-17-2024 Albumin [Mass/Vol]3.9 g/dLNormal3.6-5.1Quest DiagnosticsComment on above: Performed By: #### 7600, 899 #### [facility] [address], [address] [place] [address] Tin Can Feeder: Demetri Son MD #### 6399, 86742 #### [facility] [address] [place] [address] Tin Can Feeder: Marian StepheniAlbumin/Globulin [Mass ratio]1.3 {ratio}Normal 1.0-2.5Quest DiagnosticsComment on above:Performed By: #### 7600, 899 #### [facility] [address], [address] [place] [address] Tin Can Feeder: Demetri Son MD #### 6399, 05399 #### [facility] [address] [place] [address] Tin Can Feeder: Marian Espino FlatiALP [Catalytic activity/Vol]77 U/NCggyff14-145 [facility] DiagnosticsComment on above:Performed By: #### 7600, 899 #### [facility] [address], [address] [place] [address] Tin Can Feeder: Demetri Son MD #### 6399, 56513 #### [facility] [address] [place] [address] Tin Can Feeder: Marian Espino FlatiALT [Catalytic activity/Vol]11 U/LNormal6-29 [facility] DiagnosticsComment on above:Performed By: #### 7600, 899 #### [facility] [address], [address] [place] [address] Tin Can Feeder: Demetri Son MD #### 6399, 97735 #### [facility] [address] [place] [address] Tin Can Feeder: Marian StepheniAST [Catalytic activity/Vol]17 U/VZoajnt75-91 [facility] DiagnosticsComment on above:Performed By: #### 7600, 899 #### [facility] [address], [address] [place] [address] Tin Can Feeder: Demetri Son MD #### 6399, 80650 #### [facility] [address] [place] [address] Tin Can Feeder: Marian StepheniBilirubin [Mass/Vol]0.4 mg/dLNormal0.2-1.2 [facility] DiagnosticsComment on above:Performed By: #### 7600, 899 #### [facility] [address], [address] [place] [address] Tin Can Feeder: Demetri Son MD #### 6399, 35029 #### [facility] [address] Tin Can Feeder: Marian Espino FlatiCalcium [Mass/Vol]10.5 mg/dLHigh8.6-10.4Quest DiagnosticsComment on above:Performed By: #### 7600, 899 #### [facility] [place] [address] Tin Can Feeder: Demetri Son MD #### 6399, 68770 #### [facility] [address] Tin Can Feeder: Marian StepheniChloride [Moles/Vol]103 mmol/LQvcmcj99-891 [facility] DiagnosticsComment on above:Performed By: #### 7600, 899 #### [facility] [address], [address] [place] [address] Tin Can Feeder: Demetri Son MD #### 6399, 91206 #### [facility] [address] Tin Can Feeder: Marian Espino FlatiCO2 [Moles/Vol]28 mmol/TWbonkn28-37Sfanb DiagnosticsComment on above:Performed By: #### 7600, 899 #### [facility] [address], [address] [place] [address] Tin Can Feeder: Demetri Son MD #### 6399, 34683 #### [facility] [address] Tin Can Feeder: Marian Espino FlatiCreatinine [Mass/Vol]1.23 mg/dLHigh0.60-1.00 [facility] DiagnosticsComment on above:Performed By: #### 7600, 899 #### [facility] [address], [address] [place] [address] Tin Can Feeder: Demetri Son MD #### 6399, 36714 #### [facility] [address] Tin Can Feeder: Marian StepheniGFR/1.73 sq M.predicted among non-blacks MDRD (S/P/Bld) [Vol rate/Area]45 mL/min/{1.73_m2}Low> OR = 60Quest DiagnosticsComment on above:Performed By: #### 7600, 899 #### [facility] [address], [address] [place] [address] Tin Can Feeder: Demetri Son MD #### 6399, 94042 #### [facility] [address] Tin Can Feeder: Marian Espino FlatiGlobulin (S) [Mass/Vol]3.1 g/dLNormal1.9-3.7 [facility]osticsComment on above:Performed By: #### 7600, 899 #### [facility] [address], [address] [place] [address] Tin Can Feeder: Demetri Son MD #### 6399, 06860 #### [facility] [address] Tin Can Feeder: Marian R FlatiGlucose [Mass/Vol]116 mg/rHWqor91-98Pqhvw DiagnosticsComment on above:Result Comment: Fasting reference interval For someone without known diabetes, a glucose value between 100 and 125 mg/dL is consistent with prediabetes and should be confirmed with a follow-up test.Performed By: #### 7600, 899 #### [facility] [address], [address] [place] [address] Tin Can Feeder: Demetri Son MD #### 6399, 17224 #### [facility] [address] [place], [place] [address] Tin Can Feeder: Marian Espino FlatiPotassium [Moles/Vol]4.5 mmol/LNormal3.5-5.3 [facility]osticsComment on above:Performed By: #### 7600, 899 #### [facility] [address], [address] [place] [address] Tin Can Feeder: Demetri Son MD #### 6399, 32374 #### [facility] [address] [place], [place] [address] Tin Can Feeder: Marian Espino FlatiProtein [Mass/Vol]7.0 g/dLNormal6.1-8.1Quest DiagnosticsComment on above:Performed By: #### 7600, 899 #### [facility] [address], [address] [place] [address] Tin Can Feeder: Demetri Son MD #### 6399, 27160 #### [facility] [address] [place] [address] Tin Can Feeder: Marian Espino FlatiSodium [Moles/Vol]139 mmol/WUvpwbk806-666Zbrca DiagnosticsComment on above:Performed By: #### 7600, 899 #### [facility] [address], [address] [place] [address] Tin Can Feeder: Demetri Son MD #### 6399, 32201 #### [facility] [address] [place] [address] Tin Can Feeder: Marian StepheniUrea nitrogen [Mass/Vol]24 mg/dLNormal7-25 [facility] DiagnosticsComment on above:Performed By: #### 7600, 899 #### [facility] [address], [address] [place] [address] Tin Can Feeder: Demetri Son MD #### 6399, 92688 #### [facility] [address] [place] [address] Tin Can Feeder: Marian StepheniUrea nitrogen/Creatinine [Mass ratio]20 mg/mg Normal6-22Quest DiagnosticsComment on above:Performed By: #### 7600, 899 #### [facility] [address], [address] [place] [address] Tin Can Feeder: Demetri Son MD #### 6399, 89314 #### [facility] [address] [place] [address] Tin Can Feeder: Marian KNIGHTOhioHealth Arthur [facility] 37-47-0239Yujcmqstoqu [Mass/Vol]131 mg/dLNormal<200Quest DiagnosticsComment on above:Order Comment: FASTING:YES FASTING: YESPerformed By: #### 4180, 899 #### [facility] [address], [address] [place] [address] Tin Can Feeder: Demetri Son MD #### 6399, 13864 #### [facility] [address] [place] [address] Tin Can Feeder: Marian Troyolesterol in HDL [Mass/Vol]54 mg/dLNormal> OR = 50Quest DiagnosticsComment on above:Order Comment: FASTING:YES FASTING: YESPerformed By: #### 7600, 899 #### [facility] [address], [address] [place] [address] Tin Can Feeder: Demetri Son MD #### 6399, 11330 #### [facility] [address] [place], [place] [address] Tin Can Feeder: Marian StepheniCholesterol in LDL [Mass/Vol]59 mg/dLNormal [facility]osticsComment on above:Order Comment: FASTING:YES FASTING: YESResult Comment: Reference range: <100 Desirable range <100 mg/dL for primary prevention; <70 mg/dL for patients with CHD or diabetic patients with > or = 2 CHD risk factors. LDL-C is now calculated using the Gary calculation, which is a validated novel method providing better accuracy than the Friedewald equation in the estimation of LDL-C. Jose LIM et al. YG. 2013;310(19): 4638-2219 (http://education.WeMonitor.Entrec/faq/AZW439)Performed By: #### 7600, 899 #### [facility] [place] [address] Tin Can Feeder: Demetri Son MD #### 6399, 30359 #### [facility] [address] [place] [address] Tin Can Feeder: Marian StepheniCholesterol.total/Cholesterol in HDL [Mass ratio]2.4 {ratio}Normal<5.0Quest DiagnosticsComment on above:Order Comment: FASTING:YES FASTING: YESPerformed By: #### 7600, 899 #### [facility] [place] [address] Tin Can Feeder: Demetri Son MD #### 6399, 56056 #### [facility] [address] [place], [place] [address] Tin Can Feeder: Marian StepheniNON HDL TUMWWMTDYTI71 mg/dL (calc)Normal<130 [facility]osticsComment on above:Order Comment: FASTING:YES FASTING: YESResult Comment: For patients with diabetes plus 1 major ASCVD risk factor, treating to a non-HDL-C goal of <100 mg/dL (LDL-C of <70 mg/dL) is considered a therapeutic option.Performed By: #### 7600, 899 #### [facility] [address], [address] [place] [address] Tin Can Feeder: Demetri Son MD #### 6399, 70721 #### [facility] [address] [place] [address] Tin Can Feeder: Marian StepheniTriglyceride [Mass/Vol]92 mg/dLNormal<150Quest DiagnosticsComment on above:Order Comment: FASTING:YES FASTING: YESPerformed By: #### 7600, 899 #### [facility] [address], [address] [place] [address] Tin Can Feeder: Demetri Son MD #### 6399, 31491 #### [facility] [address] [place] [address] Tin Can Feeder: Marian Rosas [facility] 16-48-2381Jndr T4 [Mass/Vol]1.0 ng/dLNormal0.8-1.8Quest DiagnosticsComment on above:Performed By: #### 7600, 899 #### [facility] [address], [address] [place] [address] Tin Can Feeder: Demetri Son MD #### 6399, 44396 #### [facility] [address] [place] [address] Tin Can Feeder: Marian Velez 95-21-1427XHM Qn2.01 m[IU]/LNormal 0.40-4.50Quest DiagnosticsComment on above:Performed By: #### 7600, 899 #### [facility] [address], [address] [place] [address] Tin Can Feeder: Demetri Son MD #### 6399, 37725 #### [facility] [address] [place] [address] Tin Can Feeder: Marian [facility] - Hematology and Cell countson 29-42-7611CqG8l (Bld) [Mass fraction]6.4 %NOMS HealthcareNo Panel Informationon 63-00-9547HLWA HealthcareMicroalbumin/Creatinine ratio panel (U)on 09-20-2024 Albumin/Creatinine DL <= 1.0 mg/L (U) [Ratio][address] [place] [address] PULMONARY FUNCTION TESTon 46-35-6218Xal[address] [address] Respiratory Report Signed Patient: KELLIE RUBIO MR#: [id number] : 1945 Acct:[id number] Age/Sex: 78 / F ADM Date: 08/22/24 Loc: CARD Attending Dr: BEBO ESCALANTE Ordering Physician: BEBO ESCALANTE Date of Service: 08/22/24 Procedure(s): RT pulmonary function test Accession Number(s): [id number] cc: [facility] Test Date: 2024-08-22 Pat Name: KELLIE RUBIO Department: Room: - Gender: Female Rug Cleaner Helper: Omar Rhoades RRT : 1945 Requested By: BEBO ESCALANTE Order Number: [id number] Reading MD: Colt Boo Interpretive Statements Pulmonary function testing was completed according to ATS criteria. Findings were considered accurate and reproducible. Both pre- and post-bronchodilator values utilized for spirometry. Spirometry (based on pre-bronchodilator values): -FEV1/FVC: Normal @ 78% -FEV1: Normal @ 91% -FVC: Normal @ 87% -There is a partial bronchodilator response in FEV1 which meets >12% change but not >200mL increase. Lung volumes by plethysmography (based on pre-bronchodilator values): -RV: Reduced @ 77% -TLC: Normal @ 86% Diffusion capacity: -DLCO: Moderate reduction @ 60% when corrected for Hb 13.8g/dL Impressions: -Technically normal spirometry and total lung capacity. Isolated moderate diffusion impairment. This pattern can be seen in, but not restricted to, cardiopulmonary vascular disorders, early interstitial lung disease, and early emphysema. Clinical correlation required. Electronically Signed On 08-27-2024 11:48:01 EST by Colt Boo Dictated By: Colt Boo D.O. Signed By: 08/27/24 1148 DD/ 0855 TD/TT: Ux Design Manager:TBHRadiology, Radiologist, - 08/27/2024 [place] [address] Respiratory Report Signed Patient: KELLIE RUBIO MR#: [id number] : 1945 Acct:[id number] Age/Sex: 78 / F ADM Date: 08/22/24 Loc: CARD Attending Dr: BEBO ESCALANTE Ordering Physician: BEBO ESCALANTE Date of Service: 08/22/24 Procedure(s): RT pulmonary function test Accession Number(s): [id number] cc: [facility] Test Date: 2024-08-22 Pat Name: KELLIE RUBIO Department: Room: - Gender: Female Rug Cleaner Helper: Omar Rhoades RRT : 1945 Requested By: BEBO ESCALANTE Order Number: [id number] Reading MD: Colt Boo Interpretive Statements Pulmonary function testing was completed according to ATS criteria. Findings were considered accurate and reproducible. Both pre- and post-bronchodilator values utilized for spirometry. Spirometry (based on pre-bronchodilator values): -FEV1/FVC: Normal @ 78% -FEV1: Normal @ 91% -FVC: Normal @ 87% -There is a partial bronchodilator response in FEV1 which meets >12% change but not >200mL increase. Lung volumes by plethysmography (based on pre-bronchodilator values): -RV: Reduced @ 77% -TLC: Normal @ 86% Diffusion capacity: -DLCO: Moderate reduction @ 60% when corrected for Hb 13.8g/dL Impressions: -Technically normal spirometry and total lung capacity. Isolated moderate diffusion impairment. This pattern can be seen in, but not restricted to, cardiopulmonary vascular disorders, early interstitial lung disease, and early emphysema. Clinical correlation required. Electronically Signed On 08-27-2024 11:48:01 EST by Colt Boo Dictated By: Colt Boo D.O. Signed By: 08/27/24 1148 DD/ 0855 TD/TT: Ux Design Manager: DANDY Lozano PULMONARY FUNCTION TESTOrdered By: Radiologist Radiology on 14-56-9094MUDV [employer] Work Phone: aLL HEMOGLOBINon 37-72-7834Fvkfovxlxy (Bld) [Mass/Vol] 13.8 g/dL12.0 - 16.0 g/dLNOMS HealthcareCLINISYNCNOMS HealthcareCA ECHO DOPPLER COMPLETEon 03-39-8549[place] [address] Cardiology Report Signed Patient: KELLIE RUBIO MR#: [id number] : 1945 Acct:[id number] Age/Sex: 78 / F ADM Date: 08/22/24 Loc: CARD Attending Dr: BEBO ESCALANTE Ordering Physician: BEBO ESCALANTE Date of Service: 08/22/24 Procedure(s): CA echo doppler complete Accession Number(s): [id number] cc: BORISNOEBEBO Patient Name: KELLIE RUBIO MR#: [id number] : 1945 Exam Date: 08/22/2024 Ordering Doctor: DR BEBO ESCALANTE M.D. ECHOCARDIOGRAM REPORT PROCEDURE: CA ECHO DOPPLER COMPLETE INDICATIONS: Dyspnea on exertion COMPARISON: None. DESCRIPTION: COMPLETE ECHOCARDIOGRAM Real-time transthoracic echocardiography with 2D, M-mode, spectral and color flow Doppler performed. QUALITY: Technical quality was good. LEFT VENTRICLE: Normal chamber size. Mild concentric left ventricular hypertrophy. Global left ventricular systolic function is normal. LV EF: Visual estimation of left ventricular ejection fraction is 60 to 65% DIASTOLIC: Grade II diastolic dysfunction. ATRIAL SEPTUM: LEFT ATRIUM: Moderate dilatation. RIGHT ATRIUM: Normal chamber size. RIGHT VENTRICLE: Normal chamber size. Normal right ventricular systolic function. TRICUSPID VALVE: Normal mobility and thickness. No stenosis with mild regurgitation. Mild pulmonary hypertension. RVSP 36 mmHg MITRAL VALVE: Normal mobility and thickness. No evidence of mitral valve stenosis. There is no mitral annular calcification. Trivial mitral regurgitation. AORTIC VALVE: Normal trileaflet appearance. No visible sclerosis. Normal leaflet mobility. No evidence of aortic valve stenosis. Trivial aortic regurgitation. AORTIC ROOT: Normal diameter and appearance. The ascending aorta is mildly dilated and measures 3.7cm. PULMONIC VALVE: Normal thickness and mobility. No stenosis. Trivial regurgitation. PERICARDIUM: No evidence of pericardial effusion. IVC: Collapses with inspirations. Normal size. PLEURA: CONCLUSION: 1. Mild concentric left ventricular hypertrophy with normal systolic function. LVEF is estimated at 60 to 65%. 2. Normal right ventricular size and systolic function. 3. Grade 2 diastolic dysfunction. 4. No significant valvular dysfunction. 5. Mildly elevated right-sided pressures. 6. Mildly dilated ascending aorta. Adult Echocardiography Procedure Report Left Ventricle LVEDD (3.7 - 5.6 cm): 3.97 cm LVESD (2.2 - 4.0 cm): 2.49 cm LVIVS thickness (0.6 - 1.2 cm): 1.12 cm LVPW thickness (0.5 - 1.0 cm): 0.95 cm e': 0.06 m/s E - e': 9.15 LVOT Max Gradient: 3.29 mm[Hg] LVOT Area (cm2): 0.91 m/s Peak Velocity (LVOT): 0.91 m/s Mean Velocity (LVOT): 0.64 m/s LVOT Diameter 1.87 cm Left Ventricular Ejection Fraction: 60-65 % Left Atrium LA Volume Index (2D A2C): 34.85 ml/m2 Left Atrium Systolic Dimension: 2.32 cm Mitral Valve MV E to A Ratio: 0.87 Mitral Valve A-Wave Peak Velocity: 0.68 m/s Mitral Valve E-Wave Peak Velocity: 0.59 m/s Right Ventricle RV Internal Diastolic Dimension: 2.42 cm Aorta AO Root Diam: 2.79 cm Ascending Ao Diam: 3.69 cm Aortic Valve AoV Area (Peak Jayden): 1.72 cm2, 1.72 cm2 AoV Area (VTI): 1.90 cm2, 1.90 cm2 Peak Velocity(Antegrade Flow): 1.44 m/s Peak Gradient(Antegrade Flow): 8.33 mm[Hg] Mean Velocity(Antegrade Flow): 0.97 m/s Mean Gradient(Antegrade Flow): 4.40 mm[Hg] Velocity Time Integral: 31.28 cm Tricuspid Valve Peak Velocity (Regurgitant Flow): 2.62 m/s, 2.51 m/s, 2.87 m/s Pulmonic Valve Mean Gradient: 2.17 mm[Hg] Mean Velocity: 0.69 m/s Peak Velocity: 0.98 m/s, 0.85 m/s Peak Gradient: 3.81 mm[Hg], 2.90 mm[Hg] Right Atrium Right Atrium Systolic Pressure: 26.27 ml, 26.27 ml Dictated by: Ryan Gonsalez M.D. on 08/22/2024 at 17:20 Approved by: Ryan Gonsalez M.D. on 08/22/2024 a (more content not included)...TBHRadiology, Radiologist, - 08/22/2024 [place] [address] Cardiology Report Signed Patient: KELLIE RUBIO MR#: [id number] : 1945 Acct:[id number] Age/Sex: 78 / F ADM Date: 08/22/24 Loc: CARD Attending Dr: BEBO ESCALANTE Ordering Physician: BEBO ESCALANTE Date of Service: 08/22/24 Procedure(s): CA echo doppler complete Accession Number(s): [id number] cc: BEBO ESCALANTE Patient Name: KELLIE RUBIO MR#: [id number] : 1945 Exam Date: 08/22/2024 Ordering Doctor: DR BEBO ESCALANTE M.D. ECHOCARDIOGRAM REPORT PROCEDURE: CA ECHO DOPPLER COMPLETE INDICATIONS: Dyspnea on exertion COMPARISON: None. DESCRIPTION: COMPLETE ECHOCARDIOGRAM Real-time transthoracic echocardiography with 2D, M-mode, spectral and color flow Doppler performed. QUALITY: Technical quality was good. LEFT VENTRICLE: Normal chamber size. Mild concentric left ventricular hypertrophy. Global left ventricular systolic function is normal. LV EF: Visual estimation of left ventricular ejection fraction is 60 to 65% DIASTOLIC: Grade II diastolic dysfunction. ATRIAL SEPTUM: LEFT ATRIUM: Moderate dilatation. RIGHT ATRIUM: Normal chamber size. RIGHT VENTRICLE: Normal chamber size. Normal right ventricular systolic function. TRICUSPID VALVE: Normal mobility and thickness. No stenosis with mild regurgitation. Mild pulmonary hypertension. RVSP 36 mmHg MITRAL VALVE: Normal mobility and thickness. No evidence of mitral valve stenosis. There is no mitral annular calcification. Trivial mitral regurgitation. AORTIC VALVE: Normal trileaflet appearance. No visible sclerosis. Normal leaflet mobility. No evidence of aortic valve stenosis. Trivial aortic regurgitation. AORTIC ROOT: Normal diameter and appearance. The ascending aorta is mildly dilated and measures 3.7cm. PULMONIC VALVE: Normal thickness and mobility. No stenosis. Trivial regurgitation. PERICARDIUM: No evidence of pericardial effusion. IVC: Collapses with inspirations. Normal size. PLEURA: CONCLUSION: 1. Mild concentric left ventricular hypertrophy with normal systolic function. LVEF is estimated at 60 to 65%. 2. Normal right ventricular size and systolic function. 3. Grade 2 diastolic dysfunction. 4. No significant valvular dysfunction. 5. Mildly elevated right-sided pressures. 6. Mildly dilated ascending aorta. Adult Echocardiography Procedure Report Left Ventricle LVEDD (3.7 - 5.6 cm): 3.97 cm LVESD (2.2 - 4.0 cm): 2.49 cm LVIVS thickness (0.6 - 1.2 cm): 1.12 cm LVPW thickness (0.5 - 1.0 cm): 0.95 cm e': 0.06 m/s E - e': 9.15 LVOT Max Gradient: 3.29 mm[Hg] LVOT Area (cm2): 0.91 m/s Peak Velocity (LVOT): 0.91 m/s Mean Velocity (LVOT): 0.64 m/s LVOT Diameter 1.87 cm Left Ventricular Ejection Fraction: 60-65 % Left Atrium LA Volume Index (2D A2C): 34.85 ml/m2 Left Atrium Systolic Dimension: 2.32 cm Mitral Valve MV E to A Ratio: 0.87 Mitral Valve A-Wave Peak Velocity: 0.68 m/s Mitral Valve E-Wave Peak Velocity: 0.59 m/s Right Ventricle RV Internal Diastolic Dimension: 2.42 cm Aorta AO Root Diam: 2.79 cm Ascending Ao Diam: 3.69 cm Aortic Valve AoV Area (Peak Jayden): 1.72 cm2, 1.72 cm2 AoV Area (VTI): 1.90 cm2, 1.90 cm2 Peak Velocity(Antegrade Flow): 1.44 m/s Peak Gradient(Antegrade Flow): 8.33 mm[Hg] Mean Velocity(Antegrade Flow): 0.97 m/s Mean Gradient(Antegrade Flow): 4.40 mm[Hg] Velocity Time Integral: 31.28 cm Tricuspid Valve Peak Velocity (Regurgitant Flow): 2.62 m/s, 2.51 m/s, 2.87 m/s Pulmonic Valve Mean Gradient: 2.17 mm[Hg] Mean Velocity: 0.69 m/s Peak Velocity: 0.98 m/s, 0.85 m/s Peak Gradient: 3.81 mm[Hg], 2.90 mm[Hg] Right Atrium Right Atrium Systolic Pressure: 26.27 ml, 26.27 ml Dictated by: Ryan Gonsalez M.D. on 08/22/2024 at 17:20 Approved by: Ryan Gonsalez M.D. on 08/22/2024 at 17:24 Dictated By: RYAN GONSALEZ Signed By: 08/22/241724 DD/ 23 TD/TT: Ux Design Manager: [facility] SystemRad[facility] Study observation (narrative)[facility] SystemCA ECHO DOPPLER COMPLETEOrdered By: Radiologist Radiology on 98-96-4713ZQJQ [employer] Work Phone: rt PULMONARY FUNCTION TESTon 08-77-2164Mtwqdimrr Study observation (narrative)[facility] HealthcareCT CHEST WO CONon 20-39-3161[place] [id number] [place] Scan Report Signed Patient: KELLIE RUBIO MR#: [id number] : 1945 Acct:[id number] Age/Sex: 78 / F ADM Date: 07/26/24 Loc: CT Attending Dr: BEBO ESCALANTE Ordering Physician: BEBO ESCALANTE Date of Service: 07/26/24 Procedure(s): CT chest wo con Accession Number(s): [id number] cc: BEBO ESCALANTE [place] [id number] Patient Name: KELLIE RUBIO MRN: [facility]:[id number] date: 1945 Sex: F Assigned Patient Location: CT Current Patient Location: Accession/Order Number: [id number] Exam Date: 07/26/2024 10:25 Report Date: 07/29/2024 08:39 At the request of: BEBO ESCALANTE Procedure: CT chest wo con EXAMINATION: CT chest wo con HISTORY: Mediastinal Mass COMPARISON: CT chest without contrast 11/10/2023, 02/16/2023 TECHNIQUE: Axial, Coronal, and Sagittal images were created without the administration of IV contrast material. Dose reduction techniques were achieved by using automated exposure control and/or adjustment of mA and/or kV according to patient size and/or use of iterative reconstruction technique. FINDINGS: LUNGS: No visible pulmonary disease. PLEURA: No mass, effusion, or pneumothorax. VASCULATURE: No abnormality. DANNI: No mass or pathologic adenopathy. MEDIASTINUM: Stable lobular soft tissue density structure within upper anterior mediastinum, 3.1 x 1.9 cm in the axial plane. Large hiatal hernia within posterior lower mediastinum. CARDIAC: No enlargement, pericardial thickening, or pericardial effusion. Coronary Artery calcifications: AORTA: No aneurysm or dissection. CHEST WALL: No mass or axillary adenopathy surgical clips within left axilla and prior left mastectomy. BONES: Grossly stable, remote fracture of L1 vertebral body incompletely included on today's study. LIMITED ABDOMEN: No suspicious findings. Limited images of the upper abdomen. OTHER: Negative. CT/CT chest wo con IMPRESSION: 1. Stable appearance of anterior mediastinal soft tissue density structure of uncertain etiology. Statistically this would favor residual versus reactive thymus. PET imaging could be performed to evaluate for abnormal metabolic activity if clinically indicated. 2. Large hiatal hernia. Electronically authenticated by: AJ OH Date: 07/29/2024 08:39 Dictated By: Aj Oh M.D. Signed By: 07/29/2442 DD/ TD/TT: Ux Design Manager:TBHRadiology, Radiologist, MD - 07/29/2024 [place] [address] CT Scan Report Signed Patient: KELLIE RUBIO MR#: [id number] : 1945 Acct:[id number] Age/Sex: 78 / F ADM Date: 07/26/24 Loc: CT Attending Dr: BEBO ESCALANTE Ordering Physician: BEBO ESCALANTE Date of Service: 07/26/24 Procedure(s): CT chest wo con Accession Number(s): [id number] cc: BEBO ESCALANTE [place] [address] Patient Name: KELLIE RUBIO MRN: [facility]:[id number] date: 1945 Sex: F Assigned Patient Location: CT Current Patient Location: Accession/Order Number: [id number] Exam Date: 07/26/2024 10:25 Report Date: 07/29/2024 08:39 At the request of: BEBO ESCALANTE Procedure: CT chest wo con EXAMINATION: CT chest wo con HISTORY: Mediastinal Mass COMPARISON: CT chest without contrast 11/10/2023, 02/16/2023 TECHNIQUE: Axial, Coronal, and Sagittal images were created without the administration of IV contrast material. Dose reduction techniques were achieved by using automated exposure control and/or adjustment of mA and/or kV according to patient size and/or use of iterative reconstruction technique. FINDINGS: LUNGS: No visible pulmonary disease. PLEURA: No mass, effusion, or pneumothorax. VASCULATURE: No abnormality. DANNI: No mass or pathologic adenopathy. MEDIASTINUM: Stable lobular soft tissue density structure within upper anterior mediastinum, 3.1 x 1.9 cm in the axial plane. Large hiatal hernia within posterior lower mediastinum. CARDIAC: No enlargement, pericardial thickening, or pericardial effusion. Coronary Artery calcifications: AORTA: No aneurysm or dissection. CHEST WALL: No mass or axillary adenopathy surgical clips within left axilla and prior left mastectomy. BONES: Grossly stable, remote fracture of L1 vertebral body incompletely included on today's study. LIMITED ABDOMEN: No suspicious findings. Limited images of the upper abdomen. OTHER: Negative. CT/CT chest wo con IMPRESSION: 1. Stable appearance of anterior mediastinal soft tissue density structure of uncertain etiology. Statistically this would favor residual versus reactive thymus. PET imaging could be performed to evaluate for abnormal metabolic activity if clinically indicated. 2. Large hiatal hernia. Electronically authenticated by: AJ OH Date: 07/29/2024 08:39 Dictated By: Aj Oh M.D. Signed By: 07/29/24 0842 DD/ 0839 TD/TT: Ux Design Manager: [facility] HealthcareRadiology Study observation (narrative)[facility] CHEST WO CONOrdered By: Radiologist Radiology on 87-09-6240EIGK [employer] Work Phone: Laboratory - Hematology and Cell countson 07-25-2024 HbA1c (Bld) [Mass fraction]6.5 %[facility] SystemNo Panel Informationon 07-25-2024 [facility] SystemLaboratory - Hematology and Cell countson 66-68-9648ZbY6n (Bld) [Mass fraction]7.1 %[facility] HealthcareNo Panel Informationon 57-40-4785JZQR LndgdenjslE3I with Estimated Average Gluon 86-85-0417Kgwywys [Mass/Vol]154 mg/dL NormalThe [facility] Physician GroupComment on above:Result Comment: PERFORMED BY: [place] [id number] PATHOLOGIST OTHER SPORTS COACH OR INSTRUCTOR WHITLEY CHAO M.D.Performed By: #### CBCNO, BMP, MG #### [facility] [address] [place], [place] [address] USABasic Metabolic Panelon 53-54-3653Zmhhtloxdl Clr Calc Xlnlqqto54.91NormCleveland Clinic Indian River Hospital Physician GroupComment on above:Result Comment: PERFORMED BY: [place] [address] PATHOLOGIST OTHER SPORTS COACH OR INSTRUCTOR WHILTEY CHAO M.D.Performed By: #### CBCNO, BMP, MG #### [place] [address] USAGFR/1.73 sq M.predicted MDRD (S/P/Bld) [Vol rate/Area] mL/min/{1.73_m2}NormalThe [facility] Physician GroupComment on above:Performed By: #### CBCNO, BMP, MG #### [facility] [address] [place], [place] [address] USACalcium [Mass/volume] in Serum or PlasmaOrdered By: Ravi Shen on 56-64-6698Ocuisyf [Mass/Vol]10.7 mg/dLHigh8.6-10.3 [facility], IncComment on above:Performed By: #### CBCNO, BMP, MG #### [facility] [address] [place], [place] [address] USACarbon dioxide, total [Moles/volume] in Serum or Plasma Ordered By: Ravi Shen on 05-06-5991EW1 [Moles/Vol]33.1 mmol/LHigh 21.0-31.0[facility], IncComment on above:Performed By: #### CBCNO, BMP, MG #### [facility] [address] [place] [address] USAChloride [Moles/volume] in Serum or PlasmaOrdered By: Ravi Shen on 77-21-5316Adpmkjkv [Moles/Vol]89 mmol/XOaq87-856 [facility], IncComment on above:Performed By: #### CBCNO, BMP, MG #### [facility] [address] [place] [address] USACreatinine [Mass/volume] in Serum or PlasmaOrdered By: Ravi Shen on 88-55-5146Hlmtiinpgp [Mass/Vol]0.91 mg/dLNormal0.60-1.20 [facility], IncComment on above:Performed By: #### EDWINNO, BMP, MG #### [facility] [address] [place] [address] USAErythrocyte distribution width [Ratio] by Automated count Ordered By: Dusty Ulloa on 44-72-0022Ppyafzshjzb distribution width (RBC) [Ratio]14.0 %Ktjkml40.9-15.3FMercy Health Lorain HospitalComment on above: Performed By: #### EDWINNO, BMP, MG #### [facility] [address] [place] [address] USAErythrocytes [#/volume] in Blood by Automated countOrdered By: Dusty Ulloa on 95-65-3309ATK (Bld) [#/Vol]3.76 10*6/uLNormal3.60-5.00 [facility], IncComment on above:Performed By: #### CBCNO, BMP, MG #### [facility] [address] [place] [id number] USAGlucose [Mass/volume] in Serum or PlasmaOrdered By: Ravi Shen on 99-68-2852Vuqowmf [Mass/Vol]118 mg/hTRrkc03-315FuoyxfzwhSelect [facility], IncComment on above:ADA recommended reference rangeRandom Glucose Reference Range is dependent on time and content of last meal. Glucose of more than 200 mg/dL in a nonstressed, ambulatory subject supports the diagnosisof Diabetes Mellitus.Result Comment: Random Glucose Reference Range is dependent on time and content of last meal. Glucose of more than 200 mg/dL in a nonstressed, ambulatory subject supports the diagnosis of Diabetes Mellitus. ADA recommended reference rangePerformed By: #### CBCNO, BMP, MG #### [facility] [address] [place] [address] USAGlucose mean value [Mass/volume] in Blood Estimated from glycated hemoglobinOrdered By: Ravi Shen on 12-05-7255Kgxxksh glucose Estimated from glycated hemoglobin (Bld) [Mass/Vol]154 mg/dLSelect Medical Specialty Hospital [facility], IncHematocrit [Volume Fraction] of Blood by Automated countOrdered By: Dusty Ulloa on 04-21-9686Mamjrnqymf (Bld) [Volume fraction]32.5 %Low 34.0-46.4FMercy Health Lorain HospitalComment on above:Performed By: #### CBCNO, BMP, MG #### [facility] [address] [place] [address] USAHemoglobin A1c percentageOrdered By: Ravi Shen on 05-97-7915YbH3v (Bld) [Mass fraction]7.0 %High4.3-5.6FMercy Health Lorain HospitalComment on above:Increased risk for diabetes: 5.7 - 6.4diabetes: >6.4glycemic control for adults with diabetes: <7.0Result Comment: Increased risk for diabetes: 5.7 - 6.4 diabetes: >6.4 glycemic control for adults with diabetes: <7.0Performed By: #### CBCNO, BMP, MG #### [facility] [address] [place] [address] USAHemoglobin [Mass/volume] in BloodOrdered By: Dusty Ulloa on 00-30-4584Ggoykeagje (Bld) [Mass/Vol]10.8 g/dLLow11.8-15.4FMercy Health Lorain HospitalComment on above:Performed By: #### CBCNO, BMP, MG #### [facility] [address] [place] [address] USAHemogram CBC Without Diffon 70-54-2544Vwzm Corpuscular HGB Conc33.2 g/yOHpgikr71.0-35.0The [facility] Physician GroupComment on above: Performed By: #### LENNY BMP, MG #### [facility] [address] [place] [address] USAWBC (Bld) [#/Vol]12.6 10*3/uLHigh3.8-11.6The [facility] Physician GroupComment on above:Performed By: #### LENNY BMP, MG #### [facility] [address] [place] [address] USALeukocytes [#/volume] corrected for nucleated erythrocytes in Blood by Automated counOrdered By: Dusty Ulloa on 51-47-1532VEK corrected for nucl RBC Auto (Bld) [#/Vol]12.6 10*3/uLHigh3.8-11.6FMercy Health Willard HospitalH [Entitic mass] by Automated countOrdered By: Dusty Ulloa on 85-72-0768JAK (RBC) [Entitic mass]28.7 xpVjgfqg07.7-34.3FMercy Health Lorain HospitalComment on above:Performed By: #### ARACELI GALVEZ, MG #### [facility] [address] [place] [address] USAMCHC Auto (RBC) [Mass/Vol]Ordered By: Dusty Ulloa on 08-80-1792MTUD (RBC) [Mass/Vol]33.2 g/dL32.0-35.0[facility], IncMCV [Entitic volume] by Automated countOrdered By: Dusty Ulloa on 22-32-7994PXO (RBC) [Entitic vol]86.4 mNXaojth54-413CrwwtwiqzSelect Medical Specialty Hospital [facility], IncComment on above:Performed By: #### LENNY BMP, MG #### [facility] [address] [place] [id number] USANo Panel InformationOrdered By: Ravi Shen on 46-19-6624Bttczvqsy GFR (CKD-EPI)> 60.0 mL/MinSelect Medical Specialty Hospital [facility], Inc Pharmacy Creatinine Clearance (Chem51.91[facility] Platelet mean volume [Entitic volume] in Blood by Automated countOrdered By: Dusty Ulloa on 35-17-1741Fxrcclxc mean volume (Bld) [Entitic vol]9.2 fLNormal 6.3-10.7FMercy Health Lorain HospitalComment on above:Result Comment: PERFORMED BY: [place] [address] PATHOLOGIST OTHER SPORTS COACH OR INSTRUCTOR WHITLEY CHAO M.D.Performed By: #### EDWINNO, BMP, MG #### [facility] [address] [place] [address] USAPlatelets [#/volume] in Blood by Automated countOrdered By: Dusty Ulloa on 42-57-2318Kmgtwkdvg (Bld) [#/Vol]264 10*3/pEWifaij396-662 [facility], IncComment on above:Performed By: #### LENNY, BMP, MG #### [facility] [address] [place] [address] USAPotassium [Moles/volume] in Serum or PlasmaOrdered By: Ravi Shen on 27-44-2766Nebfdfepp [Moles/Vol]3.8 mmol/LNormal3.5-5.1 [facility], IncComment on above:Performed By: #### LENNY, BMP, MG #### [facility] [address] [place] [address] USASerum or plasma anion gap determinationOrdered By: Ravi Shen on 56-17-6003Qsiev gap [Moles/Vol]8.7 mmol/LNormal6.0-15.0 [facility], IncComment on above:Performed By: #### EDWINNO, BMP, MG #### [facility] [address] [place] [address] USASodium [Moles/volume] in Serum or PlasmaOrdered By: Ravi Shen on 72-42-9990Kvhwgf [Moles/Vol]127 mmol/AXdy219-035 [facility], IncComment on above:Performed By: #### CBCNO, BMP, MG #### [facility] [address] [place] [address] USAUrea nitrogen [Mass/volume] in Serum or PlasmaOrdered By: Ravi Shen on 64-14-6886Dqes nitrogen [Mass/Vol]31 mg/dLHigh7-25 [facility], IncComment on above:Performed By: #### LENNY, BMP, MG #### [facility] [address] [place] [address] USAAlanine aminotransferase [Enzymatic activity/volume] in Serum or PlasmaOrdered By: Dusty Ulloa on 29-56-7190NVP [Catalytic activity/Vol]5 U/LLow7-52[facility], IncComment on above: Performed By: #### LENNY BMP, MG #### [facility] [address] [place] [address] USAAlbumin [Mass/volume] in Serum or Plasma by Bromocresol green (BCG) dye binding methoOrdered By: Dusty Ulloa on 10-42-6699Omgffea BCG dye [Mass/Vol]3.4 g/dLLow3.5-5.7FMercy Health Lorain HospitalAlkaline phosphatase [Enzymatic activity/volume] in Serum or PlasmaOrdered By: Dusty Ulloa on 84-33-0049VOH [Catalytic activity/Vol]71 U/TNdmqoz78-333BhbxvmztfSelect Medical Specialty Hospital [facility], IncComment on above:Performed By: #### LENNY BMP, MG #### [facility] [address] [place] [address] USAAspartate aminotransferase [Enzymatic activity/volume] in Serum or PlasmaOrdered By: Dusty Ulloa on 98-03-5587ZEW [Catalytic activity/Vol]15 U/VIdqqij90-17NadxaxcybSelect Medical Specialty Hospital [facility], IncComment on above: Performed By: #### LENNY, BMP, MG #### [facility] [address] [place] [address] USABilirubin.total [Mass/volume] in Serum or PlasmaOrdered By: Dusty Ulloa on 61-36-9706Bhwydrqwb [Mass/Vol]0.4 mg/dLNormal0.3-1.0 [facility], IncComment on above:Performed By: #### CBCNO, BMP, MG #### [facility] [address] [place] [address] USAComprehensive Metabolic Panelon 01-46-5211Xzhzbxx [Mass/Vol]3.4 g/dLLow3.5-5.7The [facility] Physician GroupComment on above: Performed By: #### CBCNO, BMP, MG #### [facility] [address] [place] [address] USAAnion gap [Moles/Vol]10.5 mmol/LNormal6.0-15.0The [facility] Physician GroupComment on above:Performed By: #### CBCNO, BMP, MG #### [place] [address] USACalcium [Mass/Vol]10.4 mg/dLHigh8.6-10.3The [facility] Physician GroupComment on above:Performed By: #### CBCNO, BMP, MG #### [place] [address] USAChloride [Moles/Vol]86 mmol/GEcd83-963Rwx [facility] Physician GroupComment on above:Performed By: #### CBCNO, BMP, MG #### [facility] [address] [place] [address] USACO2 [Moles/Vol]33.8 mmol/LHigh21.0-31.0The [facility] Physician GroupComment on above:Performed By: #### CBCNO, BMP, MG #### [facility] [address] [place] [address] USACreatinine [Mass/Vol]0.95 mg/dLNormal0.60-1.20The [facility] Physician GroupComment on above:Performed By: #### CBCNO, BMP, MG #### [facility] [address] [place] [address] USACreatinine Clr Calc Uxsrhofv36.11NormalThe [facility] Physician GroupComment on above:Performed By: #### CBCNO, BMP, MG #### [facility] [address] [place] [address] USAGFR/1.73 sq M.predicted MDRD (S/P/Bld) [Vol rate/Area] mL/min/{1.73_m2}NormalThe [facility] Physician GroupComment on above:Performed By: #### ARACELI GALVEZ, MG #### [facility] [address] [place] [address] USAGlucose [Mass/Vol]194 mg/kGTtgd74-095Peq [facility] Physician GroupComment on above:Result Comment: Random Glucose Reference Range is dependent on time and content of last meal. Glucose of more than 200 mg/dL in a nonstressed, ambulatory subject supports the diagnosis of Diabetes Mellitus. ADA recommended reference rangePerformed By: #### ARACELI GALVEZ, MG #### [place] [address] USAPotassium [Moles/Vol]4.3 mmol/LNormal3.5-5.1The [facility] Physician GroupComment on above:Performed By: #### ARACELI GALVEZ, MG #### [place] [address] USASodium [Moles/Vol]126 mmol/LSignificant change xyxb933-526 The [facility] Physician GroupComment on above:Performed By: #### ARACELI GALVEZ, MG #### [place] [address] USAUrea nitrogen [Mass/Vol]25 mg/dLNormal7-25The [facility] Physician GroupComment on above:Performed By: #### ARACELI GALVEZ, MG #### [place] [address] USAHemogram CBC Without Diffon 23-40-9319Prqlqrczkfp distribution width (RBC) [Ratio]14.1 %Erfosr62.9-15.3The [facility] Physician GroupComment on above:Performed By: #### LENNY BMP, MG #### [place] [address] USAHematocrit (Bld) [Volume fraction]34.0 %Uwqfkn09.0-46.4The [facility] Physician GroupComment on above:Performed By: #### LENNY BMP, MG #### [place] [address] USAHemoglobin (Bld) [Mass/Vol]11.2 g/dLLow11.8-15.4The [facility] Physician GroupComment on above:Performed By: #### CBCNO, BMP, MG #### [place] [address] USAMCH (RBC) [Entitic mass]28.3 opQkffek86.7-34.3The [facility] Physician GroupComment on above:Performed By: #### CBCNO, BMP, MG #### [place] [address] USAMCV (RBC) [Entitic vol]85.9 zXAicxvh93-655Oui [facility] Physician GroupComment on above:Performed By: #### CBCNO, BMP, MG #### [place] [address] USAMean Corpuscular HGB Conc32.9 g/rFUtmaow81.0-35.0The [facility] Physician GroupComment on above:Performed By: #### CBCNO, BMP, MG #### [place] [address] USAPlatelet mean volume (Bld) [Entitic vol]9.0 fLNormal 6.3-10.7The [facility] Physician GroupComment on above:Result Comment: PERFORMED BY: [place] [address] PATHOLOGIST OTHER SPORTS COACH OR INSTRUCTOR WHITLEY CHAO M.D.Performed By: #### CBCNO, BMP, MG #### [place] [address] USAPlatelets (Bld) [#/Vol]240 10*3/aBMmjhjg233-013Jzk [facility] Physician GroupComment on above:Performed By: #### CBCNO, BMP, MG #### [place] [address] USARBC (Bld) [#/Vol]3.95 10*6/uLNormal3.60-5.00The [facility] Physician GroupComment on above:Performed By: #### CBCNO, BMP, MG #### [place] [address] USAWBC (Bld) [#/Vol]14.0 10*3/uLHigh3.8-11.6The [facility] Physician GroupComment on above:Performed By: #### CBCJEROME, BMP, MG #### [place] [address] USAMagnesium [Mass/volume] in Serum or PlasmaOrdered By: Dusty Ulloa on 15-35-4842Duhzvutoy [Mass/Vol]1.6 mg/dLLow1.9-2.7FMercy Health Lorain HospitalComment on above:Result Comment: PERFORMED BY: [place] [address] PATHOLOGIST OTHER SPORTS COACH OR INSTRUCTOR WHITLEY CHAO M.D.Performed By: #### CBCJEROME, BMP, MG #### [place] [address] USAProtein [Mass/volume] in Serum or PlasmaOrdered By: Dusty Ulloa on 86-39-4883Cnhjklx [Mass/Vol]6.6 g/dLNormal6.4-8.9[facility], IncComment on above:Performed By: #### LENNY, BMP, MG #### [place] [address] USASerum globulin measurement by calculation (mass/volume) Ordered By: Dusty Ulloa on 98-23-5775Ragnfhid (S) [Mass/Vol]3.2 g/dLNormal [facility], IncComment on above:Performed By: #### CBCNO, BMP, MG #### [place] [address] USASerum or plasma albumin/globulin mass ratioOrdered By: Dusty Ulloa on 50-74-9725Wrmibqb/Globulin [Mass ratio]1.1 {ratio}Normal [facility], IncComment on above:Performed By: #### CBCNO, BMP, MG #### [facility] [address] [place] [address] USABasic Metabolic Panelon 70-58-6951Abkit gap [Moles/Vol]6.4 mmol/LNormal6.0-15.0The [facility] Physician GroupComment on above:Order Comment: Comment repeatPerformed By: #### CBCNO, BMP, MG #### [place] [address] USACalcium [Mass/Vol]10.0 mg/dLNormal8.6-10.3The [facility] Physician GroupComment on above:Order Comment: Comment repeatPerformed By: #### CBCNO, BMP, MG #### [place] [address] USAChloride [Moles/Vol]91 mmol/QOlz70-910Uyr [facility] Physician GroupComment on above:Order Comment: Comment repeatPerformed By: #### CBCNO, BMP, MG #### [place] [address] USACO2 [Moles/Vol]24.5 mmol/KMiidjx46.0-31.0The [facility] Physician GroupComment on above:Order Comment: Comment repeatPerformed By: #### CBCNO, BMP, MG #### [place] [address] USACreatinine [Mass/Vol]1.24 mg/dLHigh0.60-1.20The [facility] Physician GroupComment on above:Order Comment: Comment repeatPerformed By: #### CBCNO, BMP, MG #### [place] [address] USACreatinine Clr Calc Kaliqbcp18.16NormalThe [facility] Physician GroupComment on above:Order Comment: Comment repeatResult Comment: PERFORMED BY: [place] [address] PATHOLOGIST OTHER SPORTS COACH OR INSTRUCTOR WHITLEY CHAO M.D.Performed By: #### CBCNO, BMP, MG #### [facility] [address] [place] [address] USAGFR/1.73 sq M.predicted MDRD (S/P/Bld) [Vol rate/Area] 44.545 mL/min/{1.73_m2}NormalThe [facility] Physician GroupComment on above:Order Comment: Comment repeatPerformed By: #### CBCNO, BMP, MG #### [facility] [address] [place] [address] USAGlucose [Mass/Vol]181 mg/kIPlhp42-626Kie [facility] Physician GroupComment on above:Order Comment: Comment repeatResult Comment: Random Glucose Reference Range is dependent on time and content of last meal. Glucose of more than 200 mg/dL in a nonstressed, ambulatory subject supports the diagnosis of Diabetes Mellitus. ADA recommended reference rangePerformed By: #### CBCNO, BMP, MG #### [place] [address] USAPotassium [Moles/Vol]3.9 mmol/LNormal3.5-5.1The [facility] Physician GroupComment on above:Order Comment: Comment repeatPerformed By: #### CBCNO, BMP, MG #### [place] [address] USASodium [Moles/Vol]118 mmol/LOff scale nnm142-918Mrg [facility] Physician GroupComment on above:Order Comment: Comment repeatResult Comment: Critical Result Called to and read back by: NOT FIRST TIME CRITICAL at: 12/24/2023 10:37:56 by:MLGPerformed By: #### CBCNO, BMP, MG #### [place] [id number] USAUrea nitrogen [Mass/Vol]28 mg/dLHigh7-25The [facility] Physician GroupComment on above:Order Comment: Comment repeatPerformed By: #### CBCNO, BMP, MG #### [place] [address] USAAnion gap [Moles/Vol]12.1 mmol/LNormal6.0-15.0The [facility] Physician GroupComment on above:Performed By: #### CBCNO, BMP, MG #### [place] [address] USACalcium [Mass/Vol]9.8 mg/dLNormal8.6-10.3The [facility] Physician GroupComment on above:Performed By: #### LENNY BMP, MG #### [facility] [address] [place] [address] USAChloride [Moles/Vol]89 mmol/AQqw74-474Pmn [facility] Physician GroupComment on above:Performed By: #### LENNY BMP, MG #### [facility] [address] [place] [address] USACO2 [Moles/Vol]25.8 mmol/JDoynwj03.0-31.0The [facility] Physician GroupComment on above:Performed By: #### LENNY BMP, MG #### [facility] [address] [place] [address] USACreatinine [Mass/Vol]1.30 mg/dLHigh0.60-1.20The [facility] Physician GroupComment on above:Performed By: #### LENNY BMP, MG #### [facility] [address] [place] [address] USACreatinine Clr Calc Tovetezt93.47NormalThe [facility] Physician GroupComment on above:Performed By: #### LENNY BMP, MG #### [place] [address] USAGFR/1.73 sq M.predicted MDRD (S/P/Bld) [Vol rate/Area] 42.090 mL/min/{1.73_m2}NormalThe [facility] Physician GroupComment on above: Performed By: #### LENNY, BMP, MG #### [facility] [address] [place] [address] USAGlucose [Mass/Vol]150 mg/jLWguc64-890Ymd [facility] Physician GroupComment on above:Result Comment: Random Glucose Reference Range is dependent on time and content of last meal. Glucose of more than 200 mg/dL in a nonstressed, ambulatory subject supports the diagnosis of Diabetes Mellitus. ADA recommended reference rangePerformed By: #### LENNY BMP, MG #### [facility] [address] [place] [address] USAPotassium [Moles/Vol]3.9 mmol/LNormal3.5-5.1The [facility] Physician GroupComment on above:Performed By: #### CBCNO, BMP, MG #### [place] [address] USASodium [Moles/Vol]123 mmol/SQtpahj497-684Doe [facility] Physician GroupComment on above:Result Comment: Critical Result Called to and read back by: DON ROSADO at: 12/24/2023 05:38:41 by:[id number] By: #### CBCNO, BMP, MG #### [place] [address] USAUrea nitrogen [Mass/Vol]30 mg/dLHigh7-25The [facility] Physician GroupComment on above:Performed By: #### CBCNO, BMP, MG #### [place] [address] USAHemogram CBC Without Diffon 08-48-3281Ygcrxivogap distribution width (RBC) [Ratio]14.2 %Hldolz20.9-15.3The [facility] Physician GroupComment on above:Performed By: #### CBCNO, BMP, MG #### [place] [address] USAHematocrit (Bld) [Volume fraction]31.1 %Low34.0-46.4The [facility] Physician GroupComment on above:Performed By: #### CBCNO, BMP, MG #### [place] [address] USAHemoglobin (Bld) [Mass/Vol]10.1 g/dLLow11.8-15.4The [facility] Physician GroupComment on above:Performed By: #### CBCNO, BMP, MG #### [place] [address] USAMCH (RBC) [Entitic mass]28.3 urUlrsyi80.7-34.3The [facility] Physician GroupComment on above:Performed By: #### CBCNO, BMP, MG #### [address] [place] [address] USAMCV (RBC) [Entitic vol]86.7 yKHemdmz71-454Pvt [facility] Physician GroupComment on above:Performed By: #### CBCNO, BMP, MG #### [place] [address] USAMean Corpuscular HGB Conc32.6 g/vWHwgzsp18.0-35.0The [facility] Physician GroupComment on above:Performed By: #### CBCNO, BMP, MG #### [place] [address] USAPlatelet mean volume (Bld) [Entitic vol]9.4 fLNormal 6.3-10.7The [facility] Physician GroupComment on above:Result Comment: PERFORMED BY: [place] [address] PATHOLOGIST OTHER SPORTS COACH OR INSTRUCTOR WHITLEY CHAO M.D.Performed By: #### CBCJEROME, BMP, MG #### [place] [address] USAPlatelets (Bld) [#/Vol]225 10*3/dBNjombi935-643Tpz [facility] Physician GroupComment on above:Performed By: #### CBCNO, BMP, MG #### [place] [address] USARBC (Bld) [#/Vol]3.59 10*6/uLLow3.60-5.00The [facility] Physician GroupComment on above:Performed By: #### CBCNO, BMP, MG #### [place] [address] USAWBC (Bld) [#/Vol]13.5 10*3/uLHigh3.8-11.6The [facility] Physician GroupComment on above:Performed By: #### CBCNO, BMP, MG #### [place] [address] USAMagnesiumon 33-01-5015Kmtggtkuz [Mass/Vol]1.5 mg/dLLow 1.9-2.7The [facility] Physician GroupComment on above:Result Comment: PERFORMED BY: [place] [address] PATHOLOGIST OTHER SPORTS COACH OR INSTRUCTOR WHITLEY CHAO M.D.Performed By: #### CBCNO, BMP, MG #### [facility] [address] [place] [address] USAOsmolalityon 23-31-2933Pfhuiptwzv558 vlsbVgl895-842Rtb [facility] Physician GroupComment on above:Order Comment: Comment add onResult Comment: PERFORMED BY: [place] [address] PATHOLOGIST OTHER SPORTS COACH OR INSTRUCTOR WHITLEY CHAO M.D.Performed By: #### CBCNO, BMP, MG #### [place] [address] USAOsmolality measurementOrdered By: Dusty Ulloa on 76-08-0225Kxgnvpheob (Unsp spec) [Osmolality]267 tdybBps627-758HczummgehLakeHealth TriPoint Medical Centerodium [Moles/volume] in UrineOrdered By: Dusty Ulloa on 24-20-9870Lfvhmy (U) [Moles/Vol]31 mmol/LNormalSelect Medical [facility], IncComment on above:No reference range establishedResult Comment: No reference range established PERFORMED BY: [place] [address] PATHOLOGIST OTHER SPORTS COACH OR INSTRUCTOR WHITLEY CHAO M.D.Performed By: #### JACKI #### [facility] [address] [place] [address] USAAutomated basophil %Ordered By: Ryan Calderon on 83-11-8787Sqnadiuyt/100 WBC (Bld)0.1 %Normal.[facility] Comment on above:Performed By: #### CBC, BMP #### [facility] [address] [place] [address] USAAutomated basophil countOrdered By: Ryan Calderon on 32-55-9270Euzqtiqpx (Bld) [#/Vol]0.0 10*3/uLNormal0.0-0.2FMercy Health Lorain HospitalComment on above:Result Comment: PERFORMED BY: [place] [address] PATHOLOGIST OTHER SPORTS COACH OR INSTRUCTOR WHITLEY CHAO M.D.Performed By: #### CBC, BMP #### [place] [address] USAAutomated blood monocyte countOrdered By: Ryan Calderon on 72-78-6739Gqagxceuu (Bld) [#/Vol]0.7 10*3/uLNormal0.0-0.8Select [facility], IncComment on above:Performed By: #### CBC, BMP #### [place] [address] USAAutomated eosinophil %Ordered By: Ryan Calderon on 62-03-3679Vbgaljcgpcv/100 WBC (Bld)0.0 %Normal.[facility] Comment on above:Performed By: #### CBC, BMP #### [place] [address] USAAutomated eosinophil countOrdered By: Ryan Calderon on 75-47-0471Lwsdjceapaa (Bld) [#/Vol]0.0 10*3/uLNormal0.0-0.45[facility], IncComment on above:Performed By: #### CBC, BMP #### [place] [address] USAAutomated monocyte %Ordered By: Ryan Calderon on 52-81-4213Wggiwiprr/100 WBC (Bld)4.0 %Normal.[facility] Comment on above:Performed By: #### CBC, BMP #### [place] [address] USAAutomated neutrophil %Ordered By: Ryan Calderon on 12-59-8028Zjaaznfunlw/100 WBC (Bld)91.5 %Normal.[facility], IncComment on above:Performed By: #### CBC, BMP #### [place] [address] USABasic Metabolic Panelon 21-31-5785Bnvmm gap [Moles/Vol] 13.7 mmol/LNormal6.0-15.0The [facility] Physician GroupComment on above:Performed By: #### CBC, BMP #### [place] [address] USACalcium [Mass/Vol]9.8 mg/dLNormal8.6-10.3The [facility] Physician GroupComment on above:Performed By: #### CBC, BMP #### [place] [address] USAChloride [Moles/Vol]97 mmol/FDhw53-970Dwt [facility] Physician GroupComment on above:Performed By: #### CBC, BMP #### [place] [address] USACO2 [Moles/Vol]26.3 mmol/XPaixcm72.0-31.0The [facility] Physician GroupComment on above:Performed By: #### CBC, BMP #### [place] [address] USACreatinine [Mass/Vol]1.20 mg/dLNormal0.60-1.20The [facility] Physician GroupComment on above:Performed By: #### CBC, BMP #### [place] [address] USACreatinine Clr Calc Roaklayh41.12NormalThe [facility] Physician GroupComment on above:Result Comment: PERFORMED BY: [place] [address] PATHOLOGIST OTHER SPORTS COACH OR INSTRUCTOR WHITLEY CHAO M.D.Performed By: #### CBC, BMP #### [place] [address] USAGFR/1.73 sq M.predicted MDRD (S/P/Bld) [Vol rate/Area] 46.333 mL/min/{1.73_m2}NormalThe [facility] Physician GroupComment on above: Performed By: #### CBC, BMP #### [place] [address] USAGlucose [Mass/Vol]168 mg/bCMrww21-485Ckw [facility] Physician GroupComment on above:Result Comment: Random Glucose Reference Range is dependent on time and content of last meal. Glucose of more than 200 mg/dL in a nonstressed, ambulatory subject supports the diagnosis of Diabetes Mellitus. ADA recommended reference rangePerformed By: #### CBC, BMP #### [facility] [address] [place] [address] USAPotassium [Moles/Vol]5.0 mmol/LNormal3.5-5.1The [facility] Physician GroupComment on above:Performed By: #### CBC, BMP #### [facility] [address] [place] [address] USASodium [Moles/Vol]132 mmol/IIfv686-630Swp [facility] Physician GroupComment on above:Performed By: #### CBC, BMP #### [place] [address] USAUrea nitrogen [Mass/Vol]20 mg/dLNormal7-25The [facility] Physician GroupComment on above:Performed By: #### CBC, BMP #### [place] [address] USAComplete Blood Count Auto Diffon 08-92-0859Rifafrmnqns distribution width (RBC) [Ratio]14.0 %Bopitk37.9-15.3The [facility] Physician GroupComment on above:Performed By: #### CBC, BMP #### [place] [address] USAHematocrit (Bld) [Volume fraction]35.4 %Bhexwo35.0-46.4The [facility] Physician GroupComment on above:Performed By: #### CBC, BMP #### [place] [address] USAHemoglobin (Bld) [Mass/Vol]11.3 g/dLLow11.8-15.4The [facility] Physician GroupComment on above:Performed By: #### CBC, BMP #### [place] [address] USAMCH (RBC) [Entitic mass]28.2 czCybqgt68.7-34.3The [facility] Physician GroupComment on above:Performed By: #### CBC, BMP #### [place] [address] USAMCV (RBC) [Entitic vol]87.9 yCRxsdpc75-806Ipk [facility]ician [facility] CenterComment on above:Performed By: #### CBC, BMP #### [place] [address] USAMean Corpuscular HGB Conc32.1 g/cCWtahdv34.0-35.0The [facility] Physician GroupComment on above:Performed By: #### CBC, BMP #### [place] [address] USANRBC%0.1 /100{WBC}Normal0-0.5The [facility] Comment on above:Performed By: #### CBC, BMP #### [place] [address] USAPlatelet mean volume (Bld) [Entitic vol]9.3 fLNormal 6.3-10.7The [facility] Physician [facility] CenterComment on above:Performed By: #### CBC, BMP #### [place] [address] USAPlatelets (Bld) [#/Vol]272 10*3/uPGskxya188-007Ccq [facility] Physician [facility] CenterComment on above:Performed By: #### CBC, BMP #### [place] [address] USARBC (Bld) [#/Vol]4.02 10*6/uLNormal3.60-5.00The [facility] Physician GroupComment on above:Performed By: #### CBC, BMP #### [place] [address] USALeukocytes [#/volume] in Blood by Automated countOrdered By: Ryan Calderon on 36-07-4393NJI (Bld) [#/Vol]18.0 10*3/uLHigh3.8-11.6 [facility], IncComment on above:Performed By: #### CBC, BMP #### [facility] [address] [place] [address] USALymphocytes [#/volume] in Blood by Automated countOrdered By: Ryan Calderon on 30-52-8262Lwvyvspjjyw (Bld) [#/Vol]0.8 10*3/uLLow1.00-4.8 [facility], IncComment on above:Performed By: #### CBC, BMP #### [facility] [address] [place] [id number] USALymphocytes/100 leukocytes in Blood by Automated count Ordered By: Ryan Calderon on 09-11-1742Pbxmghbxndq/100 WBC (Bld)4.4 %Normal. [facility], IncComment on above:Performed By: #### CBC, BMP #### [facility] [address] [place] [address] USANeutrophils [#/volume] in Blood by Automated countOrdered By: Ryan Calderon on 42-93-0934Roqftcjedtb (Bld) [#/Vol]16.5 10*3/uLHigh 1.8-7.7FMercy Health Lorain HospitalComment on above:Performed By: #### CBC, BMP #### [facility] [address] [place] [address] USANucleated erythrocytes [Presence] in Blood by Automated countOrdered By: Ryan Calderon on 50-70-2691Zowsutojk RBC Auto Ql (Bld)0.1 /100{WBC}0-0.5FMercy Health Lorain HospitalXR chest 1V portableon 12-23-2023 XR chest [facility] [place] [address] [place] [address] XRay Report Signed Patient: Kellie Rubio MR#: [id number] : 1945 Acct:[id number] Age/Sex: 78 / F ADM Date: 12/22/23 Loc: 4N Room: [address] [place] [address] Type: [facility] Attending Dr: Ryan Calderon Jr, DO Copies to: DO Dusty Colon Jr, DO Ordering Provider: Dusty Ulloa DO Date [...] Rom Ellington M.D.12/23/2023 10:27 AM Dictation Location: [facility] Transcribed By: [facility] 12/23/23 1027 Dictated By: Rom Ellington II, MD 12/23/23 1022 Signed By: 12/23/23 [facility] Physician GroupBasic Metabolic Panelon 20-51-3835Zhzta gap [Moles/Vol]10.4 mmol/LNormal6.0-15.0The [facility] Physician GroupComment on above:Performed By: #### BMP, CBC #### [facility] [address] [place] [address] USACalcium [Mass/Vol]10.7 mg/dLHigh8.6-10.3The [facility] Physician GroupComment on above:Performed By: #### BMP, CBC #### [facility] [address] [place] [address] USAChloride [Moles/Vol]102 mmol/OEkhfvd15-284Avz [facility] Physician GroupComment on above:Performed By: #### BMP, CBC #### [facility] [address] [place] [id number] USACO2 [Moles/Vol]27.1 mmol/EVpubbl45.0-31.0The [facility] Physician GroupComment on above:Performed By: #### BMP, CBC #### [facility] [address] [place] [address] USACreatinine [Mass/Vol]1.12 mg/dLNormal0.60-1.20The [facility] Physician GroupComment on above:Performed By: #### BMP, CBC #### [place] [address] USACreatinine Clr Calc Kcssjjdk27.84NormalThe [facility] Physician GroupComment on above:Result Comment: PERFORMED BY: [place] [address] PATHOLOGIST OTHER SPORTS COACH OR INSTRUCTOR WHITLEY CHAO M.D.Performed By: #### BMP, CBC #### [place] [address] USAGFR/1.73 sq M.predicted MDRD (S/P/Bld) [Vol rate/Area] 50.332 mL/min/{1.73_m2}NormalThe [facility] Physician GroupComment on above: Performed By: #### BMP, CBC #### [place] [address] USAGlucose [Mass/Vol]160 mg/zNFfum57-515Amm [facility] Physician GroupComment on above:Result Comment: Random Glucose Reference Range is dependent on time and content of last meal. Glucose of more than 200 mg/dL in a nonstressed, ambulatory subject supports the diagnosis of Diabetes Mellitus. ADA recommended reference rangePerformed By: #### BMP, CBC #### [place] [address] USAPotassium [Moles/Vol]4.5 mmol/LNormal3.5-5.1The [facility] Physician GroupComment on above:Performed By: #### BMP, CBC #### [place] [address] USASodium [Moles/Vol]135 mmol/ZPkv930-499Xar [facility] Physician GroupComment on above:Performed By: #### BMP, CBC #### [place] [address] USAUrea nitrogen [Mass/Vol]18 mg/dLNormal7-25The [facility] Physician GroupComment on above:Performed By: #### BMP, CBC #### [facility] [address] [place] [address] USAComplete Blood Count Auto Diffon 48-32-6104Jxhcmbnue (Bld) [#/Vol]0.0 10*3/uLNormal0.0-0.2The [facility] Physician GroupComment on above: Result Comment: PERFORMED BY: [place] [address] PATHOLOGIST OTHER SPORTS COACH OR INSTRUCTOR WHITLEY CHAO M.D.Performed By: #### BMP, CBC #### [place] [address] USABasophils/100 WBC (Bld)0.1 %Normal.The [facility] Physician GroupComment on above:Performed By: #### BMP, CBC #### [place] [address] USAEosinophils (Bld) [#/Vol]0.0 10*3/uLNormal0.0-0.45The [facility] Physician GroupComment on above:Performed By: #### BMP, CBC #### [place] [address] USAEosinophils/100 WBC (Bld)0.2 %Normal.The [facility] Physician GroupComment on above:Performed By: #### BMP, CBC #### [place] [address] USAErythrocyte distribution width (RBC) [Ratio]14.2 %Normal 11.9-15.3The [facility] Physician GroupComment on above:Performed By: #### BMP, CBC #### [place] [address] USAHematocrit (Bld) [Volume fraction]39.1 %Zhbouq31.0-46.4The [facility] Physician GroupComment on above:Performed By: #### BMP, CBC #### [place] [address] USAHemoglobin (Bld) [Mass/Vol]12.6 g/aRLknxmh35.8-15.4The [facility] Physician GroupComment on above:Performed By: #### BMP, CBC #### [place] [address] USALymphocytes (Bld) [#/Vol]0.5 10*3/uLLow1.00-4.8The [facility] Physician GroupComment on above:Performed By: #### BMP, CBC #### [place] [address] USALymphocytes/100 WBC (Bld)3.3 %Normal.The [facility] Physician GroupComment on above:Performed By: #### BMP, CBC #### [place] [address] USAH (RBC) [Entitic mass]28.3 mdXaykun87.7-34.3The [facility] Physician GroupComment on above:Performed By: #### BMP, CBC #### [place] [address] USAMCV (RBC) [Entitic vol]87.7 wPBijtus69-769Ono [facility] Physician GroupComment on above:Performed By: #### BMP, CBC #### [place] [address] USAMean Corpuscular HGB Conc32.2 g/tTGwdxke78.0-35.0The [facility] Physician GroupComment on above:Performed By: #### BMP, CBC #### [place] [address] USAMonocytes (Bld) [#/Vol]0.1 10*3/uLNormal0.0-0.8The [facility] Physician GroupComment on above:Performed By: #### BMP, CBC #### [place] [address] USAMonocytes/100 WBC (Bld)0.7 %Normal.The [facility] Physician GroupComment on above:Performed By: #### BMP, CBC #### [place] [address] USANeutrophils (Bld) [#/Vol]14.0 10*3/uLHigh1.8-7.7The [facility] Physician GroupComment on above:Performed By: #### BMP, CBC #### [place] [address] USANeutrophils/100 WBC (Bld)95.7 %Normal.The [facility] Physician GroupComment on above:Performed By: #### BMP, CBC #### [facility] [address] [place] [address] USANRBC%0.1 /100{WBC}Normal0-0.5The [facility] Group Comment on above:Performed By: #### BMP, CBC #### [place] [address] USAPlatelet mean volume (Bld) [Entitic vol]8.9 fLNormal 6.3-10.7The [facility] Physician GroupComment on above:Performed By: #### BMP, CBC #### [place] [address] USAPlatelets (Bld) [#/Vol]278 10*3/rFOrynjy807-559Gto [facility] Physician GroupComment on above:Performed By: #### BMP, CBC #### [place] [address] USARBC (Bld) [#/Vol]4.46 10*6/uLNormal3.60-5.00The [facility] Physician GroupComment on above:Performed By: #### BMP, CBC #### [place] [address] USAWBC (Bld) [#/Vol]14.6 10*3/uLHigh3.8-11.6The [facility] Physician GroupComment on above:Performed By: #### BMP, CBC #### [place] [address] USAECG 12 lead ECGon 17-67-5452FXL 12 lead ECGOUR [facility]ADY OF [facility] [place] [address] [place] [address] Electrocardiograph Report Signed Patient: Kellie Rubio MR#: [id number] : 1945 Acct:[id number] Age/Sex: 78 / F ADM Date: 12/22/23 Loc: [place] Room: Type: [facility] Attending Dr: Ryan Calderon Jr, DO Ordering [...] are now present Confirmed by ARCHANA [facility]COLM [facility], ILIANA ([id number]) on 12/22/2023 10:49:17 AM Referred By: Electronically Signed By:ILIANA MAGAÑA MD [facility] Transcribed By: MUS Signed By Iliana Magaña MD, [facility] 12/22/[address] [place] [address] Physician GroupLon 76-89-8770AXxbvpqay: [id number] Received: 12/22/23 Status: TATO Gray Num: [id number] Spec Type: Surgical Subm Dr: Ryan Calderon Jr, DO Tissues: A Joint/Knee (RT KNEE) Procedures: HE/2, Gross/Micro L4, Decalcification Age/ Patient Sex Location Account Attending Physician Kellie Rubio 78/F 4N [id number] Ravi Shen DO SPEC NUM: [id number] RECD: 12/22/23 STATUS: SOUAshley REQ NUM: [id number] KAREN: 12/22/23- SUBM DR: Ryan Calderon Jr, DO ENTERED: 12/22/[address]: SPEC TYPE: Surgical DEPT: S ORDERED: HE/2, Gross/Micro L4, Decalcification ORDERED: HE/2, Gross/Micro L4, Decalcification Pathological Diagnosis Left knee [...] bone matrix. A gross photo is included. Distribution Superintendent sections are submitted in A1 (bone following decalcification)-A2 (soft tissue). TW Specimen: [id number] Received: 12/22/23 Status: TATO Gray Num: [id number] Spec Type: Surgical Subm Dr: Ryan Calderon Jr, DO Tissues: A Joint/Knee (RT KNEE) Procedures: ELADIO/Bola, Gross/Micro L4, Decalcification Patient: Kellie Rubio [id number] (Continued) Specimen: [id number] Received: 12/22/23 (Continued) Signed (signature on file) Jake Leyva MD 12/26/232027 Specimen: [id number] Received: 12/22/23 Status: TATO Gray Num: [id number] Spec Type: Surgical Subm Dr: Ryan Calderon Jr, DO Tissues: A Joint/Knee (RT KNEE) Procedures: HE/2, Gross/Micro L4, Decalcification Patient: Kellie Rubio [id number] (Continued) Specimen: [id number] Received: 12/22/23 (Continued) CPT Codes 24160, 36867 BONE AND TISSUE Specimen: [id number] Received: 12/22/23 Status: TATO Gray Num: [id number] Spec Type: Surgical Subm Dr: Ryan Calderon Jr, DO Tissues: A Joint/Knee (RT KNEE) Procedures: HE/2, Gross/Micro L4, Decalcification Patient: Kellie Rubio [id number] (Continued) Signed (signature on file) Jake Leyva MD 12/26/232027[facility] Physician GroupXR knee RT 2Von 11-23-8468TX knee RT 2V [facility] Main [address] [address] XRay Report Signed Patient: Kellie Rubio MR#: [id number] : 1945 Acct:[id number] Age/Sex: 78 / F ADM Date: 12/22/23 Loc: [place] Room: Type: [facility] Attending Dr: Ryan Calderon Jr DO [...] Gutierrez Jr., D.OBre12/22/2023 3:15 PM Dictation Location: [place] [address] Transcribed By: [facility] 12/22/23 1515 Dictated By: Agustin Gutierrez Jr, DO 12/22/23 1513 Signed By: 12/22/23 [facility] Physician GroupXR tibia/fibula BIon 11-28-2023 XR tibia/fibula [facility] Main [address] [address] XRay Report Signed Patient: Kellie Rubio MR#: [id number] : 1945 Acct:[id number] Age/Sex: 77 / F ADM Date: 11/28/23 Loc: XD Room: Type: [facility] Attending Dr: Ryan Calderon Jr DO Copies to: Ryan Caldeorn Jr, DO Ordering Provider: Ryan Calderon Jr, DO Date of Service: 11/28/23 XR/XR femur BI: TKA ([id number]) XR/XR tibia/fibula BI: TKA BILATERAL FEMUR AND [...] Belén Aguirre M.D.11/28/2023 4:37 PM Dictation Location: [place] [address] Transcribed By: [facility] 11/28/23 1637 Dictated By: Belén Aguirre MD 11/28/23 1634 Signed By: 11/28/23 [facility] Physician GroupAutomated basophil %Ordered By: Ryan Calderon on 68-30-3262Eitpoqibn/100 WBC (Bld)0.3 %Normal.[facility], IncComment on above:Performed By: #### CBC, BMP #### [facility] [address] [place] [address] USAAutomated basophil countOrdered By: Ryan Calderon on 95-07-4943Ktorioybg (Bld) [#/Vol]0.0 10*3/uLNormal0.0-0.2FMercy Health Lorain HospitalComment on above:Result Comment: PERFORMED BY: [place] [address] PATHOLOGIST OTHER SPORTS COACH OR INSTRUCTOR WHITLEY CHAO M.D.Performed By: #### CBC, BMP #### [place] [address] USAAutomated blood monocyte countOrdered By: Ryan Carcamokassidy on 79-83-8567Qigfbcapf (Bld) [#/Vol]0.4 10*3/uLNormal0.0-0.8[facility], IncComment on above:Performed By: #### CBC, BMP #### [facility] [address] [place] [address] USAAutomated eosinophil %Ordered By: Ryan Calderon on 91-43-9353Ybfeuaeoaex/100 WBC (Bld)7.0 %Normal.[facility] Comment on above:Performed By: #### CBC, BMP #### [place] [address] USAAutomated eosinophil countOrdered By: Ryan Carcamokassidy on 65-31-3697Eydasmzigpq (Bld) [#/Vol]0.7 10*3/uLHigh0.0-0.45[facility], IncComment on above:Performed By: #### CBC, BMP #### [place] [address] USAAutomated monocyte %Ordered By: Ryan Carcamokassidy on 76-76-0820Byljvnlst/100 WBC (Bld)3.7 %Normal.[facility] Comment on above:Performed By: #### CBC, BMP #### [place] [address] USAAutomated neutrophil %Ordered By: Ryan Carcamokassidy on 15-29-3125Apsqlibrkrs/100 WBC (Bld)75.1 %Normal.[facility], IncComment on above:Performed By: #### CBC, BMP #### [place] [address] USABasic Metabolic Panelon 08-15-3881RIU/1.73 sq M.predicted MDRD (S/P/Bld) [Vol rate/Area]50.646 mL/min/{1.73_m2}NormalThe [facility] Physician GroupComment on above:Performed By: #### CBC, BMP #### [place] [address] USACalcium [Mass/volume] in Serum or PlasmaOrdered By: Ryan Calderon on 80-03-4126Xkgsxmo [Mass/Vol]10.7 mg/dLHigh8.6-10.3FMercy Health Lorain HospitalComment on above:Result Comment: PERFORMED BY: [place] [address] PATHOLOGIST OTHER SPORTS COACH OR INSTRUCTOR WHITLEY CHAO M.D.Performed By: #### CBC, BMP #### [place] [address] USACarbon dioxide, total [Moles/volume] in Serum or Plasma Ordered By: Ryan Calderon on 68-84-1032CS9 [Moles/Vol]29.4 mmol/LNormal 21.0-31.0[facility], IncComment on above:Performed By: #### CBC, BMP #### [place] [address] USAChloride [Moles/volume] in Serum or PlasmaOrdered By: Ryan Calderon on 46-84-6313Rgpjddrt [Moles/Vol]100 mmol/GBsddmu30-990DahfonyxoSelect Medical Specialty Hospital [facility], IncComment on above:Performed By: #### CBC, BMP #### [place] [address] USAComplete Blood Count Auto Diffon 21-32-3744Bsxp Corpuscular HGB Conc33.1 g/uSMkukmy68.0-35.0[facility] Physician GroupComment on above:Performed By: #### CBC, BMP #### [place] [address] USANRBC%0.0 /100{WBC}Normal0-0.5[facility]ician [facility] Comment on above:Performed By: #### CBC, BMP #### [place] [address] USACreatinine [Mass/volume] in Serum or PlasmaOrdered By: Ryan Calderon on 94-16-4415Cvgzkmhzqd [Mass/Vol]1.12 mg/dLNormal0.60-1.20 [facility], IncComment on above:Performed By: #### CBC, BMP #### [facility] [address] [place] [id number] USAErythrocyte distribution width [Ratio] by Automated count Ordered By: Ryan Calderon on 27-56-4835Xqdmwhmivqm distribution width (RBC) [Ratio]14.2 %Utxcph41.9-15.3FMercy Health Lorain HospitalComment on above: Performed By: #### CBC, BMP #### [facility] [address] [place] [address] USAErythrocytes [#/volume] in Blood by Automated countOrdered By: Ryan Calderon on 11-87-9970MUS (Bld) [#/Vol]4.62 10*6/uLNormal3.60-5.00 [facility], IncComment on above:Performed By: #### CBC, BMP #### [place] [address] USAGlucose [Mass/volume] in Serum or PlasmaOrdered By: Ryan Calderon on 58-41-5846Rllabhv [Mass/Vol]133 mg/dBBmvl54-374QiooserlcSelect Medical Specialty Hospital [facility], IncComment on above:ADA recommended reference rangeRandom Glucose Reference Range is dependent on time and content of last meal. Glucose of more than 200 mg/dL in a nonstressed, ambulatory subject supports the diagnosisof Diabetes Mellitus.Result Comment: Random Glucose Reference Range is dependent on time and content of last meal. Glucose of more than 200 mg/dL in a nonstressed, ambulatory subject supports the diagnosis of Diabetes Mellitus. ADA recommended reference rangePerformed By: #### CBC, BMP #### [facility] [address] [place] [id number] USAHematocrit [Volume Fraction] of Blood by Automated count Ordered By: Ryan Calderon on 49-27-8050Dccvnbcnij (Bld) [Volume fraction]40.4 %Vnztja10.0-46.4FMercy Health Lorain HospitalComment on above:Performed By: #### CBC, BMP #### [address] [address] USAHemoglobin [Mass/volume] in BloodOrdered By: Ryan Calderon on 97-32-7674Uylaayuzcy (Bld) [Mass/Vol]13.4 g/uILbhuuh21.8-15.4 [facility], IncComment on above:Performed By: #### CBC, BMP #### [facility] [address] [place] [address] USALeukocytes [#/volume] corrected for nucleated erythrocytes in Blood by Automated counOrdered By: Ryan Calderon on 97-26-8532DFY corrected for nucl RBC Auto (Bld) [#/Vol]10.2 10*3/uL3.8-11.6FMercy Health Lorain HospitalLeukocytes [#/volume] in Blood by Automated countOrdered By: Ryan Calderon on 99-99-0705XJX (Bld) [#/Vol]10.2 10*3/uLNormal3.8-11.6 [facility], IncComment on above:Performed By: #### CBC, BMP #### [facility] [address] [place] [address] USALymphocytes [#/volume] in Blood by Automated countOrdered By: Ryan Calderon on 97-49-9832Cfalqgpkveu (Bld) [#/Vol]1.4 10*3/uLNormal 1.00-4.8[facility], IncComment on above:Performed By: #### CBC, BMP #### [facility] [address] [place], [place] [address] USALymphocytes/100 leukocytes in Blood by Automated count Ordered By: Ryan Calderon on 44-99-3857Uoajwbsolqi/100 WBC (Bld)13.9 %Normal. [facility], IncComment on above:Performed By: #### CBC, BMP #### [facility] [address] [place] [address] USAMCH [Entitic mass] by Automated countOrdered By: Ryan Calderon on 00-75-0289OZL (RBC) [Entitic mass]28.9 jjMflymo98.7-34.3FMercy Health Lorain HospitalComment on above:Performed By: #### CBC, BMP #### [address] [address] USAMCHC Auto (RBC) [Mass/Vol]Ordered By: Ryan Calderon on 58-83-4444QEOA (RBC) [Mass/Vol]33.1 g/dL32.0-35.0[facility], IncMCV [Entitic volume] by Automated countOrdered By: Ryan Calderon on 32-47-5444SUW (RBC) [Entitic vol]87.4 bDOfcgdb30-383SeubvfsapSelect Medical Specialty Hospital - [facility], IncComment on above:Performed By: #### CBC, BMP #### [facility] [address] [place] [address] USANeutrophils [#/volume] in Blood by Automated countOrdered By: Ryan Calderon on 70-91-7095Vtbfgygbwhh (Bld) [#/Vol]7.6 10*3/uLNormal 1.8-7.7FMercy Health Lorain HospitalComment on above:Performed By: #### CBC, BMP #### [facility] [address] [place] [address] USANo Panel InformationOrdered By: Ryan Calderon on 73-74-8468Kwymmcgao GFR (CKD-EPI)50.646 mL/MinSelect Medical Specialty Hospital [facility], Inc Pharmacy Creatinine Clearance (ChemN/[facility] General HospitalNucleated erythrocytes [Presence] in Blood by Automated countOrdered By: Ryan Calderon on 81-33-1617Okecjqdzb RBC Auto Ql (Bld)0.0 /100{WBC}0-0.5FMercy Health Lorain HospitalPlatelet mean volume [Entitic volume] in Blood by Automated count Ordered By: Ryan Calderon on 46-76-2311Fqrcftqy mean volume (Bld) [Entitic vol]8.6 fLNormal6.3-10.7FMercy Health Lorain HospitalComment on above: Performed By: #### CBC, BMP #### [facility] [address] [place] [address] USAPlatelets [#/volume] in Blood by Automated countOrdered By: Ryan Calderon on 32-66-3667Slyhkodjj (Bld) [#/Vol]291 10*3/nLWafhqi588-607 [facility], IncComment on above:Performed By: #### CBC, BMP #### [facility] [address] [place] [address] USAPotassium [Moles/volume] in Serum or PlasmaOrdered By: Ryan Calderon on 74-69-2294Jaxbmqypq [Moles/Vol]4.5 mmol/LNormal3.5-5.1 [facility], IncComment on above:Performed By: #### CBC, BMP #### [facility] [address] [place] [address] USASerum or plasma anion gap determinationOrdered By: Ryan Calderon on 39-59-0822Lytzu gap [Moles/Vol]12.1 mmol/LNormal6.0-15.0[facility], IncComment on above:Performed By: #### CBC, BMP #### [facility] [address] [place] [address] USASodium [Moles/volume] in Serum or PlasmaOrdered By: Ryan Calderon on 53-71-6901Fdwpsb [Moles/Vol]137 mmol/BDyhjkx361-916YnnyriifzSelect Medical Specialty Hospital - Board[facility], IncComment on above:Performed By: #### CBC, BMP #### [facility] [address] [place] [address] USAUrea nitrogen [Mass/volume] in Serum or PlasmaOrdered By: Ryan Calderon on 46-23-9076Tymr nitrogen [Mass/Vol]27 mg/dLHigh7-25[facility], IncComment on above:Performed By: #### CBC, BMP #### [facility] [address] [place] [address] USACT CHEST WO CONon 70-31-9288[place] [address] [place] Scan Report Signed Patient: KELLIE RUBIO MR#: [id number] : 1945 Acct:[id number] Age/Sex: 77 / F ADM Date: 11/10/23 Loc: CT Attending Dr: BEBO ESCALANTE Ordering Physician: BEBO ESCALANTE Date of Service: 11/10/23 Procedure(s): CT chest wo con Accession Number(s): [id number] cc: BEBO ESCALANTE [place] [address] Patient Name: KELLIE RUBIO MRN: [id number] date: 1945 Sex: F Assigned Patient Location: CT Current Patient Location: Accession/Order Number: [id number] Exam Date: 11/10/2023 12:55 Report Date: 11/12/2023 05:54 At the request of: BEBO ESCALANTE Procedure: CT chest wo con EXAMINATION: CT chest wo con HISTORY: Mediastinal mass J98.59, abnormal ct of the chest R93.89 ; follow-up mediastinal mass; shortness of breath, cough COMPARISON: CT chest 08/15/2023, a 1723 TECHNIQUE: Multi-planar CT images were obtained without and/or with IV contrast as indicated by examination type. Axial, Coronal, and Sagittal images. Dose reduction techniques were achieved by using automated exposure control and/or adjustment of mA and/or kV according to patient size and/or use of iterative reconstruction technique. FINDINGS: LUNGS: No visible pulmonary disease. PLEURA: No mass, effusion, or pneumothorax. VASCULATURE: No abnormality. DANNI: No mass or adenopathy. MEDIASTINUM: Lobular 3.1 x 1.8 cm mass within anterior mediastinum at level of base of aortic arch. CARDIAC: No enlargement, pericardial thickening, or significant calcification. CORONARY ARTERIES: Minimal atherosclerotic disease. AORTA: No aneurysm or dissection. CHEST WALL: Left mastectomy. Left axilla multiple surgical clips. No mass or lymphadenopathy. BONES: Normal appearance of superior endplate of L1 vertebral body. LIMITED ABDOMEN: Large hiatal hernia. Small left renal nodule; stable. Limited images of the upper abdomen. OTHER: Negative. CT/CT chest wo con IMPRESSION: 1. Nonspecific lobular soft tissue mass within anterior mediastinum at level of the base of the aorta and pulmonary artery; slight change in positioning versus slowly increasing in size (3.1 x 1.8 cm in the axial plane on today's study; 2.7 x 1.6 cm on 02/16/2023). Etiology is uncertain but favors thymoma, residual thymus, lymphoma, etc. 2. Large hiatal hernia with approximately half the stomach above the diaphragm. 3. Abnormal appearance of superior endplate of L1; not previously included on prior studies, suggestive of prior trauma or compression fracture. Electronically authenticated by: AJ OH Date: 11/12/2023 05:54 Dictated By: Aj Oh M.D. Signed By: 11/12/23 0557 DD/ 0554 TD/TT: Ux Design Manager:TBHRadiology, Radiologist, - 11/12/2023 [place] [address] CT Scan Report Signed Patient: KELLIE RUBIO MR#: [id number] : 1945 Acct:[id number] Age/Sex: 77 / F ADM Date: 11/10/23 Loc: CT Attending Dr: BEBO ESCALANTE Ordering Physician: BEBO ESCALANTE Date of Service: 11/10/23 Procedure(s): CT chest wo con Accession Number(s): [id number] cc: BEBO ESCALANTE [place] [address] Patient Name: KELLIE RUBIO MRN: [id number] date: 1945 Sex: F Assigned Patient Location: CT Current Patient Location: Accession/Order Number: [id number] Exam Date: 11/10/2023 12:55 Report Date: 11/12/2023 05:54 At the request of: BEBO ESCALANTE Procedure: CT chest wo con EXAMINATION: CT chest wo con HISTORY: Mediastinal mass J98.59, abnormal ct of the chest R93.89 ; follow-up mediastinal mass; shortness of breath, cough COMPARISON: CT chest 08/15/2023, a 1723 TECHNIQUE: Multi-planar CT images were obtained without and/or with IV contrast as indicated by examination type. Axial, Coronal, and Sagittal images. Dose reduction techniques were achieved by using automated exposure control and/or adjustment of mA and/or kV according to patient size and/or use of iterative reconstruction technique. FINDINGS: LUNGS: No visible pulmonary disease. PLEURA: No mass, effusion, or pneumothorax. VASCULATURE: No abnormality. DANNI: No mass or adenopathy. MEDIASTINUM: Lobular 3.1 x 1.8 cm mass within anterior mediastinum at level of base of aortic arch. CARDIAC: No enlargement, pericardial thickening, or significant calcification. CORONARY ARTERIES: Minimal atherosclerotic disease. AORTA: No aneurysm or dissection. CHEST WALL: Left mastectomy. Left axilla multiple surgical clips. No mass or lymphadenopathy. BONES: Normal appearance of superior endplate of L1 vertebral body. LIMITED ABDOMEN: Large hiatal hernia. Small left renal nodule; stable. Limited images of the upper abdomen. OTHER: Negative. CT/CT chest wo con IMPRESSION: 1. Nonspecific lobular soft tissue mass within anterior mediastinum at level of the base of the aorta and pulmonary artery; slight change in positioning versus slowly increasing in size (3.1 x 1.8 cm in the axial plane on today's study; 2.7 x 1.6 cm on 02/16/2023). Etiology is uncertain but favors thymoma, residual thymus, lymphoma, etc. 2. Large hiatal hernia with approximately half the stomach above the diaphragm. 3. Abnormal appearance of superior endplate of L1; not previously included on prior studies, suggestive of prior trauma or compression fracture. Electronically authenticated by: AJ OH Date: 11/12/2023 05:54 Dictated By: Aj Oh M.D. Signed By: 11/12/23 0557 DD/ 0554 TD/TT: Ux Design Manager: DANDY HealthcareRadiology Study observation (narrative)[facility] SystemCT CHEST WO CONOrdered By: Radiologist Radiology on 32-24-9596TPAA [employer] Work Phone: ct CHEST WO CONon 53-96-2544[place] [address] [place] Scan Report Signed Patient: KELLIE RUBIO MR#: [id number] : 1945 Acct:[id number] Age/Sex: 77 / F ADM Date: 08/15/23 Loc: CT Attending Dr: BEBO ESCALANTE Ordering Physician: BEBO ESCALANTE Date of Service: 08/15/23 Procedure(s): CT chest wo con Accession Number(s): [id number] cc: BEBO ESCALANTE [place] [address] Patient Name: KELLIE RUBIO MRN: [id number] date: 1945 Sex: F Assigned Patient Location: CT Current Patient Location: CT Accession/Order Number: [id number] Exam Date: 08/15/2023 14:42 Report Date: 08/15/2023 15:29 At the request of: BEBO ESCALANTE Procedure: CT chest wo con EXAM: CT scan of the chest without contrast. Dose reduction technique used: Automated exposure control and/or adjustment of the mA and/or kV according to patient size and/or use of iterative reconstruction technique. 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 No acute airspace opacities. No pneumothorax. No pleural effusion. No acute fractures. No concerning pulmonary nodules. Coronary atherosclerotic calcifications are present. Left mastectomy. Left axillary surgical clips. Large esophageal hiatal hernia/intrathoracic stomach. 1.1 cm left adrenal nodule is not significantly changed. Remainder unremarkable. CT/CT chest wo con IMPRESSION: 1. 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 Considerations include metastatic disease, lymphoma, thymoma, or residual thymus. Consider follow-up CT in 3 months versus further evaluation with PET/CT. 2. Large esophageal hiatal hernia/intrathoracic stomach. 3. Small left adrenal nodule. Electronically authenticated by: ABIGAIL VARGAS Date: 08/15/2023 15:29 Dictated By: Abigail Vargas M.D. Signed By: 08/15/23 1532 DD/ 1529 TD/TT: Ux Design Manager:TBHRadiology, Radiologist, MD - 08/15/2023 [place] [address] CT Scan Report Signed Patient: KELLIE RUBIO MR#: [id number] : 1945 Acct:[id number] Age/Sex: 77 / F ADM Date: 08/15/23 Loc: CT Attending Dr: BEBO ESCALANTE Ordering Physician: BEBO ESCALANTE Date of Service: 08/15/23 Procedure(s): CT chest wo con Accession Number(s): [id number] cc: BEBO ESCALANTE [place] [id number] Patient Name: KELLIE RUBIO MRN: [id number] date: 1945 Sex: F Assigned Patient Location: CT Current Patient Location: CT Accession/Order Number: [id number] Exam Date: 08/15/2023 14:42 Report Date: 08/15/2023 15:29 At the request of: BEBO ESCALANTE Procedure: CT chest wo con EXAM: CT scan of the chest without contrast. Dose reduction technique used: Automated exposure control and/or adjustment of the mA and/or kV according to patient size and/or use of iterative reconstruction technique. 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 No acute airspace opacities. No pneumothorax. No pleural effusion. No acute fractures. No concerning pulmonary nodules. Coronary atherosclerotic calcifications are present. Left mastectomy. Left axillary surgical clips. Large esophageal hiatal hernia/intrathoracic stomach. 1.1 cm left adrenal nodule is not significantly changed. Remainder unremarkable. CT/CT chest wo con IMPRESSION: 1. 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 Considerations include metastatic disease, lymphoma, thymoma, or residual thymus. Consider follow-up CT in 3 months versus further evaluation with PET/CT. 2. Large esophageal hiatal hernia/intrathoracic stomach. 3. Small left adrenal nodule. Electronically authenticated by: ABIGAIL VARGAS Date: 08/15/2023 15:29 Dictated By: Abigail Vargas M.D. Signed By: 08/15/23 1532 DD/ 1529 TD/TT: Ux Design Manager: DANDY HealthcareRadiology Study observation (narrative)[facility] HealthcareCT CHEST WO CONOrdered By: Radiologist Radiology on 08-50-5295[facility] Work Phone: dbT Breast - right screeningon [phone] [address] Mammography Report Signed Patient: KELLIE RUBIO MR#: [id number] : 1945 Acct:[id number] Age/Sex: 77 / F ADM Date: 08/15/23 Loc: CT Attending Dr: BEBO ESCALANTE Ordering Physician: BEBO ESCALANTE Results: Date of Service: 08/15/23 Follow Up: Procedure(s): MM tomosynthesis screening RT Accession Number(s): [id number] cc: BEBO ESCALANTE Patient Name: KELLIE RUBIO MR#: [id number] : 1945 Exam Date: 08/15/2023 Ordering Doctor: DR BEBO ESCALANTE M.D. RADIOLOGY REPORT PROCEDURE: MM TOMOSYNTHESIS SCREENING RT COMPARISON: MG STEREO CORE NDL W CLIP RT, 04/05/2022. MAMMO POST BIOPSY RIGHT, 04/05/2022. INDICATIONS: Screening Calculator Name NCI Breast Cancer Risk Assessment [...] uterine cancer at age 60. LOCATION: [facility] BREAST COMPOSITION: Scattered areas fibroglandular density. FINDINGS: DIAGNOSTIC CATEGORY 2--BENIGN FINDING. NO CHANGE FROM COMPARISON. Stable calcifications and micro clip marker 12 o'clock anterior right breast RECOMMENDATIONS: ROUTINE MAMMOGRAM AND CLINICAL EVALUATION IN 12 MONTHS. PLEASE NOTE: A NORMAL MAMMOGRAM DOES NOT EXCLUDE THE POSSIBILITY OF BREAST CANCER. A CLINICALLY SUSPICIOUS PALPABLE LUMP SHOULD BE BIOPSIED. Dictated by: Sam Lau MD on 08/15/2023 at 15:30 Approved by: Sam Lau MD on 08/15/2023 at 15:35 Dictated By: Sam Lau M.D. Signed By: 08/15/23 1536 DD/ 1535 TD/TT: Ux Design Manager:TBHRadiology, RadiologistMD - 08/16/2023 [address] [place] [id number] Mammography Report Signed Patient: KELLIE RUBIO MR#: [id number] : 1945 Acct:[id number] Age/Sex: 77 / F ADM Date: 08/15/23 Loc: CT Attending Dr: BEBO ESCALANTE Ordering Physician: BEBO ESCALANTE Results: Date of Service: 08/15/23 Follow Up: Procedure(s): MM tomosynthesis screening RT Accession Number(s): [id number] cc: BEBO ESCALANTE Patient Name: KELLIE RUBIO MR#: [id number] : 1945 Exam Date: 08/15/2023 Ordering Doctor: DR BEBO ESCALANTE M.D. RADIOLOGY REPORT PROCEDURE: MM TOMOSYNTHESIS SCREENING RT COMPARISON: MG STEREO CORE NDL W CLIP RT, 04/05/2022. MAMMO POST BIOPSY RIGHT, 04/05/2022. INDICATIONS: Screening Calculator Name NCI Breast Cancer Risk Assessment [...] uterine cancer at age 60. LOCATION: [facility] BREAST COMPOSITION: Scattered areas fibroglandular density. FINDINGS: DIAGNOSTIC CATEGORY 2--BENIGN FINDING. NO CHANGE FROM COMPARISON. Stable calcifications and micro clip marker 12 o'clock anterior right breast RECOMMENDATIONS: ROUTINE MAMMOGRAM AND CLINICAL EVALUATION IN 12 MONTHS. PLEASE NOTE: A NORMAL MAMMOGRAM DOES NOT EXCLUDE THE POSSIBILITY OF BREAST CANCER. A CLINICALLY SUSPICIOUS PALPABLE LUMP SHOULD BE BIOPSIED. Dictated by: Sam Lau MD on 08/15/2023 at 15:30 Approved by: Sam Lau MD on 08/15/2023 at 15:35 Dictated By: Sam Lau M.D. Signed By: 08/15/23 1536 DD/ 1535 TD/TT: Ux Design Manager: [facility] HealthcareRadiology Study observation (narrative)[facility] HealthcareDBT Breast - right screeningOrdered By: Radiologist Radiology on 87-67-4202BIQRLake Regional [facility] System Work Phone: Transfer Inon 84-13-8690Ziwjxnwi In [id number]:127NoLoren [facility] Medical CenterMAMMO POST BIOPSY RIGHTon 75-60-8024WOXEZ POST BIOPSY RIGHTPatient: KELLIE RUBIO Exam Date: 04/05/2022 : 1945 Gender:F Ordering : DR BEBO ESCALANTE M.D. Admission #: [id number] Family : Order #: [id number] CLICK HERE TO VIEW EXAM This report [...] by: Aj Oh M.D. on 04/13/2022 at 11:44[facility]MG STEREO CORE NDL W CLIP RTon 12-25-3455RY STEREO CORE NDL W CLIP RT Patient: KELLIE RUBIO Exam Date: 04/05/2022 : 1945 Gender:F Ordering : DR BEBO ESCALANTE M.D. Admission #: [id number] Family : Order #: [id number] CLICK HERE TO VIEW EXAM This report [...] by: Aj Oh M.D. on 04/13/2022 at 11:43[facility] HospitalMG MAMM RT DIAG FUon 97-94-2791HL MAMM RT DIAG FUPatient: KELLIE RUBIO Exam Date: 03/29/2022 : 1945 Gender:F Ordering : DR BEBO ESCALANTE M.D. Admission #: [id number] Family : Order #: [id number] CLICK HERE TO VIEW EXAM RADIOLOGY REPORT [...] uterine cancer at age 60. LOCATION: [facility] BREAST COMPOSITION: Almost entirely fatty. FINDINGS: [...] by: Sam Lau MD on 03/29/2022 at 13:17[facility] HospitalUS BREAST RIGHT LIMITEDon 41-24-7050ZS BREAST RIGHT LIMITEDPatient: KELLIE RUBIOBre Exam Date: 03/29/2022 : 1945 Gender:F Ordering : DR BEBO ESCALANTE M.D. Admission #: [id number] Family : Order #: [id number] CLICK HERE TO VIEW EXAM RADIOLOGY REPORT [...] uterine cancer at age 60. LOCATION: [facility] BREAST COMPOSITION: Almost entirely fatty. FINDINGS: [...] by: Sam Lau MD on 03/29/2022 at 13:17[facility]MG MAMM SCREEN RT 3D CADon 93-15-2868SR MAMM SCREEN RT 3D CADPatient: KELLIE RUBIO Exam Date: 02/28/2022 : 1945 Gender:F Ordering : DR BEBO ESCALANTE M.D. Admission #: [id number] Family : Order #: [id number] CLICK HERE TO VIEW EXAM RADIOLOGY REPORT [...] uterine cancer at age 60. LOCATION: [facility] BREAST COMPOSITION: Almost entirely fatty. FINDINGS: [...] by: Sam Lau MD on 02/28/2022 at 09:38[facility] HospitalXR DEXA BONE DENSITYon 10-48-9881OR DEXA BONE DENSITYEXAMINATION: XR DEXA BONE DENSITY, 02/28/2022 7:58 AM EDT HISTORY: [...] Electronically authenticated by: AJ OH Date: 2022-02-28 09:00[facility] HospitalPOINT OF CARE GLUCOSEon 67-76-7966Rojnadd [Mass/Vol]109 mg/dL Critically lyih62-671LsqSelect Medical Trihealth Rehabilitation HospitalComment on above:Performed By: #### POCGLUC #### [facility] [address] [place] [address] Dr. Rhea Berry-19 PCR ([facility])on 48-19-0965OMTN-CoV-2 (COVID-19) RNA AMANDA+probe Ql (Unsp spec)Not detectedNormalNOT DETECTEDThe [facility] Comment on above:Result Comment: This test is not yet approved or cleared by the [place] FDA. When there are no FDA-approved or cleared tests available, and other criteria are met, FDA can make tests available under an emergency access mechanism called an Emergency Use Authorization (EUA). The EUA for this test is supported by the [place] of Health and Human Service's (HHS's) declaration that circumstances exist to justify the emergency use of in vitro diagnostics for the detection and/or diagnosis of the virus that causes COVID- 19. This EUA will remain in effect (meaning [...] of clinical signs and symptoms consistent with SARS-CoV-2.Performed By: #### CVDTBH #### [facility] [address] [address] [address] Rhea LeyvaPOINT CARE GLUCOSEon 49-90-5301Ivxoipv [Mass/Vol]119 mg/dL Critically echh53-465LhoSelect Medical Trihealth Rehabilitation HospitalComment on above:Performed By: #### POCGLUC #### [facility] [address] [address] [address] Rhea LeyvaCovid-19 PCR ([facility])on 26-98-8642OEFF-CoV-2 (COVID-19) RNA AMANDA+probe Ql (Unsp spec)Not detectedNormalNOT DETECTEDSelect Medical Trihealth Rehabilitation Hospital Comment on above:Result Comment: This test is not yet approved or cleared by the [place] FDA. When there are no FDA-approved or cleared tests available, and other criteria are met, FDA can make tests available under an emergency access mechanism called an Emergency Use Authorization (EUA). The EUA for this test is supported by the [place] of Health and Human Service's (HHS's) declaration that circumstances exist to justify the emergency use of in vitro diagnostics for the detection and/or diagnosis of the virus that causes COVID- 19. This EUA will remain in effect (meaning [...] of clinical signs and symptoms consistent with SARS-CoV-2.Performed By: #### CVDTBH ####[facility] [address] [place], [place] [address]GtBre Wilkerson ChangLipid Panelon 28-81-7668Ltlsyndkuwi [Mass/Vol]139 mg/sXYvkfzu391-634Irkbzsok [place] Medical SpecialistComment on above:Result Comment: Low risk < 200mg/dL Borderline risk 201-239 mg/dl High risk > or equal to 240Performed By: #### TSH reflex FT4, LIPD #### [facility] [address] [place], [place] [id number] in HDL [Mass/Vol]52 mg/dLNormal>40Nortdignity health east valley rehabilitation hospitaln [facility] SpecialistComment on above:Result Comment: High Cardiovascular Risk HDL <40 mg/dL Low Cardiovascular Risk HDL > or equal to 60 mg/dlPerformed By: #### TSH reflex FT4, LIPD #### [facility] [address] [place], [place] [id number] in LDL [Mass/Vol]68 mg/dLNormalNortdignity health east valley rehabilitation hospitaln [facility] SpecialistComment on above:Result Comment: LDL ATP III CLASSIFICATION LDL less than 100 mg/dl Optimal LDL 100-129 mg/dl Near or above optimal LDL 130-159 Borderline high LDL 160-189 High LDL greater than 189 mg/dl Very HighPerformed By: #### TSH reflex FT4, LIPD #### [facility] [address] [place], [place] [id number] in VLDL [Mass/Vol]19 mg/dLNormalNonorth carolina specialty hospitaln [facility] SpecialistComment on above:Performed By: #### TSH reflex FT4, LIPD #### [facility] [address], [place] [id number].total/Cholesterol in HDL [Mass ratio]3 {ratio} NormalNortdignity health east valley rehabilitation hospitaln [facility] SpecialistComment on above:Performed By: #### TSH reflex FT4, LIPD #### [facility] [address] [place], [place] [id number] [Mass/Vol]94 mg/mBOaabvk04-751Ygxfojnn [facility] SpecialistComment on above:Result Comment: TRIG ATPIII CLASSIFICATIONS TRIG less than 150 mg/dl Normal TRIG 150-199 mg/dl Borderline High TRIG 200-500 mg/dl High TRIG greather than 500 mg/dl Very HighPerformed By: #### TSH reflex FT4, LIPD #### [facility] [address] [place], [place] [id number] w/ Reflex to Free T4on 34-77-0129PBO5.530 uIU/mLNormal 0.400-4.500Northern [facility] SpecialistComment on above:Performed By: #### TSH reflex FT4, LIPD #### [facility] [address] [place], [place] [id number] Vital Signs Date TimeVital SignValuePerforming DbxgbghpsOqduupje00-18-5729 10:41-0500Body .4 cmBelén Hemmer PA Work Phone: [phone]-[facility] SystemGjowplmjym65-02-0202 10:41-0500Body mass index (BMI) [Ratio]37.18 kg/f5Ghnkp Hemmer PA Work Phone: [phone] SystemOvbujaoxjp27-27-3133 10:41-0500Body lzfeln90.36 kgArien Hemmer PA Work Phone: [phone] SystemIqpocdnocd01-90-6460 10:41-0500Diastolic blood wxgazxuu88 mm[Hg]Belén Hemmer PA Work Phone: [phone] SystemGqlsbcoxzh65-18-7755 10:41-0500Heart rate60 /min Belén Hemmer PA Work Phone: [phone] SystemFhojrgzfae55-48-0490 10:41-0500Respiratory rate16 /minArien Hemmer PA Work Phone: [facility] SystemOycyofhimb20-72-6027 10:41-8260FyP0% (BldA) [Mass fraction]96 %Belén Hemmer PA Work Phone: [facility] SystemDkofpdmkwr69-81-6390 10:41-0500Systolic blood utbxutsg88 mm[Hg]Belén Hemmer PA Work Phone: [facility] SystemEkzibvfmyq78-46-2136 08:16-0400Body izvtsv132.4 cmBebo Escalante MD Work Phone: NOBo[facility] CenterJetxgnpsyc08-50-6253 08:16-0400Body mass index (BMI) [Ratio]37.89 kg/c0HclzpnBebo Escalante MD Work Phone: NOBo[facility] CenterBlmrmqwozu66-61-7319 08:16-0400Body kg Bebo Escalante MD Work Phone: NOBo[facility] CenterNlyvdznyle61-36-8456 08:16-0400Diastolic blood qlbumgej13 mm[Hg]Bebo Escalante MD Work Phone: NOBo[facility] CenterMsyhjkacrm36-25-2822 08:16-0400Heart rate60 /min Bebo Escalante MD Work Phone: NOBo[facility] CenterLekrutdgbw36-25-7774 08:16-5165FiL6% (BldA) [Mass fraction]95 %Bebo Escalante MD Work Phone: NOBo[facility] CenterAiaikhxwen37-64-2773 08:16-0400Systolic blood hdttlvce563 mm[Hg]Bebo Escalante MD Work Phone: NO[facility] CenterSiqfaohyyh15-06-6118 10:16-0400Body tgilxb437.4 cmBebo Escalante MD Work Phone: NO[facility] CenterHegyskdwtb37-59-0069 10:16-0400Body mass index (BMI) [Ratio]37.5 kg/i7CxdcsmBebo Escalante MD Work Phone: NO[facility] CenterItjdnwskew21-11-5849 10:16-0400Body hjhsox89.09 kgBebo Escalante MD Work Phone: NO[facility] CenterTisvsssjtc75-09-4076 10:16-0400Diastolic blood dwelxmoe99 mm[Hg]Bebo Escalante MD Work Phone: NO[facility] CenterIbldwlmiwh52-60-4027 10:16-0400Heart rate58 /min Bebo Escalante MD Work Phone: NO[facility] CenterRxdcdrdlfd06-82-7655 10:16-6532YiF7% (BldA) [Mass fraction]95 %Bebo Escalante MD Work Phone: NO[facility] CenterFyurssjkyb42-76-6020 10:16-0400Systolic blood kqiurbhd680 mm[Hg]Bebo Escalante MD Work Phone: NO[facility] CenterMluyctplln22-50-5214 08:21-0500Body xzvzze638.4 cmBebo Escalante MD Work Phone: NO[facility] CenterJfdwuxhorl67-97-0579 08:21-0500Body mass index (BMI) [Ratio]35.94 kg/f9ZeemirBebo Escalante MD Work Phone: [facility] CenterHeugaychlw96-21-4332 08:21-0500Body owfags13.46 kgBebo Escalante MD Work Phone: NO[facility] CenterQhcwvfzqnh20-55-3826 08:21-0500Diastolic blood itussypf24 mm[Hg]Bebo Escalante MD Work Phone: NO[facility] CenterRhvdbthaam72-44-4413 08:21-0500Heart rate68 /min Bebo Escalante MD Work Phone: [facility] SystemZruuyeqgmx48-25-7950 08:21-5364NgY5% (BldA) [Mass fraction]97 %Bebo Escalante MD Work Phone: NO[facility] CenterRvtxjpcuol05-08-2759 08:21-0500Systolic blood upjxsytq382 mm[Hg]Bebo Escalante MD Work Phone: NO[facility] CenterZxxyhhxenn78-45-3493 09:26-0500Body hyojoy786.4 cmBebo Escalante MD Work Phone: [facility] CenterKogdlgfeou62-93-9707 09:26-0500Body mass index (BMI) [Ratio]35.94 kg/p1EmufrvBebo Escalante MD Work Phone: NO[facility] CenterButsluelyh93-85-4274 09:26-0500Body .46 kgBebo Escalante MD Work Phone: [facility] CenterAdcgkzozzv64-59-2458 09:26-0500Diastolic blood lyzdxmpg38 mm[Hg]Bebo Escalante MD Work Phone: NOBo[facility] CenterXhijmozugn59-90-1823 09:26-0500Heart rate67 /min Bebo Escalante MD Work Phone: [phone] [place], [place] [address]Nbhwvzctwa98-58-3872 09:26-8551AyC6% (BldA) [Mass fraction]97 %Bebo Escalante MD Work Phone: [phone])[address] [place], [place] 475[address]01-23-2025 09:26-0500Systolic blood mm[Hg]Bebo Escalante MD Work Phone: [phone])[address] [place], [place] 4758109-09-2024 08:33-0400Body hudkra334.4 cmDabao Escalante MD Work Phone: [phone])[address] [place], [place] 4758109-09-2024 08:33-0400Body mass index (BMI) [Ratio]39.06 kg/k7UgeedjBebo Escalante MD Work Phone: [phone])[address] [place], [place] 4758109-09-2024 08:33-0400Body .72 kgBebo Escalante MD Work Phone: [phone])[address] [place], [place] 4758109-09-2024 08:33-0400Diastolic blood tqfwexva59 mm[Hg]Bebo Escalatne MD Work Phone: [phone])[address] [place], [place] 4[address]109-09-2024 08:33-0400Heart rate69 /min Bebo Escalante MD Work Phone: [phone])[address] [place], [place] 4[address]109-09-2024 08:33-6599MrE6% (BldA) [Mass fraction]96 %Bebo Escalante MD Work Phone: [phone])[address] [place], [place] 4758109-09-2024 08:33-0400Systolic blood vrrpnnhu289 mm[Hg]Bebo Escalante MD Work Phone: [phone])[address] [place], [place] 4758106-25-2024 11:43-0400Body temperature 97.6 [degF]II Bebo Escalante Work Phone: [phone] [place], [place] 9703706-25-2024 11:43-0400 Diastolic blood ghzhdkiv86 mm[Hg]II Bebo Escalante Work Phone: [phone]06-25-2024 11:43-0400 Heart rate64 /minII Bebo Escalante Work Phone: [phone] [place], [place] 9[address]006-25-2024 11:43-0400 Respiratory rate19 /minII Bebo Escalante Work Phone: [phone]06-25-2024 11:43-0400 SaO2% (BldA) [Mass fraction]92 %II Bebo Escalante Work Phone: [phone])[address]06-25-2024 11:43-0400 Systolic blood cajllgzu052 mm[Hg]II Bebo Escalante Work Phone: [phone])[address] [place], [place] [address]06-25-2024 05:30-0400 Body .1 kgII Bebo Escalante Work Phone: [phone]06-24-2024 11:30-0400 Body cyhdbc142.4 cmII Bebo Escalante Work Phone: [phone])[address]06-24-2024 08:25-0400 Inhaled oxygen flow rate3 L/minII Bebo Escalante Work Phone: [phone] [place], [place] [address]06-21-2024 11:29-0400 Body mass index (BMI) [Ratio]37.8 kg/m2II Bebo Escalante Work Phone: [phone]05-16-2024 08:51-0400 Body jdysez667.4 cmII Bebo Escalante Work Phone: [phone])[address]05-16-2024 08:51-0400 Body gtvjte27.4 kgII Bebo Escalante Work Phone: [phone])[address]05-16-2024 08:51-0400 Diastolic blood sueqovqb67 mm[Hg]II Bebo Escalante Work Phone: [phone])[address]05-16-2024 08:51-0400 Heart rate66 /GavinI Bebo Escalante Work Phone: [phone])[address]05-16-2024 08:51-0400 Respiratory rate18 /GavinI Bebo Escalante Work Phone: [phone]05-16-2024 08:51-0400 SaO2% (BldA) [Mass fraction]96 %II Bebo Escalante Work Phone: [facility]05-16-2024 08:51-0400 Systolic blood iuqhxhpy624 mm[Hg]II Bebo Escalante Work Phone: [facility] Encounters Encounter DateEncounter TypeCare ProviderFacilityStart: 05-05-2025 End: 52-62-1393Ebkmmd Naif SHANKAR Work Phone: noms [facility] MedinceStart: 05-05-2025 End: 86-05-7304Uxueor Naif SHANKAR Work Phone: noms [facility] MedinceStart: 05-05-2025 End: 26-06-9245Cpxtqq outpatient visit 15 minutesBelén SHANKAR Work Phone: noms [facility] MedinceComment on above:Obstructive sleep apnea syndrome (Primary Dx); Class 2 severe obesity due to excess calories with serious comorbidity and body mass index (BMI) of37.0 to 37.9 in adult; Recurrent major depressive disorder, in full remissionStart: 05-05-2025 End: 81-30-9829cdsqqawjizIIIFB M HEMMERNot AvailableStart: 04-16-2025 End: 77-59-5108NjieuhFvrbmhi J Meyer PA Work Phone: noms [place] OrthopaedicsComment on above:S/P TKR (total knee replacement), rightStart: 03-19-2025 End: 12-43-1151Fzqwvq flowsheetJr. Ryan Calderon DO Work Phone: noms [place] OrthopaedicsStart: 03-19-2025 End: 70-78-2083Lkhcty flowsheetJr. Ryan Calderon DO Work Phone: N[facility] [place] OrthopaedicsStart: 03-19-2025 End: 65-10-2516Kgzrou outpatient visit 15 minutesJr. Ryan Calderon DO Work Phone: noms [place] OrthopaedicsComment on above:S/P TKR (total knee replacement), rightStart: 03-19-2025 End: 01-09-8593vqwyyitnyzDWRYAN Monzon AvailableStart: 12-16-2024 End: 22-19-2753Genxkd Maggie Escalante MD Work Phone: [facility] CI FMStart: 12-16-2024 End: 66-01-0212Xjtifg Maggie Escalante MD Work Phone: [facility] CI FMStart: 12-16-2024 End: 93-99-3951Wxeiej outpatient visit 25 minutesDabao Escalante MD Work Phone: [facility] CI FMComment on above:Type 2 diabetes mellitus with stage 3a chronic kidney disease, without long-term current use of insulin (HCC) (Primary Dx); Morbid (severe) obesity due to excess calories ([facility]-H[facility]); Benign essential hypertension ; Pure hypercholesterolemia ; Localized edema; Stage 3a chronic kidney disease ([facility]-HCC); Osteoarthritis, unspecified osteoarthritis type, unspecified site; Pulmonary hypertension, unspecified (HCC); Chronic obstructive pulmonary disease, unspecified (HCC); Osteoarthritis of multiple joints, unspecified osteoarthritis typeStart: 12-16-2024 End: 12-16-1652rsfdyupibuUTIOZR B BERRYNot AvailableStart: 11-04-2024 End: 35-73-2164Lxlxoxdasoxeq examination doneMaelisa SHANKAR Work Phone: NO[facility] HealthcareStart: 11-04-2024 End: 54-58-0920BalfucXludjig J Meyer PA Work Phone: NOFD SWS ORTHOComment on above:Arthritis of right knee; Pre-op examinationStart: 10-10-2024 End: 56-90-6648Shgbmomaya Escalante MD Work Phone: [facility] CI FMStart: 10-10-2024 End: 33-72-5052Hjmjynmaya Escalante MD Work Phone: [facility] CI FMStart: 10-10-2024 End: 06-30-2322Xccto of hemosiderin, quantBebo Escalante MD Work Phone: [facility] HealthcareStart: 10-10-2024 End: 25-25-8549Upcsuzv encounter procedureBebo Escalante MD Work Phone: [facility] CI FMComment on above:Routine general medical examination at health care facility (Primary Dx); ACP (advance care planning); Decreased diffusion capacity of lung; Mediastinal massStart: 10-10-2024 End: 60-64-2882hhnbcctwmzHBIYJN B BERRYNot AvailableStart: 08-22-2024 End: 00-07-5171Hncywbhwx Result EncounterBebo Escalante MD Work Phone: [facility] External Department UnsolicitedStart: 08-22-2024 End: 55-37-7996Lxqlettsv Result EncounterBebo Escalante MD Work Phone: [facility] External Department UnsolicitedStart: 08-16-2024 End: 84-35-7281Ipyrev flowsChristopher Escalante MD Work Phone: [facility] CI FMStart: 08-16-2024 End: 87-37-2497Badsrg flowsChristopher Escalante MD Work Phone: [facility] CI FMStart: 08-16-2024 End: 47-21-1160Fjjfwc outpatient visit 25 minutesDabao Escalante MD Work Phone: [facility] CI FMComment on above:ROBLES (dyspnea on exertion) (Primary Dx); Mediastinal mass; Abnormal CT of the chest; Morbid (severe) obesity due to excess calories (CMS/HCC); Polyosteoarthritis, unspecified; Body mass index (BMI) 35.0-35.9, adult; Malignant neoplasm of unspecified site of unspecified female breast (CMS/HCC) Start: 08-16-2024 End: 16-65-8496mxmuxdprceVHDUFX B BERRYNot AvailableStart: 08-13-2024 End: 17-33-8853Wdgvokuuk encounterMatttom SHANKAR Work Phone: noms FB ORTHOPAEDICSComment on above:Pre Med for cleaningStart: 07-29-2024 End: 29-46-9659Pblevycey Result EncounterBebo Escalante MD Work Phone: NO[facility] External Department UnsolicitedStart: 07-29-2024 End: 30-87-3259Jxffwiqct Result EncounterBebo Escalante MD Work Phone: NOQK External Department UnsolicitedStart: 07-25-2024 End: 96-84-4128Brmxap flowsChristopher Escalante MD Work Phone: [facility] CI FMStart: 07-25-2024 End: 65-45-6407Oahtud Maggie Escalante MD Work Phone: NOAV CI FMStart: 07-25-2024 End: 10-62-5560Rauhsu outpatient visit 25 minutesDabao Escalante MD Work Phone: NOJR CI FMComment on above:Mediastinal mass (Primary Dx); Type 2 diabetes mellitus with stage 3a chronic kidney disease, without long-term current use of insulin (HCC) (CMS/HCC); Abnormal CT of the chest; Benign essential hypertension (CMS/HCC)Start: 07-25-2024 End: 01-58-7452vxfdbytzwdAHVQXU B BERRYNot AvailableStart: 06-07-2024 End: 94-43-3055Rsnwrwehbadgx examination Jacob SHANKAR Work Phone: noms HealthcareStart: 06-07-2024 End: 29-17-3961XogqmsEognmey J Meyer PA Work Phone: noms SWS ORTHOComment on above:Arthritis of right knee; Pre-op examinationStart: 04-04-2024 End: 15-15-6410Rdblfhyuzlmcq examination Jacob SHANKAR Work Phone: noms HealthcareStart: 04-04-2024 End: 92-25-6033HotdeyMnoxree J Meyer PA Work Phone: noms [facility] ORTHOComment on above:Arthritis of right knee; Pre-op examinationStart: 03-20-2024 End: 46-06-4571Efgvbc flowsheetJr. Ryan Calderon DO Work Phone: noms [facility] ORTHOStart: 03-20-2024 End: 83-75-9776Xbpkmr flowsheetJr. Ryan Calderon DO Work Phone: noms [facility] ORTHOStart: 03-20-2024 End: 20-14-7624Dyiyqv follow up visit related to original pxJr. Ryan Calderon DO Work Phone: noms [facility] ORTHOComment on above:S/P TKR (total knee replacement), right (Primary Dx)Start: 03-11-2024 End: 83-31-6375Kyndyu Maggie Escalante MD Work Phone: [facility] CI FMStart: 03-11-2024 End: 03-47-1402Wrrugv flowsChristopher Escalante MD Work Phone: [facility] CI FMStart: 03-11-2024 End: 11-13-5002Qujzs of hemosiderin, quantBebo Escalante MD Work Phone: NOIK HealthcareStart: 03-11-2024 End: 19-01-1189Shlpnjv encounter procedureBebo Escalante MD Work Phone: [facility] CI FMComment on above:Routine general medical examination at health care facility (Primary Dx); ACP (advance care planning); Type 2 diabetes mellitus with stage 3a chronic kidney disease, without long-term current use of insulin (HCC) (CMS/HCC); Pure hypercholesterolemia (CMS/HCC); Morbid (severe) obesity due to excess calories (CMS/HCC); Essential (primary) hypertension (CMS/HCC); Body mass index (BMI) 38.0-38.9, adult; Malignant neoplasm of unspecified site of unspecified female breast (CMS/HCC) Start: 12-25-2023 End: 67-42-2530Bac-patient / Non-visitII Bebo Escalante Work Phone: [facility] Work Phone: Start: 12-23-2023 End: 01-42-0680Vsiqscebnx and management of inpatientII Bebo Boris Work Phone: [facility] Work Phone: Start: 11-30-2023 End: 58-09-8697hgzhssyfwgCD Bebo Escalante Work Phone: [facility] Work Phone: Start: 11-30-2023 End: 96-49-5236Vnqfudja ReferredII Bebo Escalante Work Phone: [facility] SystemStart: 11-28-2023 End: 38-06-9003Aszjcfo encounter procedureII Bebo Escalante Work Phone: [facility]-[address] Work Phone: Start: 11-28-2023 End: 85-61-0578rkuzbzjyfkKY Bebo Escalante Work Phone: [facility] Work Phone: Start: 84-91-0112Xooovjrhr for other preprocedural examinationGeorge Stepanic [facility] Physician GroupStart: 11-16-2023 End: 86-49-6520Zgpkxda encounter procedureII Bebo Escalante Work Phone: [facility] Mde-Dvz-Hwkgagws Testing Work Phone: Start: 11-16-2023 End: 92-76-3934mlrvcmqdzoUW Daniel Berry Work Phone: [facility] Work Phone: Start: 64-59-7708Clxvmuitm for preprocedural laboratory examinationGeorge Stepanic [facility] Physician GroupStart: 11-12-2023 End: 78-91-9092Kskoymfgo Result EncounterDabao Escalante MD Work Phone: noms External Department UnsolicitedStart: 11-12-2023 End: 95-32-2545Vszwdksyd Result EncounterBebo Escalante MD Work Phone: NOAM External Department UnsolicitedStart: 08-15-2023 End: 44-82-6446Awcewfxzu Result EncounterBebo Escalante MD Work Phone: [facility] External Department UnsolicitedStart: 08-15-2023 End: 30-77-0861Lwxsrfhcs Result EncounterDabao Escalante MD Work Phone: noms External Department UnsolicitedStart: 11-10-2022 ambulatoryFacility:[facility] HospitalueStart: 11-10-2022 End: 00-87-4761qvbmlxxdnnLL AJ OHFacility:N7Zoand: 11-09-2022 End: 32-60-7550zdhlchwnifTF MARKY HERNANDEZ .Facility:X0Uskgk: 11-04-2022 End: 68-10-5737gjbwnpxawwZDOSJZYDNLXZ LAKSHMIPATHY .Facility:X3Nobss: 07-20-2022 End: 89-90-3152kxntwipzenUZQG BLAKE .Facility:L8Dqwgj: 04-07-2022 End: 58-88-0265fkbzksieewMD BEBO BORISFacility:N1Yxhhr: 04-05-2022 End: 83-30-8051hrkjnpxjnuSM BEBO BORISFacility:A0Zmzuj: 03-29-2022 End: 82-87-2522counfmqmihLB BEBO ESCALANTEFacility:J8Vfhvd: 02-28-2022 End: 15-03-6198ayyhdolpbsMI BEBO ESCALANTEFacility:S3Pzsyz: 02-15-2022 End: 12-81-3297jtowhepyxoLY BEBO ESCALANTEFacility:I1Gjypt: 26-21-2526Jfjdsbqko for preprocedural laboratory examinationDR OSCAR PERKINS .[facility] Start: 02-14-2022 End: 94-20-3670mnukipdbupDX OSCAR PERKINS .Facility:Q3Crvds: 02-14-2022 End: 42-95-7618Zhvnbbxsn for preprocedural laboratory examinationDR OSCAR PERKINS .Facility:N4Eecnv: 33-24-3588pytqfgsiwxML BEBO BORISFacility:J3Zluqy: 02-08-2022 End: 59-24-7454xdahvcemzfBT BEBO BORISFacility:L1Pyuou: 02-04-2022 End: 44-03-5293ugulvvltnzMI OSCAR PERKINS .Facility: Procedures DateProcedureProcedure DetailPerforming ClinicianStart: 39-54-1043Yylztfzvja examination knee 1/2 viewsJr. Ryan Carcamokassidy DO Work Phone: Start: 13-45-6092Ammzbyjupb glycosylated s2kWgwebhBebo Escalante MD Work Phone: Start: 33-89-6825Cmmmm albumin quantitativeDabao Escalante MD Work Phone: Start: 55-21-3659YA ECHO DOPPLER COMPLETEDwilliam Escalante MD Work Phone: Start: 65-59-5617OR PULMONARY FUNCTION TESTBebo Escalante MD Work Phone: Start: 75-46-6590TAK HEMOGLOBINDabao Escalante MD Work Phone: Start: 06-41-7089AR CHEST WO Alan Escalante MD Work Phone: Start: 37-29-0007Msnfgbexum glycosylated k4uBzjnkuBebo Escalante MD Work Phone: Start: 38-45-1483Kiimukhowr glycosylated Rene Escalante MD Work Phone: Start: 25-66-8720Tpvsz chest X-rayII Bebo Escalante Work Phone: Start: 24-19-8545Ggazk replacement of right knee joint II Bebo Escalante Work Phone: Start: 67-10-1409E-ray of right kneeII Bebo Escalante Work Phone: Start: 05-23-0531Natjf X-ray of bilateral femursII Bebo Escalante Work Phone: Start: 50-45-3473Jsuso X-ray of bilateral tibia and bilateral fibulaII Bebo Escalante Work Phone: Start: 63-91-7064OD CHEST WO Alan Escalante MD Work Phone: Start: 14-37-2696Uhpcqhzqb digital breast tomosynthesis Jackelin Escalante MD Work Phone: Start: 68-21-5267HB CHEST WO Alan Escalante MD Work Phone: Start: 02-15-2023H/O: hysterectomyHistory of hysterectomyBebo Escalante MD Work Phone: Plan of Treatment DateCare ActivityDetailAuthorStart: 50-06-2949Beottqnt screeningDiabetes: Retinopathy ScreeningNOMS HealthcareStart: 58-41-1123Oofuettm screeningDiabetes: Retinopathy ScreeningNOMS HealthcareStart: 88-99-3606Kzqhqerv screening Diabetes: Retinopathy ScreeningNOWI HealthcareStart: 04-10-2026Medicare Annual Wellness (AWV)Medicare Annual Wellness (AWV)[facility] HealthcareStart: 09-20-2025 Urine screening for proteinDiabetes: Urine Protein ScreeningNOWI Healthcare Start: 09-16-2025 End: 55-97-6700Dbzafke encounter lyhufwxok47/17/2026 8:00 AM EDT Office Visit [facility] [place] [facility] [address] [facility] [address] [place] [address] Belén Montanez PA [address] [facility] [address] [place] [address] [facility] [place] MedinceStart: 08-03-2025 Glaucoma screeningDiabetes: Retinopathy ScreeningNOWI HealthcareStart: 05-05-2025 End: 83-39-6164Sroggzy encounter procedureNOMS [place] MedinceComment on above:ArrivedStart: 03-19-2025 End: 03-74-6279Rtlygsv encounter procedureNOMS SWS ORTHOComment on above:Arrived Start: 85-33-8182Qxjvdgoypa A1c measurementDiabetes: Hemoglobin X0XCWSN HealthcareStart: 09-09-2025Medicare Annual Wellness (AWV)Medicare Annual Wellness (AWV)[facility] HealthcareStart: 37-63-9278Gchnk screening for protein Diabetes: Urine Protein ScreeningDA[facility] HealthcareStart: 59-75-1996QTQBT-19 Vaccine ( season)COVID-19 Vaccine ()[facility] Healthcare Start: 86-57-4875Jmgvvmpnr vaccinationInfluenza Vaccine (#1)[facility] Healthcare Start: 12-16-2024 End: 34-76-0288Uqafemvdkmqdi metabolic 2000 panel - Serum or PlasmaComprehensive metabolic panel Lab Routine Type 2 diabetes mellitus with stage 3a chronic kidney disease, without long-term current use of insulin (HCC) Stage 3a chronic kidney disease (CMS-HCC) Expected: 12/16/2024 (Approximate), Expires: 12/16/2025 [facility] HealthcareComment on above:Expected: 12/16/2024 (Approximate), Expires: 12/16/2025Start: 12-16-2024 End: 45-00-9650Xxtug 1996 panel - Serum or PlasmaLipid panel Lab Routine Type 2 diabetes mellitus with stage 3a chronic kidney disease, without long-term current use of insulin (HCC) Pure hypercholesterolemia Expected: 12/16/2024 (Approximate), Expires: 12/16/2025NOWI HealthcareComment on above:Expected: 12/16/2024 (Approximate), Expires: 12/16/2025Start: 12-16-2024 End: 20-44-9852Rrntnfyzifu [Units/volume] in Serum or PlasmaTSH Lab Routine Type 2 diabetes mellitus with stage 3a chronic kidney disease, without long-term cur rent use of insulin (HCC) Expected: 12/16/2024 (Approximate), Expires: 12/16/2025NOWI HealthcareComment on above:Expected: 12/16/2024 (Approximate), Expires: 12/16/2025Start: 12-16-2024 End: 01-54-0628Duncfutkh (T4) free [Mass/volume] in Serum or PlasmaT4, free Lab Routine Type 2 diabetes mellitus with stage 3a chronic kidney disease, without long-term current use of insulin (HCC) Expected: 12/16/2024 (Approximate), Expires: 12/16/2025NOMS HealthcareComment on above:Expected: 12/16/2024 (Approximate), Expires: 12/16/2025Start: 12-16-2024 End: 05-87-4922Kmxclkx encounter procedureNOMS CI FMComment on above:Arrived Start: 89-60-3419Glrbxnlyxt A1c measurementDiabetes: Hemoglobin P7MYBUM HealthcareStart: 10-10-2024 End: 57-61-8058Aqbjvoo encounter lnkgqjaad36/10/2025 10:30 AM EDT Office Visit [facility] [address] [place] [address] [place] [address] Bebo Escalante MD [address] [place] [address] [place] [address] Mediastinal massNOMS CI FMComment on above:Mediastinal mass Start: 09-09-2024 End: 62-93-0690Qfmlqat encounter rdhtjhedg75/10/2025 8:30 AM EDT Office Visit [facility] [address] [place] [address] [place] [address] Bebo Escalante MD [address] [place] [address] [place] [address] NOM[facility] CI FMStart: 08-26-2024 End: 36-34-1070Ylrdufczkuwv / ancillary services gmyzeyghqs90/24/2025 11:00 AM EST Ancillary Procedure [facility] [address] [place] [address] [place], [place] [address] [facility] FNR RADIOLOGYStart: 08-16-2024 End: 78-38-8816Gzrmseqjvlrjjm 2D completeEchocardiogram 2D complete Echocardiography Routine ROBLES (dyspnea on exertion) Expected: 08/16/2024 ( Approximate), Expires: 08/16/2026[facility] Work Phone: Comment on above:Expected: 08/16/2024 (Approximate), Expires: 08/16/2026Start: 08-16-2024 End: 13-06-5949Ltizohoip function reportPulmonary Function Test Imaging Routine ROBLES (dyspnea on exertion) Abnormal CT of the chest Expected: 08/16/2024, Expires: 08/16/2025NOMS HealthcareComment on above:Expected: 08/16/2024, Expires: 08/16/2025Start: 08-16-2024 End: 15-33-8418Schzyjn encounter procedureNOMS CI FMComment on above:Arrived Start: 07-25-2024 End: 59-43-0730QQ Chest WO contrastCT chest wo IV contrast Imaging Routine Mediastinal mass Expected: 07/25/2024 (Approximate), Expires: 07/25/2025[facility] Healthcare Work Phone: Comment on above:Expected: 07/25/2024 (Approximate), Expires: 07/25/2025Start: 07-11-2024 End: 08-44-0747Gxpgenk encounter /09/2025 8:30 AM EST Office Visit [facility] CI [address] [facility] [address] [place] [address] Bebo Escalante MD [address] [facility] [address] [place] [address] NOMS CI FMStart: 91-55-2364Hfwmkmdjch A1c measurementDiabetes: Hemoglobin U2IZWEV HealthcareStart: 09-27-2024Medicare Annual Wellness (AWV) Medicare Annual Wellness (AWV)[facility] HealthcareStart: 11-70-2686Pszjb screening for proteinDiabetes: Urine Protein ScreeningNOWI HealthcareStart: 03-20-2024 End: 62-86-3965Hgsghyr encounter procedureNOMS SWS ORTHOComment on above:Arrived Start: 03-11-2024 End: 64-73-5270Tjoqqwssfnawi metabolic 2000 panel - Serum or PlasmaComprehensive metabolic panel Lab Routine Type 2 diabetes mellitus with stage 3a chronic kidney disease, without long-term current use of insulin (HCC) ([facility]/HCC) Expected: 03/11/2024 (Approximate), Expires: 03/11/2025NOMS HealthcareComment on above:Expected: 03/11/2024 (Approximate), Expires: 03/11/2025Start: 03-11-2024 End: 54-88-7657Uvhve 1996 panel - Serum or PlasmaLipid panel Lab Routine Type 2 diabetes mellitus with stage 3a chronic kidney disease, without long-term current use of insulin (HCC) ([facility]) Expected: 03/11/2024 (Approximate), Expires: 03/11/2025NOWI HealthcareComment on above:Expected: 03/11/2024 (Approximate), Expires: 03/11/2025Start: 03-11-2024 End: 29-50-7843VPO W/REFLEX TO FT4TSH W/REFLEX TO FT4 Lab Routine Type 2 diabetes mellitus with stage 3a chronic kidney disease, without long-term current use of insulin (HCC) ([facility]) Expected: 03/11/2024 (Approximate), Expires: 03/11/2025NOWI HealthcareComment on above:Expected: 03/11/2024 (Approximate), Expires: 03/11/2025Start: 03-11-2024 End: 12-92-3372Jmauhle encounter euonqvlpp23/09/2024 8:45 AM EDT Office Visit [facility] [address] [id number] Bebo Escalante MD 112 [facility] [address] [place] [address] ArrivedNOMS CI FMComment on above:ArrivedStart: 03-03-2024 Influenza vaccinationInfluenza Vaccine (#1)[facility] HealthcareStart: 02-08-2024 Hemoglobin A1c measurementDiabetes: Hemoglobin K4ECYGZ HealthcareStart: 16-35-7447YaucbxowcLakeHealth TriPoint Medical Centertart: 79-21-1507Mwyvnzaynsp of Right Knee Joint with Synthetic Substitute, Cemented, Open ApproachReplacement of Right Knee Joint with Synthetic Substitute, Cemented, Open ApproachLakeHealth TriPoint Medical Centertart: 35-72-3005Arrqayul to rehabilitation physician [facility] Centertart: 77-87-2488AwfprqhyuLakeHealth TriPoint Medical Centertart: 28-56-7558Xniyevor admissionLakeHealth TriPoint Medical Centertart: 22-28-7330Jdbhaamm to clinical allergistLakeHealth TriPoint Medical Centertart: 66-82-5784Ikvoi replacement of right knee jointOR Knee Arthroplasty, Total MIS (Right)[facility] Centertart: 06-64-8696Fphbn screening for proteinDiabetes: Urine Protein ScreeningDA[facility] HealthcareStart: 10-13-2015 DTaP/Tdap/Td Vaccines (2 - Td or Tdap)DTaP/Tdap/Td Vaccines (2 - Td or Tdap)[facility] HealthcareCBC W Auto Differential panel - BloodCBC and differential Lab Routine Type 2 diabetes mellitus with stage 3a chronic kidney disease, without long- term current use of insulin (HCC) ([facility]) Ordered: 03/11/2024[facility] Healthcare Work Phone: Comment on above:Ordered: 4CBC W Auto Differential panel - BloodCBC and differential Lab Routine Stage 3a chronic kidney disease ([facility]) Ordered: 12/16/2024[facility] Healthcare Work Phone: Comment on above:Ordered: 12/16/2024Patient Education Know your [facility] Work Phone: Patient [facility] Work Phone: Immunizations Immunization DateImmunizationNotesCare OnltdxwvBsfcswta63-34-3489nqgogmmhk, high dose seasonal, preservative-freeBelén SHANKAR Work Phone: [facility] SystemShhiammwsc39-81-4557ldrdls vaccine recombinant Bebo Escalante MD Work Phone: NO[facility] CenterNojixdtlps81-85-6836igvtwwcym, high dose seasonal, preservative-freeDwilliam Escalante MD Work Phone: NOBo[facility] CenterKxhxbmnxxi05-90-0761HRX, recombinant, protein subunit RSVpreF, adjuvant reconstitu, 120mcg/0.5mL, PF (Arexvy)Bebo Escalante MD Work Phone: NO[facility] CenterEllvbfhtjm59-18-5533jjevwjmpf virus vaccine, unspecified formulationJr. Stepanic DO Work Phone: NOBo[facility] CenterMpinszieev93-59-4204zjywrs vaccine recombinant Bebo Escalante MD Work Phone: [facility] SystemQanagxvhlt57-70-1426Chwfsylla, Seasonal, Quadrivalent, AdjuvantedDwilliam Escalante MD Work Phone: [facility] Work Phone: [phone]nhsgu virus vaccine, unspecified formulationBebo Escalante MD Work Phone: [facility] SystemMrvpdmnthi73-66-4795CONAF-72 mRNA Bivalent Booster (Moderna)II Bebo Escalante Work Phone: [phone] [place], [place] [address]10-12-2022influenza, high dose jerome, preservativeBrian Escalante MD Work Phone: [facility] SystemNwfopzswkb82-89-2285Ufcxety SARS-CoV-2 50mcg/0.5mL BoosterBebo Escalante MD Work Phone: [facility] SystemQrhmcosssx61-83-0612MJBQL-44 mRNA-1273 (Moderna) II Bebo Escalante Work Phone: [phone] [place], [place] [address]10-05-2021Seasonal trivalent influenza vaccine, adjuvanted, preservative Quentin Escalante MD Work Phone: [facility] SystemIvkvjdpzfc79-32-0205PHSJI-83 mRNA-1273 (Moderna) LESA Escalante Work Phone: [phone]02-25-2021COVID-19 mRNA-1273 (Moderna)LESA Escalante Work Phone: [phone] [place], [place] [address]09-30-2020influenza, high dose seasonal, preservativeBrian Escalante MD Work Phone: [facility] SystemXldxwwhftc08-29-2482Zoeexwzm trivalent influenza vaccine, adjuvanted, preservative Quentin sEcalante MD Work Phone: [facility] SystemMlojccqnjs33-79-5037qwgnpwszj, high dose seasonal, preservativeBrian Escalante MD Work Phone: [facility] SystemYognibfvdj17-87-6623Thdinhma trivalent influenza vaccine, adjuvanted, preservative Quentin Escalante MD Work Phone: [facility] SystemPecpluszhj71-10-1697Laqghtmv trivalent influenza vaccine, adjuvanted, preservative Quentin Escalante MD Work Phone: [facility] SystemSqxlnyqjmg21-87-6412Knrumniz trivalent influenza vaccine, adjuvanted, preservative Quentin Escalante MD Work Phone: [phone] [place], [place] [address]Gziarnvtqs04-20-0518ojaukye and diphtheria toxoids, adsorbed, preservative free, for adult use (5 Lf of tetanus toxoid and 2 Lf of diphtheria toxoid)Bebo Escalante MD Work Phone: [facility] SystemGodwjptnzw64-67-3877bsvjbme toxoid, reduced diphtheria toxoid, and acellular pertussis vaccine, adsorbedBebo Escalante MD Work Phone: [phone] [place], [place] [address]Kvnmwqytcb43-57-1202pewutq vaccine, Helga Escalante MD Work Phone: [phone] [place], [place] [address]Nvccgrtxkf99-84-9350vydlnbwloxuc conjugate vaccine, 13 Erika Escalante MD Work Phone: [phone] [place], [place] [address]Kmxhahamxl12-55-1155uhnbhice influenza, intradermal, preservative Quentin Escalante MD Work Phone: [phone] [place], [place] [address]Qucdjzbfln22-72-9997cujsshonuypy conjugate vaccine, 13 [place] Escalante MD Work Phone: [phone] [place], [place] [address]Xcawtapjhq72-05-8465sqxfkz vaccine, Helga Escalante MD Work Phone: [phone] [place], [place] [address]Imalikleah05-94-1825irhqofbtnmcy polysaccharide vaccine, 23 [place] Escalante MD Work Phone: [phone] [place], [place] [address]Vuwddqcdfj56-76-3033fgobyeako, seasonal, injectable, preservative Quentin Escalante MD Work Phone: [phone] [place], [place] [address]Ueysssjnom52-52-1045dvdcrertu, seasonal, injectableBebo Escalante MD Work Phone: [phone] [place], [place] [address]Lksxfaonqf88-45-9258hwufnlkb influenza, intradermal, preservative Quentin Escalante MD Work Phone: [facility] SystemAhrwwvntur65-13-1144bgkxaeygzctp polysaccharide vaccine, 23 valentDabao Escalante MD Work Phone: [facility] SystemAytvywrfdv18-89-5534pfawywkkq B vaccine, pediatric or pediatric/adolescent dosageBebo Escalante MD Work Phone: [facility] SystemInsaotckfy95-84-0297kajgdcscd B vaccine, pediatric or pediatric/adolescent dosageBebo Escalante MD Work Phone: [facility] SystemNfiffnmsad12-96-7470rwvrctg, mumps and rubella virus vaccineBebo Escalante MD Work Phone: [facility] Payers DatePayer CategoryPayerPolicy [id number] 2024Self-pay [id number] [facility] [id number] 2023-Present [address] [place] [id number] [id number] (Managed Care) [id number]6-7272Nxqdwys Health UmlnncwqgT9[id number] 2.16.840.1.513124.3.579.2.727 [id number] 2.16.840.1.793911.3.57[id number] 2.16.840.1.324029.3.57[id number] 2.16.840.1.992556.3.57[id number] 2.16.840.1.406324.3.57[id number] 2.16.840.1.298823.3.57[id number] 2.16.840.1.981674.3.579.2.60905-72-2254Wlddnjc3665906 2.16.840.1.699625.3.579.2.96250-06-2029Evbxtyj1032713 2.16.840.1.850090.3.579.2.01789-48-5811Utzdkrc7071318 2.16840.1.838257.3.579.[id number] 2.16.840.1.507031.3.579.2.89683-95-9211Alrvqik4779646 2.16.840.1.995309.3.579.2.72092-82-3457Gugmqqn0698469 2.16.840.1.198555.3.579.2.7[id number] 2.16.840.1.491180.3.579.[id number] 2.16.840.1.926484.3.579.2.4[id number] 2.16.840.1.123859.3.579.2.988504-41-6835Ytgqjtr86751951 2.16840.1.693920.3.579.2.709646-33-3920Xhwydcp0111512 2.16.840.1.930662.3.579.2.194109-14-2418Tudgzob0406886 2..840.1.986805.3.579.2.498348-45-4901Mlxyaka3985347 2.16.840.1.027476.3.579.2.1259MedicareAnthem [facility] [id number] Health InsuranceGallup Indian Medical Center PF [id number] 2.16.840.1.199930.3.579.2.187Fhqfapy57988059 2.16.840.1.244389.3.579.2.531 [id number] 2.16840.1.860876.3.579.2.460Rnryybb79468894 2.16.840.1.630978.3.579.2.531 Social History DateTypeDetailFacilityStart: 11-16-2023 End: 62-52-5467Vnrhwnv smoking status NHISEx-smoker (finding)[facility] Centertart: 48-90-0023Mnj Assigned At BirthFeLake County Memorial Hospital - Westtart: 64-70-8142Ozkpsqv smoking status NHISNever smoked tobacco [facility] HealthcareStart: 20-98-8960Spbnlei use and exposureSmokeless tobacco non-userNOMS HealthcareStart: 03-20-2024 End: 04-87-4591Rdlrpmbxm beverage intakeLifetime non-drinker (finding)[facility] HealthcareStart: 02-22-2023 End: 37-97-4495Kbihszw of Social functionNOMS HealthcareStart: 02-22-2023 End: 05-88-3907Zhvtcghxrqy, Afraid, Rape, and Kick questionnaire [HARK][facility] HealthcareWithin the last year, have you been afraid of your partner or ex-partner?NoNOMS HealthcareStart: 76-17-9470Hesarjcgn of Communication with Friends and FamilyNot on fileNOMS HealthcareAre you now , , , , never or living with a partner?WidowedNOMS HealthcareHow often to you have a drink containing alcohol?NeverNOMS Healthcare Do you feel stress - tense, restless, nervous, or anxious, or unable to sleep at night because yourmind is troubled all the time - these days [OSQ]Only a little [facility] SystemStart: 75-94-4628Frfatcg Commentcaffeine intake: 3-4 cups per day [facility] SystemStart: 68-76-0579Psbxnh identityIdentifies as female gender (finding)[facility] Medical Equipment Procedure CodeEquipment CodeEquipment Original TextEquipment IdentifierDates Arthroplasty, knee, total, minimally invasiveOrthopaedic cement, non-medicated ()[id number] FDAStart: 45-15-4321Pudbrvlvsidr, knee, total, minimally invasiveOrthopaedic bone screw, non-bioabsorbable, sterile()[id number](10)[id number] FDAStart: 12-22-2023 Arthroplasty, knee, total, minimally invasiveUncoated knee femur prosthesis ()[id number] FDAStart: 29-09-0571Kvhetsegvtzs, knee, total, minimally invasiveTibial insert()[id number] FDAStart: 44-55-8436Lkajozhjurnh, knee, total, minimally invasiveUncoated knee tibia prosthesis, metallic()[id number])[id number](10)[id number] FDAStart: 35-19-9685Wybpabpbotpe, knee, total, minimally invasiveKnee stem ()[id number])[id number] FDAStart: 88-24-7759Uyibiacygyrw, knee, total, minimally invasivePolyethylene patella prosthesis ([id number] FDAStart: 88-10-263756707604, 72284720, 73799609Wkcyd: 09-05-2022 Goals DatePatient GoalDesired Activity/StatePersonal health goal Functional Status AqbyBtqfkhzlzlIdqaeeCfrtakdz75-16-4698Vbdblzk Health Questionnaire 2 item (PHQ- 2) [Reported][facility] SystemRpobozbshc99-12-4800Gvdpcfv Health Questionnaire 2 item (PHQ- 2) [Reported][facility] SystemYxltqikryd36-74-2980Vxmrmqh Health Questionnaire 2 item (PHQ- 2) [Reported][facility] SystemBxogogrfvv56-41-2953Tucmnob Health Questionnaire 2 item (PHQ- 2) [Reported][facility] SystemKpxqzlslrn82-97-6835Ofkqouxgwp statusPatient is Progressing Toward BaselinePromedica Flower Hospital Work Phone: Mental Status VgzwFxmxnwqiuaAamznpQbczqiiu61-62-3936Zwikwialh functionCognitive Status [facility] Work Phone: Clinical Notes 04-07-2022 to 05-05-2025 Note Date & PcmpSwkqKlcbtphj10-11-3825 History of Present illness Narrative* RAAD De Leon - 05/05/2025 10:30 AM EST Images from the original note were not included. Subjective Patient ID: Kellie Rubio is a 79 y.o. female who presents for RACHEL. Kellie is present today for follow up RACHEL. She is currently on CPAP machine and she needs supplies possibly new machine sent to [facility] [facility] in [place], [place]. She needs a full facemask (AirFit) size medium if she does not qualify for a new machine. He last sleep study was done 06/16/20. Still feels tired throughout the day. Does not really feel a difference if she uses it or not. Sometimes feels like she doesn't really need it. Over the past 2 weeks, how often have you been bothered by any of the following problems? Little interest or pleasure in doing things: Not at all Feeling down, depressed, or hopeless: Not at all Patient Health Questionnaire-2 Score: 0 Current Outpatient Medications on File Prior to Visit Medication Sig Dispense Refill Albuterol-Budesonide (Airsupra) 90-80 MCG/ACT aerosol Inhale lisinopril 10 MG tablet TAKE 1 TABLET ONE TIME DAILY (Patient taking differently: Take 5 mg by mouth Daily) 90 tablet 3 Multiple Vitamins-Minerals (CENTRUM SILVER 50+WOMEN PO) Take 1 tablet by mouth Daily albuterol (2.5 MG/3ML) 0.083% nebulizer solution Take 3 mL (2.5 mg) by nebulization every 6 (six) hours if needed for wheezing 75 mL 11 ascorbic acid (Vitamin C) 500 mg/mL oral liquid Take by mouth. baclofen (Lioresal) 10 MG tablet TAKE 1 TABLET BY MOUTH EVERYDAY AT BEDTIME 100 tablet 3 Blood Glucose Monitoring Suppl (Blood Glucose Monitor System) w/Device kit 1 each Daily 1 kit 0 calcium citrate 600 mg and vitamin D3 (Citrical & Minerals + Vit D) 600-200 MG- UNIT tablet carvedilol (Coreg) 12.5 MG tablet TAKE 1 TABLET (12.5 MG) BY MOUTH IN THE MORNING AND 1 TABLET (12.5 MG) BEFORE BEDTIME. 200 tablet 3 cholecalciferol (Vitamin D-3) 50 MCG (2000 UT) capsule 1 capsule 1 (one) time each day at the same time. Lancets 30G misc 1 each Daily 100 each 3 meloxicam (Mobic) 15 MG tablet Take 1 tablet (15 mg) by mouth Daily 100 tablet 3 omeprazole (PriLOSEC) [address] capsule TAKE 1 CAPSULE (20 MG) BY MOUTH IN THE MORNING AND 1 CAPSULE(20 MG) BEFORE BEDTIME. 200 capsule 3 PARoxetine (Paxil) 20 MG tablet TAKE 1 TABLET BY MOUTH EVERY DAY IN THE MORNING 90 tablet 3 simvastatin (Zocor) 40 MG tablet TAKE 1 TABLET BY MOUTH AT BEDTIME 100 tablet 3 triamterene-hydrochlorothiazide (Maxzide-25) 37.5-25 MG tablet Take 1 tablet by mouth 1 (one) time each day at the same time 100 tablet 3 True Metrix Blood Glucose Test test strip USE DIRECTED DAILY 100 strip 3 TRUEplus Lancets 33G misc zinc gluconate 50 MG tablet 1 (one) time each day at the same time. [DISCONTINUED] amoxicillin (Amoxil) 500 MG capsule TAKE 4 CAPSULES BY MOUTH ONCE 30-60 MINS BEFORE PROCEDURE WITH FOOD 4 capsule 3 [DISCONTINUED] furosemide (Lasix) 20 MG tablet Take 1 tablet (20 mg) by mouth Daily for 5 days 5 tablet 0 No current facility-administered medications on file prior to visit. I have reviewed and reconciled the history and medication list with the patient today. Allergies Allergen Reactions Gadolinium Rash Iodinated Contrast Media Other Reaction(s): Unknown Iodine Other Reaction(s): Unknown Social History Tobacco Use Smoking status: Never Smokeless tobacco: Never Vaping Use Vaping status: Never Used Substance Use Topics Alcohol use: Never Comment: caffeine intake: 3-4 cups per day Drug use: Never Family History Problem Relation Name Age of Onset Cancer Mother Hypertension Mother Emphysema Father Hypothyroidism Sibling COPD Sibling Kidney disease Sibling Diverticulosis Sibling NIDIA disease Sibling Osteopenia Sibling Osteoarthritis Sibling Past Medical History: Diagnosis Date Arthritis Breast cancer (HCC) Depression Diabetes (HCC) GERD (gastroesophageal reflux disease) High cholesterol HTN (hypertension) Septic shock (HCC) 02/16/2023 Urinary incontinence Past Surgical History: Procedure Laterality Date BACK SURGERY 2006 CARPAL TUNNEL RELEASE 2004 CATARACT EXTRACTION Bilateral COLONOSCOPY W/ BIOPSIES AND POLYPECTOMY CYSTOSCOPY 11/08/2021 with ureteral catheter placement HC OR CATARACT REMOVAL Bilateral 2015 LAPAROTOMY SALPINGO OOPHORECTOMY Right 1986 LUMBAR DISC SURGERY LUMBAR SPINE SURGERY 2006 CHUN MASTECTOMY Left SALPINGOOPHORECTOMY Right 1986 TOTAL ABDOMINAL HYSTERECTOMY W/ BILATERAL SALPINGOOPHORECTOMY 2021 TOTAL KNEE ARTHROPLASTY Right 12/24/2023 TOTAL KNEE ARTHROPLASTY Right 12/22/2023 RT TKA- DR STEPANIC Visit Vitals BP 98/74 Pulse 60 Resp 16 Ht 5' Wt 190 lb 6.4 oz SpO2 96% BMI 37.18 kg/m Smoking Status Never BSA 1.91 m Review of Systems Constitutional: Positive for fatigue. Negative for chills and fever. Respiratory: Negative for cough, shortness of breath and wheezing. Cardiovascular: Negative for chest pain, palpitations and leg swelling. Gastrointestinal: Negative for abdominal pain, constipation, diarrhea, nausea and vomiting. Skin: Negative for rash. Objective Physical Exam Constitutional: General: She is not in acute distress. Appearance: She is well-developed. She is obese. HENT: Head: Normocephalic and atraumatic. Eyes: General: [...] Diagnoses and all orders for this visit: Obstructive sleep apnea syndrome Will obtain an updated CPAP titration study to verify that pt still needs a CPAP and that the setting she is using are correct. Referral sent to [facility]. Class 2 severe obesity due to excess calories with serious comorbidity and body mass index (BMI) of37.0 to 37.9 in adult Has lost 4 pounds since her last appt. Encouraged portion control, decrease simple sugars and carbohydrates, gradually increase activity level. Aim for continued gradual steady weight loss. Recurrent major depressive disorder, in full remission Mood stable at this time. Will continue to monitor. Follow up with RAAD Emerson in 23 weeks (on 10/13/2025 Wellness). documented in this encounterLake Regional Health [id number] History of Present illness Narrative* Jr. Ryan Calderon, - 03/19/2025 9:30 AM EDT Images from the original note were not included. HISTORY OF PRESENT ILLNESS: EST PT Kellie Rubio is an 79 y.o. @ female. (EST PT) - YEARLY RECHECK (R) TKA 12/22/23 (~1 YR, 3 MONTHS) XRAY TODAY, 03/19/25 IN EPIC XRAY 02/01/24 IN EPIC NO MDP / PREDNISONE S/P PHYSICAL THERAPY (6 SESSIONS) @[facility]. DENIES DISCOMFORT. DENIES SWELLING. CONTINUES TO STAY ACTIVE - DENIES HEP. GOOD ROM. DENIES POPPING / GRINDING. DENIES WEAKNESS / STIFFNESS. DEIDRE WAKING HS. MELOXICAM DAILY. ALLERGIES: Allergies Allergen Reactions Gadolinium Rash Iodinated Contrast Media Other Reaction(s): Unknown Iodine Other Reaction(s): Unknown HOME MEDICATIONS: Current Outpatient Medications Medication Instructions albuterol 2.5 mg, Nebulization, Every 6 hours PRN amoxicillin (Amoxil) 500 MG tablet 4 tabs PO once 30-60 mins before procedure with food ascorbic acid (Vitamin C) 500 mg/mL oral liquid Take by mouth. baclofen (LIORESAL) 10 mg, Oral, Nightly calcium citrate 600 mg and vitamin D3 (Citrical & Minerals + Vit D) 600-200 MG- UNIT tablet carvedilol (COREG) 12.5 mg, Oral, 2 times daily cholecalciferol (Vitamin D-3) 50 MCG (1999 UT) capsule 1 capsule, Every 24 hours furosemide (LASIX) 20 mg, Oral, Daily glucose blood (True Metrix Blood Glucose Test) test strip 1 each, Other, Daily, Use as instructed lisinopril 10 mg, Oral, Daily meloxicam (MOBIC) 15 mg, Oral, Daily omeprazole (PRILOSEC) 20 mg, Oral, 2 times daily PARoxetine (PAXIL) 20 mg, Oral, Every morning simvastatin (ZOCOR) 40 mg, Oral, Nightly triamterene-hydrochlorothiazide (Maxzide-25) 37.5-25 MG tablet 1 tablet, Oral, Every 24 hours TRUEplus Lancets 33G misc zinc gluconate 50 MG tablet Every 24 hours PHYSICAL EXAM: Knee Musculoskeletal Exam Gait Gait is normal. Inspection Leg length disparity: no discrepancy Right Erythema: none Effusion: none Edema: none Ecchymosis: none Deformity: none Alignment: normal Previous incision: anterolateral Incision: well-healed Palpation Right Right knee palpation is unremarkable. Increased warmth: none Masses: none Tenderness: none Range of Motion Right Right knee range of motion is normal and full. Active extension: 0 Passive extension: 0 Active flexion: 120 Passive flexion: 120 Strength Right Right knee strength is normal. Extension: 5/5. Flexion: 5/5. Instability Right Instability signs: none - stable Varus stress grade: normal Valgus stress grade: normal Neurovascular Right Right knee neurovascular exam is normal. Pulses - PT: normal Posterior tibial: 2+ Capillary refill: warm and well-perfused Special Signs Right Right knee special signs are normal. Patellar apprehension: none General Constitutional: appears stated age Labored breathing: no Psychiatric: normal mood and affect Neurological: alert Skin: intact Lymphadenopathy: none Vitals: There is no height or weight on file to calculate BMI. Tobacco Use: Low Risk (03/19/2025) Patient History Smoking Tobacco Use: Never Smokeless Tobacco Use: Never Passive Exposure: Not on file Alcohol Use: Not At Risk (02/22/2023) AUDIT-C Frequency of Alcohol Consumption: Never Average Number of Drinks: Patient does not drink Frequency of Binge Drinking: Never IMAGING: XR knee 1 or 2 views right Imaging Result: AP and lateral of right knee showed surgical position and alignment of prosthetic components without evidence of loosening or wear to the femoral, tibial, or patellar components. The alignment appeared to be anatomic. There was no evidence of accelerated or asymmetric wear to the patellar button ortibial tray. There was no evidence of fracture and/or dislocation. Impression: Unremarkable right total knee arthroplasty. Procedures Orders Placed This Encounter Procedures XR knee 1 or 2 views right Reason for exam:: Follow-up ASSESSMENT: ICD-10-CM 1. S/P TKR (total knee replacement), right Z96.651 XR knee 1 or 2 views right PLAN: Patient is very pleased with her progress as am I she states if I had known how well this would'vegone I would've done it along time ago . We will see her back in 2 years to reassess her status Questions answered in laymen terms at the bedside. The diagnosis, home exercise plan and any ongoing restrictions/ recommendations reviewed. If unable to be reached in office, I recommend evaluation at nearest Emergency Room if any symptoms worsened or new symptoms develop for requiring urgent evaluation. documented in this encounterLake Regional Health [id number] History of Present illness Narrative* Bebo Escalante MD - 12/16/2024 8:30 AM EDT Images from the original note were not included. HPI Med Refill Additional comments: [facility]oxicam-- [facility] Last edited by Jenise Forte LPN on 12/16/2024 8:20 AM. Subjective Patient ID: Kellie Rubio is a 79 y.o. female who presents for Diabetes and Med Refill (Meloxicam-- [facility]). Diabetes Mellitus Patient presents for follow up of diabetes. Patient denies foot ulcerations. Evaluation to date hasincluded: fasting blood sugar, fasting lipid panel, hemoglobin A1C, and microalbuminuria. Home sugars: patient does not check sugars. Diabetes Associated symptoms include fatigue. Pertinent negatives for diabetes include no chest pain. Med Refill Associated symptoms include fatigue. Pertinent negatives include no chest pain. Hypertension Associated symptoms include shortness of breath. Pertinent negatives include no chest pain. Over the past 2 weeks, how often have you been bothered by any of the following problems? Little interest or pleasure in doing things: Not at all Feeling down, depressed, or hopeless: Not at all Patient Health Questionnaire-2 Score: 0 Current Outpatient Medications on File Prior to [...] Daily for 5 days 5 tablet 0 glucose blood (True Metrix Blood Glucose Test) test strip 1 each by Other route Daily Use as instructed 100 each 3 lisinopril 10 MG tablet TAKE 1 TABLET ONE TIME DAILY 90 tablet 3 omeprazole (PriLOSEC) [address] capsule Take [...] time each day at the same time. [DISCONTINUED] meloxicam (Mobic) 15 MG tablet TAKE [...] Medical History: Diagnosis Date Arthritis Breast cancer (HCC) Depression Diabetes (HCC) GERD (gastroesophageal reflux disease) High cholesterol HTN (hypertension) Septic shock (HCC) 02/16/2023 Urinary incontinence Past Surgical History: Procedure [...] RT TKA- DR STEPANIC Visit Vitals BP 136/70 Pulse 60 Ht 5' Wt 194 lb SpO2 95% BMI 37.89 kg/m Smoking Status Never BSA 1.93 m Review of Systems Constitutional: Positive for fatigue. Respiratory: Positive for shortness of breath. Cardiovascular: Negative for chest pain. Objective Physical [...] normal. Behavior: Behavior normal. Office Visit on 12/16/2024 Component Date Value Ref Range Status Hemoglobin A1C 12/16/2024 6.4 Final Assessment/Plan Diagnoses and all orders for this visit: Type 2 diabetes mellitus with stage 3a chronic kidney disease, without long-term current use of insulin (HCC) - POCT Glycated hemoglobin, total - Comprehensive metabolic panel; Future - TSH; Future - T4, free; Future - Lipid panel; Future - FSBS log shows good control, most recent A1C is at or near goal. Continue current treatment plan as previously outlined without changes. Morbid (severe) obesity due to excess calories ([facility]-HCC) Benign essential hypertension Pure hypercholesterolemia - Lipid panel; Future Localized edema Stage 3a chronic kidney disease ([facility]-HCC) - CBC and differential - Comprehensive metabolic panel; Future Osteoarthritis, unspecified osteoarthritis type, unspecified site Pulmonary hypertension, unspecified (HCC) Chronic obstructive pulmonary disease, unspecified (HCC) Osteoarthritis of multiple joints, unspecified osteoarthritis type - meloxicam (Mobic) 15 MG tablet; Take 1 tablet (15 mg) by mouth Daily Follow up in about 4 months (around 04/17/2025) for Wellness. documented in this encounterLake Regional Health [id number] Evaluation note* Diagnosis Type 2 diabetes mellitus with stage 3a chronic kidney disease, without long-term current use of insulin (HCC)- Primary Morbid (severe) obesity due to excess calories (CMS-HCC) Benign essential hypertension Essential hypertension, benign Pure hypercholesterolemia Pure hypercholesterolemia Localized edema Edema Stage 3a chronic kidney disease (CMS-HCC) Osteoarthritis, unspecified osteoarthritis type, unspecified site Pulmonary hypertension, unspecified (HCC) Chronic obstructive pulmonary disease, unspecified (HCC) Osteoarthritis of multiple joints, unspecified osteoarthritis type documented in this encounter [facility] [id number] Telephone encounter Note* Telephone Encounter - RAAD Pichardo - 11/04/2024 3:57 PM EDT Pt Should call for refill if needed. [facility] [id number] Miscellaneous Notes* Telephone Encounter - RAAD Pichardo - 11/04/2024 3:57 PM EDT Pt Should call for refill if needed. documented in this encounterLake Regional Health [id number] History of Present illness Narrative* Bebo Escalante MD - 10/10/2024 10:30 AM EDT Images from the original note were not included. HPI Results Additional comments: PFT, echo Last edited by Jenise Forte LPN on 10/10/2024 10:16 AM. Subjective : Chief Complaint: Kellie Rubio is an 78 y.o. female here for an annual wellness visit. I have reviewed and reconciled the history and medication list with the patient today. Current Outpatient Medications Medication Sig Dispense Refill albuterol (2.5 MG/3ML) [...] tablet 3 cholecalciferol (Vitamin D-3) 50 MCG (1999) capsule 1 capsule 1 (one) time each day at the same time. glucose blood (True Metrix Blood Glucose Test) test strip 1 each by Other route Daily Use as instructed 100 each 3 lisinopril 10 MG tablet TAKE 1 TABLET [...] Daily for 5 days 5 tablet 0 No current facility-administered medications for this visit. Review of Systems Constitutional: Positive for fatigue. Respiratory: Positive for shortness of breath. Negative for cough, chest tightness and wheezing. Cardiovascular: Negative for chest pain and leg swelling. List of current healthcare providers: Patient Care Team: Bebo Escalante MD as PCP - General (Internal Medicine) Bebo Escalante MD as PCP - [employer] Annual Visit Over the past 2 weeks, how often have you been bothered by any of the following problems? Little interest or pleasure in doing things: Not at all Feeling down, depressed, or hopeless: Not at all Patient Health Questionnaire-2 Score: 0 Khalil Fall Risk History of Falling, Immediate or Within 3 Months: No Secondary Diagnosis: No Ambulatory Aid: Crutches/cane/walker Health Risk Assessment Form Do you need help eating, bathing, using the toilet, dressing, or getting around your home?: No Can you prepare your own meals?: Yes Can you do your own housework without help?: Yes Can you shop for groceries or clothes without help?: Yes Do you exercise for about 20 minutes 3 or more days a week?: No How confident are you that you can control and manage most of your health problems?: Very confident Can you mange your money, credit cards and accounts, pay bills and taxes?: Yes Cognitive Screening Three Word Registration: [employer], Watch, [employer] Clock Drawing: Normal Clock - 2 Three Word Recall: All 3 words correct - 3 Total Score (0-5 Points): 5 Pain Assessment Pain Score: 4 Advance Care Planning Do you have a living will?: Yes Do you have a medical power of steam box operator?: Yes Who is your medical power of steam box operator?: daughtersyd Objective : BP 122/70 Pulse 58 Ht 5' Wt 192 lb SpO2 95% BMI 37.50 kg/m No results found. Physical Exam Constitutional: [...] Affect: Mood normal. Behavior: Behavior normal. Assessment/Plan : The following health maintenance schedule was reviewed with the patient and provided in printed form in the after visit summary: Health Maintenance Topic Date Due Diabetes: Hemoglobin A1C 10/23/2024 Medicare Annual Wellness (AWV) 03/11/2025 Diabetes: Urine Protein Screening 09/20/2025 Diabetes: Retinopathy Screening 08/13/2026 Influenza Vaccine Completed Pneumococcal Vaccine: 65+ Years Completed Advance Care [...] a living will and durable power of steam box operator for healthcare. We discussed telling viramontes people about their advance directives such as close family members, and requested a copy to scan into the patient's EHR. An advance directive packet was offered to the patient. 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 Discussed this and PFTs/echo in detail. Repeat study next year. Mediastinal mass - Repeat CT next winter. Follow up in about 2 months (around 12/10/2024) for DM- A1C. Orders Placed This Encounter Procedures Microalbumin / creatinine urine ratio This order was created through External Result Entry Order Specific Question: Print requisition? Answer: No Electronically signed by Bebo Escalante MD on October 10, 2024 documented in this encounterLake Regional Health [id number] History of Present illness Narrative* Bebo Escalante MD - 08/16/2024 8:30 AM EST Images from the original note were not included. HPI Results Additional comments: Ct chest results Last edited by Jenise Forte LPN on 08/16/2024 8:21 AM. Subjective Patient ID: Kellie Rubio is a 78 y.o. female who presents for Diabetes, Hypertension, and Results (Ct chest results). Refill-- albuterol mdi--Claudia Hopkins is present today for follow up of hypertension. Denies chest pain, SOB, blurry vision, headaches. Admits to having some wheezing and that she is taking albuterol. Does not check BPS's home. Diabetes Mellitus Patient presents for follow up of diabetes. Patient denies foot ulcerations. Evaluation to date hasincluded: fasting blood sugar, fasting lipid panel, hemoglobin [...] cholesterol (CMS/HCC) HTN (hypertension) (CMS/HCC) Septic shock ([facility]) 02/16/2023 Urinary incontinence Past Surgical History: Procedure [...] 09/06/2024) for Test/Lab Review. documented in this encounterLake Regional Health SystemLamodhpfnu98-98-0621 Telephone encounter Note* Telephone Encounter - RAAD Pichardo - 08/14/2024 11:01 AM EST Rx sent to [facility] [place]. [facility] [id number] Miscellaneous Notes* Telephone Encounter - RAAD Pichardo - 08/14/2024 11:01 AM EST Rx sent to [facility] In [place]. * Telephone Encounter - RAAD Pichardo - 08/13/2024 6:41 PM EST Rx sent to [facility].. please notify pt... * Telephone Encounter - Johanna Santa - 08/13/2024 1:36 PM EST Patient called she is wanting to get her teeth cleaned said its been awhile, she had her TKA in 03/26 but wanted to know about taking the Pre-med, her pharmacy is [facility] in [place] [phone] pls advise documented in this [facility]02-11-2025 Telephone encounter Note* Telephone Encounter - RAAD Pichardo - 08/13/2024 6:41 PM EST [facility] [place] [facility]... [facility] [id number] Telephone encounter Note* Telephone Encounter - Johanna Santa - 08/13/2024 1:36 PM EST Patient called she is wanting to get her teeth cleaned said its been awhile, she had her TKA in 03/26 but wanted to know about taking the Pre-med, her pharmacy is [facility] in [place] [phone] pls advise [facility] SystemYqvmjerrvc75-82-8735 History of Present illness Narrative* Bebo Escalante MD - 07/25/2024 9:30 AM EST HPI Results Additional comments: Labs 03/2024 Last [...] Patient denies foot ulcerations. Evaluation to date hasincluded: fasting blood sugar, fasting lipid panel, hemoglobin [...] RT TKA- DR CALDERON Visit Vitals BP 120/72 Pulse 67 Ht [...] LDL-C. Jose LIM et al. YG. 2013;310(19): 0540-7780 (http://education.WeMonitor.Entrec/faq/IQD439) CHOL/HDLC RATIO 03/11/2024 2.4 <5.0 (calc) Final [...] stable since last assessment. No changes in treatmentare suggested at this time. Follow up in about 3 weeks (around 08/15/2024) for Test/Lab Review. documented in this encounterLake Regional Health SystemVvbiwssewd89-24-1819 Evaluation note* Diagnosis Mediastinal mass- Primary Swelling, mass, or lump in chest Type 2 diabetes mellitus with stage 3a chronic kidney disease, without long-term current use of insulin (HCC) (CMS/HCC) Abnormal CT of the chest Nonspecific (abnormal) findings on radiological and other examination of other intrathoracic organs Benign essential hypertension ([facility]/HCC) Essential hypertension, benign documented in this encounter [facility] SystemUqukzkeclv57-58-9527 Telephone encounter Note* Telephone Encounter - RAAD Pichardo - 06/07/2024 8:00 PM EST Pt Should call for refill if needed. [facility] Work Phone: 1(250) 760-801112-06-2024 Miscellaneous Notes* Telephone Encounter - RAAD Pichardo - 06/07/2024 8:00 PM EST Pt Should call for refill if needed. documented in this encounterLake Regional Health [id number] Telephone encounter Note* Telephone Encounter - RAAD Pichardo - 04/04/2024 12:25 PM EDT Pt Should call for refill if needed. [facility] Work Phone: 1(803) 636-786810-03-2024 Miscellaneous Notes* Telephone Encounter - RAAD Pichardo - 04/04/2024 12:25 PM EDT Pt Should call for refill if needed. documented in this encounterLake Regional Health [id number] History of Present illness Narrative* Jr. Ryan Calderon, - 03/20/2024 10:30 AM EDT Images from the original note were not included. HISTORY OF PRESENT ILLNESS: POST OP PT Kellie Rubio is an 78 y.o. @ female. (EST PT ; LAST APPT W/ [facility]) S/P (R) TKA 12/22/23 (12WKS 5DAYS) XRAYS, 02/01/24 IN [facility] NO MDP / PREDNISONE S/P PHYSICAL [facility]. DENIES ANY CURRENT DISCOMFORT. [...] I am acting as scribe for Dr. Calderon/claudio, PLAN: We have reviewed prior (R) knee [...] xrays. Ryan Calderon D.O. documented in this encounterLake Regional Health SystemCflptramvu18-04-1675 History of Present illness Narrative* Bebo Escalante [...] Medicine) Bebo Escalante MD as PCP - [facility] Bebo Escalante MD as PCP - [facility] [...] Do you have a medical power of steam box operator?: Yes Who is your medical power of steam box operator?: daughter- lucio Objective : BP 130/80 Pulse [...] a living will and durable power of steam box operator for healthcare. We discussed telling viramontes people about their advance directives such as close family members, and requested a copy to scan into the patient's EHR. An advance directive packet was offered to the patient. Assessment/Plan Diagnoses and all orders for this visit: Routine general medical examination at [facility] care facility ACP (advance care planning) Type 2 diabetes mellitus with stage 3a chronic kidney disease, without long-term current use of insulin (HCC) (CMS/HCC) - POCT Glycated hemoglobin, total - CBC and differential - Comprehensive metabolic panel; Future - Lipid panel; Future - TSH W/REFLEX TO FT4; Future Pure hypercholesterolemia (CMS/HCC) Morbid (severe) obesity due to excess calories (CMS/HCC) Essential (primary) hypertension (CMS/HCC) Body mass index [...] on March 11, 2024 documented in this encounterLake Regional Health SystemVjpisvbyqz90-28-1374 Progress note Author Ravi Shen [facility] December 25, 2023 5:24pmNote Date/TimeJune 2023 5:09pmCharles Ville [id number] Hospitalist Progress Note Signed Patient: Kellie Rubio MR#: [id number] : 1945 Acct:[id number] Age/Sex: 78 / F Adm Date: 4 Loc: Room: [address] [place] [address] Type: ADM IN Attending Dr: Ravi Shen [...] being like Colace every evening and drinking coffeein the morningto maintain bowel regularity. The bedside [...] 12/22/23 09:00 12/25/23 09:27 Aspirin 81 Mg Tablet. PO 12/21/24 08:59 81 mg BID JOSE [...] Oil 1 each 12/24/23 21:05 Mineral Oil ([place]) 1 Each Enema MA ONCE PRN Constipation Morphine Sulfate 15 mg 12/21/23 21:05 Morphine Sulfate 12hr Er 15 Mg Tablet.Er PO Q12H PRN Pain Varenicline [Tyrvaya 1 spray 12/21/23 21:01 ] 0.03 Mg/[place] NASAL 12/20/24 21:00 [place], Metered, Non- DAILY PRN Aerosol dry eye(s) [...] 12/23/23 17:21 Phenyleph/Mineral Oil/Petrolat 57 Gm Tube MA 12/22/24 17:20 QID PRN Hemorrhoids Polyethylene Glycol [...] for discharge to home. Documented By: Ravi Shen DO [id number] Signed By: <Electronically signed by Ravi Shen, > 12/25/231723 [facility] Work Phone: 1(451) 273-847306-24-2024 Consult note Author Agustin Matthews [facility] December 25, 2023 1:21pmNote Date/TimeJune 2023 1:15pm[place] [address] Physiatry (Rehab) Consult Note Signed Patient: Kellie Rubio MR#: [id number] : 1945 Acct:[id number] Age/Sex: 78 / F Adm Date: 4 Loc: 4N Room: [address] [place] [address] Type: ADM IN Attending Dr: Ravi Shen [...] is resolving) associated with some postopconfusion / alteredmental status. She is back to her premorbid [...] postacute care options including inpatient rehabilitation unit, [facility] facility andhome with home health care. Both would prefer home with home health care at this point, especially given herimprovement and theinvolvement of prior auth process for IRF with [employer] whichif pursued would likely delay her discharge planning. Review of Systems Review of Systems All other systems reviewed & are negative unless noted below or in HPI [facility] Medical History RACHEL (obstructive sleep apnea) Depression [...] 1 mg capsule (Ferrex) 1 cap PO QA 11/16/23 [History Confirmed 12/22/23] lisinopril 10 mg tablet 5 mg PO QA 11/16/23 [History Confirmed 12/22/23] meloxicam 15 mg tablet 15 mg PO [facility] 11/16/23 [History Confirmed 12/22/23] omeprazole 20 mg capsule,delayed release 20 mg PO BID 11/16/23 [History Confirmed 12/22/23] paroxetine HCl 20 mg tablet 20 mg PO QA 11/16/23 [History Confirmed 12/22/23] simvastatin 40 mg tablet 40 mg PO QHS 11/16/23 [History Confirmed 12/22/23] triamterene 37.5 mg-hydrochlorothiazide 25 mg tablet 1 tab PO QA 11/16/23 [History Confirmed 12/22/23] varenicline 0.03 mg/spray [...] and obtained and summated medical records and haveordered follow up lab tests and imaging studies [...] and daughter, they are encouraged by her improvementfrom the weekend. She is ambulatory in the hallways with her walker this morning, standby assist. Her daughter is able to assist at home for a few weeks. -In agreement for home with home health care when cleared. -Can re-evaluate if change in clinical or functional status. Patient was personally seen by me, Dr. Matthews, on the day of encounter, reviewed the history and therelevant portions of the chart, including current orders, allied health and business sales consultant notes, labs/imaging and performed viramontes elements of exam and I formulated the plan of care and facilitated the medical decision making. I completed a substantive portion of this encounter, the medical decision making portion of this note in its entirety, including Allied health note review, nursing note review, business sales consultant note review, discussion with nursing and case management, and more than 50% of my time was spent on counseling and coordination of care, time spent 45 minutes Documented By: Agustin Matthews MD 12/25/23 1311 Signed By: <Electronically signed by Agustin Matthews MD> 12/25/23 1321 [facility] Work Phone: 1(391) 442-547906-23-2024 Progress note Author Dusty Ulloa [facility] December 24, 2023 2:40pmNote Date/TimeJune 2023 12:23pm[place] [address] Hospitalist Progress Note Signed Patient: Kellie Rubio MR#: [id number] : 1945 Acct:[id number] Age/Sex: 78 / F Adm Date: 4 Loc: Room: [address] [place] [address] Type: ADM IN Attending Dr: Dusty Ulloa [...] of movements, no calf tenderness, no edema, rightknee dressed, dressing CDI Neuro: AOx3, CN II-VII [...] 12/22/23 09:00 12/24/23 09:10 Aspirin 81 Mg Tablet. PO 12/21/24 08:59 81 mg BID JOSE [...] Oil 1 each 12/24/23 21:05 Mineral Oil (Rusk) 1 Each Enema MA ONCE PRN Constipation Morphine Sulfate 15 mg 12/21/23 21:05 Morphine Sulfate 12hr Er 15 Mg Tablet.Er PO Q12H PRN Pain Varenicline [Tyrvaya 1 spray 12/21/23 21:01 ] 0.03 Mg/[place] NASAL 12/20/24 21:00 [place], Metered, Non- DAILY PRN Aerosol dry eye(s) Ondansetron HCl 8 mg 12/21/23 21:05 Ondansetron Odt 4 Mg Tab.Rapdis PO 12/20/24 21:04 TID PRN Nausea Oxycodone HCl 5 mg 12/21/23 21:05 12/23/23 18:40 Oxycodone Ir 5 Mg Tablet PO 5 mg Q4HR PRN Administration Pain Scale 6 - 10 Pantoprazole Sodium 40 mg 12/22/23 21:00 12/24/23 09:10 Pantoprazole 40 Mg Tablet.Dr GARCÍA 12/21/24 20:59 40 mg BID JOSE CARLOS Administration Paroxetine HCl 20 mg 12/23/23 09:00 12/24/23 09:10 Paroxetine 20 Mg Tablet PO 12/22/24 08:59 20 mg QAM JOSE CARLOS Administration Phenyleph/Shark Oil/Min Oil/Petrol 1 applicator 12/23/23 17:21 Phenyleph/Mineral Oil/Petrolat 57 Gm Tube MA 12/22/24 17:20 QID PRN Hemorrhoids Polyethylene Glycol [...] 1221 Signed By: <Electronically signed by Dusty Ulloa DO> 12/24/23 1440 [facility] Work Phone: 1(681) 705-212606-22-2024 Consult note Author Dusty Ulloa [facility] December 23, 2023 12:45pmNote Date/TimeJune 2023 9:59[place] [address] Hospitalist Consult Note Signed Patient: Kellie Rubio MR#: [id number] : 1945 Acct:[id number] Age/Sex: 78 / F Adm Date: 4 Loc: 4N Room: 1A3166-5 Type: REG SDC Attending Dr: Dusty Ulloa [...] for a scheduled right TKA, the procedure w as in the afternoonand the patient had a [...] negative unless noted below or in HPI [facility] Medical History (Updated 12/23/23 @ 09:57 by [...] lisinopril 10 mg tablet 5 mg PO QA 11/16/23 [History Confirmed 12/22/23] meloxicam 15 mg tablet 15 mg PO QA 11/16/23 [History Confirmed 12/22/23] omeprazole 20 mg capsule,delayed release 20 mg PO BID 11/16/23 [History Confirmed 12/22/23] paroxetine HCl 20 mg tablet 20 mg PO [facility] 11/16/23 [History Confirmed 12/22/23] simvastatin 40 mg tablet 40 mg PO QHS 11/16/23 [History Confirmed 12/22/23] triamterene 37.5 mg-hydrochlorothiazide 25 mg tablet 1 tab PO [facility] 11/16/23 [History Confirmed 12/22/23] varenicline 0.03 mg/spray [...] Oil 1 each 12/24/23 21:05 Mineral Oil ([place]) 1 Each Enema MA ONCE PRN Constipation Morphine Sulfate 15 mg 12/21/23 21:05 Morphine Sulfate 12hr Er 15 Mg Tablet.Er PO Q12H PRN Pain Naloxone HCl 0.4 mg 12/21/23 21:05 Naloxone Hcl 0.4 Mg/Ml Vial IV-PUSH 12/20/24 21:04 Q2M PRN Opioid Reversal Varenicline [Tyrvaya 1 spray 12/21/23 21:01 ] 0.03 Mg/[place] NASAL 12/20/24 21:00 [place], Metered, Non- DAILY PRN Aerosol dry eye(s) Ondansetron HCl 8 mg 12/21/23 21:05 Ondansetron Odt 4 Mg Tab.Rapdis PO 12/20/24 21:04 TID PRN Nausea Oxycodone HCl 5 mg 12/21/23 21:05 12/23/23 06:43 Oxycodone Ir 5 Mg Tablet PO 5 mg Q4HR PRN Administration Pain Scale 6 - 10 Pantoprazole Sodium 40 mg 12/22/23 21:00 12/22/23 21:43 Pantoprazole 40 Mg Tablet. PO 12/21/24 20:59 [...] 1 Cap Capsule PO 12/22/24 08:59 QAM JOSE CARLOS Sodium Chloride 0 ml 12/21/23 21:03 Sodium Chloride 0.9 % 10 Ml Syringe IV-PUSH 12/20/24 21:02 PRN PRN Flush Sodium Chloride 0 ml 12/21/23 22:00 12/23/23 06:35 Sodium Chloride 0.9 % 10 Ml Syringe IV-PUSH 12/20/24 21:59 Not Given QSHIFT JOSE CARLOS Sodium Chloride 0 ml 12/22/23 09:09 Sodium Chloride 0.9 % 10 Ml Syringe IV-PUSH 12/21/24 09:08 PRN PRN Flush Temazepam 7.5 mg 12/21/23 21:05 Temazepam 7.5 Mg Capsule PO 06/18/24 21:04 QHS PRN Insomnia Triamterene/Hydrochlorothiazide 1 tab 12/23/23 09:00 Triamterene/Hctz 37.5-25mg 1 Tab Tablet PO 12/22/24 08:59 QAM [facility] Vitamin D 50 mcg 12/23/23 09:00 Cholecalciferol 25 Mcg (1,000 Units) Tablet PO 12/22/24 08:59 QAM [facility] Zinc Gluconate 50 mg 12/22/23 16:30 12/22/23 17:22 Zinc Gluconate 50 Mg Tablet PO 12/21/24 16:29 Not Given [facility] Exam Physical Exam Vital Signs: Temp Pulse [...] of movements, no calf tenderness, no edema, rightknee dressed, dressing CDI Neuro: AOx3, CN II-VII intact. Moves all extremities in all planes of motion. Skin: dry, intact no rashes or lesions Results - Hospitalist Consult Lab Results Labs: Laboratory Results - last 72 hr 12/23/23 04:42: Corrected WBC 18.0 H, Uncorrected WBC Count 18.0 H, RBC 4.02, Hgb 11.3 L, Hct 35.4,MCV 87.9, MCH 28.2, MCHC 32.1, RDW 14.0, Plt Count 272, MPV 9.3, Neut % (Auto) 91.5, Lymph % (Auto)4.4, Mckean % (Auto) 4.0, Eos % (Auto)0.0, Baso % (Auto) 0.1, Nucleat RBC Rel Count 0.1, Neut # (Auto) 16.5 H, Lymph #(Auto) 0.8 L, Mckean # (Auto) 0.7, Eos # (Auto) 0.0, [...] % (Auto) 95.7, Lymph % (Auto) 3.3, Mckean % (Auto) 0.7, Eos % (Auto) 0.2, Baso % (Auto) 0.1, Nucleat RBC Rel Count 0.1, Neut # (Auto)14.0 H, Lymph #(Auto) 0.5 L, Mckean # (Auto) 0.1, Eos # (Auto) 0.0, Baso # (Auto) 0.0, PHA CreatinineClear 40.84, Sodium 135 L, Potassium 4.5, Chloride [...] signed by Dusty Ulloa DO> 12/23/23 1245 [facility] Work Phone: 1(161) 400-389906-21-2024 Progress note Author Dusty Ulloa [facility] December 22, 2023 5:58pmNote Date/TimeJune 2023 5:58pm[place] [address] Progress Note Signed Patient: Kellie Rubio MR#: [id number] : 1945 Acct:[id number] Age/Sex: 78 / F Adm Date: 4 Loc: 4N Room: [address] [place] [address] Type: REG SDC Attending Dr: Ryan Calderon Jr DO Copies to: ~ Date of Service: 12/22/2023 Progress Narrative Note Attempted to see the patient in the [id number] setting however she was lethargic, arousable but [...] is needed overnight, please page the night [employer] Documented By: Dusty Ulloa DO 12/22/231756 Signed By: <Electronically signed by Dusty Ulloa DO> 12/22/23 1753 [facility] Work Phone: 1([phone]) 481-632805-11-2023 NotePROCEDURE: XR KNEE RT 4V or > HISTORY: Osteoarthritis of right knee joint COMPARISON: None. FINDINGS: BONES:Marked narrowing of the medial joint space with near [id number] articulation. No appreciable significant narrowing of the anterior or lateral compartments. Large degenerative osteophytes along the articular margins of the medial and anterior compartments. No fracture, dislocation, bone lesion. SOFT TISSUES:No visible soft tissue swelling. EFFUSION:None visible. OTHER: Negative. IMPRESSION: 1. Marked degenerative joint disease. 2. No acute bone abnormality. Electronically authenticated by: AJ OH Date: 2022-11-10 13:24[facility]01-18-2023 NoteCONSULTATION CONSULTATION DATE: 07/20/2022 HISTORY OF PRESENT [...] otherwise indicated. Patient agrees with this plan.[facility] 04-07-2022 NoteCONSULTATION CONSULTATION DATE: 04/07/2022 This [...] in three months' time unless otherwise indicated.[facility] noteNo assessment information availableSum[facility] Work Phone: Evaluation note* Diagnosis Onset Date Resolution Status Acute hypoxemic respiratory failure acuteAmbulatory dysfunctionacuteHypertensionacuteHyponatremiaacuteOSA (obstructive sleep apnea)acuteTotal knee replacement statusacute [facility] Work Phone: Evaluation note* Diagnosis Onset Date Resolution Status Ambulatory dysfunction acuteHypertensionacuteHyponatremiaacuteOSA (obstructive sleep apnea)acuteTotal knee replacement statusacuteAcute hypoxemic respiratory failureresolved [facility] Work Phone: Evaluation note* Diagnosis Arthritis of right knee Pre-op examination documented in this encounter [facility] HealthcareEvaluation [facility]* Diagnosis Arthritis of right knee Pre-op examination documented in this encounter [facility] HealthcareEvaluation note* Diagnosis Routine general medical examination [...] female breast (CMS/HCC) documented in this encounter [facility] note* Diagnosis S/P TKR (total knee replacement), right- Primary documented in this encounter [facility]Evaluation note* Diagnosis ROBLES (dyspnea on exertion)- [...] female breast (CMS/HCC) documented in this encounter [facility] HealthcareEvaluation note* Diagnosis S/P TKR (total knee replacement), right- Primary documented in this encounter [facility] HealthcareEvaluation note* Diagnosis Routine general medical examination at health care facility- Primary Routine general medical examination at a health care facility ACP (advance care planning) Other specified counseling 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 Mediastinal mass Swelling, mass, or lump in chest documented in this encounter [facility]* Diagnosis Arthritis of right knee Pre-op examination documented in this encounter [facility]* Diagnosis S/P TKR (total knee replacement), right documented in this encounter [facility]* Diagnosis Obstructive sleep apnea syndrome- Primary Obstructive sleep apnea (adult) (pediatric) Class 2 severe obesity due to excess calories with serious comorbidity and body mass index (BMI) of37.0 to 37.9 in adult Recurrent major depressive disorder, in full remission documented in this encounter [facility] Healthcare Summary Purpose Family History No Family History Records Found Relationship Condition Age at Onset Recorded Date/T cici Not Specified Malignant neoplasm of breast Unknown HypertensionUnknownfatherChronic obstructive pulmonary diseaseUnknownbrotherType 2 diabetes mellitusUnknownChronic obstructive pulmonary diseaseUnknownsister Chronic obstructive pulmonary diseaseUnknownsisterLupusUnknown Relationship Condition Age at Onset Recorded Date/T cici mother Malignant neoplasm of breast Unknown HypertensionUnknownfatherChronic obstructive pulmonary diseaseUnknownbrotherType 2 diabetes mellitusUnknownChronic obstructive pulmonary diseaseUnknownsister Chronic obstructive pulmonary diseaseUnknownsisterLupusUnknown Advance Directives No Advanced Directives Records Found Advance Directive Response Recorded Date/ Time Advance Directives No October 31, 2017 2:41pm Chief Complaint and Reason for Visit Chief Complaint DJD Chief Complaint DJD Z01.818 DJD DJDReason for VisitAcute hypoxemic respiratory failure Ambulatory dysfunction Hypertension Hyponatremia RACHEL (obstructive sleep apnea) Total knee replacement status Chief Complaint DJD Z01.818 DJD DJD DJDReason for VisitAmbulatory dysfunction Hypertension Hyponatremia RACHEL (obstructive sleep apnea) Total knee replacement status Acute hypoxemic respiratory failure Additional Source Comments INFORMATION SOURCE (unrecogn ized section and content) DATE CREATED AUTHOR 07/08/2021 [facility] DATE CREATED AUTHOR AUTHOR'S ORGANIZ ATION 11/11/2022 [facility] DATE CREATED AUTHOR AUTHOR'S ORGANIZ ATION 11/13/2022 [facility] DATE CREATED AUTHOR AUTHOR'S ORGANIZ ATION 02/12/2024 [facility] DATE CREATED AUTHOR AUTHOR'S ORGANIZ ATION 12/20/2024 [facility] DATE CREATED AUTHOR AUTHOR'S ORGANIZ ATION 05/06/2025 [facility] Care Teams (unrecognized sec tion and content) Team Status: Active Member Role Status Dates Bebo Escalante II MD Primary Care Provider Active Team Status: Inactive Member Role Status Dates Bebo Escalante II MD Primary Care Provider Active Start: November 16, 2023 End: November 16, 2023Geangelita Calderon Jr DOAttending ProviderActiveStart: November 16, 2023 End: November 16, 2023 Team Status: Inactive Member Role Status Dates Bebo Escalante II MD Primary Care Provider Active Start: November 28, 2023 End: November 28, 2023Geangelita Calderon Jr DOAttending ProviderActiveStart: November 28, 2023 End: November 28, 2023 Team Status: Inactive Member Role Status Dates Bebo Escalante II MD Primary Care Provider Active Start: December 23, 2023 End: December 25lexbakari Hanson RNOther ProviderActiveStart: December 23, 2023 End: December 25sam Montgomery RNOther ProviderActiveStart: December 23, 2023 End: December 26, 2023Micdamari Briceño RNOther ProviderActiveStart: December 23, 2023 End: December 26, 2023Momichelle Guillen RNOther ProviderActiveStart: December 23, 2023 End: December 26, 2023Virginia Johnson RNOther ProviderActiveStart: December 23, 2023 End: December 25kp Ruiz DOOther ProviderActiveStart: December 23, 2023 End: December 26, 2023Mussoni Qiu MDOther ProviderActiveStart: December 23, 2023 End: December 26, 2023Ravi Shen DOAttending Provider, Other Provider ActiveStart: December 23, 2023 End: December 25ndcarmen Clifton MDOther ProviderActiveStart: December 23, 2023 End: December 25cachorro Austin MDOther ProviderActiveStart: December 23, 2023 End: December 26, 2023Preston García MDOther ProviderActiveStart: December 23, 2023 End: December 26, 2023Juan Latif ProviderActiveStart: December 23, 2023 End: December 26, 2023Drew Emery ProviderActiveStart: December 23, 2023 End: December 25Drew Reyes ProviderActiveStart: December 23, 2023 End: December 26, 2023Drew Espinal ProviderActiveStart: December 23, 2023 End: December 26, 2023SaDrew Reed ProviderActiveStart: December 23, 2023 End: December 26, 2023MicMaria Del Carmen Vazquez ProviderActiveStart: December 23, 2023 End: December 26, 2023Drew De La Rosa ProviderActiveStart: December 23, 2023 End: December 26, 2023Earjaida Paulino MDOther ProviderActiveStart: December 23, 2023 End: December 25latonia Brandt NP-COther ProviderActiveStart: December 23, 2023 End: December 25dKimberly Floresher ProviderActiveStart: December 23, 2023 End: December 26, 2023Will Umana MDOther ProviderActiveStart: December 23, 2023 End: December 26, 2023Fco Koenig MDOther ProviderActiveStart: December 23, 2023 End: December 25Drew Lowe ProviderActiveStart: December 23, 2023 End: December 26, 2023KhDrew Sullivan ProviderActiveStart: December 23, 2023 End: December 25kayleigh Cerna MDOther ProviderActiveStart: December 23, 2023 End: December 26, 2023Renuka Peace DOOther ProviderActiveStart: December 23, 2023 End: December 26, 2023Laith Darnell DOOther ProviderActiveStart: December 23, 2023 End: December 26, 2023Kimberly Ballher ProviderActiveStart: December 23, 2023 End: December 26, 2023Shawn J Ulloa , DOAdmit Provider, Other ProviderActive Start: December 23, 2023 End: December 26, 2023Willie Knight MDOther ProviderActiveStart: December 23, 2023 End: December 25ynes Souza APRNOther ProviderActiveStart: December 23, 2023 End: December 25shawanda Major , APRNOther ProviderActiveStart: December 23, 2023 End: December 25latrice Trinidad MDOther ProviderActiveStart: December 23, 2023 End: December 25william Vicente MDOther ProviderActiveStart: December 23, 2023 End: December 26, 2023Jose Daniel Grande , DOOther ProviderActiveStart: December 23, 2023 End: December 26, 2023Branden Reynaga , DOOther ProviderActiveStart: December 23, 2023 End: December 26, 2023Ruddy Vuong MDOther ProviderActiveStart: December 23, 2023 End: December 25desusan Mondragon MDOther ProviderActiveStart: December 23, 2023 End: December 25ana maria Rivera , APRNOther ProviderActiveStart: December 23, 2023 End: December 26, 2023Kellie Gann RNOther ProviderActiveStart: December 23, 2023 End: December 26, 2023Claudette Dominguez MDOther ProviderActiveStart: December 23, 2023 End: December 26, 2023Agustin Matthews MDOther ProviderActiveStart: December 23, 2023 End: December 26, 2023Simi Butterfield , APRNOther ProviderActiveStart: December 23, 2023 End: December 25enediphylicia Hector Jr, DOOther ProviderActiveStart: December 23, 2023 End: December 25cecilio Hamm MDOther ProviderActiveStart: December 23, 2023 End: December 26, 2023 Team Status: Active Member Role Status Dates Bebo Escalante II MD Primary Care Provider Active Start: December 25, 2023 Nanette Hanson RNOther ProviderActiveStart: December 25, 2023 Kalyn Montgomery RNOther ProviderActiveStart: December 25, 2023 Lucia Briceño , KOLTONOther ProviderActiveStart: December 25, 2023 Kusum Guillen , KOLTONOther ProviderActiveStart: December 25, 2023 Virginia Johnson , RNOther ProviderActiveStart: December 25, 2023 Genoveva Ruiz , DOOther ProviderActiveStart: December 25, 2023 Kris Qiu MDOther ProviderActiveStart: December 25, 2023 Ravi Shen , DOOther ProviderActiveStart: December 25, 2023 Erich Clifton MDOther ProviderActiveStart: December 25, 2023 Karma Austin MDOther ProviderActiveStart: December 25, 2023 Preston García MDOther ProviderActiveStart: December 25, 2023 Yaa Cheung , APRNOther ProviderActiveStart: December 25, 2023 Alix Crane MDOther ProviderActiveStart: December 25, 2023 Elroy Cagle MDOther ProviderActiveStart: December 25, 2023 Pema Correia MDOther ProviderActiveStart: December 25, 2023 Marshal Wharton MDOther ProviderActiveStart: December 25, 2023 Kehinde Reynoso DOOther ProviderActiveStart: December 25, 2023 Jesus Manuel Jesus MDOther ProviderActiveStart: December 25, 2023 Fredy Paulino MDOther ProviderActiveStart: December 25, 2023 Radha Brandt , [employer]-COther ProviderActiveStart: December 25, 2023 Ramo Mckeon , APRNOther ProviderActiveStart: December 25, 2023 Will Umana MDOther ProviderActiveStart: December 25, 2023 Fco Koenig MDOther ProviderActiveStart: December 25, 2023 Louie Vuong MDOther ProviderActiveStart: December 25, 2023 Cuate Faustin MDOther ProviderActiveStart: December 25, 2023 Carlos Cerna MDOther ProviderActiveStart: December 25, 2023 Renuka Peace DOOther ProviderActiveStart: December 25, 2023 Laith R Carie , DOOther ProviderActiveStart: December 25, 2023 Melissa Velasquez , APRNOther ProviderActiveStart: December 25, 2023 Dusty Ulloa , DOAdmit Provider, Other ProviderActiveStart: December 25, 2023 Willie Knight MDOther ProviderActiveStart: December 25, 2023 Kelsey Souza , APRNOther ProviderActiveStart: December 25, 2023 Chastity Major , APRNOther ProviderActiveStart: December 25, 2023 Kinza Trinidad MDOther ProviderActiveStart: December 25, 2023 Bebo Vicente MDOther ProviderActiveStart: December 25, 2023 Jose Daniel Grande , DOOther ProviderActiveStart: December 25, 2023 Branden Reynaga , DOOther ProviderActiveStart: December 25, 2023 Ruddy Vuong MDOther ProviderActiveStart: December 25, 2023 Romina Mondragon MDOther ProviderActiveStart: December 25, 2023 Tiffany Rivera , APRNOther ProviderActiveStart: December 25, 2023 Kellie Gann RNOther ProviderActiveStart: December 25, 2023 Claudette Dominguez MDOther ProviderActiveStart: December 25, 2023 Agustin Matthews MDAttending Provider, Other ProviderActiveStart: December 25, 2023 Simi Butterfield , APRNOther ProviderActiveStart: December 25, 2023 Johnie Hector Jr, DOOther ProviderActiveStart: December 25, 2023 Jose Hamm MDOther ProviderActiveStart: December 25, 2023 Team Status: Inactive Member Role Status Dates Bebo Escalante II MD Primary Care Provider Active Start: November 30, 2023 End: November 30, 2023Ryan Calderon Jr, DOAttending ProviderActiveStart: November 30, 2023 End: November 30, 2023 Team Status: Active Member Role Status Dates Bebo Escalante II MD Primary Care Provider Active Start: December 25, 2023 End: December 25pooja Hanson RNOther ProviderActiveStart: December 25, 2023 End: December 25sam Montgomery RNOther ProviderActiveStart: December 25, 2023 End: December 26, 2023Micdamari Briceño RNOther ProviderActiveStart: December 25, 2023 End: December 26, 2023Momichelle Guillen RNOther ProviderActiveStart: December 25, 2023 End: December 26, 2023Maralessandro Johnson RNOther ProviderActiveStart: December 25, 2023 End: December 25kp Ruiz DOOther ProviderActiveStart: December 25, 2023 End: December 26, 2023Mussoni Qiu MDOther ProviderActiveStart: December 25, 2023 End: December 26, 2023Ravi Shen DOOther ProviderActiveStart: December 25, 2023 End: December 25ndDrew Stoddard ProviderActiveStart: December 25, 2023 End: December 25cachorro Austin MDOther ProviderActiveStart: December 25, 2023 End: December 26, 2023Najimenez García MDOther ProviderActiveStart: December 25, 2023 End: December 26, 2023LyKimberly Riosher ProviderActiveStart: December 25, 2023 End: December 26, 2023Alix Crane MDOther ProviderActiveStart: December 25, 2023 End: December 25mac Cagle MDOther ProviderActiveStart: December 25, 2023 End: December 26, 2023Pema Correia MDOther ProviderActiveStart: December 25, 2023 End: December 26, 2023Saisrael Wharton MDOther ProviderActiveStart: December 25, 2023 End: December 26, 2023Miclisha Reynoso DOOther ProviderActiveStart: December 25, 2023 End: December 26, 2023Drew De La Rosa ProviderActiveStart: December 25, 2023 End: December 26, 2023Drew Degroot ProviderActiveStart: December 25, 2023 End: December 25Mary Phillipsher ProviderActiveStart: December 25, 2023 End: December 25dadriana Mckeon , APRNOther ProviderActiveStart: December 25, 2023 End: December 26, 2023Will Umana MDOther ProviderActiveStart: December 25, 2023 End: December 26, 2023Drew Harry ProviderActiveStart: December 25, 2023 End: December 25ohDrew Dorsey ProviderActiveStart: December 25, 2023 End: December 26, 2023KhDrew Sullivan ProviderActiveStart: December 25, 2023 End: December 25noCalvo MDOther ProviderActiveStart: December 25, 2023 End: December 26, 2023Renuka Peace DOOther ProviderActiveStart: December 25, 2023 End: December 26, 2023Laith Darnell DOOther ProviderActiveStart: December 25, 2023 End: December 26, 2023Melissa Velasquez APRNOther ProviderActiveStart: December 25, 2023 End: December 26, 2023Dusty Ulloa DOAdmmelecio Provider, Other ProviderActive Start: December 25, 2023 End: December 26, 2023Willie Knight MDOther ProviderActiveStart: December 25, 2023 End: December 25ynes Souza APRNOther ProviderActiveStart: December 25, 2023 End: December 25shawanda Maojr , APRNOther ProviderActiveStart: December 25, 2023 End: December 25Drew Toro ProviderActiveStart: December 25, 2023 End: December 25william Vicente MDOther ProviderActiveStart: December 25, 2023 End: December 26, 2023Jose Daniel Grande DOOther ProviderActiveStart: December 25, 2023 End: December 26, 2023Branden Reynaga DOOther ProviderActiveStart: December 25, 2023 End: December 26, 2023Drew Engle ProviderActiveStart: December 25, 2023 End: December 25frank Mondragon MDOther ProviderActiveStart: December 25, 2023 End: December 25ngliliya Rivera , APRNOther ProviderActiveStart: December 25, 2023 End: December 26, 2023Saabi Gann RNOther ProviderActiveStart: December 25, 2023 End: December 26, 2023Claudette Dominguez MDOther ProviderActiveStart: December 25, 2023 End: December 26, 2023Josebrendan Matthews MDAttending Provider, Other ProviderActive Start: December 25, 2023 End: December 26, 2023Elennoman Butterfield , APRNOther ProviderActiveStart: December 25, 2023 End: December 25enedict Jaida Hector Jr, DOOther ProviderActiveStart: December 25, 2023 End: December 25cecilio Hamm MDOther ProviderActiveStart: December 25, 2023 End: December 26, 2023Team MemberRelationshipSpecialtyStart DateEnd Date Bebo Escalante MD [address] [facility] [address] [place] [address] PCP - Humana1 Bebo Escalante MD [address] [facility] [address] [place] [address] [facility] Bebo Escalante MD [address] [facility] [address] [place] [address] PCP - Devoted2Team MemberRelationshipSpecialtyStart DateEnd Date Bebo Escalante MD [address] [facility] [address] [place] [address] PCP - Humana1 Bebo Escalante MD [address] [facility] [address] [place] [address] PCP - GeneralInternal Medicine12/01/22 Bebo Escalante MD [address] [place] [address] [place] [address] PCP - [facility]oted08/03/2411Team MemberRelationshipSpecialtyStart DateEnd Date Bebo Escalante MD [address] [place] [address] [place] [address] PCP - Human Bebo Escalante MD [address] [place] [address] [place] [address] [facility]22 Bebo Escalante MD [address] [place] [address] [place] [address] PCP - Devoted08/03/23Team MemberRelationshipSpecialtyStart DateEnd Date Bebo Escalante MD [address] [place] [address] [place] [address] PCP - Human Bebo Escalante MD [address] [place] [address] [place] [address] [facility]12/01/22 Bebo Escalante MD [address] [place] [address] [place] [address] PCP - Devoted08/03/23Team MemberRelationshipSpecialtyStart DateEnd Date Bebo Escalante MD [address] [place] [address] [place] [address] PCP - [place] [address] Bebo Escalante MD [address] [place] [address] [place] [address] PCP - GeneralInternal Medicine12/01/22 Bebo Escalante MD [address] [place] [address] [place] [address] PCP - Devoted08/03/23Team MemberRelationshipSpecialtyStart DateEnd Date Bebo Escalante MD [address] [place] [address] [place] [address] PCP - Humana1 Bebo Escalante MD [address] [place] [address] [place] [address] PCP - GeneralInternal Medicine12/01/22 Bebo Escalante MD [address] [place] [address] [place] [address] PCP - Devoted08/03/23Team MemberRelationshipSpecialtyStart DateEnd Date Bebo Escalante MD [address] [place] [address] [place] [address] PCP - Humana1 Bebo Escalante MD [address] [place] [address] [place] [address] PCP - GeneralInternal Medicine12/01/22 Bebo Escalante MD [address] [place] [address] [place] [address] PCP - Devoted08/03/23Team MemberRelationshipSpecialtyStart DateEnd Date Bebo Escalante MD [address] [place] [address] [place] [address] PCP - Humana1 Bebo Escalante MD [address] [place] [address] [place] [address] PCP - GeneralInternal Medicine12/01/22 Bebo Escalante MD [address] [place] [address] [place] [address] PCP - Devoted08/03/23Team MemberRelationshipSpecialtyStart DateEnd Date Bebo Escalante MD [address] [place] [address] [place] [address] PCP - Human Bebo Escalante MD [address] [place] [address] [place] [address] PCP - GeneralInternal Medicine12/01/22 Bebo Escalante MD [address] [place] [address] [place] [address] PCP - Devoted08/03/23Team MemberRelationshipSpecialtyStart DateEnd Date Bebo Escalante MD [address] [place] [address] [place] [address] PCP - Human Bebo Escalante MD [address] [place] [address] [place] [address] PCP - GeneralInternal Medicine12/01/22 Bebo Escalante MD [address] [place] [address] [place] [address] PCP - Devoted08/03/23Team MemberRelationshipSpecialtyStart DateEnd Date Bebo Escalante MD [address] [place] [address] [place] [address] PCP - GeneralInternal Medicine12/01/22 Bebo Escalante MD [address] [place] [address] [place] [address] PCP - Devoted08/03/23Team MemberRelationshipSpecialtyStart DateEnd Date Bebo Escalante MD [address] [place] [address] [place] [address] PCP - GeneralInternal Medicine12/01/22 Bebo Escalante MD [address] [place] [address] [place] [address] PCP - Devoted08/03/23Team MemberRelationshipSpecialtyStart DateEnd Bebo Escalante MD [address] [place] [address] [place] [address] [facility] - [facility]12/01/22 Bebo Escalante MD [address] [place] [address] [place] [address] PCP - Devoted08/03/23Team MemberRelationshipSpecialtyStart DateEnd Bebo Escalante MD [address] [place] [address] [place] [address] PCP - GeneralInternal Medicine12/01/22 Bebo Escalante MD [address] [place] [address] [place] [address] PCP - Devoted08/03/23Team MemberRelationshipSpecialtyStart DateEnd Date Bebo Escalante MD [address] [place] [address] [place] [address] PCP - GeneralInternal Medicine12/01/22 Bebo Escalante MD [address] [place] [address] [place] [address] PCP - Devoted08/03/23Team MemberRelationshipSpecialtyStart DateEnd Bebo Escalante MD [address] [place] [address] [place] [address] [facility] - [facility]12/01/22 Bebo Escalante MD [address] [place] [address] [place] [address] PCP - Devoted08/03/23Team MemberRelationshipSpecialtyStart DateEnd Bebo Escalante MD [address] [place] [address] [place] [address] [facility] - [facility]/22 Bebo Escalante MD [address] [place] [address] [place] [address] PCP - Devoted08/03/23Team MemberRelationshipSpecialtyStart DateEnd Bebo Escalante MD [address] [place] [address] [place] [address] PCP - [place] [address]/ Bebo Escalante MD [address] [place] [address] [place] [address] [facility] - [facility]12/01/22 Bebo Escalante MD [address] [place] [address] [place] [address] PCP - Devoted08/03/23Team MemberRelationshipSpecialtyStart DateEnd Bebo Escalante MD [address] [place] [address] [place] [address] PCP - Humana1/ Bebo Escalante MD [address] [place] [address] [place] [address] PCP - GeneralInternal Medicine12/01/22 Bebo Escalante MD [address] [place] [address] [place] [address] PCP - Devoted08/03/23Team MemberRelationshipSpecialtyStart DateEnd Date Bebo Escalante MD [address] [place] [address] [place] [address] PCP - Humana1/ Bebo Escalante MD [address] [place] [address] [place] [address] PCP - GeneralInternal Medicine12/01/22 Bebo Escalante MD [address] [place] [address] [place] [address] PCP - Devoted08/03/23MondayDebbie LPN [address] [place] [address] Licensed Practical NurseFamily MedicineTeam MemberRelationship SpecialtyStart DateEnd Date Bebo Escalante MD [address] [place] [address] [place] [address] PCP - GeneralInternal Medicine12/01/22 Bebo Escalante MD [address] [place] [address] [place] [address] PCP - Devoted08/03/23Team MemberRelationshipSpecialtyStart DateEnd Date Bebo Escalante MD [address] [place] [address] [place] [address] PCP - GeneralInternal Medicine12/01/22 Bebo Escalante MD [address] [facility] [address] [place] [address] PCP - Devoted08/03/23 Goals (unrecognized section and content) Goals may be documented in a n alternate sectionGoals may be documented in an alternate section Reason for Visit (unrecogniz ed section and content) ReasonCommentsMed RefillReasonCommentsMedicare Annual Wellness Visit Subsequent ReasonCommentsPainReasonCommentsDiabetesHypertensionResultsLabs 4Reason CommentsDiabetesHypertensionResultsCt chest resultsReasonOnset DateCommentsPre Med for /11/2025ReasonCommentsMedicare Annual Wellness Visit SubsequentResultsPFT, echoReasonCommentsDiabetesMed RefillMeloxicam-- [facility] ReasonCommentsFollow-up FOR RECORDS PERTAINING TO PATIENTS WHO ARE [...] BE BASED ON THE PRIMARY CLINICAL RECORDS. [employer] [facility]. provides no warranty or guarantee of the accuracy or completeness of information in this document.
== END 2025-06-12 12:26 | disposition home or self-care (01) ==
LOC: MAMMO 12:28
PROVIDERS: PCP Physician Assistant; Visit Provider Internal Medicine
DX: Z12.31 Encounter for screening mammogram for malignant neoplasm of breast (principal); Z80.3 Family history of malignant neoplasm of breast; Z80.6 Family history of leukemia; Z80.8 Family history of malignant neoplasm of other organs or systems
CPT/HCPCS: 77063; 77067

== ENCOUNTER 2025-06-16 19:52 | Outpatient (OUT) | payer OTHER, SELFPAY ==
--- OUTSIDE RECORDS SUMMARY | 2025-06-16 19:55 | XMS_ITS | Clinical Summary ---
Author Organization [facility] Address [address], [address] [place] [address] Care Team Providers Care Meatcutter Name Role Phone Bebo Escalante MD Primary Care Provider [phone] Allergies No known active allergies Medications MedicationSigDispense QuantityRefillsLast FilledStart DateEnd DateStatus lisinopril (PRINIVIL;ZESTRIL) 10 MG tablet Take 10 mg by mouth dailyActive simvastatin (ZOCOR) 40 MG tablet Take 40 mg by mouth nightlyActive carvedilol (COREG) 12.5 MG tablet Take 12.5 mg by mouth 2 times daily (with meals)Active triamterene-hydroCHLOROthiazide (MAXZIDE-25) 37.5-25 MG per tablet Take 1 tablet by mouth dailyActive PARoxetine (PAXIL) 20 MG tablet Take 20 mg by mouth every morningActive omeprazole (PRILOSEC) 20 MG delayed release capsule Take 20 mg by mouth dailyActive alendronate (FOSAMAX) 70 MG tablet Take 70 mg by mouth every 7 daysActive HYDROcodone-acetaminophen (NORCO) 7.5-325 MG per tablet Take 1 tablet by mouth every 6 hours as needed for Pain.Active gabapentin (NEURONTIN) 300 MG capsule Take 300 mg by mouth 3 times daily.Active oxybutynin (DITROPAN) 5 MG tablet Take 5 mg by mouth 3 times dailyActive Family History Medical HistoryRelationNameCommentsArthritisMotherCancerMotherHigh Blood PressureMotherRelationNameStatusCommentsMother Social History Tobacco UseTypesPacks/DayYears UsedDateSmoking Tobacco: Never AssessedSmokeless Tobacco: NeverCommentsUnknownSex and Gender InformationValueDate RecordedSex Assigned at BirthNot on fileLegal AazTptcuk43/25/2020 4:18 PM EDT Gender IdentityNot on fileSexual OrientationNot on file Last Filed Vital Signs Vital SignReadingTime TakenCommentsBlood Pressure--Pulse--Gvkqsppluxo09.8 ??C (98.2 ??F)04/17/2020 10:16 AM EDTRespiratory Rate--Oxygen Saturation--Inhaled Oxygen Concentration--Mcssrw39.5 kg (184 lb)04/17/2020 10:16 AM YXRAqsyqx617.4 cm (5')04/17/2020 10:16 AM EDTBody Mass Index35.9404/17/2020 10:16 AM EDT Plan of Treatment Not on file Insurance Care Teams Team MemberRelationshipSpecialtyStart DateEnd Date Bebo Escalante MD PCP - GeneralInternal Medicine02/14/20
--- OUTSIDE RECORDS SUMMARY | 2025-06-16 19:55 | XMS_ITS | Encounter Summary ---
Author Organization [facility] Address [address] [place] [address] Care Team Providers Care Per Diem Nurse Name Role Phone Bebo Escalante MD Primary Care Provider [phone] Bebo Escalante MD Unavailable [phone] Encounter Details DateTypeDepartmentCare Team (Latest Contact Info)Uebwhxhczkk13/03/2025Abstract [facility] [place] [facility] [address] [place] [address] [place] [id number] Bebo Escalante MD [address] [facility] [address] [place] [address] Social History Tobacco UseTypesPacks/DayYears UsedDateSmoking Tobacco: NeverSmokeless Tobacco: NeverAlcohol UseStandard Drinks/WeekCommentsNever0 (1 standard drink = 0.6 oz pure alcohol)caffeine intake: 3-4 cups per dayHumiliation, Afraid, Rape, and Kick questionnaireAnswerDate RecordedWithin the last year, have you been afraid of your partner or ex-partner?No02/22/2023Within the last year, have you been humiliated or emotionally abused in other ways by your partner or ex-partner?No 02/22/2023Within the last year, have you been kicked, hit, slapped, or otherwise physically hurt by your partner or ex-partner?No02/22/2023Within the last year, have you been raped or forced to have any kind of sexual activity by your part ner or ex-partner?No02/22/2023Social Connection and Isolation PanelAnswerDate RecordedFrequency of Communication with Friends and FamilyNot on file02/22/2023 Frequency of Social Gatherings with Friends and FamilyNot on file02/22/2023 Attends Mandaeism ServicesNot on file02/22/2023ctive Member of Clubs or OrganizationsNot on 02/22/2023How often do you attend meetings of the clubs or organizations you belong to?Never02/22/2023re you , , , , never , or living with a partner?Bwvhmin4402/22/2023 AUDIT-CAnswerDate RecordedQ1: How often do you have a drink containing alcohol? Never02/22/2023Q2: How many drinks containing alcohol do you have on a typical day when you are drinking?Patient does not drink02/22/2023Q3: How often do you have six or more drinks on one occasion?Never02/22/2023Overall Financial Resource Strain (CARDIA)AnswerDate RecordedHow hard is it for you to pay for the very basics like food, housing, medical care, and heating?Not hard at all 02/22/2023HQ-2AnswerDate RecordedPatient Health Questionnaire-2 Score0 05/05/2025[facility] - Occupational Stress QuestionnaireAnswerDate RecordedDo you feel stress - tense, restless, nervous, or anxious, or unable to sleep at night because yourmind is troubled all the time - these days?Only a qeybkx4602/22/2023Exercise Vital SignAnswerDate Recorded Days of Exercise per WeekNot on file02/22/2023On average, how many minutes do you engage in exercise at this level?Patient orvtpnty03/23/2023Hunger Vital Sign AnswerDate RecordedWithin the past 12 months, you worried that your food would run out before you got the money to buymore.Patient kqbazmts59/23/2023Within the past 12 months, the food you bought just didn't last and you didn't have money to get more.Patient yhphsasa44/23/2023RAPARE - TransportationAnswerDate RecordedIn the past 12 months, has lack of transportation kept you from medical appointments or from getting medications?No02/22/2023In the past 12 months, has lack of transportation kept you from meetings, work, or from getting things needed for daily living?No02/22/2023Housing Stability Vital SignAnswerDate RecordedIn the last 12 months, was there a time when you were not able to pay the mortgage or rent on time?No02/22/2023Number of Places Lived in the Last Year Not on file02/22/2023In the last 12 months, was there a time when you did not have a steady place to sleep or slept in ashelter (including now)?Patient dvurpyn0502/22/2023CommentsUnknownSex and Gender InformationValueDate RecordedSex Assigned at YobxdSyehpu63/23/2023 10:46 AM EDTLegal SexFemale 09/14/2022 7:00 PM EDTGender CmauwqewAgcukl33/23/2023 10:46 AM EDTSexual OrientationNot on filedocumented as of this encounter Plan of Treatment DateTypeDepartmentCare Team (Latest Contact Info)Neholxtszdr06/17/2026 8:00 AM EDTOffice Visit [facility] [place] [facility] [address] [place] [phone] Belén Montanez PA [address] [place] [address] documented as of this encounter Goals GoalPatient Goal TypeAssociated ProblemsRecent ProgressPatient-Stated?Author Help patient manage antidepressant medication Care PlanPatient on antidepressant monitoring Taty Workman MA Baseline PHQ-9 Care PlanBaseline PHQ-9Taty Diaz MAdocumented as of this encounter Visit Diagnoses Not on filedocumented in this encounter Additional Health Concerns Active ProblemsNoted DateDiagnosed DatePatient on antidepressant monitoring plan 4Baseline PHQ-90/4documented as of this encounter Care Teams Team MemberRelationshipSpecialtyStart DateEnd Date Bebo Escalante MD [address] [place] [address] PCP - GeneralInternal Medicine12/01/22 Bebo Escalante MD [address] [facility] [address] [place] [address] PCP - Devoted08/03/2411documented as of this encounter
--- OUTSIDE RECORDS SUMMARY | 2025-06-16 19:55 | XMS_ITS | Encounter Summary ---
Author Organization [facility] Address [address] [place] [address] Care Team Providers Care Farm Equipment Technician Name Role Phone Bebo Escalante MD Primary Care Provider [phone] Bebo Escalante MD Unavailable [phone] Encounter Details DateTypeDepartmentCare Team (Latest Contact Info)Dwhmtsctgxy07/11/2025Clinisync Result Encounter [facility] External Department Unsolicited Bebo Escalante MD [address] [facility] [address] [place] [address] Social History Tobacco UseTypesPacks/DayYears UsedDateSmoking Tobacco: NeverSmokeless [...] with Friends and FamilyNot on file02/22/2023 Attends Religion ServicesNot on file02/22/2023ctive Member of Clubs or OrganizationsNot on file02/22/2023How often do you attend meetings of the clubs or organizations you belong to?Never02/22/2023re you , , , , never , or living with a partner?Oczjzbr6202/22/2023 AUDIT-CAnswerDate RecordedQ1: How often do you have [...] at all 02/22/2023HQ-2AnswerDate RecordedPatient Health Questionnaire-2 Score0 05/05/2025[facility] [place] [facility] - Occupational Stress QuestionnaireAnswerDate RecordedDo you feel stress - tense, restless, nervous, or anxious, or unable to sleep at night because yourmind is troubled all the time - these days?Only a vsftfi8802/22/2023Exercise Vital SignAnswerDate Recorded Days of Exercise per WeekNot on file02/22/2023On average, how many minutes do you engage in exercise at this level?Patient ysixgroz91/23/2023Hunger Vital Sign AnswerDate RecordedWithin the past 12 months, you worried that your food would run out before you got the money to buymore.Patient otfxznmu01/23/2023Within the past 12 months, the food you bought just didn't last and you didn't have money to get more.Patient voyqstvr50/23/2023RAPARE - TransportationAnswerDate RecordedIn the past 12 months, [...] sleep or slept in ashelter (including now)?Patient vwaflla2102/22/2023CommentsUnknownSex and Gender InformationValueDate RecordedSex Assigned at MkcdeDrxsrb97/23/2023 10:46 AM EDTLegal SexFemale 09/14/2022 7:00 PM EDTGender NfrgshioXrvlkn01/23/2023 10:46 AM EDTSexual OrientationNot on filedocumented as of this encounter Plan of Treatment DateTypeDepartmentCare Team (Latest Contact Info)Yeglrrewdgm91/17/2026 8:00 AM EDTOffice Visit [facility] [address] [place] [address] Belén Montanez PA [address] [place] [address] documented as of this encounter Goals GoalPatient Goal TypeAssociated ProblemsRecent ProgressPatient-Stated?Author Help patient manage antidepressant medication Care PlanPatient on antidepressant monitoring Taty Workman MA Baseline PHQ-9 Care PlanBaseline PHQ-9Taty Diaz MAdocumented as of this encounter Procedures Procedure NamePriorityDate/TimeAssociated DiagnosisCommentsBI MAMMOGRAM SCREENING TOMOSYNTHESIS RIGHT06/12/2025 3:06 PM EST documented in this encounter Results * Right screening mammogram with tomosynthesis (06/12/2025 3:06 PM EST) Anatomical RegionLateralityModalityBreastRightMammographySpecimen (Source) Anatomical Location / LateralityCollection Method / VolumeCollection Time Received Time06/12/2025 3:06 PM EST Narrative 06/12/2025 3:07 PM EST [facility] ?[address] ? [place] [address] ? Mammography Report ? Signed ? Patient: JOANNE,KELLIE K ?MR#: [id number] ?? : 1945 ?Acct:[id number] ?? Age/Sex: 79 / F ?ADM Date: 06/12/25 ?? Loc: MAMMO ? Attending Dr: BEBO ESCALANTE ? Ordering Physician: BEBO ESCALANTE ? Results: ? Date of Service: 06/12/25 ?Follow Up: ? Procedure(s): MM tomosynthesis screening RT ?? Accession Number(s): [id number] ? cc: BEBO ESCALANTE ; BELÉN MONTANEZ ? Patient Name: ? KELLIE BARKER ? MR#: [id number] ? : 1945 ? Exam Date: 06/12/2025 ?? Ordering Doctor: DR BEBO ESCALANTE M.D. ? RADIOLOGY REPORT ? PROCEDURE: ? MM TOMOSYNTHESIS SCREENING RT ? COMPARISON: ? MM TOMOSYNTHESIS SCREENING RT, 08/15/2023. ??MAMMO POST BIOPSY ?? RIGHT, 04/05/2022. ??MG STEREO CORE NDL W CLIP RT, 04/05/2022. ??MG MAMM GRAYSON ?? SCRN W CAD DIG, 10/31/1994. ? INDICATIONS: ? Screening ? Calculator Name ? NCI Breast Cancer Risk Assessment Tool ?? 5 Year Breast Cancer Risk ? n/a% ?? Lifetime Breast Cancer Risk ? n/a% ?? Personal Breast Cancer ?Yes, Left, 54 ?? Personal Ovarian Cancer ? No ?? Treatments ? Left mastectomy with lymphnode removal ?? Family Cancers ? Mother with breast cancer at age ??60; Aunt-maternal with ?? breast cancer at age ??60; Cousin-maternal with leukemia cancer at age ??40; ?? Aunt-maternal with uterine cancer at age ??60. ? LOCATION: ? [facility] ? BREAST COMPOSITION: ? There are scattered areas of fibroglandular density. ? FINDINGS: ? RIGHT BREAST: ??No significant suspicious finding. ??Stereotactic biopsy marking ?? clip redemonstrated. ? DIAGNOSTIC CATEGORY 1--NEGATIVE. ? RECOMMENDATIONS: ? ROUTINE MAMMOGRAM AND CLINICAL EVALUATION IN 12 MONTHS. ? Dictated by: Kevin Amado DO on 06/12/2025 at 15:04 ? Approved by: Kevin Amado DO on 06/12/2025 at 15:06 ? Dictated By: ?Keivn Amado D.O. ? Signed By: ?06/12/25 1507 ? DD/ 1506 ? TD/TT: ? Puzzle Assembler: Procedure Note Radiology, Radiologist, MD - 06/12/2025 [place] [address] Mammography Report Signed Patient: KELLIE BARKER KMR#: [id number] : 1945cct:[id number] Age/Sex: 79 / FADM Date: 06/12/25 Loc: MAMMO Attending Dr: BEBO ESCALANTE Ordering Physician: Surjit ESCALANTEults: Date of Service: 06/12/25Follow Up: Procedure(s): MM tomosynthesis screening RT Accession Number(s): [id number] cc: BEBO ESCALANTE ; BELÉN MONTANEZ Patient Name: KELLIE BARKER MR#: [id number] : 1945 Exam Date: 06/12/2025 Ordering Doctor: DR BEBO ESCALANTE M.D. RADIOLOGY REPORT PROCEDURE: MM TOMOSYNTHESIS SCREENING RT COMPARISON: MM TOMOSYNTHESIS SCREENING RT, 08/15/2023. MAMMO POSTBIOPSY RIGHT, 04/05/2022. MG STEREO CORE NDL W CLIP RT, 04/05/2022. MG MAMM GRAYSON SCRN W CAD DIG, 10/31/1994. INDICATIONS: Screening Calculator Name NCI Breast Cancer Risk Assessment Tool 5 Year Breast Cancer Risk n/a% Lifetime Breast Cancer Risk n/a% Personal Breast Cancer Yes, Left, 54 Personal Ovarian Cancer No Treatments Left mastectomy with lymphnode removal Family Cancers Mother with breast cancer at age 60; Aunt-maternalwith breast cancer at age 60; Cousin-maternal with leukemia cancer at age 40; Aunt-maternal with uterine cancer at age 60. LOCATION: [facility] BREAST COMPOSITION: There are scattered areas of fibroglandulardensity. FINDINGS: RIGHT BREAST: No significant suspicious finding. Stereotactic biopsymarking clip redemonstrated. DIAGNOSTIC CATEGORY 1--NEGATIVE. RECOMMENDATIONS: ROUTINE MAMMOGRAM AND CLINICAL EVALUATION IN 12 MONTHS. Dictated by: Kevin Amado DO on 06/12/2025 at 15:04 Approved by: Kevin Amado DO on 06/12/2025 at 15:06 Dictated By: Kevin Amado D.O. Signed By:06/12/25 1507 DD/ 1506 TD/TT: Puzzle Assembler: Authorizing ProviderResult TypeResult StatusDabao Escalante MDIMG BI PROCEDURES Final Result documented in this encounter Visit Diagnoses Not on filedocumented in this encounter Additional Health Concerns Active ProblemsNoted DateDiagnosed DatePatient on antidepressant monitoring plan 4Baseline PHQ-904documented as of this encounter Care Teams Team MemberRelationshipSpecialtyStart DateEnd Date Bebo Escalante MD [address] [facility] [address] [place] [address] PCP - GeneralInternal Medicine12/01/22 Bebo Escalante MD [address] [facility] [address] [place] [address] PCP - Devoted2/documented as of this encounter
--- OUTSIDE RECORDS SUMMARY | 2025-06-16 19:55 | XMS_ITS | Encounter Summary ---
Author Organization [facility] Address [address] [place] [address] Care Team Providers Care Freight Rate Specialist Name Role Phone Bebo Escalante MD Primary Care Provider [phone] Bebo Escalante MD Unavailable [phone] Encounter Details DateTypeDepartmentCare Team (Latest Contact Info)Qksbecsgiqn47/12/2025Abstract [facility] [address] [place] [id number] Bebo Escalante MD [address] [facility] [address] [place] [address] Social History Tobacco UseTypesPacks/DayYears UsedDateSmoking [...] with Friends and FamilyNot on file02/22/2023 Attends Pentecostalism ServicesNot on file02/22/2023ctive Member of Clubs or OrganizationsNot on 02/22/2023How often do you attend meetings of the clubs or organizations you belong to?Never02/22/2023re you , , , , never , or living with a partner?Gglmghl9902/22/2023 AUDIT-CAnswerDate RecordedQ1: How often do you have [...] at all 02/22/2023HQ-2AnswerDate RecordedPatient Health Questionnaire-2 Score0 05/05/2025[facility] [place] [facility] - Occupational Stress QuestionnaireAnswerDate RecordedDo you feel stress - tense, restless, nervous, or anxious, or unable to sleep at night because yourmind is troubled all the time - these days?Only a ckmmlg6402/22/2023Exercise Vital SignAnswerDate Recorded Days of Exercise per WeekNot on file02/22/2023On average, how many minutes do you engage in exercise at this level?Patient odqqhhyf50/23/2023Hunger Vital Sign AnswerDate RecordedWithin the past 12 months, you worried that your food would run out before you got the money to buymore.Patient vkcatcop88/23/2023Within the past 12 months, the food you bought just didn't last and you didn't have money to get more.Patient grjnxfop22/23/2023RAPARE - TransportationAnswerDate RecordedIn the past 12 months, [...] sleep or slept in ashelter (including now)?Patient mymoicx3402/22/2023CommentsUnknownSex and Gender InformationValueDate RecordedSex Assigned at DpflfXfsiwo25/23/2023 10:46 AM EDTLegal SexFemale 09/14/2022 7:00 PM EDTGender HktodnnnIkryin15/23/2023 10:46 AM EDTSexual OrientationNot on filedocumented as of this encounter Plan of Treatment DateTypeDepartmentCare Team (Latest Contact Info)Wbpyvsqjilu69/17/2026 8:00 AM EDTOffice Visit [facility] [address] [place] [address] Belén Montanez PA [address] [place] [address] documented as of this encounter Goals GoalPatient [...] MemberRelationshipSpecialtyStart DateEnd Date Bebo Escalante MD [address] [place] [address] PCP - GeneralInternal Medicine12/01/22 Bebo Escalante MD [address] [facility] [address] [place] [address] PCP - Devoted08/03/2411documented as of this encounter
--- OUTSIDE RECORDS SUMMARY | 2025-06-16 19:55 | XMS_ITS | Clinical Summary ---
Author Organization [employer] tem Address [id number] [address] [place] [address] Care Team Providers Care Seasoning Mixer Name Role Phone Unavailable Primary Care Provider Unavailabl e Encounters DateTypeDepartmentCare CwvlYlpgsnodcce94/24/2025Travelfrom Last 3 Months Social History Tobacco UseTypesPacks/DayYears UsedDateSmoking Tobacco: Never AssessedChildcare AnswerDate TiavjrbiNwbynaulfVokviqw65/12/2019EmploymentAnswerDate Recorded CfystabnlgQogqscv64/12/2019CommentsUnknownSex and Gender Information ValueDate RecordedSex Assigned at BirthNot on fileLegal VlcVsmvpq88/06/2015 12:02 PM EDTGender IdentityNot on fileSexual OrientationNot on file Plan of Treatment Health MaintenanceDue DateLast DoneCommentsDepression Vnbtblwof02/02/1958Tobacco Pkcrxrdow36/02/1958Fall Risk Rjumxyqss74/02/2011COVID-19 Vaccine ( season), 05/07/2021, 09/23/2020, Additional history exists DTaP,Tdap and Td Vaccines (2 - Td or Tdap)603/, 09/15/2015RSV ( or age 60+ yrs)Jaznjjare58/03/2024Zoster (Shingles) VaccineCompleted 09/16/2024, 02/26/2024, 04/20/2015, Additional history existsInfluenza Vaccine Pnvoottas54/15/2025, 04/04/2024, 04/20/2023, Additional history exists Medical Devices Not on file Insurance
--- OUTSIDE RECORDS SUMMARY | 2025-06-16 19:55 | XMS_ITS | Clinical Summary ---
Author Organization [facility] Address [address] [place] [address] Care Team Providers Care Stock Digger Name Role Phone Bebo Escalante MD Primary Care Provider [phone] Bebo Escalante MD Unavailable [phone] Allergies Active AllergyReactionsCriticalityNoted VtyxDaiaicliEbqqgiuzjmZgszRcgk24/21/2024 Iodinated Contrast Media12/11/2012 Other Reaction(s): Unknown Ypoaty8306/28/2021 Other Reaction(s): Unknown Medications MedicationSigDispense QuantityRefillsLast FilledStart DateEnd DateStatus ascorbic acid (Vitamin C) 500 mg/mL oral liquid Take by mouth.Active calcium citrate 600 mg and vitamin D3 (Citrical & Minerals + Vit D) 600-200 MG- UNIT tablet Active cholecalciferol (Vitamin D-3) 50 MCG (2000 UT) capsule 1 capsule 1 (one) time each day at the same time.Active TRUEplus Lancets 33G [facility] 09/05/2022ctive zinc gluconate 50 MG tablet 1 (one) time each day at the same time.Active lisinopril 10 MG tablet Indications:Benign essential hypertensionTAKE 1 TABLET ONE TIME DAILY 90 tablet ctive Additional Information Patient taking differently: 5 mgOral Daily, Reported on 05/05/2025 triamterene-hydrochlorothiazide (Maxzide-25) 37.5-25 MG tablet Indications:Primary hypertensionTake 1 tablet by mouth 1 (one) time each day at the same time 100 tablet ctive meloxicam (Mobic) 15 MG tablet Indications:Osteoarthritis of multiple joints, unspecified osteoarthritis type Take 1 tablet (15 mg) by mouth Daily 100 tablet 5Active PARoxetine (Paxil) 20 MG tablet Indications:Depression, unspecified depression typeTAKE 1 TABLET BY MOUTH EVERY DAY IN THE MORNING 90 tablet 5Active baclofen (Lioresal) 10 MG tablet Indications:Compression fracture of lumbar vertebra with routine healing, unspecified lumbar vertebral level, subsequent encounterTAKE 1 TABLET BY MOUTH EVERYDAY AT BEDTIME 100 tablet 5Active carvedilol (Coreg) 12.5 MG tablet Indications:Benign essential hypertensionTAKE 1 TABLET (12.5 MG) BY MOUTH IN THE MORNING AND 1 TABLET (12.5 MG) BEFORE BEDTIME. 200 tablet 5Active omeprazole (PriLOSEC) [address] capsule Indications:Gastroesophageal reflux disease without esophagitisTAKE 1 CAPSULE (20 MG) BY MOUTH IN THE MORNING AND 1 CAPSULE (20 MG) BEFORE BEDTIME. 200 capsule 5Active simvastatin (Zocor) 40 MG tablet Indications:HypercholesteremiaTAKE 1 TABLET BY MOUTH AT BEDTIME 100 tablet 5Active True Metrix Blood Glucose Test test strip Indications:Type 2 diabetes mellitus with stage 3a chronic kidney disease, without long-term current use of insulin (HCC)USE DIRECTED DAILY 100 strip tive Blood Glucose Monitoring Suppl (Blood Glucose Monitor System) w/Device kit Indications:Type 2 diabetes mellitus with stage 3a chronic kidney disease, without long-term current use of insulin ([facility])1 each Daily 1 kit 5Active Lancets 30G [facility] Indications:Type 2 diabetes mellitus with stage 3a chronic kidney disease, without long-term current use of insulin ([facility])1 each Daily 100 each 5Active Albuterol-Budesonide (Airsupra) 90-80 MCG/ACT aerosol InhaleActive Multiple Vitamins-Minerals (CENTRUM SILVER 50+WOMEN PO) Take 1 tablet by mouth DailyActive albuterol (2.5 MG/3ML) 0.083% nebulizer solution Indications:Pneumonia due to infectious organism, unspecified laterality, unspecified part of lung,Recurrent bronchospasmINHALE 3 ML VIA NEBULIZATION EVERY 6 HOURS NEEDED FOR WHEEZE 75 mL 5Active Active Problems ProblemNoted DateDiagnosed DateAmbulatory uogphiyxuhf22/03/2025Hypertension 05/05/20259290Cbkqoiaqeurx47/03/2025Decreased diffusion capacity of lung10/10/2024 Primary osteoarthritis of right knee12/29/2023Status post right knee replacement 4Right knee pain12/28/2023ftercare following right knee joint replacement zjiyqzv2412/28/2023Total knee replacement hqckye6612/27/2023bnormal CT of the chest07/31/2023ecurrent wkmjnyaimdto35/30/2023Mediastinal mass03/01/2023 Abnormal mammogram of right arlijn8602/15/2023reast joiarz7702/15/2023 Overview (02/15/2023): Left; Stage IIB;ER/LA+ HER2+ Compression fracture of zjwaawxv16/16/2023eneralized nzrcegazqgvthz71/16/2023 History of frowvucilivc78/16/8052Ejgihekidrgktvpcrf56/16/2023lass 2 severe obesity due to excess calories with serious comorbidity and body mass index (BMI) of37.0 to 37.9 in adult02/15/2023Stage 3a chronic kidney dikspky4002/15/2023 Overactive sawzjqa2502/03/2021yst of left ovary05/27/2020Sleep apnea05/27/2020 Urinary /19/2020Pure nheyfnqdlunbqoadimcd97/16/2019Other primary ovarian rtxwflo5302/23/2017Type 2 diabetes mellitus with kidney complication, without long-term current use of rkkvoio3602/23/20172103Elaceigaem10/23/2016H/O left qmlsayuozy91/12/2016Benign essential owgkyxuqzanl10/08/2016Gastroesophageal reflux disease without wwisfphionf27/08/2016Pathological fracture of vertebra 09/08/2015Recurrent major depressive disorder, in full /08/2016Edema 09/08/20155913Wfmmytipys47/08/2016Hiatal wirflh4109/08/20151991Amxhgjuomcsuho54/08/2016 Resolved Problems ProblemNoted DateDiagnosed DateResolved DateAcute hypoxemic respiratory failure /04/2025 Encounters DateTypeDepartmentCare UdssEehsxohwomh65/12/2025bstract [facility] [address] [place] [address] Bebo Escalante MD 06/12/2025bstract [facility] [address] [place] [address] Bebo Escalante MD 06/12/2025linisync Result Encounter [facility] External Department Unsolicited Bebo Escalante MD 06/04/2025bstract [facility] [address] [place] [address] Bebo Escalante MD 05/22/2025Telephone [facility] [address] [place] [address] Bebo Escalante MD 05/22/2025Telephone [facility] [address] [place] [address] Bebo Escalante MD mammogram order05/16/2025Refill [facility] [address] [place] [address] Bebo Escalante MD Pneumonia due to infectious organism, unspecified laterality, unspecified part of lung; Recurrent bronchospasm; Type 2 diabetes mellitus with stage 3a chronic kidney disease, without long-term current use of insulin ([facility])05/15/2025Telephone [facility] [address] [place] [address] Bebo Escalante MD breast ddudtmiylw69/13/2025Telephone [facility] [address] [place] [address] Bebo Escalante MD breast pxhkoymklz80/04/2025bstract [facility] [address] [place] [address] Bebo Escalante MD 05/05/2025 10:30 AM ESTOffice Visit [facility] [address] [place] [phone] Belén Lr PA Obstructive sleep apnea syndrome (Primary Dx); Class 2 severe obesity due to excess calories with serious comorbidity and body mass index (BMI) of37.0 to 37.9 in adult; Recurrent major depressive disorder, in full gxmxuwvne08/03/2025amboo flowsheet [facility] [address] [place] [phone] Belén Lr PA 05/05/20255739Gyrpkk98/16/2025[facility]phone [facility] [address] [place] [address] Bebo Escalante MD 04/16/2025[facility] [address] [place] [phone] Bebo Escalante MD Type 2 diabetes mellitus with stage 3a chronic kidney disease, without long-term current use of insulin ([facility])04/16/2025[facility] [address] [place] [phone] Orlin Olivo PA S/P TKR (total knee replacement), right03/19/2025 9:30 AM EDTOffice Visit [facility] [address] [facility] [address] [place] [phone] Jr. David Calderon, S/P TKR (total knee replacement), right03/19/2025 9:20 AM EDTAncillary Procedure [facility] [address] [place] [address] 03/19/2025amboo flowsheet [facility] [address] [place] [address] Jr. David Calderon, 03/19/20253293Fhmpon59/15/2025[facility]ill [facility] [address] [place] [address] Bebo Escalante MD Benign essential hypertension ; Gastroesophageal reflux disease without esophagitis; Hypercholesteremiafrom Last 3 Months Immunizations ImmunizationAdministration DatesNext DueHep B, Adolescent or Cianumujk52/14/1995 ,01/30/1995Influenza, High Dose Seasonal, Preservative Free04/16/2025,04/04/2024 ,04/13/2022,04/01/2020,04/16/2018Influenza, Seasonal, Quadrivalent, Adjuvanted 04/20/2023Influenza, seasonal, eoauyikpde81/11/2013Influenza, seasonal, injectable, preservative free04/23/2014Influenza, seasonal, intradermal, preservative free03/10/2015,04/09/2010Influenza, trivalent, kauitjyjrh31/05/2021 ,04/05/2019,04/11/2018,04/05/2017,04/06/2016MMR01/30/1995Moderna Bivalent Booster Nxextioajsa04/12/2022Moderna SARS-CoV-2 50mcg/0.5mL Wifhvga8504/13/2022 Pneumococcal Conjugate PCV 13003/19/2015,03/03/2015Pneumococcal Polysaccharide UHHA0331,08/10/2001RSV, recombinant, protein subunit RSVpreF, adjuvant reconstitu, 120mcg/0.5mL, PF (Arexvy)04/04/2024Td (adult), 5 Lf tetanus toxoid, preservative free, csibhwru91/15/9046Srvc43/15/2016Zoster, Lextcjxcnrq21/17/2025 ,02/26/2024Zoster, live04/20/2015,03/03/2015 Family History Medical HistoryRelationNameCommentsEmphysemaFatherCancerMotherHypertensionMother COPDSiblingDiverticulosisSiblingGER diseaseSiblingHypothyroidismSiblingKidney diseaseSiblingOsteoarthritisSiblingOsteopeniaSiblingRelationNameStatusComments FatherDeceasedMotherDeceasedSiblingAlive Social History Tobacco UseTypesPacks/DayYears UsedDateSmoking Tobacco: NeverSmokeless Tobacco: Never Tobacco Cessation:Counseling Given: Not Answered Alcohol UseStandard Drinks/WeekCommentsNever0 (1 standard drink = 0.6 [...] with Friends and FamilyNot on file02/22/2023 Attends Orthodoxy ServicesNot on file02/22/2023ctive Member of Clubs or OrganizationsNot on file02/22/2023How often do you attend meetings of the clubs or organizations you belong to?Never02/22/2023re you , , , , never , or living with a partner?Wvktqrs4502/22/2023 AUDIT-CAnswerDate RecordedQ1: How often do you have [...] at all 02/22/2023HQ-2AnswerDate RecordedPatient Health Questionnaire-2 Score0 05/05/2025[facility] [place] [facility] - Occupational Stress QuestionnaireAnswerDate RecordedDo you feel stress - tense, restless, nervous, or anxious, or unable to sleep at night because yourmind is troubled all the time - these days?Only a kclmhq4202/22/2023Exercise Vital SignAnswerDate Recorded Days of Exercise per WeekNot on file02/22/2023On average, how many minutes do you engage in exercise at this level?Patient xliybnmq85/23/2023Hunger Vital Sign AnswerDate RecordedWithin the past 12 months, you worried that your food would run out before you got the money to buymore.Patient /23/2023Within the past 12 months, the food you bought just didn't last and you didn't have money to get more.Patient jmosentr86/23/2023RAPARE - TransportationAnswerDate RecordedIn the past 12 months, [...] steady place to sleep or slept in [facility] (including now)?Patient dwzkmyj6702/22/2023CommentsUnknownSex and Gender InformationValueDate RecordedSex Assigned at OjwauNkctxw32/23/2023 10:46 AM EDTLegal SexFemale 09/14/2022 7:00 PM EDTGender XeqfvqsmFcfmso97/23/2023 10:46 AM EDTSexual OrientationNot on file Last Filed Vital Signs Vital SignReadingTime TakenCommentsBlood Zuatjaew77/7411 10:41 AM EST Crfuc841305/05/2025 10:41 AM ESTTemperature--Respiratory Svvo490407/05/2024 10:41 AM ESTOxygen Zaadwtblud10%05/05/2025 10:41 AM ESTInhaled Oxygen Concentration-- Rlvmdk37.4 kg (190 lb 6.4 oz)05/05/2025 10:41 AM VCHMbnxtk186.4 cm (5') 05/05/2025 10:41 AM ESTBody Mass Index37.18107/05/2024 10:41 AM EST Plan of Treatment DateTypeDepartmentCare Team (Latest Contact Info)Zyapldoabgp03/17/2026 8:00 AM EDTOffice Visit [facility] [address] [facility] [address] [place] [address] Belén Lr PA [address] [facility] [address] [place] [address] Health MaintenanceDue DateLast DoneCommentsCOVID-19 Vaccine ( season) , 04/13/2022, 05/07/2021, Additional history existsDiabetes: Hemoglobin A1C/, 07/25/2024, 03/11/2024, Additional history existsDiabetes: Urine Protein Wlgivajko19/21/344450/, 02/24/2020, 02/15/2019, Additional history existsMedicare Annual Wellness (AWV)10/10/2025 10/10/2024, 03/11/2024, 3Diabetes: Retinopathy Pccadwbzb69/14/2026 02/13/2025, 08/13/2024, 08/03/2023, Additional history existsPneumococcal Vaccine: 65+ VonayUfvpvbpdd31/17/2015, 03/03/2015, 02/17/2015, Additional history existsInfluenza QeuolbfRtymxegqf57/15/2025, 04/04/2024, 04/20/2023, Additional history exists Goals GoalPatient Goal TypeAssociated ProblemsRecent ProgressPatient-Stated?Author Help patient manage antidepressant medication Care PlanPatient on antidepressant monitoring Taty Workman MA Baseline PHQ-9 Care PlanBaseline PHQ-9Taty Diaz MA Procedures Procedure NamePriorityDate/TimeAssociated DiagnosisCommentsBI MAMMOGRAM SCREENING TOMOSYNTHESIS RIGHT06/12/2025 3:06 PM EST XR KNEE 1-2 VIEWS FVDGQSewvfby69/17/2025 9:18 AM EDT S/P TKR (total knee replacement), right DIABETIC RETINOPATHY SCREENING - OU - BOTH FCRZZqrotjl17/14/2025 POCT GLYCATED HEMOGLOBIN, CIXVLDiqlczv21/16/2025 8:45 AM EDT Type 2 diabetes mellitus with stage 3a chronic kidney disease, without long-term current use of insulin (HCC) MICROALBUMIN / CREATININE URINE WXFSYGxnkbgq61/21/2025 from Last 3 Months or Most Recently Relevant to Health Maintenance Results * Right screening mammogram with tomosynthesis (06/12/2025 3:06 PM EST) Anatomical RegionLateralityModalityBreastRightMammographySpecimen (Source) Anatomical Location / LateralityCollection Method / VolumeCollection Time Received Time06/12/2025 3:06 PM EST Narrative 06/12/2025 3:07 PM EST [facility] ?[address] ? [place] [address] ? Mammography Report ? Signed ? Patient: KELLIE RUBIO ?MR#: [id number] ?? : 1945 ?Acct:[id number] ?? Age/Sex: 79 / F ?ADM Date: 06/12/25 ?? Loc: MAMMO ? Attending Dr: BEBO ESCALANTE ? Ordering Physician: BEBO ESCALANTE ? Results: ? Date of Service: 06/12/25 ?Follow Up: ? Procedure(s): MM tomosynthesis screening RT ?? Accession Number(s): [id number] ? cc: BEBO ESCALANTE ; BELÉN LR ? Patient Name: ? KELLIE RUBIO ? MR#: [id number] ? : 1945 ? Exam Date: 06/12/2025 [...] at age ??60. ? LOCATION: ? [facility] ? BREAST COMPOSITION: ? There are scattered [...] on 06/12/2025 at 15:06 ? Dictated By: ?Kevin Amado D.O. ? Signed By: ?06/12/25 1507 ? DD/ 1506 ? TD/TT: ? Editor Producer: Procedure Note Radiology, Radiologist, MD - 06/12/2025 [place] [address] Mammography Report Signed Patient: KELLIE RUBIO KMR#: [id number] : 6Acct:[id number] Age/Sex: 79 / FADM Date: 06/12/25 Loc: MAMMO Attending Dr: BEBO ESCALANTE Ordering Physician: Surjit ESCALANTEults: Date of Service: 06/12/25Follow Up: Procedure(s): MM tomosynthesis screening RT Accession Number(s): [id number] cc: BEBO ESCALANTE ; BELÉN LR Patient Name: KELLIE RUBIO MR#: [id number] : 1945 Exam Date: 06/12/2025 Ordering Doctor: [...] uterine cancer at age 60. LOCATION: [facility] BREAST COMPOSITION: There are scattered areas of fibroglandulardensity. FINDINGS: RIGHT BREAST: No significant suspicious finding. Stereotactic biopsymarking clip redemonstrated. DIAGNOSTIC CATEGORY 1--NEGATIVE. RECOMMENDATIONS: ROUTINE MAMMOGRAM AND CLINICAL EVALUATION IN 12 MONTHS. Dictated by: Kevin Amado DO on 06/12/2025 at 15:04 Approved by: Kevin Amado, DO on 06/12/2025 at 15:06 Dictated By: Kevin Amado D.O. Signed By:06/12/25 1507 DD/ 1506 TD/TT: Editor Producer: Authorizing ProviderResult TypeResult Rafita Escalante MDIMG BI PROCEDURES Final Result * XR knee 1 or 2 views right (03/19/2025 9:18 AM EDT)Anatomical RegionLaterality ModalityLower Extremities, KneeRightRadiographic ImagingSpecimen (Source) Anatomical Location / LateralityCollection Method / VolumeCollection Time Received Time Narrative 03/19/2025 9:37 AM EDT Imaging Result: AP and lateral ??of right knee showed surgical position and alignment of prosthetic components without evidence of loosening or wear to the ?? femoral, tibial, or patellar components. ??The alignment appeared to be anatomic. ?? There was no evidence of accelerated or asymmetric wear to the patellar button or tibial tray. ??There was no evidence of fracture and/or dislocation. ??Impression: Unremarkable right total knee arthroplasty. Authorizing ProviderResult TypeResult StatusJr. David Calderon [facility] XR PROCEDURESFinal Result * (ABNORMAL) Diabetic Retinopathy Screening - OU - Both Eyes (02/13/2025) ComponentValueRef RangeTest MethodAnalysis TimePerformed AtPathologist SignatureRESULTSabnAnatomical RegionLateralityModalityHeadOtherSpecimen (Source)Anatomical Location / LateralityCollection Method / VolumeCollection TimeReceived Time02/13/2025 Narrative Authorizing ProviderResult TypeResult Rafita Escalante MDOPHTH PHOTOGRAPHY Final Result * POCT Glycated hemoglobin, total (12/16/2024 8:45 AM EDT)ComponentValueRef RangeTest MethodAnalysis TimePerformed AtPathologist SignatureHemoglobin A1C 6.4Specimen (Source)Anatomical Location / LateralityCollection Method / Volume Collection TimeReceived YdsdExalc71/16/2025 8:45 AM EDT Narrative Authorizing Jono TypeResult Rafita Escalante MDPOINT OF CARE TEST ENTER/EDIT ORDERABLESFinal Result * Microalbumin / creatinine urine ratio (09/20/2024)ComponentValueRef RangeTest MethodAnalysis TimePerformed AtPathologist SignatureALB/CREAT HVWFG6Zzurehhz (Source)Anatomical Location / LateralityCollection Method / VolumeCollection TimeReceived TimeUrineUrine specimen obtained by clean catch procedure / Ykekmbk6109/20/2024 Narrative Authorizing ProviderResult TypeResult StatusDanikhai MAO URINE ORDERABLESFinal Result from Last 3 Months or Most Recently Relevant to Health Maintenance Additional Health Concerns Active ProblemsNoted DateDiagnosed DatePatient on antidepressant monitoring plan 4Baseline PHQ-9002/02/2024 Insurance Care Teams Team MemberRelationshipSpecialtyStart DateEnd Date Bebo Escalante MD [address] [facility] [address] [place] [address] PCP - GeneralInternal Medicine12/01/22 Bebo Escalante MD [address] [facility] [address] [place] [address] PCP - Devoted08/03/2411
--- OUTSIDE RECORDS SUMMARY | 2025-06-16 19:55 | XMS_ITS | Clinical Summary ---
Author Organization [facility] Address [address] [place] [address] Care Team Providers Care Silviculture Forester Name Role Phone Marjorie Small MD Primary Care Provider [phone] Allergies Active AllergyReactionsCriticalityNoted DateCommentsContrast DyeUnknown 12/11/2012 Medications MedicationSigDispense QuantityRefillsLast FilledStart DateEnd DateStatus PARoxetine (PAXIL) 20 mg tablet Take 1 tablet by mouth once daily.ctive carvedilol (COREG) 12.5 mg tablet Take 1 tablet by mouth twice daily.ctive calcium-cholecalciferol, D3, 250-125 mg-unit per tablet Take 1 tablet by mouth twice daily.ctive simvastatin (ZOCOR) 40 mg tablet Take 20 mg by mouth daily at bedtime.ctive triamterene-hydrochlorothiazide 37.5-25 mg per capsule Take 1 capsule by mouth once daily.ctive MULTIVITAMIN W-MINERALS/LUTEIN (CENTRUM SILVER ORAL) Take by mouth.Active ASCORBIC ACID (VITAMIN C ORAL) Take by mouth.Active OMEPRAZOLE 20 mg capsule Take 20 mg by mouth once daily.12/05/2013ctive ALENDRONATE 70 mg tablet Take 70 mg by mouth once each week.12/05/2013ctive ibuprofen (MOTRIN IB) 200 mg tablet Take 200 mg by mouth every 6 hours as needed.Active Active Problems ProblemNoted DateDiagnosed DateBreast cancer Overview (12/11/2012): Left; Stage IIB;ER/SC+ HER2+ Social History Tobacco UseTypesPacks/DayYears UsedDateSmoking Tobacco: FormerSmokeless Tobacco: NeverAlcohol UseStandard Drinks/WeekCommentsNo0 (1 standard drink = 0.6 oz pure alcohol)CommentsNoSex and Gender InformationValueDate RecordedSex Assigned at BirthNot on fileLegal AtsIfabeb69/02/2012 10:12 AM ESTGender IdentityNot on fileSexual OrientationNot on file Last Filed Vital Signs Vital SignReadingTime TakenCommentsBlood Spmfjyeo045/7606 2:05 PM EDT Tcgdd372312/24/2013 2:05 PM YOYEcrwnzcwzmo01.9 ??C (98.5 ??F)12/24/2013 2:05 PM EDTRespiratory Chtv438412/24/2013 2:05 PM EDTOxygen Saturation--Inhaled Oxygen Concentration--Cyhiml28.7 kg (184 lb 9.6 oz)12/24/2013 2:05 PM HCWDxehut278.4 cm (5')12/24/2013 2:05 PM EDTBody Mass Index36.05012/24/2013 2:05 PM EDT Plan of Treatment Health MaintenanceDue DateLast DoneCommentsAnxiety Jmbbbisai65/02/1964Depression Gzsobesfd73/02/1964DTaP,Tdap,Td Vaccine (1 - Tdap)1964Pneumococcal Vaccine: 50+ (1 of 1 - PCV)12/03/1995Shingrix Vaccine (1 of 2)12/03/1995Bone Density Eciqxzfgi32/02/2011Diabetes Ognbcnuzz00, 12/25/2012RSV Vaccine (1 - 1-dose 75+ series)2020dvance Directive Sqdfijrdtd33/01/2025 Covid-19 Vaccine ( - 2024-26 season)2025Influenza Vaccine (#1)2025 Procedures Procedure NamePriorityDate/TimeAssociated DiagnosisCommentsCOMPREHENSIVE METABOLIC ISIDXYimmets88/24/2014 2:20 PM EDT Breast cancer (HCC) from Last 3 Months or Most Recently Relevant to Health Maintenance Results * (ABNORMAL) COMP METABOLIC PANEL (12/24/2013 2:20 PM EDT)ComponentValueRef RangeTest MethodAnalysis TimePerformed AtPathologist SignatureProtein, Total 7.16.0 - 8.4 g/dLCOREY [facility]OSPITAL LABORATORYAlbumin4.23.5 - 5.0 g/dL [facility] BKVNTGBTRSMzswkrq65.0(H)8.5 - 10.5 mg/dLCOREY HOSPITAL LABORATORYBilirubin, Total0.30.0 - 1.5 mg/dLCOREY HOSPITAL LABORATORYAlkaline Uhnnioxkhqm1730 - 150 U/L[facility] LAB[facility]ATORY BJN403 - 40 U/L[facility] OWLELANQLUTpflaxp376(H)65 - 100 mg/dL [facility] XXCGYIHYKPKFL970 - 25 mg/dLCOREY HOSPITAL LABORATORYCreatinine0.920.70 - 1.40 mg/dLCOREY HOSPITAL LABORATORY Ajdpfz404744 - 148 mmol/LCOHIO [facility] LABORATORYPotassium4.13.5 - 5.0 mmol/LCO[facility] XYFHWKAMLZMvnuhkil6511 - 110 mmol/LCO[facility] MYKAVIQUNPBG97401 - 32 mmol/LCO[facility] LABORATORYAnion Ian105 - 15 mmol/L[facility] JTCNRXSZABMUK501 - 45 U/LCOH[facility] LABORATORYeGFR->60[facility] eGFR-All Other Races>60.[facility] LABORATORYComment: eGFR (Estimated GFR) Units of measure: mL/min/1.73 meters squared eGFR is derived from the reexpressed MDRD Study equation using the following parameters: serum creatinine, age, gender and race. The creatinine assay has been calibrated to be traceable to IDMS. An eGFR <60 mL/min/1.73m2 for >3 months is consistent with chronic kidney disease. Refer to KDOQI guidelines for clinical interpretation. Specimen (Source)Anatomical Location / LateralityCollection Method / Volume Collection TimeReceived TimeBlood specimen (specimen)BLOOD SPECIMEN / Unknown 12/24/2013 2:20 PM EDT12/24/2013 2:22 PM EDT Narrative Authorizing ProviderResult TypeResult StatusBrcheyanne Ramsey MDLABORATORY Final ResultPerforming OrganizationAddressCity/State/ZIP CodePhone Number [facility] [address] [place] [address] from Last 3 Months or Most Recently Relevant to Health Maintenance Care Teams Team MemberRelationshipSpecialtyStart DateEnd Date Marjorie Small MD [address] [place] [phone] PCP - Generalmi Medicine12/25/12
--- OUTSIDE RECORDS SUMMARY | 2025-06-16 19:55 | XMS_ITS | Encounter Summary ---
Author Organization [facility] Address [address] [place] [address] Care Team Providers Care Unified Communications Engineer Name Role Phone Bebo Escalante MD Primary Care Provider [phone] Bebo Escalante MD Unavailable [phone] Encounter Details DateTypeDepartmentCare Team (Latest Contact Info)Tvbgxdkpgbz26/11/2025Abstract [facility] [address] [place] [id number] Bebo Escalante MD [address] [facility] [address] [place] [address] Social History Tobacco UseTypesPacks/DayYears UsedDateSmoking [...] with Friends and FamilyNot on file02/22/2023 Attends Yazidism ServicesNot on file02/22/2023ctive Member of Clubs or OrganizationsNot on 02/22/2023How often do you attend meetings of the clubs or organizations you belong to?Never02/22/2023re you , , , , never , or living with a partner?Lhqxnxo3302/22/2023 AUDIT-CAnswerDate RecordedQ1: How often do you have [...] at all 02/22/2023HQ-2AnswerDate RecordedPatient Health Questionnaire-2 Score0 05/05/2025[facility] [place] [facility] - Occupational Stress QuestionnaireAnswerDate RecordedDo you feel stress - tense, restless, nervous, or anxious, or unable to sleep at night because yourmind is troubled all the time - these days?Only a hrmefj2102/22/2023Exercise Vital SignAnswerDate Recorded Days of Exercise per WeekNot on file02/22/2023On average, how many minutes do you engage in exercise at this level?Patient mqnpofmw78/23/2023Hunger Vital Sign AnswerDate RecordedWithin the past 12 months, you worried that your food would run out before you got the money to buymore.Patient yzmkuxrc31/23/2023Within the past 12 months, the food you bought just didn't last and you didn't have money to get more.Patient pmbzntyh60/23/2023RAPARE - TransportationAnswerDate RecordedIn the past 12 months, [...] sleep or slept in ashelter (including now)?Patient dlfljjd7202/22/2023CommentsUnknownSex and Gender InformationValueDate RecordedSex Assigned at SijelHmfbvb14/23/2023 10:46 AM EDTLegal SexFemale 09/14/2022 7:00 PM EDTGender JtswkdfkJdnhjz57/23/2023 10:46 AM EDTSexual OrientationNot on filedocumented as of this encounter Plan of Treatment DateTypeDepartmentCare Team (Latest Contact Info)Ezdocgapryt27/17/2026 8:00 AM EDTOffice Visit [facility] [address] [place] [phone] Belén Montanez PA [address] [place] [address] documented as of this encounter Goals GoalPatient [...] MemberRelationshipSpecialtyStart DateEnd Date Bebo Escalante MD [address] [place] [address] PCP - GeneralInternal Medicine12/01/22 Bebo Escalante MD [address] [facility] [address] [place] [address] PCP - Devoted08/03/2411documented as of this encounter
== END 2025-06-16 19:53 | disposition home or self-care (01) ==
LOC: SLEEP 19:53
PROVIDERS: PCP Physician Assistant; Visit Provider Physician Assistant
DX: G47.33 Obstructive sleep apnea (adult) (pediatric) (principal)
CPT/HCPCS: 95811